=== PATIENT | male | born 1950 | race American Indian/Alaskan Native ===

== ENCOUNTER 2019-08-15 13:03 | Inpatient (IN) | payer MEDICARE ==
[2019-08-15] MEDS ORDERED: SODIUM CHLORIDE 0.9% 1000 ML IV SOLN IV STA (13:10)
[2019-08-15] MEDS ORDERED: MAGNESIUM SULFATE 2 GM/50 ML BAG IV ONE ×2 (13:10→13:14)
[2019-08-15] MEDS ORDERED: ALBUTEROL 2.5 MG/3 ML NEBU IH ONE (13:15)
[2019-08-15 14:02] LABS: Basophils % (Auto) 0.3 % (0.0-1.8); Hematocrit 41.2 % (35.5-45.6); Hemoglobin 13.5 gm/dl (11.8-15.2); Lymphocytes # (Auto) 2.4 K/mm3 (1.2-5.4); Lymphocytes % (Auto) 16.5 % (13.4-35.0); Mean Corpuscular HGB Conc 33 % (32-34); Mean Corpuscular Volume 88 fl (84-94); Monocytes # (Auto) 1.7 K/mm3 (0.0-0.8); Monocytes % (Auto) 11.3 % (0.0-7.3); Platelet Count 144 K/mm3 (140-440); Red Blood Count 4.66 M/mm3 (3.65-5.03); Red Cell Distribution Width 17.3 % (13.2-15.2)
[2019-08-15] MEDS: cefTRIAXone/NS 2 GM/100 ML 2 GM/100 ML BAG IV SCH (14:02)
[2019-08-15 14:22] LABS: Albumin 3.6 g/dL (3.9-5); Calcium 8.6 mg/dL (8.4-10.2)
--- NOTE | 2019-08-15 14:28 | XRay Report ---
CHEST 1 VIEW INDICATION / CLINICAL INFORMATION: cough and chest pain. COMPARISON: None available. FINDINGS: SUPPORT DEVICES: None. HEART / MEDIASTINUM: The claudette mediastinal silhouette is slightly prominent. LUNGS / PLEURA: Interstitial markings are prominent bilaterally. Either atelectasis or pleural effusi on is noted bilaterally. No pneumothorax. ADDITIONAL FINDINGS: No significant additional findings. IMPRESSION: 1. Mild interstitial pulmonary edema with possible small pleural effusions. Signer Name: Jaret Vega MD Signed: 08/15/2019 2:24 PM Workstation Name: [id number]
[2019-08-15] MEDS: AZITHROMYCIN 500 MG in SODIUM CHLORIDE 0.9% 250ML 250 ML IV SCH (15:22)
--- NOTE | 2019-08-15 15:40 | Emergency Department Report ---
<ASIA BOWENS - Last Filed: 08/15/19 15:36> ED Shortness of Breath HPI - General Chief Complaint: Dyspnea/Respdistress Stated Complaint: BETZY Time Seen by Provider: 08/15/19 13:09 Source: patient, family, EMS Mode of arrival: Stretcher Limitations: No Limitations - History of Present Illness Initial Comments: 68-year-old obese -[place] male presents emergency department with shortness of breath and fever. He was initially at the urgent care where he reportedly had a positive influenza a and chest x-ray showed bilateral pneumonia. Due to his progressively worsening dyspnea and diagnostic findings EMS was dispatched to bring him to the emergency department for further evaluation and treatment options. The family reports that he's been having shortness of breath and feverish sensations with a cough for the last 2 days reports no hemoptysis, hematemesis, hematochezia having dark green sputum. MD Complaint: shortness of breath, pain with inspiration -: Gradual Severity: mild Consistency: constant Worsens With: lying flat, exertion Context: recent URI Associated Symptoms: cough, sputum production - Related Data Allergies Allergy/AdvReac Type Severity Reaction Status Date / Time No Known Allergies Allergy Unverified 08/15/19 13:08 ED Review of Systems Comment: All other systems reviewed and negative ED Past Medical Hx - Past Medical History Previous Medical History?: Yes Hx Hypertension: Yes - Surgical History Past Surgical History?: No ED Physical Exam - General Limitations: No Limitations General appearance: alert, in no apparent distress - Head Head exam: Present: atraumatic, normocephalic - Eye Eye exam: Present: normal appearance, PERRL, EOMI Pupils: Present: normal accommodation - ENT ENT exam: Present: normal exam, normal orophraynx, mucous membranes moist, TM's normal bilaterally - Neck Neck exam: Present: normal inspection, full ROM - Respiratory Respiratory exam: Present: normal lung sounds bilaterally. Absent: respiratory distress, wheezes, rales, chest wall tenderness, accessory muscle use - Cardiovascular Cardiovascular Exam: Present: regular rate, normal rhythm. Absent: systolic murmur, diastolic murmur, rubs, gallop - GI/Abdominal GI/Abdominal exam: Present: soft, normal bowel sounds - Rectal Rectal exam: Present: deferred - Extremities Exam Extremities exam: Present: normal inspection, normal capillary refill - Back Exam Back exam: Present: normal inspection. Absent: CVA tenderness (R), CVA tenderness (L) - Neurological Exam Neurological exam: Present: alert, oriented X3, CN II-XII intact, normal gait - Psychiatric Psychiatric exam: Present: normal affect, normal mood. Absent: anxious, flat affect - Skin Skin exam: Present: warm, dry, intact, normal color. Absent: rash, cyanosis, diaphoretic, erythema ED Course - Reevaluation(s) Reevaluation #1: 08/15/19 16:01 Respirations improved with BiPAP patient is comfortable. Wheezing has improved with stabilization of magnesium and albuterol. - Consultations Consultation #1: 08/15/19 16:09 Case discussed with hospitalist Dr. Mejia plan to admit ED Medical Decision Making - Lab Data Result diagrams: 08/15/19 13:16 08/15/19 13:16 - Radiology Data Radiology results: report reviewed [address] [address] XRay Report Signed Patient: VINCE LOONEY III MR#: [id number] : 1950 Acct:[id number] Age/Sex: 68 / M ADM Date: 08/15/19 Loc: ED Attending Dr: Ordering Physician: REBECCA RONQUILLO Date of Service: 08/15/19 Procedure(s): XR chest 1V ap Accession Number(s): [id number] cc: REBECCA RONQUILLO Fluoro Time In Minutes: CHEST 1 VIEW INDICATION / CLINICAL INFORMATION: cough and chest pain. COMPARISON: None available. FINDINGS: SUPPORT DEVICES: None. HEART / MEDIASTINUM: The claudette mediastinal silhouette is slightly prominent. LUNGS / PLEURA: Interstitial markings are prominent bilaterally. Either atelectasis or pleural effusion is noted bilaterally. No pneumothorax. ADDITIONAL FINDINGS: No significant additional findings. IMPRESSION: 1. Mild interstitial pulmonary edema with possible small pleural effusions. Signer Name: Jaret Vega MD Signed: 08/15/2019 2:24 PM Workstation Name: [id number] Transcribed By: FIOR Dictated By: Jaret Vega MD Electronically Authenticated By: Jaret Vega MD Signed Date/Time: 08/15/19 1424 - Medical Decision Making This patient presents with dyspnea, most likely secondary to asthma, or pneumonia. Differential diagnosis includes viral syndrome, pneumonia, pleural effusion, COPD exacerbation, asthma,. Presentation not consistent with acute cardiac etiologies to include ACS, CHF, pericardial effusion / tamponade . Presentation not consistent with acute respiratory etiologies to include acute PE , pneumothorax , asthma, COPD exacerbation, allergic etiologies, or infectious etiologies such as PNA. Presentation also not consistent with non- cardiopulmonary causes to include toxidromes, metabolic etiologies such as acidemia or electrolyte derangements, sepsis, neurologic causes (i.e. demyelinating diseases). Plan: supplemental O2 and utilization of positive pressure ventilation on BiPAP, CXR, labs, troponin, close hemodynamic monitoring, serial reassessment After reviewing the x-ray report and laboratory findings case was discussed with the attending Dr. Rizvi supports the need for admission ED Disposition Disposition: -09 OP ADMIT IP TO THIS HOSP Is pt being admited?: Yes Does the pt Need Aspirin: No Condition: Fair Referrals: [facility] [Other] - 3-5 Days <MARZENA STINSON - Last Filed: 08/15/19 17:42> ED Review of Systems ROS: Stated complaint: BTEZY Other details as noted in HPI - Intubation Time Out Performed: Yes Sedative: Etomidate Paralytic: Rocuronium Laryngoscope: fiberoptic video scope Size: 3 ET Tube Size: 8 Tube Secured Depth (cm): 22 Tube Secured Location: lips Tube Placement Confirmation: visualized tube passing t Patient Tolerated Procedure: well Intubation Complications: none ED Medical Decision Making - Lab Data Result diagrams: 08/15/19 13:16 08/15/19 13:16 Critical care attestation.: If time is entered above; I have spent that time in minutes in the direct care of this critically ill patient, excluding procedure time.
--- NOTE | 2019-08-15 15:59 | History and Physical Report ---
History of Present Illness Chief complaint: He has not been doing well History of present illness: 68-year-old male with HTN, nicotine dependence, alcohol dependence, presents to ED for evaluation. At time of my exam patient is lethargic/stuporous on exam and is unable to provide history and is being actively treated with noninvasive positive pressure ventilation. Patient history is provided by son and daughter who are at but bedside during exam and interview. As per family the patient has experienced shortness of breath and progressive weakness over the past 3 days with worsening symptoms over the same timeframe. Patient presented to urgent care today and was diagnosed with influenza. Patient was seen and evaluated at urgent care and found to have a pulse oximetry of 58% on room air. Patient was placed on high flow supplemental oxygen and EMS was notified. Upon arrival the patient was found to be in distress and was transported to [facility] for further care and evaluation. Patient seen and evaluated in the emergency department. Patient lab and imaging studies reviewed. Patient was found to have respiratory and metabolic acidosis as well as acute respiratory failure with hypoxemia, bilateral pneumonia, sepsis, acute kidney injury. Patient is lying in bed, stuporous, unresponsive to verbal stimuli, diaphoretic, unable to follow commands, and in severe distress. Patient was intubated and placed on ventilatory support after failure of noninvasive positive pressure ventilation. Patient admitted to ICU and initiated on sepsis protocol. Pulmonology team consulted in ED. Patient found to have poor prognosis. Advanced care planning conducted in the emergency department. Patient family acknowledged understanding and agreement with care plan. No prior admission for review. No medication listed at time of admission for reconciliation. Past History Past Medical History: hypertension, other (See HPI) Past Surgical History: No surgical history, Other (Reviewed) Social history: , lives with family Family history: hypertension Medications and Allergies Allergies Allergy/AdvReac Type Severity Reaction Status Date / Time No Known Allergies Allergy Unverified 08/15/19 13:08 Active Meds: Active Medications Ceftriaxone Sodium (Rocephin/Ns 2 Gm/100 Ml) 2 gm in 100 mls @ 200 mls/hr IV Q2 4HR LEORA; Protocol Last Admin: 08/15/19 14:02 Dose: 200 mls/hr Documented by: Azithromycin 500 mg/ Sodium (Chloride) 250 mls @ 250 mls/hr IV Q24HR LEORA; Protocol Last Admin: 12/27/19 15:22 Dose: 250 mls/hr Documented by: Lorazepam (Ativan) 0.5 mg IV Q4H PRN PRN Reason: Anxiety Review of Systems ROS unobtainable: due to mental status Exam - Constitutional General appearance: Present: severe distress - EENT Eyes: Present: miosis - Neck Neck: Present: supple, normal ROM - Respiratory Respiratory effort: labored, accessory muscle use, stridor Respiratory: bilateral: diminished, rhonchi - Cardiovascular Rhythm: other Heart Sounds: Present: S1 & S2 (Tachycardia). Absent: rub, click - Extremities Extremities: pulses symmetrical, No edema Peripheral Pulses: abnormal (Capillary refill greater than 3.5 seconds.) - Abdominal General gastrointestinal: Present: soft, non-tender, non-distended, normal bowel sounds, other (Protuberant.) Male genitourinary: Present: normal - Integumentary Integumentary: Present: clear, dry, clammy, decreased turgor - Musculoskeletal Musculoskeletal: generalized weakness - Psychiatric Psychiatric: no appropriate mood/affect, no intact judgment & insight, no memory intact - Neurologic Neurologic: CNII-XII intact, no focal deficits, no gait normal Results - Labs CBC & Chem 7: 08/15/19 13:16 08/15/19 13:16 Labs: Abnormal lab results 08/15/19 08/15/19 Range/Units 13:16 13:16 WBC 14.7 H (4.5-11.0) K/mm3 RDW 17.3 H (13.2-15.2) % [place] % (Auto) 11.3 H (0.0-7.3) % [place] # 1.7 H (0.0-0.8) K/mm3 Seg Neutrophils % 71.9 H (40.0-70.0) % Seg Neutrophils # 10.6 H (1.8-7.7) K/mm3 BUN 28 H (9-20) mg/dL Creatinine 1.9 H (0.8-1.5) mg/dL Glucose 133 H (75-100) mg/dL Total Bilirubin 1.50 H (0.1-1.2) mg/dL AST 82 H (5-40) units/L Albumin 3.6 L (3.9-5) g/dL Assessment and Plan - Patient Problems (1) Sepsis Current Visit: Yes Status: Acute Qualifiers: Severe sepsis shock status: unspecified Plan to address problem: Sepsis protocol: IV antibiotic therapy, CBC, CMP, blood culture, monitor urine output every shift, serial lactic acid, IV fluid resuscitation therapy, chest x- ray, urinalysis, maintain M AP greater than or equal to 60. The high probability of a clinically significant, sudden or life threatening deterioration of the [neuro, cardiac, renal, respiratory] system(s) required my full and direct attention, intervention and personal management. The aggregate critical care time was [95] minutes. This time is in addition to time spent performing reported procedures but includes the following: [x] Data Review and interpretation [x] Patient assessment and monitoring of vital signs [x] Documentation [x] Medication orders and management (2) Acute on chronic respiratory failure with hypoxemia Current Visit: Yes Status: Acute Plan to address problem: Patient intubated placed on ventilatory support, wean vent as tolerated, daily ABG, sedation holiday, pulse oximetry, nebulizer therapy, pulmonary team co nsulted in ED (3) Influenza Current Visit: Yes Status: Acute Plan to address problem: Chest x-ray, Tamiflu, treat sepsis. (4) Bilateral pneumonia Current Visit: Yes Status: Acute Qualifiers: Lung location: lower lobe of lung Plan to address problem: IV antibiotic therapy, CBC, CMP, chest x-ray, pulse oximetry, nebulizer therapy, empiric therapy for aspiration pneumonia, (5) Nicotine dependence Current Visit: Yes Status: Acute Qualifiers: Nicotine product type: cigarettes Plan to address problem: Supportive care, smoking cessation counseling when alert and awake. (6) Encephalopathy Current Visit: Yes Status: Acute Plan to address problem: CT head, neurochecks, aspiration precautions, supportive care. (7) Advance care planning Current Visit: Yes Status: Acute Plan to address problem: Patient is a full code, disease education conducted in the emergency department, patient family acknowledges understanding and agreement with care plan, poor prognosis discussed, will admit patient to ICU and treated with aggressive therapy, (8) Acute renal failure Current Visit: Yes Status: Acute Qualifiers: Acute renal failure type: with acute tubular necrosis Qualified Code(s): N17.0 - Acute kidney failure with tubular necrosis Plan to address problem: IV fluid resuscitation therapy, repeat BMP, monitor urine output every shift, repeat BMP in a.m. (9) DVT prophylaxis Current Visit: Yes Status: Acute Plan to address problem: SCD to bilateral lower extremities while in bed, prophylactic heparin
[2019-08-15] MEDS ORDERED: ALBUTEROL 2.5 MG/3 ML NEBU IH PRN (16:00)
[2019-08-15] MEDS ORDERED: ONDANSETRON 4 MG/2 ML INJ IV PRN (16:00)
[2019-08-15] MEDS ORDERED: VANCOMYCIN 0 MG in SODIUM CHLORIDE 0.9% 500 ML 500 ML IV ONE (17:21)
[2019-08-15] MEDS ORDERED: ETOMIDATE 20 MG/10 ML INJ IV ONE (17:24)
[2019-08-15] MEDS ORDERED: ROCURONIUM 50 MG/5 ML INJ IV ONE (17:25)
[2019-08-15] MEDS ORDERED: MIDAZOLAM 5 MG/5 ML INJ MDV IV NR (17:28)
[2019-08-15] MEDS ORDERED: PROPOFOL 1,000 MG/100 ML BOTTLE IV ONE (17:32)
[2019-08-15] MEDS ORDERED: LIP THERAPY VASELINE TP PRN (17:33)
[2019-08-15] MEDS ORDERED: MINERAL OIL/PETROLATUM, WHITE OPHTH OINT 3.5 GM OU PRN (17:33)
[2019-08-15] MEDS: PROPOFOL 1,000 MG/100 ML BOTTLE IV SCH (17:40)
[2019-08-15] MEDS ORDERED: VANCOMYCIN PHARMACY TO DOSE IV SCH (18:00)
--- NOTE | 2019-08-15 18:34 | XRay Report ---
CHEST 1 VIEW INDICATION / CLINICAL INFORMATION: ETT placement. COMPARISON: 08/15/2019 at 1353 hours FINDINGS: SUPPORT DEVICES: The tip of the endotracheal tube is positioned 5 cm above the claudette. HEART / MEDIASTINUM: Heart size is stable, atherosclerotic changes are noted in the thoracic aorta. LUNGS / PLEURA: Bibasilar pleural-parenchymal opacities have not changed appreciably. No pneumothorax . ADDITIONAL FINDINGS: No significant additional findings. IMPRESSION: 1. Satisfactory ET tube position. 2. Persistent bilateral pleural-parenchymal opacities. Signer Name: Jaret Vega MD Signed: 08/15/2019 6:29 PM Workstation Name: [id number]
[2019-08-15] MEDS ORDERED: metroNIDAZOLE/NS 500 MG/100 ML 500 MG/100 ML BAG IV ONE (18:44)
[2019-08-15] MEDS: metroNIDAZOLE/NS 500 MG/100 ML 500 MG/100 ML BAG IV SCH (19:15)
[2019-08-15] MEDS ORDERED: VANCOMYCIN 2,000 MG in SODIUM CHLORIDE 0.9% 500 ML 500 ML IV ONE (20:00)
[2019-08-15] MEDS ORDERED: SODIUM CHLORIDE 0.9% 1000 ML IV SOLN IV ONE (20:48)
[2019-08-15] MEDS ORDERED: SODIUM CHLORIDE 0.9% 1000 ML 1,000 ML ONE (21:40)
[2019-08-15] MEDS ORDERED: THIAMINE 100 MG, FOLIC ACID 1 MG, MULTIPLE VITAMIN INJ, ADULT 10 ML in SODIUM CHLORIDE ... IV ONE (22:00)
[2019-08-15] MEDS ORDERED: OSELTAMIVIR 75 MG CAP PO SCH (22:00)
--- NOTE | 2019-08-15 23:12 | XRay Report ---
ABDOMEN SUPINE INDICATION / CLINICAL INFORMATION: tube verification. COMPARISON: None available. FINDINGS: Nasogastric tube is looped in the stomach, with the tip projected over the mid stomach. Signer Name: Eusebio Haro MD Signed: 08/15/2019 11:08 PM Workstation Name: [id number]
[2019-08-15] MEDS ORDERED: HEPARIN 5,000 UNIT/1 ML VIAL ONE (23:52)
[2019-08-16] MEDS: HEPARIN 5,000 UNIT/1 ML VIAL SUB-Q SCH ×3 (01:15→22:39)
[2019-08-16] MEDS ORDERED: metroNIDAZOLE/NS 500 MG/100 ML 0 MG/0 ML BAG IV ONE (01:22)
[2019-08-16] MEDS: metroNIDAZOLE/NS 500 MG/100 ML 500 MG/100 ML BAG IV SCH ×4 (01:55→22:21)
[2019-08-16 03:58] LABS: Basophils % (Auto) 0.1 % (0.0-1.8); Hematocrit 34.3 % (35.5-45.6); Hemoglobin 11.6 gm/dl (11.8-15.2); Lymphocytes % (Auto) 11.4 % (13.4-35.0); Mean Corpuscular HGB Conc 34 % (32-34); Mean Corpuscular Volume 87 fl (84-94); Monocytes # (Auto) 1.1 K/mm3 (0.0-0.8); Monocytes % (Auto) 11.6 % (0.0-7.3); Platelet Count 119 K/mm3 (140-440); Red Blood Count 3.95 M/mm3 (3.65-5.03); Red Cell Distribution Width 17.4 % (13.2-15.2)
[2019-08-16 04:17] LABS: Calcium 7.2 mg/dL (8.4-10.2)
[2019-08-16] MEDS ORDERED: MIDAZOLAM 5 MG/5 ML INJ MDV IV ONE (04:30)
[2019-08-16] MEDS ORDERED: ROCURONIUM 50 MG/5 ML INJ IV ONE (04:30)
[2019-08-16] MEDS ORDERED: ETOMIDATE 20 MG/10 ML INJ IV ONE (04:30)
[2019-08-16] MEDS ORDERED: metroNIDAZOLE/NS 500 MG/100 ML 500 MG/100 ML BAG IV ONE ×3 (06:34→22:14)
--- NOTE | 2019-08-16 06:38 | XRay Report ---
CHEST 1 VIEW INDICATION: follow up respiratory failure COMPARISON: One day prior. FINDINGS: Support devices: Unchanged. Heart: Stable. Lungs/Pleura: Bibasilar disease persists, most likely atelectasis. No new disease. IMPRESSION: 1. No significant change. Signer Name: Eusebio Haro MD Signed: 08/16/2019 6:34 AM Workstation Name: [email or web address]
--- NOTE | 2019-08-16 10:11 | Cat Scan Report ---
CT HEAD WITHOUT CONTRAST INDICATION: Confusion. TECHNIQUE: All CT scans at this location are performed using CT dose reduction for ALARA by means of automated e xposure control. COMPARISON: None available. FINDINGS: HEMORRHAGE: None. EXTRA-AXIAL SPACES: Normal in size and morphology for the patient's age. VENTRICULAR SYSTEM: Normal in size and morphology for the patient's age. BRAIN PARENCHYMA: No acute findings. MIDLINE SHIFT OR HERNIATION: None. ORBITS: Normal as visualized. SOFT TISSUES OF HEAD: Normal. CALVARIUM: Normal. VISUALIZED PARANASAL SINUSES AND MASTOID AIR CELLS: There is diffuse mucosal thickening in the ethmoi d air cells, sphenoid and maxillary sinuses. ADDITIONAL FINDINGS: None. IMPRESSION: 1. No acute intracranial abnormality. 2. Mild mucosal sinus disease. Signer Name: Catarino Lundy MD Signed: 08/16/2019 10:06 AM Workstation Name: [id number]
[2019-08-16] MEDS ORDERED: HEPARIN 5,000 UNIT/1 ML VIAL ONE ×2 (10:36→22:29)
[2019-08-16] MEDS: cefTRIAXone/NS 2 GM/100 ML 2 GM/100 ML BAG IV SCH (10:53)
[2019-08-16] MEDS: OSELTAMIVIR PHOSPHATE 30 MG/5 ML ORALSYR PO SCH ×2 (10:54→23:05)
--- NOTE | 2019-08-16 12:05 | Progress Note ---
Assessment and Plan Assessment and plan: Sepsis. Continue IV antibiotics. Follow-up blood cultures. Acute on chronic hypoxemic respiratory failure. Continue mechanical ventilation per pulmonary. Influenza. Continue Tamiflu. Bilateral pneumonia. As above. Continue IV antibiotics and follow-up cultures. Acute kidney injury. Etiology secondary to vasomotor nephropathy and ATN/sepsis. Continue IV fluid hydration and follow-up renal ultrasound. Nephrology consultation. Toxic metabolic encephalopathy. Continue to treat underlying causes. The high probability of a clinically significant, sudden or life threatening deterioration of the [respiratory] system(s) required my full and direct attention, intervention and personal management. The aggregate critical care time was [32] minutes. This time is in addition to time spent performing reported procedures but includes the following: [x] Data Review and interpretation [x] Patient assessment and monitoring of vital signs [x] Documentation [x] Medication orders and management History Interval history: No new issues overnight. Hospitalist Physical - Constitutional Vitals: Temp Pulse Resp BP Pulse Ox 99.1 F 64 24 129/76 97 08/16/19 00:30 08/16/19 11:30 08/16/19 11:30 08/16/19 11:30 08/16/19 11:30 General appearance: Present: no acute distress, other (Patient orally intubated on mechanical ventilation) - EENT Eyes: Present: PERRL, EOM intact ENT: hearing intact, clear oral mucosa, dentition normal - Neck Neck: Present: supple, normal ROM - Respiratory Respiratory effort: normal Respiratory: bilateral: diminished, rhonchi, wheezing - Cardiovascular Rhythm: regular Heart Sounds: Present: S1 & S2. Absent: gallop, rub - Extremities Extremities: no ischemia, No edema, Full ROM - Abdominal General gastrointestinal: soft, non-tender, non-distended, normal bowel sounds - Integumentary Integumentary: Present: clear, warm, dry - Neurologic Neurologic: CNII-XII intact, moves all extremities Results - Labs CBC & Chem 7: 08/16/19 03:41 08/16/19 03:41 Labs: Laboratory Last Values WBC 9.1 K/mm3 (4.5-11.0) 08/16/19 03:41 RBC 3.95 M/mm3 (3.65-5.03) 08/16/19 03:41 Hgb 11.6 gm/dl (11.8-15.2) L 08/16/19 03:41 Hct 34.3 % (35.5-45.6) L D 08/16/19 03:41 MCV 87 fl (84-94) 08/16/19 03:41 MCH 29 pg (28-32) 08/16/19 03:41 MCHC 34 % (32-34) 08/16/19 03:41 RDW 17.4 % (13.2-15.2) H 08/16/19 03:41 Plt Count 119 K/mm3 (140-440) L 08/16/19 03:41 Lymph % (Auto) 11.4 % (13.4-35.0) L 08/16/19 03:41 [place] % (Auto) 11.6 % (0.0-7.3) H 08/16/19 03:41 Eos % (Auto) 0.0 % (0.0-4.3) 08/16/19 03:41 Baso % (Auto) 0.1 % (0.0-1.8) 08/16/19 03:41 Lymph # 1.0 K/mm3 (1.2-5.4) L 08/16/19 03:41 [place] # 1.1 K/mm3 (0.0-0.8) H 08/16/19 03:41 Eos # 0.0 K/mm3 (0.0-0.4) 08/16/19 03:41 Baso # 0.0 K/mm3 (0.0-0.1) 08/16/19 03:41 Seg Neutrophils % 76.9 % (40.0-70.0) H 08/16/19 03:41 Seg Neutrophils # 7.0 K/mm3 (1.8-7.7) 08/16/19 03:41 POC ABG pH 7.355 (7.35-7.45) 08/16/19 11:19 POC ABG pCO2 48.7 (35-45) H 08/16/19 11:19 POC ABG pO2 130 (80-105) H 08/16/19 11:19 POC ABG HCO3 27.2 (22-26 mml/L) 08/16/19 11:19 POC ABG Total CO2 29 (23-27mmol/L) 08/16/19 11:19 POC ABG O2 Sat 99 08/16/19 11:19 POC ABG Base Excess 2 ((-2) - (+3)mmol/L) 08/16/19 11:19 FiO2 90 % 08/16/19 11:19 Sodium 141 mmol/L (137-145) 08/16/19 03:41 Potassium 4.4 mmol/L (3.6-5.0) 08/16/19 03:41 Chloride 107.1 mmol/L (98-107) H 08/16/19 03:41 Carbon Dioxide 22 mmol/L (22-30) 08/16/19 03:41 Anion Gap 16 mmol/L 08/16/19 03:41 BUN 34 mg/dL (9-20) H 08/16/19 03:41 Creatinine 2.4 mg/dL (0.8-1.5) H 08/16/19 03:41 Estimated GFR 33 ml/min 08/16/19 03:41 BUN/Creatinine Ratio 14 % 08/16/19 03:41 Glucose 138 mg/dL (75-100) H 08/16/19 03:41 Lactic Acid 1.10 mmol/L (0.7-2.0) 08/15/19 23:36 Calcium 7.2 mg/dL (8.4-10.2) L D 08/16/19 03:41 Total Bilirubin 1.50 mg/dL (0.1-1.2) H 08/15/19 13:16 AST 82 units/L (5-40) H 08/15/19 13:16 ALT 46 units/L (7-56) 08/15/19 13:16 Alkaline Phosphatase 90 units/L (35-129) 08/15/19 13:16 Troponin T 0.018 ng/mL (0.00-0.029) 08/15/19 13:16 Total Protein 7.9 g/dL (6.3-8.2) 08/15/19 13:16 Albumin 3.6 g/dL (3.9-5) L 08/15/19 13:16 Albumin/Globulin Ratio 0.8 % 08/15/19 13:16 Active Medications - Current Medications Current Medications: Generic Name Dose Route Start Last Admin Trade Name Catrachitoq PRN Reason Stop Dose Admin Acetaminophen 650 mg 08/15/19 16:00 Tylenol PO Q4H PRN Pain MILD(1-3)/Fever >100.5/HARDY Albuterol 2.5 mg 08/15/19 16:00 Proventil IH Q4HRT PRN Shortness Of Breath Heparin Sodium (Porcine) 5,000 unit 08/15/19 22:00 08/16/19 10:55 Heparin SUB-Q 5,000 unit Q12HR LEORA Administration Hydrophilic Ointment 1 applic 08/15/19 17:33 Vaseline Lip Therapy TP Q2HR PRN Dry Lips Ceftriaxone Sodium 2 gm in 100 mls @ 200 mls/hr 08/15/19 14:00 08/16/19 10:53 Rocephin/Ns 2 Gm/100 Ml IV 200 mls/hr Q24HR LEORA Administration Protocol Azithromycin 500 mg/ Sodium 250 mls @ 250 mls/hr 08/15/19 14:00 08/15/19 15:22 Chloride IV 250 mls/hr Q24HR LEORA Administration Protocol Metronidazole 500 mg in 100 mls @ 100 mls/hr 08/15/19 17:30 08/16/19 06:40 Flagyl 500 Mg/100 Ml IV 100 mls/hr Q8HR LEORA Administration Protocol Propofol 1,000 mg in 100 mls @ 3.402 mls/hr 08/15/19 18:00 08/15/19 17:40 Diprivan 10 Mg/Ml IV 5 mcg/kg/min TITR LEORA 3.402 mls/hr Administration Protocol 5 MCG/KG/MIN Lorazepam 0.5 mg 08/15/19 13:10 Ativan IV Q4H PRN Anxiety Lorazepam 2 mg 08/15/19 21:27 Ativan IV Q1HR PRN CIWA-Ar 8-15 Multi-Ingred Cream/Lotion/Oil/Oint 1 applic 08/15/19 17:33 Artificial Tears Ophth Oint OU Q4HR PRN Dry Eye(s) Ondansetron HCl 4 mg 08/15/19 16:00 Zofran IV Q8H PRN Nausea And Vomiting Oseltamivir Phosphate 30 mg 08/16/19 10:00 08/16/19 10:54 Tamiflu PO 08/20/19 10:01 30 mg BID LEORA Administration Sodium Chloride 10 ml 08/15/19 22:00 08/16/19 10:54 Sodium Chloride Flush Syringe 10 Ml IV 10 ml BID LEORA Administration Sodium Chloride 10 ml 08/15/19 16:00 Sodium Chloride Flush Syringe 10 Ml IV PRN PRN LINE FLUSH
[2019-08-16] MEDS: AZITHROMYCIN 500 MG in SODIUM CHLORIDE 0.9% 250ML 250 ML IV SCH (12:23)
[2019-08-16] MEDS ORDERED: SODIUM CHLORIDE 0.9% 1000 ML 1,000 ML ONE ×2 (14:07→22:18)
[2019-08-16] MEDS: SODIUM CHLORIDE 0.9% 1000 ML 1,000 ML IV SCH (14:53)
[2019-08-16 15:20] LABS: Bilirubin,Urine NEG (Negative); Blood,Urine MOD (Negative); Color,Urine Amber (Yellow)
--- NOTE | 2019-08-16 15:57 | Consultation ---
History of Present Illness Consult date: 08/16/19 Requesting physician: GABRIELLE ORTIZ History of present illness: 68-year-old male with HTN, nicotine dependence, alcohol dependence, presents to ED for evaluation. At time of my exam patient is lethargic/stuporous on exam and is unable to provide history and is being actively treated with noninvasive positive pressure ventilation. Patient history is provided by son and daughter who are at but bedside during exam and interview. As per family the patient has experienced shortness of breath and progressive weakness over the past 3 days with worsening symptoms over the same timeframe. Patient presented to urgent care today and was diagnosed with influenza. Patient was seen and evaluated at urgent care and found to have a pulse oximetry of 58% on room air. Patient was placed on high flow supplemental oxygen and EMS was notified. Upon arrival the patient was found to be in distress and was transported to [facility] for further care and evaluation. Patient seen and evaluated in the emergency department. Patient lab and imaging studies reviewed. Patient was found to have respiratory and metabolic acidosis as well as acute respiratory failure with hypoxemia, bilateral pneumonia, sepsis, acute kidney injury. Patient is lying in bed, stuporous, unresponsive to verbal stimuli, diaphoretic, unable to follow commands, and in severe distress. Patient was intubated and placed on ventilatory support after failure of noninvasive positive pressure ventilation. Patient admitted to ICU and initiated on sepsis protocol. I have been consulted fro critical care. Patient was seen and examined in the ER. He is orally intubated on propofol. His daughter and son are a the bedside. Past History Past Medical History: hypertension, pulmonary embolism (in the setting of MVS ), other (See HPI) Past Surgical History: No surgical history, Other (Reviewed) Social history: , lives with family, smoking (daily per children) Family history: hypertension Medications and Allergies Allergies Allergy/AdvReac Type Severity Reaction Status Date / Time No Known Allergies Allergy Unverified 08/15/19 13:08 Home Medications Medication Instructions Recorded Confirmed Last Taken Type Rosuvastatin Calcium 20 mg PO QDAY 08/16/19 08/16/19 08/14/19 History Terazosin HCl 2 mg PO QDAY 08/16/19 08/16/19 08/14/19 History Trandolapril/Verapamil HCl [Tarka 4 mg PO QDAY 08/16/19 08/16/19 08/14/19 History ER 4-240 mg] Triamter/Hctz 37.5-25 mg 1 tab PO QDAY 08/16/19 08/16/19 08/14/19 History [Maxzide-25] Verapamil ER [Calan Sr] 180 mg PO BID 08/16/19 08/16/19 08/14/19 History amLODIPine [Norvasc] 10 mg PO DAILY 08/16/19 08/16/19 08/14/19 History Active Meds: Active Medications Acetaminophen (Tylenol) 650 mg PO Q4H PRN PRN Reason: Pain MILD(1-3)/Fever >100.5/HARDY Albuterol (Proventil) 2.5 mg IH Q4HRT PRN PRN Reason: Shortness Of Breath Heparin Sodium (Porcine) (Heparin) 5,000 unit SUB-Q Q12HR [facility] Last Admin: 08/16/19 10:55 Dose: 5,000 unit Documented by: Hydrophilic Ointment (Vaseline Lip Therapy) 1 applic TP Q2HR PRN PRN Reason: Dry Lips Ceftriaxone Sodium (Rocephin/Ns 2 Gm/100 Ml) 2 gm in 100 mls @ 200 mls/hr IV Q24HR [facility]; Protocol Last Admin: 08/16/19 10:53 Dose: 200 mls/hr Documented by: Azithromycin 500 mg/ Sodium (Chloride) 250 mls @ 250 mls/hr IV Q24HR [facility]; Protocol Last Admin: 08/16/19 12:23 Dose: 250 mls/hr Documented by: Metronidazole (Flagyl 500 Mg/100 Ml) 500 mg in 100 mls @ 100 mls/hr IV Q8HR [facility]; Protocol Last Admin: 08/16/19 14:53 Dose: 100 mls/hr Documented by: Propofol (Diprivan 10 Mg/Ml) 1,000 mg in 100 mls @ 3.402 mls/hr IV TITR [facility]; Protocol Last Admin: 08/15/19 17:40 Dose: 5 mcg/kg/min, 3.402 mls/hr Documented by: Sodium Chloride (Nacl 0.9% 1000 Ml) 1,000 mls @ 125 mls/hr IV DIRECT [facility] Last Admin: 08/16/19 14:53 Dose: 125 mls/hr Documented by: Lorazepam (Ativan) 0.5 mg IV Q4H PRN PRN Reason: Anxiety Lorazepam (Ativan) 2 mg IV Q1HR PRN PRN Reason: CIWA-Ar 8-15 Multi-Ingred Cream/Lotion/Oil/Oint (Artificial Tears Ophth Oint) 1 applic OU Q4HR PRN PRN Reason: Dry Eye(s) Ondansetron HCl (Zofran) 4 mg IV Q8H PRN PRN Reason: Nausea And Vomiting Oseltamivir Phosphate (Tamiflu) 30 mg PO BID [facility] Stop: 08/20/19 10:01 Last Admin: 08/16/19 10:54 Dose: 30 mg Documented by: Sodium Chloride (Sodium Chloride Flush Syringe 10 Ml) 10 ml IV BID [facility] Last Admin: 08/16/19 10:54 Dose: 10 ml Documented by: Sodium Chloride (Sodium Chloride Flush Syringe 10 Ml) 10 ml IV PRN PRN PRN Reason: LINE FLUSH Review of Systems ROS unobtainable: due to endotracheal tube Physical Examination Vital signs: Vital Signs Pulse Resp Pulse Ox 112 H 30 H 98 08/15/19 13:22 08/15/19 13:22 08/15/19 13:22 Reviewed General appearance: alert, appears uncomfortable, other (ETT in psotion at 23cm) Eyes: non-icteric ENT: oropharynx moist Neck: supple, no lymphadenopathy, no JVD Effort: mildly labored Ascultation: Bilateral: diminished breath sounds, rhonchi Cardiovascular: regular rate and rhythm, other (S1,S2) Gastrointestinal: normoactive bowel sounds, soft, non-tender, other (distended) Integumentary: normal Extremities: no cyanosis, no edema, pink and warm, pulses normal Musculoskeletal: no deformities non-focal exam, pupils equal and round mood appropriate Results - Laboratory Findings CBC and BMP: 08/16/19 03:41 08/16/19 03:41 ABG POC ABG pH 7.355 (7.35-7.45) 08/16/19 11:19 POC ABG pCO2 48.7 (35-45) H 08/16/19 11:19 POC ABG pO2 130 (80-105) H 08/16/19 11:19 POC ABG HCO3 27.2 (22-26 mml/L) 08/16/19 11:19 POC ABG Total CO2 29 (23-27mmol/L) 08/16/19 11:19 POC ABG O2 Sat 99 08/16/19 11:19 Abnormal lab findings: Abnormal Labs 08/15/19 08/15/19 08/15/19 13:16 13:16 17:16 WBC 14.7 H Hgb Hct RDW 17.3 H Plt Count Lymph % (Auto) [place] % (Auto) 11.3 H Lymph # [place] # 1.7 H Seg Neutrophils % 71.9 H Seg Neutrophils # 10.6 H POC ABG pH 7.182 L POC ABG pCO2 POC ABG pO2 Chloride BUN 28 H Creatinine 1.9 H Glucose 133 H Calcium Total Bilirubin 1.50 H AST 82 H Albumin 3.6 L Urine WBC (Auto) 08/15/19 08/16/19 08/16/19 18:17 03:41 03:41 WBC Hgb 11.6 L Hct 34.3 L D RDW 17.4 H Plt Count 119 L Lymph % (Auto) 11.4 L [place] % (Auto) 11.6 H Lymph # 1.0 L [place] # 1.1 H Seg Neutrophils % 76.9 H Seg Neutrophils # POC ABG pH 7.280 L POC ABG pCO2 64.7 H POC ABG pO2 64 L Chloride 107.1 H BUN 34 H Creatinine 2.4 H Glucose 138 H Calcium 7.2 L D Total Bilirubin AST Albumin Urine WBC (Auto) 08/16/19 08/16/19 08/16/19 06:27 11:19 14:40 WBC Hgb Hct RDW Plt Count Lymph % (Auto) [place] % (Auto) Lymph # [place] # Seg Neutrophils % Seg Neutrophils # POC ABG pH 7.336 L POC ABG pCO2 47.9 H 48.7 H POC ABG pO2 69 L 130 H Chloride BUN Creatinine Glucose Calcium Total Bilirubin AST Albumin Urine WBC (Auto) 8.0 H - Diagnostic Findings Chest x-ray: image reviewed (ETT in postion, bilateral lower lobe infiltrates) Assessment and Plan Sepsis Acute respiratory failure with hypoxemia and hypercapnia on MVS Influenza Bilateral pneumonia Acute renal failure Tobacco use disorder/Nicotine dependence Thrombocytopenia - continue to wean supplemental oxygen for target O2 sat's > 90% , currently on FIO2 of 70% - Daily SAT and SBT assessment for readiness for weaning per protocol - VAP bundle addressed - Lung protective strategies - Bronchodilators with pulmonary hygiene per RT - Accuchecks with glycemic control per SSI (While critically ill target blood glucose of 140-180 mg/dL; avoid hypoglycemia) - Sedation for target RASS 0 to -1 - Avoid benzodiazepines to reduce the possibility of delirium - Empiric antibiotics for CAP, currently on antiviral agents - prn analgesia per CPOT score - Maintenance of sleep-wake cycle, avoid delirium - Enteral nutritional support -start tomorrow -Follow up tracheal cultures -Aspiration precautions, HOB >40 -RD consult - G.I. & VTE prophylaxis, while on heparin monitor for bleeding and trend platelets - PT/OT/ROM exercises - Mobility protocol and off loading for pressure ulcer prevention -If no urine output will need Robles catheter. Has not made any urine in the last 24 hours- has a condom catheter -Renally dose all medications, avoid nephrotoxins -Nicotine withdrawal precautions CONDITION: CRITICAL PROGNOSIS: GUARDED CODE STATUS: FULL CODE Patient is a full code, disease education conducted in the emergency department, patient family acknowledges understanding and agreement with care plan, poor prognosis discussed, will admit patient to ICU and treated with aggressive therapy, The high probability of a clinically significant, sudden or life-threatening deterioration of the respiratory, renal system(s) required my full and direct attention, intervention and personal management. The aggregate critical care time was [75] minutes without overlap. Time includes spent on; [x] Data Review and interpretation [x] Patient assessment and monitoring of vital signs [x] Documentation [x] Medication orders and management
--- NOTE | 2019-08-16 16:21 | Consultation ---
History of Present Illness - History of Present Illness 68-year-old medical history significant for hypertension admitted with compla ints of cough. No Will fevers chills concern for influenza he was intubated for acute respiratory failure family at bedside all medications include triamterene HCTZ trandolapril Denies any acid nausea vomiting diarrhea denies any lower extremity edema has had some orthopnea shortness of breath denies any headaches Past History Past Medical History: hypertension, other (See HPI) Past Surgical History: No surgical history, Other (Reviewed) Social history: , lives with family Family history: hypertension Medications and Allergies Allergies Allergy/AdvReac Type Severity Reaction Status Date / Time No Known Allergies Allergy Unverified 08/15/19 13:08 Active Meds: Active Medications Acetaminophen (Tylenol) 650 mg PO Q4H PRN PRN Reason: Pain MILD(1-3)/Fever >100.5/HARDY Albuterol (Proventil) 2.5 mg IH Q4HRT PRN PRN Reason: Shortness Of Breath Heparin Sodium (Porcine) (Heparin) 5,000 unit SUB-Q Q12HR [facility] Last Admin: 08/16/19 10:55 Dose: 5,000 unit Documented by: Hydrophilic Ointment (Vaseline Lip Therapy) 1 applic TP Q2HR PRN PRN Reason: Dry Lips Ceftriaxone Sodium (Rocephin/Ns 2 Gm/100 Ml) 2 gm in 100 mls @ 200 mls/hr IV Q24HR [facility]; Protocol Last Admin: 08/16/19 10:53 Dose: 200 mls/hr Documented by: Azithromycin 500 mg/ Sodium (Chloride) 250 mls @ 250 mls/hr IV Q24HR [facility]; Protocol Last Admin: 08/16/19 12:23 Dose: 250 mls/hr Documented by: Metronidazole (Flagyl 500 Mg/100 Ml) 500 mg in 100 mls @ 100 mls/hr IV Q8HR [facility]; Protocol Last Admin: 08/16/19 14:53 Dose: 100 mls/hr Documented by: Propofol (Diprivan 10 Mg/Ml) 1,000 mg in 100 mls @ 3.402 mls/hr IV TITR [facility]; Protocol Last Admin: 08/15/19 17:40 Dose: 5 mcg/kg/min, 3.402 mls/hr Documented by: Sodium Chloride (Nacl 0.9% 1000 Ml) 1,000 mls @ 125 mls/hr IV DIRECT [facility] Last Admin: 08/16/19 14:53 Dose: 125 mls/hr Documented by: Lorazepam (Ativan) 0.5 mg IV Q4H PRN PRN Reason: Anxiety Lorazepam (Ativan) 2 mg IV Q1HR PRN PRN Reason: CIWA-Ar 8-15 Multi-Ingred Cream/Lotion/Oil/Oint (Artificial Tears Ophth Oint) 1 applic OU Q4HR PRN PRN Reason: Dry Eye(s) Ondansetron HCl (Zofran) 4 mg IV Q8H PRN PRN Reason: Nausea And Vomiting Oseltamivir Phosphate (Tamiflu) 30 mg PO BID [facility] Stop: 08/20/19 10:01 Last Admin: 08/16/19 10:54 Dose: 30 mg Documented by: Sodium Chloride (Sodium Chloride Flush Syringe 10 Ml) 10 ml IV BID [facility] Last Admin: 08/16/19 10:54 Dose: 10 ml Documented by: Sodium Chloride (Sodium Chloride Flush Syringe 10 Ml) 10 ml IV PRN PRN PRN Reason: LINE FLUSH Review of Systems Constitutional: fever, chills, no weight loss, no weight gain Ears, nose, mouth and throat: no deferred, no ear pain, no ear discharge Cardiovascular: no chest pain, no orthopnea, no palpitations Respiratory: no cough, no cough with sputum, no excessive sputum Gastrointestinal: no abdominal pain, no nausea, no vomiting Genitourinary Male: no dysuria, no hematuria, no flank pain Rectal: no pain Musculoskeletal: no neck stiffness, no neck pain Neurological: no head injury, no transient paralysis Psychiatric: no anxiety, no memory loss Endocrine: no cold intolerance, no heat intolerance Hematologic/Lymphatic: no easy bruising, no easy bleeding Exam - Vital Signs Vital signs: Vital Signs Pulse Resp Pulse Ox 112 H 30 H 98 08/15/19 13:22 08/15/19 13:22 08/15/19 13:22 - General Appearance General appearance: well-developed EENT: ATNC, PERRL Neck: Present: neck supple Respiratory: Clear to Ascultation Heart: regular, S1S2 Gastrointestinal: Present: normal, normoactive bowel sounds Integumentary: no rash Neurologic: alert and oriented x3, CN 3-12 intact Psychiatric: mood/affect appropriate Results - Lab Results 08/16/19 03:41 08/16/19 03:41 Most recent lab results Calcium 7.2 mg/dL (8.4-10.2) L D 08/16/19 03:41 Assessment and Plan - Patient Problems (1) Acute renal failure Current Visit: Yes Status: Acute Qualifiers: Acute renal failure type: with acute tubular necrosis Qualified Code(s): N17.0 - Acute kidney failure with tubular necrosis Plan to address problem: Acute renal failure Baseline creatinine unknown Renal function creatinine worsening 1.9 -2.4 mg/DL urinalysis reviewed We'll add gentle hydration Hold diuretic and JAMEY inhibitor Recheck renal function panel (2) Influenza Current Visit: Yes Status: Acute Plan to address problem: Influenza currently under droplet precautions Continue medications (3) Acute on chronic respiratory failure with hypoxemia Current Visit: Yes Status: Acute Plan to address problem: Acute on chronic respiratory failure Concern for influenza Patient remains intubated (4) Acidosis Current Visit: Yes Status: Acute Plan to address problem: Acidosis: Continue to monitor
[2019-08-16] MEDS ORDERED: VANCOMYCIN 1,750 MG in SODIUM CHLORIDE 0.9% 500 ML 500 ML IV SCH (17:00)
[2019-08-16] MEDS ORDERED: PROPOFOL 1,000 MG/100 ML BOTTLE IV ONE (19:58)
[2019-08-17] MEDS: PROPOFOL 1,000 MG/100 ML BOTTLE IV SCH ×4 (02:20→23:21)
[2019-08-17] MEDS ORDERED: PROPOFOL 1,000 MG/100 ML BOTTLE IV ONE ×7 (04:18→23:20)
[2019-08-17 05:49] LABS: Basophils % (Auto) 0.1 % (0.0-1.8); Eosinophils % (Auto) 0.1 % (0.0-4.3); Hematocrit 34.3 % (35.5-45.6); Hemoglobin 11.5 gm/dl (11.8-15.2); Lymphocytes # (Auto) 1.4 K/mm3 (1.2-5.4); Lymphocytes % (Auto) 15.6 % (13.4-35.0); Mean Corpuscular HGB Conc 33 % (32-34); Mean Corpuscular Volume 87 fl (84-94); Monocytes # (Auto) 1.3 K/mm3 (0.0-0.8); Monocytes % (Auto) 13.5 % (0.0-7.3); Platelet Count 143 K/mm3 (140-440); Red Blood Count 3.94 M/mm3 (3.65-5.03); Red Cell Distribution Width 17.3 % (13.2-15.2)
[2019-08-17 06:12] LABS: Calcium 7.7 mg/dL (8.4-10.2)
[2019-08-17] MEDS ORDERED: SODIUM CHLORIDE 0.9% 1000 ML 1,000 ML ONE (06:50)
[2019-08-17 07:01] LABS: ABG HCO3 24.5 mmol/L (20.0-26.0); ABG Methemoglobin 0.5 % (0.0-1.5); ABG Oxygen Saturation 98.1 % (95.0-99.0); ABG PCO2 43.9 mm Hg; ABG PH 7.365 pH Units (7.350-7.450); ABG PO2 116.6 mm Hg (80.0-90.0)
--- NOTE | 2019-08-17 07:18 | XRay Report ---
CHEST 1 VIEW INDICATION: follow up respiratory failure COMPARISON: One day prior. FINDINGS: Support devices: Unchanged. Heart: Stable. Lungs/Pleura: Inspiration is more optimal on today's exam, and the right lung is essentially clear. P ersistent left basilar disease, atelectasis versus consolidation. IMPRESSION: 1. Left basilar disease, atelectasis versus consolidation. Signer Name: Eusebio Haro MD Signed: 08/17/2019 7:14 AM Workstation Name: [id number]
[2019-08-17] MEDS ORDERED: metroNIDAZOLE/NS 500 MG/100 ML 500 MG/100 ML BAG IV ONE ×2 (08:05→17:21)
[2019-08-17] MEDS: metroNIDAZOLE/NS 500 MG/100 ML 500 MG/100 ML BAG IV SCH ×2 (08:10→15:20)
--- NOTE | 2019-08-17 08:33 | Ultrasound Report ---
ULTRASOUND RENAL INDICATION: arf COMPARISON: No relevant prior imaging study available. FINDINGS: RIGHT KIDNEY: Size: 12.6 cm. Echogenicity: Increased. Cortical thickness: Normal. Stones: None. Hydronephrosis: None. Cyst or mass: None. LEFT KIDNEY: Size: 13.9 cm. Echogenicity: Normal. Cortical thickness: Normal. Stones: None. Hydronephrosis: None. Cyst or mass: 16 mm mid pole simple cyst is seen.. Urinary Bladder: No significant abnormality. Free Fluid: None. Additional Findings: None. IMPRESSION: No acute sonographic abnormality of the kidneys Signer Name: Dionte Ferraro MD Signed: 08/17/2019 8:28 AM Workstation Name: [id number]
--- NOTE | 2019-08-17 08:57 | Progress Note ---
Assessment and Plan Assessment and plan: Sepsis. Continue IV antibiotics. Follow-up blood cultures. Acute on chronic hypoxemic respiratory failure. Continue mechanical ventilation per pulmonary. Influenza. Continue Tamiflu. Bilateral pneumonia. As above. Continue IV antibiotics and follow-up cultures. Acute kidney injury. Etiology secondary to vasomotor nephropathy and ATN/sepsis. Continue IV fluid hydration. Renal ultrasound within normal limits. Nephrology following. Toxic metabolic encephalopathy. Continue to treat underlying causes. The high probability of a clinically significant, sudden or life threatening deterioration of the [respiratory and renal] system(s) required my full and direct attention, intervention and personal management. The aggregate critical care time was [31] minutes. This time is in addition to time spent performing reported procedures but includes the following: [x] Data Review and interpretation [x] Patient assessment and monitoring of vital signs [x] Documentation [x] Medication orders and management History Interval history: No new issues overnight. Hospitalist Physical - Constitutional Vitals: Temp Pulse Resp BP Pulse Ox 99.1 F 55 L 16 146/81 99 08/16/19 00:30 08/17/19 08:08 08/17/19 05:20 08/17/19 08:08 08/17/19 08:08 General appearance: Present: no acute distress, other (Patient orally intubated on mechanical ventilation) - EENT Eyes: Present: PERRL, EOM intact ENT: hearing intact, clear oral mucosa, dentition normal - Neck Neck: Present: supple, normal ROM - Respiratory Respiratory effort: normal Respiratory: bilateral: CTA - Cardiovascular Rhythm: regular Heart Sounds: Present: S1 & S2. Absent: gallop, rub - Extremities Extremities: no ischemia, No edema, Full ROM - Abdominal General gastrointestinal: soft, non-tender, non-distended, normal bowel sounds - Integumentary Integumentary: Present: clear, warm, dry - Neurologic Neurologic: CNII-XII intact, moves all extremities Results - Labs CBC & Chem 7: 08/17/19 05:31 08/17/19 05:31 Labs: Laboratory Last Values WBC 9.3 K/mm3 (4.5-11.0) 08/17/19 05:31 RBC 3.94 M/mm3 (3.65-5.03) 08/17/19 05:31 Hgb 11.5 gm/dl (11.8-15.2) L 08/17/19 05:31 Hct 34.3 % (35.5-45.6) L 08/17/19 05:31 MCV 87 fl (84-94) 08/17/19 05:31 MCH 29 pg (28-32) 08/17/19 05:31 MCHC 33 % (32-34) 08/17/19 05:31 RDW 17.3 % (13.2-15.2) H 08/17/19 05:31 Plt Count 143 K/mm3 (140-440) 08/17/19 05:31 Lymph % (Auto) 15.6 % (13.4-35.0) 08/17/19 05:31 [place] % (Auto) 13.5 % (0.0-7.3) H 08/17/19 05:31 Eos % (Auto) 0.1 % (0.0-4.3) 08/17/19 05:31 Baso % (Auto) 0.1 % (0.0-1.8) 08/17/19 05:31 Lymph # 1.4 K/mm3 (1.2-5.4) 08/17/19 05:31 [place] # 1.3 K/mm3 (0.0-0.8) H 08/17/19 05:31 Eos # 0.0 K/mm3 (0.0-0.4) 08/17/19 05:31 Baso # 0.0 K/mm3 (0.0-0.1) 08/17/19 05:31 Seg Neutrophils % 70.7 % (40.0-70.0) H 08/17/19 05:31 Seg Neutrophils # 6.6 K/mm3 (1.8-7.7) 08/17/19 05:31 POC ABG pH 7.355 (7.35-7.45) 08/16/19 11: ABG pH 7.365 pH Units (7.350-7.450) 08/17/19 06:30 POC ABG pCO2 48.7 (35-45) H 08/16/19 11:19 ABG pCO2 43.9 mm Hg 08/17/19 06:30 POC ABG pO2 130 (80-105) H 08/16/19 11:19 ABG pO2 116.6 mm Hg (80.0-90.0) H 08/17/19 06:30 POC ABG HCO3 27.2 (22-26 mml/L) 08/16/19 11:19 ABG HCO3 24.5 mmol/L (20.0-26.0) 08/17/19 06:30 POC ABG Total CO2 29 (23-27mmol/L) 08/16/19 11:19 POC ABG O2 Sat 99 08/16/19 11:19 ABG O2 Saturation 98.1 % (95.0-99.0) 08/17/19 06:30 ABG O2 Content 19.1 (0.0-44) 08/17/19 06:30 POC ABG Base Excess 2 ((-2) - (+3)mmol/L) 08/16/19 11:19 ABG Base Excess -1.0 mmol/L (-2.0-3.0) 08/17/19 06:30 ABG Hemoglobin 13.9 gm/dl (14.0-18.0) L 08/17/19 06:30 ABG Carboxyhemoglobin 1.0 % (0.0-5.0) 08/17/19 06:30 ABG Methemoglobin 0.5 % (0.0-1.5) 08/17/19 06:30 Oxyhemoglobin 96.5 % (95.0-99.0) 08/17/19 06:30 FiO2 70 % 08/17/19 06:30 Sodium 146 mmol/L (137-145) H 08/17/19 05:31 Potassium 4.2 mmol/L (3.6-5.0) 08/17/19 05:31 Chloride 112.1 mmol/L (98-107) H 08/17/19 05:31 Carbon Dioxide 22 mmol/L (22-30) 08/17/19 05:31 Anion Gap 16 mmol/L 08/17/19 05:31 BUN 47 mg/dL (9-20) H 08/17/19 05:31 Creatinine 3.2 mg/dL (0.8-1.5) H 08/17/19 05:31 Estimated GFR 24 ml/min 08/17/19 05:31 BUN/Creatinine Ratio 15 % 08/17/19 05:31 Glucose 96 mg/dL (75-100) 08/17/19 05:31 Lactic Acid 1.10 mmol/L (0.7-2.0) 08/15/19 23:36 Calcium 7.7 mg/dL (8.4-10.2) L 08/17/19 05:31 Total Bilirubin 1.50 mg/dL (0.1-1.2) H 08/15/19 13:16 AST 82 units/L (5-40) H 08/15/19 13:16 ALT 46 units/L (7-56) 08/15/19 13:16 Alkaline Phosphatase 90 units/L (35-129) 08/15/19 13:16 Troponin T 0.018 ng/mL (0.00-0.029) 08/15/19 13:16 Total Protein 7.9 g/dL (6.3-8.2) 08/15/19 13:16 Albumin 3.6 g/dL (3.9-5) L 08/15/19 13:16 Albumin/Globulin Ratio 0.8 % 08/15/19 13:16 Urine Color [place] (Yellow) 08/16/19 14:40 Urine Turbidity Cloudy (Clear) 08/16/19 14:40 Urine pH 5.0 (5.0-7.0) 08/16/19 14:40 Ur Specific [place] 1.015 (1.003-1.030) 08/16/19 14:40 Urine Protein 100 mg/dl mg/dL (Negative) 08/16/19 14:40 Urine Glucose (UA) Neg mg/dL (Negative) 08/16/19 14:40 Urine Ketones Neg mg/dL (Negative) 08/16/19 14:40 Urine Blood Mod (Negative) 08/16/19 14:40 Urine Nitrite Neg (Negative) 08/16/19 14:40 Urine Bilirubin Neg (Negative) 08/16/19 14:40 Urine Urobilinogen 4.0 mg/dL (<2.0) 08/16/19 14:40 Ur Leukocyte Esterase Tr (Negative) 08/16/19 14:40 Urine WBC (Auto) 8.0 /HPF (0.0-6.0) H 08/16/19 14:40 Urine RBC (Auto) 1.0 /HPF (0.0-6.0) 08/16/19 14:40 U Epithel Cells (Auto) < 1.0 /HPF (0-13.0) 08/16/19 14:40 Random Vancomycin 7.9 ug/mL (0-40.0) 08/17/19 05:31 Active Medications - Current Medications Current Medications: Generic Name Dose Route Start Last Admin Trade Name Freq PRN Reason Stop Dose Admin Acetaminophen 650 mg 08/15/19 16:00 Tylenol PO Q4H PRN Pain MILD(1-3)/Fever >100.5/HARDY Albuterol 2.5 mg 08/15/19 16:00 Proventil IH Q4HRT PRN Shortness Of Breath Heparin Sodium (Porcine) 5,000 unit 08/15/19 22:00 08/16/19 22:39 Heparin SUB-Q 5,000 unit Q12HR [facility] Administration Hydrophilic Ointment 1 applic 08/15/19 17:33 Vaseline Lip Therapy TP Q2HR PRN Dry Lips Ceftriaxone Sodium 2 gm in 100 mls @ 200 mls/hr 08/15/19 14:00 08/16/19 10:53 Rocephin/Ns 2 Gm/100 Ml IV 200 mls/hr Q24HR [facility] Administration Protocol Azithromycin 500 mg/ Sodium 250 mls @ 250 mls/hr 08/15/19 14:00 08/16/19 12:23 Chloride IV 08/19/19 10:59 250 mls/hr Q24HR [facility] Administration Protocol Metronidazole 500 mg in 100 mls @ 100 mls/hr 08/15/19 17:30 08/17/19 08:10 Flagyl 500 Mg/100 Ml IV 100 mls/hr Q8HR [facility] Administration Protocol Propofol 1,000 mg in 100 mls @ 3.402 mls/hr 08/15/19 18:00 08/17/19 08:14 Diprivan 10 Mg/Ml IV 50 mcg/kg/min TITR [facility] 34.019 mls/hr Administration Protocol 5 MCG/KG/MIN Sodium Chloride 1,000 mls @ 125 mls/hr 08/16/19 14:00 08/16/19 14:53 Nacl 0.9% 1000 Ml IV 125 mls/hr DIRECT [facility] Administration Vancomycin HCl 1,500 mg/ 530 mls @ 333.333 mls/hr 08/17/19 09:00 08/17/19 08:50 Sodium Chloride IV 08/17/19 10:35 333.333 mls/hr ONCE ONE Administration Lorazepam 0.5 mg 08/15/19 13:10 Ativan IV Q4H PRN Anxiety Lorazepam 2 mg 08/15/19 21:27 Ativan IV Q1HR PRN CIWA-Ar 8-15 Multi-Ingred Cream/Lotion/Oil/Oint 1 applic 08/15/19 17:33 Artificial Tears Ophth Oint OU Q4HR PRN Dry Eye(s) Ondansetron HCl 4 mg 08/15/19 16:00 Zofran IV Q8H PRN Nausea And Vomiting Oseltamivir Phosphate 30 mg 08/16/19 10:00 08/16/19 23:05 Tamiflu PO 08/20/19 10:01 30 mg BID [facility] Administration Sodium Chloride 10 ml 08/15/19 22:00 08/16/19 22:23 Sodium Chloride Flush Syringe 10 Ml IV 10 ml BID [facility] Administration Sodium Chloride 10 ml 08/15/19 16:00 Sodium Chloride Flush Syringe 10 Ml IV PRN PRN LINE FLUSH
[2019-08-17] MEDS ORDERED: VANCOMYCIN 1,500 MG in SODIUM CHLORIDE 0.9% 500 ML 500 ML IV ONE (09:00)
[2019-08-17] MEDS: HEPARIN 5,000 UNIT/1 ML VIAL SUB-Q SCH ×2 (10:30→23:34)
[2019-08-17] MEDS ORDERED: SODIUM CHLORIDE 0.9% 500 ML 500 ML IV ONE (10:50)
[2019-08-17] MEDS: OSELTAMIVIR PHOSPHATE 30 MG/5 ML ORALSYR PO SCH ×2 (11:30→23:30)
[2019-08-17] MEDS ORDERED: cefTRIAXone/NS 2 GM/100 ML 2 GM/100 ML BAG IV ONE (11:47)
[2019-08-17] MEDS ORDERED: HEPARIN 5,000 UNIT/1 ML VIAL ONE ×2 (11:48→23:17)
[2019-08-17] MEDS: cefTRIAXone/NS 2 GM/100 ML 2 GM/100 ML BAG IV SCH (12:37)
[2019-08-17] MEDS: AZITHROMYCIN 500 MG in SODIUM CHLORIDE 0.9% 250ML 250 ML IV SCH (12:51)
--- NOTE | 2019-08-17 14:32 | Progress Note ---
Assessment and Plan - Patient Problems (1) Acute renal failure Current Visit: Yes Status: Acute Qualifiers: Acute renal failure type: with acute tubular necrosis Qualified Code(s): N17.0 - Acute kidney failure with tubular necrosis Plan to address problem: Acute renal failure worsening Baseline creatinine unknown Renal function creatinine worsening 1.9 -2.4 mg/DL to 3.2 urinalysis reviewed We'll give additional fluid bolus Hold diuretic and JAMEY inhibitor Recheck renal function panel (2) Influenza Current Visit: Yes Status: Acute Plan to address problem: Influenza currently under droplet precautions Continue medications (3) Acute on chronic respiratory failure with hypoxemia Current Visit: Yes Status: Acute Plan to address problem: Acute on chronic respiratory failure Concern for influenza Patient remains intubated (4) Acidosis Current Visit: Yes Status: Acute Plan to address problem: Acidosis: Continue to monitor Subjective Interval history: 68-year-old medical history significant for hypertension admitted with complaints of cough. No Will fevers chills concern for influenza he was intubated for acute respiratory failure family at bedside all medications include triamterene HCTZ trandolapril Patient is sedated on the ventilator has good urine output and renal function is still worsening plan of care discussed with family at bedside review of systems unobtainable Objective - Vital Signs Vital signs: Vital Signs - 12hr 08/17/19 08/17/19 08/17/19 04:06 05:00 05:20 Pulse Rate 74 60 57 L Respiratory 16 16 Rate Blood Pressure 137/73 Blood Pressure 137/74 118/67 [Right] O2 Sat by Pulse 96 99 98 Oximetry 08/17/19 08:08 Pulse Rate 55 L Respiratory Rate Blood Pressure 146/81 Blood Pressure [Right] O2 Sat by Pulse 99 Oximetry - General Appearance General appearance: well-developed, well-nourished EENT: ATNC, PERRL, mucous membranes moist Neck: no JVD Respiratory: Present: Decreased Breath Sounds Cardiology: regular, S1S2 Gastrointestinal: normal, normoactive bowel sounds Integumentary: no rash Neurologic: CN 3-12 intact, other (sedated) Psychiatric: mood/affect appropriate - Lab 08/17/19 05:31 08/17/19 05:31 Most recent lab results ABG pH 7.365 pH Units (7.350-7.450) 08/17/19 06:30 ABG pCO2 43.9 mm Hg 08/17/19 06:30 ABG pO2 116.6 mm Hg (80.0-90.0) H 08/17/19 06:30 ABG HCO3 24.5 mmol/L (20.0-26.0) 08/17/19 06:30 ABG O2 Saturation 98.1 % (95.0-99.0) 08/17/19 06:30 Calcium 7.7 mg/dL (8.4-10.2) L 08/17/19 05:31 - Imaging Chest x-ray: image reviewed (review chest x-ray with interstitial opacities) Medications & Allergies - Medications Allergies/Adverse Reactions: Allergies No Known Allergies Allergy (Unverified 08/15/19 13:08) Home Medications: Home Medications Medication Instructions Recorded Confirmed Last Taken Type Rosuvastatin Calcium 20 mg PO QDAY 08/16/19 08/16/19 08/14/19 History Terazosin HCl 2 mg PO QDAY 08/16/19 08/16/19 08/14/19 History Trandolapril/Verapamil HCl [Tarka 4 mg PO QDAY 08/16/19 08/16/19 08/14/19 History ER 4-240 mg] Triamter/Hctz 37.5-25 mg 1 tab PO QDAY 08/16/19 08/16/19 08/14/19 History [Maxzide-25] Verapamil ER [Calan Sr] 180 mg PO BID 08/16/19 08/16/19 08/14/19 History amLODIPine [Norvasc] 10 mg PO DAILY 08/16/19 08/16/19 08/14/19 History Active Medications: Generic Name Dose Route Start Last Admin Trade Name Freq PRN Reason Stop Dose Admin Acetaminophen 650 mg 08/15/19 16:00 Tylenol PO Q4H PRN Pain MILD(1-3)/Fever >100.5/HARDY Albuterol 2.5 mg 08/15/19 16:00 Proventil IH Q4HRT PRN Shortness Of Breath Heparin Sodium (Porcine) 5,000 unit 08/15/19 22:00 08/17/19 10:30 Heparin SUB-Q 5,000 unit Q12HR LEORA Administration Hydrophilic Ointment 1 applic 08/15/19 17:33 Vaseline Lip Therapy TP Q2HR PRN Dry Lips Ceftriaxone Sodium 2 gm in 100 mls @ 200 mls/hr 08/15/19 14:00 08/17/19 12:37 Rocephin/Ns 2 Gm/100 Ml IV 200 mls/hr Q24HR LEORA Administration Protocol Azithromycin 500 mg/ Sodium 250 mls @ 250 mls/hr 08/15/19 14:00 08/17/19 12:51 Chloride IV 08/19/19 10:59 250 mls/hr Q24HR LEORA Administration Protocol Metronidazole 500 mg in 100 mls @ 100 mls/hr 08/15/19 17:30 08/17/19 08:10 Flagyl 500 Mg/100 Ml IV 100 mls/hr Q8HR LEORA Administration Protocol Propofol 1,000 mg in 100 mls @ 3.402 mls/hr 08/15/19 18:00 08/17/19 08:14 Diprivan 10 Mg/Ml IV 50 mcg/kg/min TITR LEORA 34.019 mls/hr Administration Protocol 5 MCG/KG/MIN Sodium Chloride 1,000 mls @ 125 mls/hr 08/16/19 14:00 08/16/19 14:53 Nacl 0.9% 1000 Ml IV 125 mls/hr DIRECT LEORA Administration Lorazepam 0.5 mg 08/15/19 13:10 Ativan IV Q4H PRN Anxiety Lorazepam 2 mg 08/15/19 21:27 Ativan IV Q1HR PRN CIWA-Ar 8-15 Multi-Ingred Cream/Lotion/Oil/Oint 1 applic 08/15/19 17:33 Artificial Tears Ophth Oint OU Q4HR PRN Dry Eye(s) Ondansetron HCl 4 mg 08/15/19 16:00 Zofran IV Q8H PRN Nausea And Vomiting Oseltamivir Phosphate 30 mg 08/16/19 10:00 08/17/19 11:30 Tamiflu PO 08/20/19 10:01 30 mg BID LEORA Administration Sodium Chloride 10 ml 08/15/19 22:00 08/17/19 10:05 Sodium Chloride Flush Syringe 10 Ml IV 10 ml BID LEORA Administration Sodium Chloride 10 ml 08/15/19 16:00 Sodium Chloride Flush Syringe 10 Ml IV PRN PRN LINE FLUSH
[2019-08-17] MEDS ORDERED: SODIUM BICARBONATE 325 MG TAB FEEDTUBE PRN (14:53)
[2019-08-17] MEDS ORDERED: LIPASE 10,500/PROTEASE 25,000/AMYLASE 43,750 (UNITS) DR CAP FEEDTUBE PRN (14:53)
[2019-08-17] MEDS ORDERED: SIMPLE SYRUP 15 ML FEEDTUBE PRN ×2 (14:53)
--- NOTE | 2019-08-17 14:58 | Progress Note ---
Assessment and Plan Sepsis Acute respiratory failure with hypoxemia and hypercapnia on MVS Influenza Bilateral pneumonia Acute renal failure Tobacco use disorder/Nicotine dependence Thrombocytopenia - continue to wean supplemental oxygen for target O2 sat's > 90% , currently on FIO2 of 70% - Daily SAT and SBT assessment for readiness for weaning per protocol - VAP bundle addressed - Lung protective strategies - Bronchodilators with pulmonary hygiene per RT - Accuchecks with glycemic control per SSI (While critically ill target blood glucose of 140-180 mg/dL; avoid hypoglycemia) - Sedation for target RASS 0 to -1 - Avoid benzodiazepines to reduce the possibility of delirium - Empiric antibiotics for CAP, currently on antiviral agents - prn analgesia per CPOT score - Maintenance of sleep-wake cycle, avoid delirium - Enteral nutritional support today -Follow up tracheal cultures -Aspiration precautions, HOB >40 - G.I. & VTE prophylaxis, while on heparin monitor for bleeding and trend platelets - PT/OT/ROM exercises - Mobility protocol and off loading for pressure ulcer prevention -Renally dose all medications, avoid nephrotoxins -Nicotine withdrawal precautions CONDITION: CRITICAL PROGNOSIS: GUARDED CODE STATUS: FULL CODE Patient is a full code, disease education conducted in the emergency department, patient family acknowledges understanding and agreement with care plan, poor prognosis discussed, will admit patient to ICU and treated with aggressive therapy, The high probability of a clinically significant, sudden or life-threatening deterioration of the respiratory, renal system(s) required my full and direct attention, intervention and personal management. The aggregate critical care time was [35] minutes without overlap. Time includes spent on; [x] Data Review and interpretation [x] Patient assessment and monitoring of vital signs [x] Documentation [x] Medication orders and management Subjective Date of service: 08/17/19 Interval history: Patient is seen today for: acute hypoxemic respiratory failure on MVS; Influenza infection: Tobacco use disorder: Morbid obesity: Acute renal failure ; Seen and examined at bedside; 24hour events reviewed; nursing and respiratory care staff consulted; no adverse overnight events reported to me; remains critically ill on high vent settings, ETT in place, on sedations. Fevers. Daughter at the bedside. No diarrhea, no vomiting. Objective Vital Signs - 12hr 08/17/19 08/17/19 08/17/19 04:06 05:00 05:20 Pulse Rate 74 60 57 L Respiratory 16 16 Rate Blood Pressure 137/73 Blood Pressure 137/74 118/67 [Right] O2 Sat by Pulse 96 99 98 Oximetry 08/17/19 08:08 Pulse Rate 55 L Respiratory Rate Blood Pressure 146/81 Blood Pressure [Right] O2 Sat by Pulse 99 Oximetry Constitutional: asleep, appears uncomfortable, other (ETT in psotion at 23cm) Eyes: non-icteric ENT: oropharynx moist, other (ETT in place, 24 at alvin lip) Neck: supple, no lymphadenopathy, no JVD Effort: mildly labored Ascultation: Bilateral: diminished breath sounds, rhonchi Cardiovascular: regular rate and rhythm, other (S1,S2) Gastrointestinal: normoactive bowel sounds, soft, non-tender, other (distended) Integumentary: normal Extremities: no cyanosis, no edema, pink and warm, pulses normal Neurologic: non-focal exam, pupils equal and round, other (sedated) Psychiatric: other (sedated) CBC and BMP: 08/27/19 07:45 08/29/19 15:10 ABG, PT/INR, D-dimer: ABG POC ABG pH 7.355 (7.35-7.45) 08/16/19 11:19 ABG pH 7.365 pH Units (7.350-7.450) 08/17/19 06:30 POC ABG pCO2 48.7 (35-45) H 08/16/19 11:19 ABG pCO2 43.9 mm Hg 08/17/19 06:30 POC ABG pO2 130 (80-105) H 08/16/19 11:19 ABG pO2 116.6 mm Hg (80.0-90.0) H 08/17/19 06:30 POC ABG HCO3 27.2 (22-26 mml/L) 08/16/19 11:19 POC ABG Total CO2 29 (23-27mmol/L) 08/16/19 11:19 POC ABG O2 Sat 99 08/16/19 11:19 ABG O2 Saturation 98.1 % (95.0-99.0) 08/17/19 06:30 Abnormal lab findings: Abnormal Labs 08/15/19 08/15/19 08/15/19 13:16 13:16 17:16 WBC 14.7 H Hgb Hct RDW 17.3 H Plt Count Lymph % (Auto) [place] % (Auto) 11.3 H Lymph # Gentry # 1.7 H Seg Neutrophils % 71.9 H Seg Neutrophils # 10.6 H POC ABG pH 7.182 L POC ABG pCO2 POC ABG pO2 ABG pO2 ABG Hemoglobin Sodium Chloride BUN 28 H Creatinine 1.9 H Glucose 133 H Calcium Total Bilirubin 1.50 H AST 82 H Albumin 3.6 L Urine WBC (Auto) 08/15/19 08/16/19 08/16/19 18:17 03:41 03:41 WBC Hgb 11.6 L Hct 34.3 L D RDW 17.4 H Plt Count 119 L Lymph % (Auto) 11.4 L [place] % (Auto) 11.6 H Lymph # 1.0 L [place]entry # 1.1 H Seg Neutrophils % 76.9 H Seg Neutrophils # POC ABG pH 7.280 L POC ABG pCO2 64.7 H POC ABG pO2 64 L ABG pO2 ABG Hemoglobin Sodium Chloride 107.1 H BUN 34 H Creatinine 2.4 H Glucose 138 H Calcium 7.2 L D Total Bilirubin AST Albumin Urine WBC (Auto) 08/16/19 08/16/19 08/16/19 06:27 11:19 14:40 WBC Hgb Hct RDW Plt Count Lymph % (Auto) [place] % (Auto) Lymph # Gentry # Seg Neutrophils % Seg Neutrophils # POC ABG pH 7.336 L POC ABG pCO2 47.9 H 48.7 H POC ABG pO2 69 L 130 H ABG pO2 ABG Hemoglobin Sodium Chloride BUN Creatinine Glucose Calcium Total Bilirubin AST Albumin Urine WBC (Auto) 8.0 H 08/17/19 08/17/19 08/17/19 05:31 05:31 06:30 WBC Hgb 11.5 L Hct 34.3 L RDW 17.3 H Plt Count Lymph % (Auto) [place] % (Auto) 13.5 H Lymph # Gentry # 1.3 H Seg Neutrophils % 70.7 H Seg Neutrophils # POC ABG pH POC ABG pCO2 POC ABG pO2 ABG pO2 116.6 H ABG Hemoglobin 13.9 L Sodium 146 H Chloride 112.1 H BUN 47 H Creatinine 3.2 H Glucose Calcium 7.7 L Total Bilirubin AST Albumin Urine WBC (Auto) Chest x-ray: image reviewed Allied health notes reviewed: RT
--- NOTE | 2019-08-17 18:12 | Consultation ---
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 Also noted with low O2 sat and was sent to the hospital. Patient is intubated unable to provide a history. History taken from son at bedside. On admission, temp 98.7, HR 112, BP 122/71, O2 sat 50%. He was placed on BIPAP then intubated. WBC 14.7. Plat 144. Creat 1.9. AST 82. Ua negative. Sputum culture 08/15/2019 Staph aureus. Blood culture 08/15/2019 no growth so far. Review of Systems: unable to obtain Past History Past Medical History: hypertension, pulmonary embolism (in the setting of MVS ), other (See HPI) Past Surgical History: No surgical history, Other (Reviewed) Social history: , lives with family, smoking (daily per children) Family history: hypertension Medications and Allergies Allergies Allergy/AdvReac Type Severity Reaction Status Date / Time No Known Allergies Allergy Unverified 08/15/19 13:08 Home Medications Medication Instructions Recorded Confirmed Last Taken Type Rosuvastatin Calcium 20 mg PO QDAY 08/16/19 08/16/19 08/14/19 History Terazosin HCl 2 mg PO QDAY 08/16/19 08/16/19 08/14/19 History Trandolapril/Verapamil HCl [Tarka 4 mg PO QDAY 08/16/19 08/16/19 08/14/19 History ER 4-240 mg] Triamter/Hctz 37.5-25 mg 1 tab PO QDAY 08/16/19 08/16/19 08/14/19 History [Maxzide-25] Verapamil ER [Calan Sr] 180 mg PO BID 08/16/19 08/16/19 08/14/19 History amLODIPine [Norvasc] 10 mg PO DAILY 08/16/19 08/16/19 08/14/19 History Active Meds: Active Medications Acetaminophen (Tylenol) 650 mg PO Q4H PRN PRN Reason: Pain MILD(1-3)/Fever >100.5/HARDY Albuterol (Proventil) 2.5 mg IH Q4HRT PRN PRN Reason: Shortness Of Breath Lipase/Protease/Amylase (Alexis Elizabeth 10,500 Unit) 1 each FEEDTUBE PRN PRN PRN Reason: For Clogged Feeding Tube Heparin Sodium (Porcine) (Heparin) 5,000 unit SUB-Q Q12HR LEORA Last Admin: 08/17/19 10:30 Dose: 5,000 unit Documented by: Hydrophilic Ointment (Vaseline Lip Therapy) 1 applic TP Q2HR PRN PRN Reason: Dry Lips Ceftriaxone Sodium (Rocephin/Ns 2 Gm/100 Ml) 2 gm in 100 mls @ 200 mls/hr IV Q24HR LEORA; Protocol Last Admin: 08/17/19 12:37 Dose: 200 mls/hr Documented by: Azithromycin 500 mg/ Sodium (Chloride) 250 mls @ 250 mls/hr IV Q24HR LEORA; Protocol Stop: 08/19/19 10:59 Last Admin: 08/17/19 12:51 Dose: 250 mls/hr Documented by: Metronidazole (Flagyl 500 Mg/100 Ml) 500 mg in 100 mls @ 100 mls/hr IV Q8HR LEORA; Protocol Last Admin: 08/17/19 15:20 Dose: 100 mls/hr Documented by: Propofol (Diprivan 10 Mg/Ml) 1,000 mg in 100 mls @ 3.402 mls/hr IV TITR LEORA; Protocol Last Admin: 08/17/19 08:14 Dose: 50 mcg/kg/min, 34.019 mls/hr Documented by: Sodium Chloride (Nacl 0.9% 1000 Ml) 1,000 mls @ 150 mls/hr IV DIRECT LEORA Last Admin: 08/16/19 14:53 Dose: 125 mls/hr Documented by: Lorazepam (Ativan) 0.5 mg IV Q4H PRN PRN Reason: Anxiety Lorazepam (Ativan) 2 mg IV Q1HR PRN PRN Reason: CIWA-Ar 8-15 Multi-Ingred Cream/Lotion/Oil/Oint (Artificial Tears Ophth Oint) 1 applic OU Q4HR PRN PRN Reason: Dry Eye(s) Ondansetron HCl (Zofran) 4 mg IV Q8H PRN PRN Reason: Nausea And Vomiting Oseltamivir Phosphate (Tamiflu) 30 mg PO BID [facility] Stop: 08/20/19 10:01 Last Admin: 08/17/19 11:30 Dose: 30 mg Documented by: Simple Syrup (Simple Syrup) 15 ml FEEDTUBE PRN PRN PRN Reason: Hypoglycemia Simple Syrup (Simple Syrup) 30 ml FEEDTUBE PRN PRN PRN Reason: Hypoglycemia Sodium Bicarbonate (Sodium Bicarbonate) 325 mg FEEDTUBE PRN PRN PRN Reason: For Clogged Feeding Tube Sodium Chloride (Sodium Chloride Flush Syringe 10 Ml) 10 ml IV BID [facility] Last Admin: 08/17/19 10:05 Dose: 10 ml Documented by: Sodium Chloride (Sodium Chloride Flush Syringe 10 Ml) 10 ml IV PRN PRN PRN Reason: LINE FLUSH Physical Examination - Physical Exam Narrative exam: Constitutional: sedated open eyes intubated in NAD Head, Ears, Nose: Normocephalic, atraumatic. External ears, nose normal Eyes: Conjunctivae/corneas clear. No icterus. No ptosis. Neck: supple, no meningeal signs Oral: +ETT limited Cardiovascular: tachy +murmur Respiratory: demetra rhonchi GI: Soft, tenderness grimacing Musculoskeletal: No pedal edema, no cyanosis. Skin: no rash, lesions Hem/Lymphatic: No palpable cervical or supraclavicular nodes. No lymphangitis Psych: sedated Neurological: sedated - Constitutional Vitals: Vital Signs Temp Pulse Resp BP Pulse Ox 99.1 F 57 L 16 141/74 98 08/16/19 00:30 08/17/19 17:48 08/17/19 05:20 08/17/19 17:48 08/17/19 17:48 Results - Labs CBC & Chem 7: 08/17/19 05:31 08/17/19 05:31 Labs: Abnormal lab results 08/17/19 08/17/19 08/17/19 Range/Units 05:31 05:31 06:30 Hgb 11.5 L (11.8-15.2) gm/dl Hct 34.3 L (35.5-45.6) % RDW 17.3 H (13.2-15.2) % [place] % (Auto) 13.5 H (0.0-7.3) % [place] # 1.3 H (0.0-0.8) K/mm3 Seg Neutrophils % 70.7 H (40.0-70.0) % ABG pO2 116.6 H (80.0-90.0) mm Hg ABG Hemoglobin 13.9 L (14.0-18.0) gm/dl Sodium 146 H (137-145) mmol/L Chloride 112.1 H (98-107) mmol/L BUN 47 H (9-20) mg/dL Creatinine 3.2 H (0.8-1.5) mg/dL Calcium 7.7 L (8.4-10.2) mg/dL Assessment and Plan Culture: Sputum culture 08/15/2019 Staph aureus. 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 Etiology complicated influenza with pneumonia. #Complicated influenza with pneumonia: Initial CXR shows bilateral interstitial pulmonary edema with small pleural effusions, sputum + Staph. #Acute resp insufficiency: due to pneumonia ?COPD #Mild elevated LFTs from sepsis #CLAUDETTE: renally adjusted abx #AMS: from sepsis Recs: follow-up sputum and blood culture stop vancomycin - worsening CLAUDETTE start linezolid 600 mg IV q 12 hour monitor platelets on linezolid continue ceftriaxone 2 gm IV q day continue azithromycin for now - will stop soon check legionella urine ag check TTE +murmur will follow MD Faina [facility] C: [phone] O: [phone] F: [phone]
[2019-08-17] MEDS: D5W/0.45% NACL 1,000 ML IV SCH (18:42)
[2019-08-17] MEDS ORDERED: ACETAMINOPHEN 650 MG RECT SUPP PR ONE ×2 (21:00→21:08)
[2019-08-17] MEDS: ACETAMINOPHEN 325 MG TAB PO PRN (21:09)
[2019-08-17] MEDS: LINEZOLID 600 MG/300 ML BAG IV SCH (23:25)
[2019-08-18] MEDS: SODIUM CHLORIDE 0.9% 1000 ML 1,000 ML IV SCH (01:45)
--- NOTE | 2019-08-18 04:27 | XRay Report ---
CHEST 1 VIEW INDICATION: follow up respiratory failure COMPARISON: One day prior. FINDINGS: Support devices: Endotracheal tube tip is now near the thoracic inlet, approximately 10 cm above the claudette. Heart: Stable. Lungs/Pleura: Left basilar pleural-parenchymal density persists unchanged. Right lung remains clear. IMPRESSION: 1. Left basilar disease persists. 2. Endotracheal tube appears to have been pulled back and is now 10 cm above the claudette. Signer Name: Eusebio Haro MD Signed: 08/18/2019 4:23 AM Workstation Name: [id number]
[2019-08-18] MEDS ORDERED: D5W/0.45% NACL 1,000 ML IV ONE (04:42)
[2019-08-18] MEDS ORDERED: PROPOFOL 1,000 MG/100 ML BOTTLE IV ONE (04:46)
[2019-08-18 04:55] LABS: Hematocrit 34.3 % (35.5-45.6); Hemoglobin 11.4 gm/dl (11.8-15.2); Mean Corpuscular HGB Conc 33 % (32-34); Mean Corpuscular Volume 88 fl (84-94); Platelet Count 137 K/mm3 (140-440); Red Blood Count 3.91 M/mm3 (3.65-5.03); Red Cell Distribution Width 17.3 % (13.2-15.2)
[2019-08-18] MEDS: D5W/0.45% NACL 1,000 ML IV SCH ×2 (04:58→17:12)
[2019-08-18 05:15] LABS: Calcium 7.9 mg/dL (8.4-10.2)
[2019-08-18 06:35] LABS: Basophils % (Manual) 0 % (0.0-1.8); Eosinophils % (Manual) 0 % (0.0-4.3); Total Cells Counted 100
[2019-08-18 06:36] LABS: Anisocytosis 1+; Platelet Estimate Consistent w Auto
--- NOTE | 2019-08-18 08:46 | Progress Note ---
Assessment and Plan Assessment and plan: Sepsis. Continue IV antibiotics per ID recommendations. Follow-up blood cultures. Acute on chronic hypoxemic respiratory failure. Continue mechanical ventilation per pulmonary. Patient likely has COPD given his smoking history. Influenza. Continue Tamiflu. Bilateral pneumonia. As above. Continue IV antibiotics and follow-up cultures. Acute kidney injury. Etiology secondary to vasomotor nephropathy and ATN/sepsis. Continue IV fluid hydration. Renal ultrasound within normal limits. Nephrology following. Toxic metabolic encephalopathy. Continue to treat underlying causes. Tobacco use disorder. Patient will be counseled on cessation once liberated from the ventilator. The high probability of a clinically significant, sudden or life threatening deterioration of the [respiratory and renal] system(s) required my full and direct attention, intervention and personal management. The aggregate critical care time was [32] minutes. This time is in addition to time spent performing reported procedures but includes the following: [x] Data Review and interpretation [x] Patient assessment and monitoring of vital signs [x] Documentation [x] Medication orders and management History Interval history: No new issues overnight. Hospitalist Physical - Constitutional Vitals: Temp Pulse Resp BP Pulse Ox 99.1 F 54 L 25 H 165/91 96 08/18/19 05:00 08/18/19 08:12 08/18/19 07:00 08/18/19 08:12 08/18/19 08:12 General appearance: Present: no acute distress, other (Patient orally intubated on mechanical ventilation) - EENT Eyes: Present: PERRL, EOM intact ENT: hearing intact, clear oral mucosa, dentition normal - Neck Neck: Present: supple, normal ROM - Respiratory Respiratory effort: normal Respiratory: bilateral: CTA - Cardiovascular Rhythm: regular Heart Sounds: Present: S1 & S2. Absent: gallop, rub - Extremities Extremities: no ischemia, No edema, Full ROM - Abdominal General gastrointestinal: soft, non-tender, non-distended, normal bowel sounds - Integumentary Integumentary: Present: clear, warm, dry - Neurologic Neurologic: CNII-XII intact, moves all extremities Results - Labs CBC & Chem 7: 08/18/19 04:20 08/18/19 04:20 Labs: Laboratory Last Values WBC 9.3 K/mm3 (4.5-11.0) 08/18/19 04:20 RBC 3.91 M/mm3 (3.65-5.03) 08/18/19 04:20 Hgb 11.4 gm/dl (11.8-15.2) L 08/18/19 04:20 Hct 34.3 % (35.5-45.6) L 08/18/19 04:20 MCV 88 fl (84-94) 08/18/19 04:20 MCH 29 pg (28-32) 08/18/19 04:20 MCHC 33 % (32-34) 08/18/19 04:20 RDW 17.3 % (13.2-15.2) H 08/18/19 04:20 Plt Count 137 K/mm3 (140-440) L 08/18/19 04:20 Lymph % (Auto) 15.6 % (13.4-35.0) 08/17/19 05:31 [place] % (Auto) 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 08/18/19 04:20 Eos % (Auto) 0.1 % (0.0-4.3) 08/17/19 05:31 Baso % (Auto) 0.1 % (0.0-1.8) 08/17/19 05:31 Lymph # 1.4 K/mm3 (1.2-5.4) 08/17/19 05:31 [place] # 1.3 K/mm3 (0.0-0.8) H 08/17/19 05:31 Eos # 0.0 K/mm3 (0.0-0.4) 08/17/19 05:31 Baso # 0.0 K/mm3 (0.0-0.1) 08/17/19 05:31 Add Manual Diff Complete 08/18/19 04:20 Total Counted 100 08/18/19 04:20 Seg Neutrophils % 70.7 % (40.0-70.0) H 08/17/19 05:31 Seg Neuts % (Manual) 79.0 % (40.0-70.0) H 08/18/19 04:20 Band Neutrophils % 0 % 08/18/19 04:20 Lymphocytes % (Manual) 13.0 % (13.4-35.0) L 08/18/19 04:20 Reactive Lymphs % (Man) 0 % 08/18/19 04:20 Monocytes % (Manual) 8.0 % (0.0-7.3) H 08/18/19 04:20 Eosinophils % (Manual) 0 % (0.0-4.3) 08/18/19 04:20 Basophils % (Manual) 0 % (0.0-1.8) 08/18/19 04:20 Metamyelocytes % 0 % 08/18/19 04:20 Myelocytes % 0 % 08/18/19 04:20 Promyelocytes % 0 % 08/18/19 04:20 Blast Cells % 0 % 08/18/19 04:20 Nucleated RBC % 1.0 % (0.0-0.9) H 08/18/19 04:20 Seg Neutrophils # 6.6 K/mm3 (1.8-7.7) 08/17/19 05:31 Seg Neutrophils # Man 7.3 K/mm3 (1.8-7.7) 08/18/19 04:20 Band Neutrophils # 0.0 K/mm3 08/18/19 04:20 Lymphocytes # (Manual) 1.2 K/mm3 (1.2-5.4) 08/18/19 04:20 Abs React Lymphs (Man) 0.0 K/mm3 08/18/19 04:20 Monocytes # (Manual) 0.7 K/mm3 (0.0-0.8) 08/18/19 04:20 Eosinophils # (Manual) 0.0 K/mm3 (0.0-0.4) 08/18/19 04:20 Basophils # (Manual) 0.0 K/mm3 (0.0-0.1) 08/18/19 04:20 Metamyelocytes # 0.0 K/mm3 08/18/19 04:20 Myelocytes # 0.0 K/mm3 08/18/19 04:20 Promyelocytes # 0.0 K/mm3 08/18/19 04:20 Blast Cells # 0.0 K/mm3 08/18/19 04:20 WBC Morphology Not Reportable 08/18/19 04:20 Hypersegmented Neuts Not Reportable 08/18/19 04:20 Hyposegmented Neuts Not Reportable 08/18/19 04:20 Hypogranular Neuts Not Reportable 08/18/19 04:20 Smudge Cells Not Reportable 08/18/19 04:20 Toxic Granulation Not Reportable 08/18/19 04:20 Toxic Vacuolation Not Reportable 08/18/19 04:20 Dohle Bodies Not Reportable 08/18/19 04:20 Pelger-Huet Anomaly Not Reportable 08/18/19 04:20 Dalila Rods Not Reportable 08/18/19 04:20 Platelet Estimate Consistent w auto 08/18/19 04:20 Clumped Platelets Not Reportable 08/18/19 04:20 Plt Clumps, EDTA Not Reportable 08/18/19 04:20 Large Platelets Not Reportable 08/18/19 04:20 Giant Platelets Not Reportable 08/18/19 04:20 Platelet Satelliting Not Reportable 08/18/19 04:20 Plt Morphology Comment Not Reportable 08/18/19 04:20 RBC Morphology Not Reportable 08/18/19 04:20 Dimorphic RBCs Not Reportable 08/18/19 04:20 Polychromasia Not Reportable 08/18/19 04:20 Hypochromasia Not Reportable 08/18/19 04:20 Poikilocytosis Not Reportable 08/18/19 04:20 Anisocytosis 1+ 08/18/19 04:20 Microcytosis Not Reportable 08/18/19 04:20 Macrocytosis Not Reportable 08/18/19 04:20 Spherocytes Not Reportable 08/18/19 04:20 Pappenheimer Bodies Not Reportable 08/18/19 04:20 Sickle Cells Not Reportable 08/18/19 04:20 Target Cells Not Reportable 08/18/19 04:20 Tear Drop Cells Not Reportable 08/18/19 04:20 Ovalocytes Not Reportable 08/18/19 04:20 Helmet Cells Not Reportable 08/18/19 04:20 [place] Bodies Not Reportable 08/18/19 04:20 [place] Rings Not Reportable 08/18/19 04:20 [place] Cells Not Reportable 08/18/19 04:20 Bite Cells Not Reportable 08/18/19 04:20 Crenated Cell Not Reportable 08/18/19 04:20 Elliptocytes Not Reportable 08/18/19 04:20 Acanthocytes (Spur) Not Reportable 08/18/19 04:20 Rouleaux Not Reportable 08/18/19 04:20 Hemoglobin C Crystals Not Reportable 08/18/19 04:20 Schistocytes Not Reportable 08/18/19 04:20 Malaria parasites Not Reportable 08/18/19 04:20 Magdiel Bodies Not Reportable 08/18/19 04:20 Hem Pathologist Commnt No 08/18/19 04:20 POC ABG pH 7.372 (7.35-7.45) 08/18/19 06:45 ABG pH 7.365 pH Units (7.350-7.450) 08/17/19 06:30 POC ABG pCO2 45.2 (35-45) H 08/18/19 06:45 ABG pCO2 43.9 mm Hg 08/17/19 06:30 POC ABG pO2 55 (80-105) L 08/18/19 06:45 ABG pO2 116.6 mm Hg (80.0-90.0) H 08/17/19 06:30 POC ABG HCO3 26.3 (22-26 mml/L) 08/18/19 06:45 ABG HCO3 24.5 mmol/L (20.0-26.0) 08/17/19 06:30 POC ABG Total CO2 28 (23-27mmol/L) 08/18/19 06:45 POC ABG O2 Sat 87 08/18/19 06:45 ABG O2 Saturation 98.1 % (95.0-99.0) 08/17/19 06:30 ABG O2 Content 19.1 (0.0-44) 08/17/19 06:30 POC ABG Base Excess 1 ((-2) - (+3)mmol/L) 08/18/19 06:45 ABG Base Excess -1.0 mmol/L (-2.0-3.0) 08/17/19 06:30 ABG Hemoglobin 13.9 gm/dl (14.0-18.0) L 08/17/19 06:30 ABG Carboxyhemoglobin 1.0 % (0.0-5.0) 08/17/19 06:30 ABG Methemoglobin 0.5 % (0.0-1.5) 08/17/19 06:30 Oxyhemoglobin 96.5 % (95.0-99.0) 08/17/19 06:30 FiO2 60 % 08/18/19 06:45 Sodium 148 mmol/L (137-145) H 08/18/19 04:20 Potassium 3.9 mmol/L (3.6-5.0) 08/18/19 04:20 Chloride 112.3 mmol/L (98-107) H 08/18/19 04:20 Carbon Dioxide 20 mmol/L (22-30) L 08/18/19 04:20 Anion Gap 20 mmol/L 08/18/19 04:20 BUN 40 mg/dL (9-20) H 08/18/19 04:20 Creatinine 3.1 mg/dL (0.8-1.5) H 08/18/19 04:20 Estimated GFR 24 ml/min 08/18/19 04:20 BUN/Creatinine Ratio 13 % 08/18/19 04:20 Glucose 109 mg/dL (75-100) H 08/18/19 04:20 POC Glucose 79 (70-105) 08/17/19 18:33 Lactic Acid 1.10 mmol/L (0.7-2.0) 08/15/19 23:36 Calcium 7.9 mg/dL (8.4-10.2) L 08/18/19 04:20 Total Bilirubin 1.50 mg/dL (0.1-1.2) H 08/15/19 13:16 AST 82 units/L (5-40) H 08/15/19 13:16 ALT 46 units/L (7-56) 08/15/19 13:16 Alkaline Phosphatase 90 units/L (35-129) 08/15/19 13:16 Troponin T 0.018 ng/mL (0.00-0.029) 08/15/19 13:16 Total Protein 7.9 g/dL (6.3-8.2) 08/15/19 13:16 Albumin 3.6 g/dL (3.9-5) L 08/15/19 13:16 Albumin/Globulin Ratio 0.8 % 08/15/19 13:16 Urine Color [place] (Yellow) 08/16/19 14:40 Urine Turbidity Cloudy (Clear) 08/16/19 14:40 Urine pH 5.0 (5.0-7.0) 08/16/19 14:40 Ur Specific [place] 1.015 (1.003-1.030) 08/16/19 14:40 Urine Protein 100 mg/dl mg/dL (Negative) 08/16/19 14:40 Urine Glucose (UA) Neg mg/dL (Negative) 08/16/19 14:40 Urine Ketones Neg mg/dL (Negative) 08/16/19 14:40 Urine Blood Mod (Negative) 08/16/19 14:40 Urine Nitrite Neg (Negative) 08/16/19 14:40 Urine Bilirubin Neg (Negative) 08/16/19 14:40 Urine Urobilinogen 4.0 mg/dL (<2.0) 08/16/19 14:40 Ur Leukocyte Esterase Tr (Negative) 08/16/19 14:40 Urine WBC (Auto) 8.0 /HPF (0.0-6.0) H 08/16/19 14:40 Urine RBC (Auto) 1.0 /HPF (0.0-6.0) 08/16/19 14:40 U Epithel Cells (Auto) < 1.0 /HPF (0-13.0) 08/16/19 14:40 Random Vancomycin 7.9 ug/mL (0-40.0) 08/17/19 05:31 Active Medications - Current Medications Current Medications: Generic Name Dose Route Start Last Admin Trade Name Freq PRN Reason Stop Dose Admin Acetaminophen 650 mg 08/15/19 16:00 Tylenol PO Q4H PRN Pain MILD(1-3)/Fever >100.5/HARDY Albuterol 2.5 mg 08/15/19 16:00 Proventil IH Q4HRT PRN Shortness Of Breath Lipase/Protease/Amylase 1 each 08/17/19 14:53 Pancreaze 10,500 Unit FEEDTUBE PRN PRN For Clogged Feeding Tube Heparin Sodium (Porcine) 5,000 unit 08/15/19 22:00 08/17/19 23:34 Heparin SUB-Q 5,000 unit Q12HR LEORA Administration Hydrophilic Ointment 1 applic 08/15/19 17:33 Vaseline Lip Therapy TP Q2HR PRN Dry Lips Ceftriaxone Sodium 2 gm in 100 mls @ 200 mls/hr 08/15/19 14:00 08/17/19 12:37 Rocephin/Ns 2 Gm/100 Ml IV 200 mls/hr Q24HR LEORA Administration Protocol Azithromycin 500 mg/ Sodium 250 mls @ 250 mls/hr 08/15/19 14:00 08/17/19 12:51 Chloride IV 08/19/19 10:59 250 mls/hr Q24HR LEORA Administration Protocol Propofol 1,000 mg in 100 mls @ 3.402 mls/hr 08/15/19 18:00 08/17/19 23:21 Diprivan 10 Mg/Ml IV 25 mcg/kg/min TITR LEORA 17.01 mls/hr Administration Protocol 5 MCG/KG/MIN Sodium Chloride 1,000 mls @ 150 mls/hr 08/16/19 14:00 08/18/19 01:45 Nacl 0.9% 1000 Ml IV 125 mls/hr DIRECT LEORA Administration Dextrose/Sodium Chloride 1,000 mls @ 100 mls/hr 08/17/19 19:00 08/18/19 04:58 D5/0.45ns IV 100 mls/hr DIRECT LEORA Administration Linezolid 600 mg in 300 mls @ 300 mls/hr 08/17/19 22:00 08/17/19 23:25 Zyvox 600mg/300ml IV 300 mls/hr Q12HR LEORA Administration Protocol Lorazepam 0.5 mg 08/15/19 13:10 Ativan IV Q4H PRN Anxiety Lorazepam 2 mg 08/15/19 21:27 Ativan IV Q1HR PRN CIWA-Ar 8-15 Multi-Ingred Cream/Lotion/Oil/Oint 1 applic 08/15/19 17:33 Artificial Tears Ophth Oint OU Q4HR PRN Dry Eye(s) Ondansetron HCl 4 mg 08/15/19 16:00 Zofran IV Q8H PRN Nausea And Vomiting Oseltamivir Phosphate 30 mg 08/16/19 10:00 08/17/19 23:30 Tamiflu PO 08/20/19 10:01 30 mg BID LEORA Administration Simple Syrup 15 ml 08/17/19 14:53 Simple Syrup FEEDTUBE PRN PRN Hypoglycemia Simple Syrup 30 ml 08/17/19 14:53 Simple Syrup FEEDTUBE PRN PRN Hypoglycemia Sodium Bicarbonate 325 mg 08/17/19 14:53 Sodium Bicarbonate FEEDTUBE PRN PRN For Clogged Feeding Tube Sodium Chloride 10 ml 08/15/19 22:00 08/17/19 22:00 Sodium Chloride Flush Syringe 10 Ml IV 10 ml BID LEORA Administration Sodium Chloride 10 ml 08/15/19 16:00 Sodium Chloride Flush Syringe 10 Ml IV PRN PRN LINE FLUSH
--- NOTE | 2019-08-18 12:33 | Progress Note ---
Assessment and Plan Sepsis Acute respiratory failure with hypoxemia and hypercapnia on MVS Influenza Bilateral pneumonia Acute renal failure Tobacco use disorder/Nicotine dependence Thrombocytopenia Remains critically ill Continue care as documented below - continue to wean supplemental oxygen for target O2 sat's > 90% , currently on FIO2 of 70% - Daily SAT and SBT assessment for readiness for weaning per protocol - VAP bundle addressed - Lung protective strategies - Bronchodilators with pulmonary hygiene per RT - Accuchecks with glycemic control per SSI (While critically ill target blood glucose of 140-180 mg/dL; avoid hypoglycemia) - Sedation for target RASS 0 to -1 - Avoid benzodiazepines to reduce the possibility of delirium - Empiric antibiotics for CAP, currently on antiviral agents - prn analgesia per CPOT score - Maintenance of sleep-wake cycle, avoid delirium - Enteric nutritional support -Follow up tracheal cultures -Aspiration precautions, HOB >40 - G.I. & VTE prophylaxis, while on heparin monitor for bleeding and trend platelets - PT/OT/ROM exercises - Mobility protocol and off loading for pressure ulcer prevention -Renally dose all medications, avoid nephrotoxins -Nicotine withdrawal precautions CONDITION: CRITICAL PROGNOSIS: GUARDED CODE STATUS: FULL CODE The high probability of a clinically significant, sudden or life-threatening deterioration of the respiratory, renal system(s) required my full and direct attention, intervention and personal management. The aggregate critical care time was [35] minutes without overlap. Time includes spent on; [x] Data Review and interpretation [x] Patient assessment and monitoring of vital signs [x] Documentation [x] Medication orders and management Subjective Date of service: 08/18/19 Interval history: Patient is seen today for: acute hypoxic respiratory failure, bilateral alveolar infiltrates, morbid obesity, influenza infection: CLAUDETTE Seen and examined at bedside; 24hour events reviewed; nursing and respiratory care staff consulted; no adverse overnight events reported to me; Vitals, labs, medications, chart reviewed. Remains intubated on MVS, on linezolid for post viral pneumonia Objective Vital Signs - 12hr 08/18/19 08/18/19 08/18/19 00:51 01:01 02:00 Temperature 98.8 F Pulse Rate 76 56 L Respiratory 19 24 Rate Blood Pressure 145/74 152/75 O2 Sat by Pulse 87 85 Oximetry 08/18/19 08/18/19 08/18/19 03:00 04:01 04:05 Temperature Pulse Rate 52 L 60 60 Respiratory 24 24 Rate Blood Pressure 150/76 160/80 O2 Sat by Pulse 86 95 95 Oximetry 08/18/19 08/18/19 08/18/19 05:00 06:00 07:00 Temperature 99.1 F Pulse Rate 55 L 53 L 69 Respiratory 24 24 25 H Rate Blood Pressure 161/78 161/77 165/96 O2 Sat by Pulse 95 95 97 Oximetry 08/18/19 08:12 Temperature Pulse Rate 54 L Respiratory Rate Blood Pressure 165/91 O2 Sat by Pulse 96 Oximetry Constitutional: alert, appears uncomfortable, other (ETT in psotion at 23cm) Eyes: non-icteric ENT: oropharynx moist Neck: supple, no lymphadenopathy, no JVD Effort: mildly labored Ascultation: Bilateral: diminished breath sounds, rhonchi Cardiovascular: regular rate and rhythm, other (S1,S2) Gastrointestinal: normoactive bowel sounds, soft, non-tender, other (distended) Integumentary: normal Extremities: no cyanosis, no edema, pink and warm, pulses normal Neurologic: non-focal exam, pupils equal and round Psychiatric: mood appropriate CBC and BMP: 08/27/19 07:45 08/29/19 15:10 ABG, PT/INR, D-dimer: ABG POC ABG pH 7.372 (7.35-7.45) 08/18/19 06:45 ABG pH 7.365 pH Units (7.350-7.450) 08/17/19 06:30 POC ABG pCO2 45.2 (35-45) H 08/18/19 06:45 ABG pCO2 43.9 mm Hg 08/17/19 06:30 POC ABG pO2 55 (80-105) L 08/18/19 06:45 ABG pO2 116.6 mm Hg (80.0-90.0) H 08/17/19 06:30 POC ABG HCO3 26.3 (22-26 mml/L) 08/18/19 06:45 POC ABG Total CO2 28 (23-27mmol/L) 08/18/19 06:45 POC ABG O2 Sat 87 08/18/19 06:45 ABG O2 Saturation 98.1 % (95.0-99.0) 08/17/19 06:30 Abnormal lab findings: Abnormal Labs 08/15/19 08/15/19 08/15/19 13:16 13:16 17:16 WBC 14.7 H Hgb Hct RDW 17.3 H Plt Count Lymph % (Auto) [place] % (Auto) 11.3 H Lymph # [place] # 1.7 H Seg Neutrophils % 71.9 H Seg Neuts % (Manual) Lymphocytes % (Manual) Monocytes % (Manual) Nucleated RBC % Seg Neutrophils # 10.6 H POC ABG pH 7.182 L POC ABG pCO2 > 70 H POC ABG pO2 ABG pO2 ABG Hemoglobin Sodium Chloride Carbon Dioxide BUN 28 H Creatinine 1.9 H Glucose 133 H Calcium Total Bilirubin 1.50 H AST 82 H Albumin 3.6 L Urine WBC (Auto) 08/15/19 08/16/19 08/16/19 18:17 03:41 03:41 WBC Hgb 11.6 L Hct 34.3 L D RDW 17.4 H Plt Count 119 L Lymph % (Auto) 11.4 L [place] % (Auto) 11.6 H Lymph # 1.0 L [place] # 1.1 H Seg Neutrophils % 76.9 H Seg Neuts % (Manual) Lymphocytes % (Manual) Monocytes % (Manual) Nucleated RBC % Seg Neutrophils # POC ABG pH 7.280 L POC ABG pCO2 64.7 H POC ABG pO2 64 L ABG pO2 ABG Hemoglobin Sodium Chloride 107.1 H Carbon Dioxide BUN 34 H Creatinine 2.4 H Glucose 138 H Calcium 7.2 L D Total Bilirubin AST Albumin Urine WBC (Auto) 08/16/19 08/16/19 08/16/19 06:27 11:19 14:40 WBC Hgb Hct RDW Plt Count Lymph % (Auto) [place] % (Auto) Lymph # [place] # Seg Neutrophils % Seg Neuts % (Manual) Lymphocytes % (Manual) Monocytes % (Manual) Nucleated RBC % Seg Neutrophils # POC ABG pH 7.336 L POC ABG pCO2 47.9 H 48.7 H POC ABG pO2 69 L 130 H ABG pO2 ABG Hemoglobin Sodium Chloride Carbon Dioxide BUN Creatinine Glucose Calcium Total Bilirubin AST Albumin Urine WBC (Auto) 8.0 H 08/17/19 08/17/19 08/17/19 05:31 05:31 06:30 WBC Hgb 11.5 L Hct 34.3 L RDW 17.3 H Plt Count Lymph % (Auto) [place] % (Auto) 13.5 H Lymph # [place] # 1.3 H Seg Neutrophils % 70.7 H Seg Neuts % (Manual) Lymphocytes % (Manual) Monocytes % (Manual) Nucleated RBC % Seg Neutrophils # POC ABG pH POC ABG pCO2 POC ABG pO2 ABG pO2 116.6 H ABG Hemoglobin 13.9 L Sodium 146 H Chloride 112.1 H Carbon Dioxide BUN 47 H Creatinine 3.2 H Glucose Calcium 7.7 L Total Bilirubin AST Albumin Urine WBC (Auto) 08/17/19 08/18/19 08/18/19 20:31 04:20 04:20 WBC Hgb 11.4 L Hct 34.3 L RDW 17.3 H Plt Count 137 L Lymph % (Auto) [place] % (Auto) Lymph # [place] # Seg Neutrophils % Seg Neuts % (Manual) 79.0 H Lymphocytes % (Manual) 13.0 L Monocytes % (Manual) 8.0 H Nucleated RBC % 1.0 H Seg Neutrophils # POC ABG pH POC ABG pCO2 POC ABG pO2 78 L ABG pO2 ABG Hemoglobin Sodium 148 H Chloride 112.3 H Carbon Dioxide 20 L BUN 40 H Creatinine 3.1 H Glucose 109 H Calcium 7.9 L Total Bilirubin AST Albumin Urine WBC (Auto) 08/18/19 06:45 WBC Hgb Hct RDW Plt Count Lymph % (Auto) [place] % (Auto) Lymph # [place] # Seg Neutrophils % Seg Neuts % (Manual) Lymphocytes % (Manual) Monocytes % (Manual) Nucleated RBC % Seg Neutrophils # POC ABG pH POC ABG pCO2 45.2 H POC ABG pO2 55 L ABG pO2 ABG Hemoglobin Sodium Chloride Carbon Dioxide BUN Creatinine Glucose Calcium Total Bilirubin AST Albumin Urine WBC (Auto) Chest x-ray: image reviewed
[2019-08-18] MEDS: fentaNYL DRIP Premix 2,000 MCG/100 ML BAG IV SCH (12:49)
[2019-08-18] MEDS: LINEZOLID 600 MG/300 ML BAG IV SCH ×2 (12:50→22:04)
[2019-08-18] MEDS: AZITHROMYCIN 500 MG in SODIUM CHLORIDE 0.9% 250ML 250 ML IV SCH (12:50)
[2019-08-18] MEDS: HEPARIN 5,000 UNIT/1 ML VIAL SUB-Q SCH ×2 (12:51→22:04)
[2019-08-18] MEDS: OSELTAMIVIR PHOSPHATE 30 MG/5 ML ORALSYR PO SCH ×2 (12:51→22:07)
[2019-08-18] MEDS: SCOPOLAMINE TRANSDERMAL PATCH 72 HR TD SCH (13:40)
[2019-08-18] MEDS: cefTRIAXone/NS 2 GM/100 ML 2 GM/100 ML BAG IV SCH (13:41)
--- NOTE | 2019-08-18 14:01 | Progress Note ---
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 Etiology complicated influenza with MRSA pneumonia. #Complicated influenza with pneumonia: improving. #Acute resp insufficiency: due to pneumonia ?COPD: remains on the vent. #Mild elevated LFTs from sepsis #CLAUDETTE: renally adjusted abx. #AMS: from sepsis Recs: continue linezolid 600 mg IV q 12 hour, monitor platelets on linezolid. Can switch to PO Linezolid once extubated and taking orals continue renally adjusted tamiflu x total 5 days discontinued Ceftriaxone and Azithromycin Tani Hayden MD, FACP [facility] C: [phone] O: [phone] F: [phone] Subjective Date of service: 08/18/19 Interval history: No fever. Intubated, on the vent. Awake. Getting walker placed. Objective - Exam Narrative Exam: Constitutional: intubated, on vent, opens eyes Head, Ears, Nose: Normocephalic, atraumatic. External ears, nose normal Eyes: Conjunctivae/corneas clear. No icterus. No ptosis. Neck: intubated Oral: intubated Cardiovascular: S1 S2 + Respiratory: b/l rhonchi GI: Soft, non tender, bowel sounds + Musculoskeletal: No pedal edema, no cyanosis. Skin: no rash, lesions Hem/Lymphatic: No palpable cervical or supraclavicular nodes. No lymphangitis Psych: no agitation Neurological: intubated, on the vent, opens eyes. Exam limited - Constitutional Vitals: Vital Signs Temp Pulse Resp BP Pulse Ox 99.1 F 54 L 25 H 165/91 96 08/18/19 05:00 08/18/19 08:12 08/18/19 07:00 08/18/19 08:12 08/18/19 08:12 Temperature -Last 24 Hours Temperature 99.1 F Temperature 98.8 F Temperature 101.5 F Temperature 99.3 F - Labs CBC & Chem 7: 08/18/19 04:20 08/18/19 04:20 Labs: Abnormal lab results 08/15/19 08/17/19 08/18/19 Range/Units 17:16 20:31 04:20 Hgb 11.4 L (11.8-15.2) gm/dl Hct 34.3 L (35.5-45.6) % RDW 17.3 H (13.2-15.2) % Plt Count 137 L (140-440) K/mm3 Seg Neuts % (Manual) 79.0 H (40.0-70.0) % Lymphocytes % (Manual) 13.0 L (13.4-35.0) % Monocytes % (Manual) 8.0 H (0.0-7.3) % Nucleated RBC % 1.0 H (0.0-0.9) % POC ABG pCO2 > 70 H (35-45) POC ABG pO2 78 L (80-105) Sodium (137-145) mmol/L Chloride (98-107) mmol/L Carbon Dioxide (22-30) mmol/L BUN (9-20) mg/dL Creatinine (0.8-1.5) mg/dL Glucose (75-100) mg/dL Calcium (8.4-10.2) mg/dL 08/18/19 08/18/19 Range/Units 04:20 06:45 Hgb (11.8-15.2) gm/dl Hct (35.5-45.6) % RDW (13.2-15.2) % Plt Count (140-440) K/mm3 Seg Neuts % (Manual) (40.0-70.0) % Lymphocytes % (Manual) (13.4-35.0) % Monocytes % (Manual) (0.0-7.3) % Nucleated RBC % (0.0-0.9) % POC ABG pCO2 45.2 H (35-45) POC ABG pO2 55 L (80-105) Sodium 148 H (137-145) mmol/L Chloride 112.3 H (98-107) mmol/L Carbon Dioxide 20 L (22-30) mmol/L BUN 40 H (9-20) mg/dL Creatinine 3.1 H (0.8-1.5) mg/dL Glucose 109 H (75-100) mg/dL Calcium 7.9 L (8.4-10.2) mg/dL - Imaging and cardiology Chest x-ray: report reviewed, image reviewed (left basilar disease +)
--- NOTE | 2019-08-18 18:13 | Progress Note ---
Assessment and Plan (1) Acute renal failure - suspect multifactorial CLAUDETTE in relation to dehydration, tubular injury in setting of respiratory failure - creatinine 1.9->2.4->3.2->3.1 today - no acute indications for dialysis - continue supportive measures - holding diuretic and JAMEY inhibitor - daily labs - avoid nephrotoxins (2) Influenza - currently under droplet precautions - Continue supportive measures (3) Acute on chronic respiratory failure with hypoxemia Concern for influenza Patient remains intubated (4) Acidosis Likely related to CLAUDETTE, continue to monitor (5) Hypernatremia: likely related to decreased thirst mechanism. On D5 1/2NS, continue for now. Subjective Date of service: 08/18/19 Principal diagnosis: respiratory failure Interval history: No acute events, intubated and sedated. Objective - Exam Narrative Exam: General appearance: intubated, sedated EENT: sedated Neck: no JVD, ET tube in place Respiratory: coarse mechanical breath sounds Cardiology: regular, S1S2 Gastrointestinal: normal, normoactive bowel sounds Integumentary: no rash Neurologic: sedated Psychiatric: sedated - Vital Signs Vital signs: Vital Signs - 12hr 08/18/19 08/18/19 08/18/19 07:00 08:00 08:12 Temperature Pulse Rate 69 57 L 54 L Respiratory 25 H 24 Rate Blood Pressure 165/96 165/91 165/91 O2 Sat by Pulse 97 100 96 Oximetry 08/18/19 08/18/19 08/18/19 09:00 10:00 11:01 Temperature Pulse Rate 49 L 68 56 L Respiratory 24 24 24 Rate Blood Pressure 166/82 166/89 162/85 O2 Sat by Pulse 97 98 97 Oximetry 08/18/19 08/18/19 08/18/19 12:00 13:00 14:01 Temperature 99.1 F Pulse Rate 59 L 55 L 68 Respiratory 24 24 24 Rate Blood Pressure 175/92 179/86 170/86 O2 Sat by Pulse 97 98 94 Oximetry - Lab 08/18/19 04:20 08/18/19 04:20 Most recent lab results ABG pH 7.365 pH Units (7.350-7.450) 08/17/19 06:30 ABG pCO2 43.9 mm Hg 08/17/19 06:30 ABG pO2 116.6 mm Hg (80.0-90.0) H 08/17/19 06:30 ABG HCO3 24.5 mmol/L (20.0-26.0) 08/17/19 06:30 ABG O2 Saturation 98.1 % (95.0-99.0) 08/17/19 06:30 Calcium 7.9 mg/dL (8.4-10.2) L 08/18/19 04:20 Medications & Allergies - Medications Allergies/Adverse Reactions: Allergies No Known Allergies Allergy (Unverified 08/15/19 13:08) Home Medications: Home Medications Medication Instructions Recorded Confirmed Last Taken Type Rosuvastatin Calcium 20 mg PO QDAY 08/16/19 08/16/19 08/14/19 History Terazosin HCl 2 mg PO QDAY 08/16/19 08/16/19 08/14/19 History Trandolapril/Verapamil HCl [Tarka 4 mg PO QDAY 08/16/19 08/16/19 08/14/19 History ER 4-240 mg] Triamter/Hctz 37.5-25 mg 1 tab PO QDAY 08/16/19 08/16/19 08/14/19 History [Maxzide-25] Verapamil ER [Calan Sr] 180 mg PO BID 08/16/19 08/16/19 08/14/19 History amLODIPine [Norvasc] 10 mg PO DAILY 08/16/19 08/16/19 08/14/19 History Active Medications: Generic Name Dose Route Start Last Admin Trade Name Freq PRN Reason Stop Dose Admin Acetaminophen 650 mg 08/15/19 16:00 Tylenol PO Q4H PRN Pain MILD(1-3)/Fever >100.5/HARDY Albuterol 2.5 mg 08/15/19 16:00 Proventil IH Q4HRT PRN Shortness Of Breath Lipase/Protease/Amylase 1 each 08/17/19 14:53 Pancreazdenise Elizabeth 10,500 Unit FEEDTUBE PRN PRN For Clogged Feeding Tube Heparin Sodium (Porcine) 5,000 unit 08/15/19 22:00 08/18/19 12:51 Heparin SUB-Q 5,000 unit Q12HR LEORA Administration Hydrophilic Ointment 1 applic 08/15/19 17:33 Vaseline Lip Therapy TP Q2HR PRN Dry Lips Sodium Chloride 1,000 mls @ 150 mls/hr 08/16/19 14:00 12/30/19 01:45 Nacl 0.9% 1000 Ml IV 125 mls/hr DIRECT LEORA Administration Dextrose/Sodium Chloride 1,000 mls @ 100 mls/hr 08/17/19 19:00 08/18/19 17:12 D5/0.45ns IV 100 mls/hr DIRECT LEORA Administration Linezolid 600 mg in 300 mls @ 300 mls/hr 08/17/19 22:00 08/18/19 12:50 Zyvox 600mg/300ml IV 300 mls/hr Q12HR LEORA Administration Protocol Fentanyl Citrate 2,000 mcg in 100 mls @ 5.67 mls/hr 08/18/19 13:00 08/18/19 12:49 Fentanyl Drip Premix IV 1 mcg/kg/hr TITR LEORA 5.67 mls/hr Administration Protocol 1 MCG/KG/HR Lorazepam 0.5 mg 08/15/19 13:10 Ativan IV Q4H PRN Anxiety Lorazepam 2 mg 08/15/19 21:27 Ativan IV Q1HR PRN CIWA-Ar 8-15 Multi-Ingred Cream/Lotion/Oil/Oint 1 applic 08/15/19 17:33 Artificial Tears Ophth Oint OU Q4HR PRN Dry Eye(s) Ondansetron HCl 4 mg 08/15/19 16:00 Zofran IV Q8H PRN Nausea And Vomiting Oseltamivir Phosphate 30 mg 08/16/19 10:00 08/18/19 12:51 Tamiflu PO 08/20/19 10:01 30 mg BID LEORA Administration Scopolamine 1 each 08/18/19 13:00 08/18/19 13:40 Transderm-Scop TD 1 each Q3D LEORA Administration Simple Syrup 15 ml 08/17/19 14:53 Simple Syrup FEEDTUBE PRN PRN Hypoglycemia Simple Syrup 30 ml 08/17/19 14:53 Simple Syrup FEEDTUBE PRN PRN Hypoglycemia Sodium Bicarbonate 325 mg 08/17/19 14:53 Sodium Bicarbonate FEEDTUBE PRN PRN For Clogged Feeding Tube Sodium Chloride 10 ml 08/15/19 22:00 08/18/19 12:50 Sodium Chloride Flush Syringe 10 Ml IV 10 ml BID LEORA Administration Sodium Chloride 10 ml 08/15/19 16:00 Sodium Chloride Flush Syringe 10 Ml IV PRN PRN LINE FLUSH
[2019-08-18] MEDS ORDERED: ACETAMINOPHEN 650 MG RECT SUPP PR ONE (21:00)
--- NOTE | 2019-08-18 21:53 | XRay Report ---
ABDOMEN 1 VIEW 9:13 PM INDICATION / CLINICAL INFORMATION: OGT placement prior to TF infusion. COMPARISON: None available. FINDINGS: TUBES / LINES: Esophagogastric tube is present in the mid stomach. BOWEL GAS PATTERN: No significant abnormality. FREE AIR / EXTRALUMINAL GAS: None seen. ADDITIONAL FINDINGS: No significant additional findings. IMPRESSION: 1. Esophagogastric tube in expected position. Signer Name: Yaw Fowler MD Signed: 08/18/2019 9:49 PM Workstation Name: [id number]
[2019-08-19] MEDS: fentaNYL DRIP Premix 2,000 MCG/100 ML BAG IV SCH (00:12)
--- NOTE | 2019-08-19 02:38 | XRay Report ---
CHEST 1 VIEW INDICATION: follow up respiratory failure COMPARISON: One day prior. FINDINGS: Support devices: Endotracheal tube now appears to be approximately 6 cm above the claudette. NG tube aga in passes into the stomach. Heart: Within normal limits and unchanged Lungs/Pleura: Left basilar disease, atelectasis or consolidation, persists unchanged. Right lung walt ins clear. IMPRESSION: 1. Endotracheal tube in good position. 2. Persistent left basilar disease. Signer Name: Eusebio Haro MD Signed: 08/19/2019 2:33 AM Workstation Name: [email or web address]
[2019-08-19] MEDS: D5W/0.45% NACL 1,000 ML IV SCH ×2 (02:58→15:17)
[2019-08-19 05:06] LABS: ABG Base Excess 0.1 mmol/L (-2.0-3.0); ABG HCO3 26.1 mmol/L (20.0-26.0); ABG Methemoglobin 0.4 % (0.0-1.5); ABG Oxygen Saturation 94.4 % (95.0-99.0); ABG PCO2 47.9 mm Hg; ABG PH 7.353 pH Units (7.350-7.450); ABG PO2 72.2 mm Hg (80.0-90.0)
[2019-08-19 05:54] LABS: Hematocrit 34.4 % (35.5-45.6); Hemoglobin 11.3 gm/dl (11.8-15.2); Mean Corpuscular HGB Conc 33 % (32-34); Mean Corpuscular Volume 88 fl (84-94); Platelet Count 144 K/mm3 (140-440); Red Blood Count 3.93 M/mm3 (3.65-5.03); Red Cell Distribution Width 17.1 % (13.2-15.2)
[2019-08-19 06:16] LABS: Calcium 7.8 mg/dL (8.4-10.2)
[2019-08-19 07:29] LABS: Anisocytosis 1+; Basophils % (Manual) 0 % (0.0-1.8); Platelet Estimate Consistent w Auto; Total Cells Counted 100
[2019-08-19] MEDS: HEPARIN 5,000 UNIT/1 ML VIAL SUB-Q SCH ×2 (10:21→21:14)
[2019-08-19] MEDS: FAMOTIDINE 20 MG TAB PO SCH (10:21)
[2019-08-19] MEDS: LINEZOLID 600 MG/300 ML BAG IV SCH ×2 (10:21→21:14)
[2019-08-19] MEDS: OSELTAMIVIR PHOSPHATE 30 MG/5 ML ORALSYR PO SCH ×2 (10:21→21:13)
--- NOTE | 2019-08-19 12:34 | Progress Note ---
Assessment and Plan Sepsis Acute respiratory failure with hypoxemia and hypercapnia on MVS Influenza Bilateral pneumonia Acute renal failure Tobacco use disorder/Nicotine dependence Thrombocytopenia - continue to wean supplemental oxygen for target O2 sat's > 90%; once FIO2 is down to 40% start weaning PEEP - Daily SAT and SBT assessment for readiness for weaning per protocol - VAP bundle addressed - Lung protective strategies - Bronchodilators with pulmonary hygiene per RT - Accuchecks with glycemic control per SSI (While critically ill target blood glucose of 140-180 mg/dL; avoid hypoglycemia) - Sedation for target RASS 0 to -1 - Avoid benzodiazepines to reduce the possibility of delirium - Empiric antibiotics for post viral PNA(on linezolid) , complete antiviral agents-ID following - prn analgesia per CPOT score - Maintenance of sleep-wake cycle, avoid delirium - Enteral nutritional support -Aspiration precautions, HOB >40 - G.I. & VTE prophylaxis, while on heparin monitor for bleeding and trend platelets - PT/OT/ROM exercises - Mobility protocol and off loading for pressure ulcer prevention -Renally dose all medications, avoid nephrotoxins -Nicotine withdrawal precautions -Smoking cessation counselling once he is liberated from MVS CONDITION: CRITICAL PROGNOSIS: GUARDED CODE STATUS: FULL CODE Updated his son/ daughter at the bedside re care plan Answered all their questions The high probability of a clinically significant, sudden or life-threatening deterioration of the respiratory, renal system(s) required my full and direct attention, intervention and personal management. The aggregate critical care time was [35] minutes without overlap. Time includes spent on; [x] Data Review and interpretation [x] Patient assessment and monitoring of vital signs [x] Documentation [x] Medication orders and management Subjective Date of service: 08/19/19 Principal diagnosis: respiratory failure Interval history: Patient is seen today for: acute hypxemic respiratory failure on MVS; Influenza infection; post influenza pneumonia: tobacco use disorder; morbid obesity Seen and examined at bedside; 24hour events reviewed; nursing and respiratory care staff consulted; no adverse overnight events reported to me; awake and alert, remains orally intubated, on tamiflu and linezolid. remains on fentanyl, no diarrhea, no fevers. Tolerating enteric nutrition Objective Vital Signs - 12hr 08/19/19 08/19/19 08/19/19 01:00 02:00 03:01 Temperature Pulse Rate 49 L 58 L 63 Respiratory 24 21 17 Rate Blood Pressure 158/79 162/83 164/87 O2 Sat by Pulse 97 95 92 Oximetry 08/19/19 08/19/19 08/19/19 03:17 04:00 04:01 Temperature 98.7 F Pulse Rate 58 L 96 H Respiratory 18 Rate Blood Pressure 154/79 O2 Sat by Pulse 97 94 Oximetry 08/19/19 08/19/19 08/19/19 04:23 05:00 06:00 Temperature Pulse Rate 59 L 52 L 57 L Respiratory 24 21 Rate Blood Pressure 154/76 166/83 O2 Sat by Pulse 95 96 92 Oximetry 08/19/19 08/19/19 08/19/19 07:01 08:00 08:10 Temperature 98.6 F Pulse Rate 57 L 53 L 54 L Respiratory 23 24 Rate Blood Pressure 168/81 170/81 170/80 O2 Sat by Pulse 93 94 97 Oximetry 08/19/19 08/19/19 08/19/19 09:00 10:00 11:00 Temperature Pulse Rate 51 L 51 L 55 L Respiratory 24 24 24 Rate Blood Pressure 159/74 166/80 176/86 O2 Sat by Pulse 97 96 98 Oximetry 08/19/19 12:01 Temperature Pulse Rate 85 Respiratory 15 Rate Blood Pressure 172/93 O2 Sat by Pulse 93 Oximetry Constitutional: alert, appears uncomfortable, other (ETT in psotion at 23cm) Eyes: non-icteric ENT: oropharynx moist Neck: supple, no lymphadenopathy, no JVD Effort: mildly labored Ascultation: Bilateral: diminished breath sounds, rhonchi Cardiovascular: regular rate and rhythm, other (S1,S2) Gastrointestinal: normoactive bowel sounds, soft, non-tender, other (distended) Integumentary: normal Extremities: no cyanosis, no edema, pink and warm, pulses normal Neurologic: normal mental status, non-focal exam, pupils equal and round, motor strength normal and Psychiatric: mood appropriate, affect normal CBC and BMP: 08/27/19 07:45 08/29/19 15:10 ABG, PT/INR, D-dimer: ABG POC ABG pH 7.372 (7.35-7.45) 08/18/19 06:45 ABG pH 7.353 pH Units (7.350-7.450) 08/19/19 04:30 POC ABG pCO2 45.2 (35-45) H 08/18/19 06:45 ABG pCO2 47.9 mm Hg 08/19/19 04:30 POC ABG pO2 55 (80-105) L 08/18/19 06:45 ABG pO2 72.2 mm Hg (80.0-90.0) L 08/19/19 04:30 POC ABG HCO3 26.3 (22-26 mml/L) 08/18/19 06:45 POC ABG Total CO2 28 (23-27mmol/L) 08/18/19 06:45 POC ABG O2 Sat 87 08/18/19 06:45 ABG O2 Saturation 94.4 % (95.0-99.0) L 08/19/19 04:30 Abnormal lab findings: Abnormal Labs 08/15/19 08/15/19 08/15/19 13:16 13:16 17:16 WBC 14.7 H Hgb Hct RDW 17.3 H Plt Count Lymph % (Auto) Dukes % (Auto) 11.3 H Lymph # Dukes # 1.7 H Seg Neutrophils % 71.9 H Seg Neuts % (Manual) Lymphocytes % (Manual) Monocytes % (Manual) Nucleated RBC % Seg Neutrophils # 10.6 H Monocytes # (Manual) POC ABG pH 7.182 L POC ABG pCO2 > 70 H POC ABG pO2 ABG pO2 ABG HCO3 ABG O2 Saturation ABG Hemoglobin Oxyhemoglobin Sodium Chloride Carbon Dioxide BUN 28 H Creatinine 1.9 H Glucose 133 H POC Glucose Calcium Total Bilirubin 1.50 H AST 82 H Albumin 3.6 L Urine WBC (Auto) 08/15/19 08/16/19 08/16/19 18:17 03:41 03:41 WBC Hgb 11.6 L Hct 34.3 L D RDW 17.4 H Plt Count 119 L Lymph % (Auto) 11.4 L Dukes % (Auto) 11.6 H Lymph # 1.0 L Dukes # 1.1 H Seg Neutrophils % 76.9 H Seg Neuts % (Manual) Lymphocytes % (Manual) Monocytes % (Manual) Nucleated RBC % Seg Neutrophils # Monocytes # (Manual) POC ABG pH 7.280 L POC ABG pCO2 64.7 H POC ABG pO2 64 L ABG pO2 ABG HCO3 ABG O2 Saturation ABG Hemoglobin Oxyhemoglobin Sodium Chloride 107.1 H Carbon Dioxide BUN 34 H Creatinine 2.4 H Glucose 138 H POC Glucose Calcium 7.2 L D Total Bilirubin AST Albumin Urine WBC (Auto) 08/16/19 08/16/19 08/16/19 06:27 11:19 14:40 WBC Hgb Hct RDW Plt Count Lymph % (Auto) Dukes % (Auto) Lymph # Dukes # Seg Neutrophils % Seg Neuts % (Manual) Lymphocytes % (Manual) Monocytes % (Manual) Nucleated RBC % Seg Neutrophils # Monocytes # (Manual) POC ABG pH 7.336 L POC ABG pCO2 47.9 H 48.7 H POC ABG pO2 69 L 130 H ABG pO2 ABG HCO3 ABG O2 Saturation ABG Hemoglobin Oxyhemoglobin Sodium Chloride Carbon Dioxide BUN Creatinine Glucose POC Glucose Calcium Total Bilirubin AST Albumin Urine WBC (Auto) 8.0 H 08/17/19 08/17/19 08/17/19 05:31 05:31 06:30 WBC Hgb 11.5 L Hct 34.3 L RDW 17.3 H Plt Count Lymph % (Auto) Dukes % (Auto) 13.5 H Lymph # Dukes # 1.3 H Seg Neutrophils % 70.7 H Seg Neuts % (Manual) Lymphocytes % (Manual) Monocytes % (Manual) Nucleated RBC % Seg Neutrophils # Monocytes # (Manual) POC ABG pH POC ABG pCO2 POC ABG pO2 ABG pO2 116.6 H ABG HCO3 ABG O2 Saturation ABG Hemoglobin 13.9 L Oxyhemoglobin Sodium 146 H Chloride 112.1 H Carbon Dioxide BUN 47 H Creatinine 3.2 H Glucose POC Glucose Calcium 7.7 L Total Bilirubin AST Albumin Urine WBC (Auto) 08/17/19 08/18/19 08/18/19 20:31 04:20 04:20 WBC Hgb 11.4 L Hct 34.3 L RDW 17.3 H Plt Count 137 L Lymph % (Auto) Dukes % (Auto) Lymph # Dukes # Seg Neutrophils % Seg Neuts % (Manual) 79.0 H Lymphocytes % (Manual) 13.0 L Monocytes % (Manual) 8.0 H Nucleated RBC % 1.0 H Seg Neutrophils # Monocytes # (Manual) POC ABG pH POC ABG pCO2 POC ABG pO2 78 L ABG pO2 ABG HCO3 ABG O2 Saturation ABG Hemoglobin Oxyhemoglobin Sodium 148 H Chloride 112.3 H Carbon Dioxide 20 L BUN 40 H Creatinine 3.1 H Glucose 109 H POC Glucose Calcium 7.9 L Total Bilirubin AST Albumin Urine WBC (Auto) 08/18/19 08/18/19 08/19/19 06:45 23:19 04:30 WBC Hgb Hct RDW Plt Count Lymph % (Auto) Dukes % (Auto) Lymph # Dukes # Seg Neutrophils % Seg Neuts % (Manual) Lymphocytes % (Manual) Monocytes % (Manual) Nucleated RBC % Seg Neutrophils # Monocytes # (Manual) POC ABG pH POC ABG pCO2 45.2 H POC ABG pO2 55 L ABG pO2 72.2 L ABG HCO3 26.1 H ABG O2 Saturation 94.4 L ABG Hemoglobin 11.5 L Oxyhemoglobin 92.6 L Sodium Chloride Carbon Dioxide BUN Creatinine Glucose POC Glucose 158 H Calcium Total Bilirubin AST Albumin Urine WBC (Auto) 08/19/19 08/19/19 08/19/19 05:15 05:15 05:28 WBC Hgb 11.3 L Hct 34.4 L RDW 17.1 H Plt Count Lymph % (Auto) Dukes % (Auto) Lymph # Dukes # Seg Neutrophils % Seg Neuts % (Manual) Lymphocytes % (Manual) Monocytes % (Manual) 12.0 H Nucleated RBC % Seg Neutrophils # Monocytes # (Manual) 1.0 H POC ABG pH POC ABG pCO2 POC ABG pO2 ABG pO2 ABG HCO3 ABG O2 Saturation ABG Hemoglobin Oxyhemoglobin Sodium 149 H Chloride 115.0 H Carbon Dioxide 21 L BUN 32 H Creatinine 2.7 H Glucose 112 H POC Glucose 113 H Calcium 7.8 L Total Bilirubin AST Albumin Urine WBC (Auto) Chest x-ray: image reviewed Allied health notes reviewed: RT
[2019-08-19] MEDS ORDERED: fentaNYL 100 MCG/2 ML INJ IV PRN (12:59)
[2019-08-19] MEDS ORDERED: TERAZOSIN HCL 2 MG PO SCH (13:30)
[2019-08-19] MEDS: amLODIPine 10 MG TAB PO SCH (15:12)
[2019-08-19] MEDS: PRAZOSIN 1 MG CAP PO SCH (15:17)
--- NOTE | 2019-08-19 16:51 | Progress Note ---
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 Etiology complicated influenza with MRSA pneumonia. #Complicated influenza with pneumonia: improving. #Acute resp insufficiency: due to pneumonia ?COPD: remains on the vent. #Mild elevated LFTs from sepsis #CLAUDETTE: renally adjusted abx. #AMS: from sepsis, appears to be improving. Recs: continue linezolid 600 mg IV q 12 hour, monitor platelets on linezolid. Can switch to PO Linezolid once extubated and taking orals complete 5 days of renally adjusted Tamiflu Tani Hayden MD, FACP [facility] C: [phone] O: [phone] F: [phone] Subjective Date of service: 08/19/19 Principal diagnosis: respiratory failure Interval history: No fever. Remains stable, intubated, on the vent. Awake. Objective - Exam Narrative Exam: Constitutional: intubated, on vent, opens eyes Head, Ears, Nose: Normocephalic, atraumatic. External ears, nose normal Eyes: Conjunctivae/corneas clear. No icterus. No ptosis. Neck: intubated Oral: intubated Cardiovascular: S1 S2 + Respiratory: AE clear b/l, no wheeze GI: Soft, non tender, bowel sounds + Musculoskeletal: No pedal edema, no cyanosis. Skin: no rash, lesions Hem/Lymphatic: No palpable cervical or supraclavicular nodes. No lymphangitis Psych: no agitation Neurological: intubated, on the vent, opens eyes. Exam limited - Constitutional Vitals: Vital Signs Temp Pulse Resp BP Pulse Ox 98.3 F 56 L 23 171/85 96 08/19/19 12:00 08/19/19 15:17 08/19/19 14:00 08/19/19 15:17 08/19/19 14:00 Temperature -Last 24 Hours Temperature 98.3 F Temperature 98.6 F Temperature 98.7 F Temperature 98.1 F Temperature 98.4 F - Labs CBC & Chem 7: 08/19/19 05:15 08/19/19 05:15 Labs: Abnormal lab results 08/18/19 08/19/19 08/19/19 Range/Units 23:19 04:30 05:15 Hgb 11.3 L (11.8-15.2) gm/dl Hct 34.4 L (35.5-45.6) % RDW 17.1 H (13.2-15.2) % Monocytes % (Manual) 12.0 H (0.0-7.3) % Monocytes # (Manual) 1.0 H (0.0-0.8) K/mm3 ABG pO2 72.2 L (80.0-90.0) mm Hg ABG HCO3 26.1 H (20.0-26.0) mmol/L ABG O2 Saturation 94.4 L (95.0-99.0) % ABG Hemoglobin 11.5 L (14.0-18.0) gm/dl Oxyhemoglobin 92.6 L (95.0-99.0) % Sodium (137-145) mmol/L Chloride (98-107) mmol/L Carbon Dioxide (22-30) mmol/L BUN (9-20) mg/dL Creatinine (0.8-1.5) mg/dL Glucose (75-100) mg/dL POC Glucose 158 H (70-105) Calcium (8.4-10.2) mg/dL 08/19/19 08/19/19 08/19/19 Range/Units 05:15 05:28 13:00 Hgb (11.8-15.2) gm/dl Hct (35.5-45.6) % RDW (13.2-15.2) % Monocytes % (Manual) (0.0-7.3) % Monocytes # (Manual) (0.0-0.8) K/mm3 ABG pO2 (80.0-90.0) mm Hg ABG HCO3 (20.0-26.0) mmol/L ABG O2 Saturation (95.0-99.0) % ABG Hemoglobin (14.0-18.0) gm/dl Oxyhemoglobin (95.0-99.0) % Sodium 149 H (137-145) mmol/L Chloride 115.0 H (98-107) mmol/L Carbon Dioxide 21 L (22-30) mmol/L BUN 32 H (9-20) mg/dL Creatinine 2.7 H (0.8-1.5) mg/dL Glucose 112 H (75-100) mg/dL POC Glucose 113 H 126 H (70-105) Calcium 7.8 L (8.4-10.2) mg/dL
--- NOTE | 2019-08-19 17:57 | Progress Note ---
Assessment and Plan (1) Acute renal failure - suspect multifactorial CLAUDETTE in relation to dehydration, tubular injury in setting of respiratory failure - creatinine 1.9->2.4->3.2->3.1->2.7 today - no acute indications for dialysis - continue supportive measures - holding diuretic and JAMEY inhibitor - daily labs - avoid nephrotoxins (2) Influenza - currently under droplet precautions - Continue supportive measures (3) Acute on chronic respiratory failure with hypoxemia Concern for influenza Patient remains intubated (4) Acidosis Likely related to CLAUDETTE, continue to monitor (5) Hypernatremia: likely related to decreased thirst mechanism. On D5 1/2NS, will continue for now. Subjective Date of service: 08/19/19 Principal diagnosis: respiratory failure Interval history: No acute events, intubated and sedated. Objective - Exam Narrative Exam: General appearance: intubated, sedated EENT: sedated Neck: no JVD, ET tube in place Respiratory: coarse mechanical breath sounds Cardiology: regular, S1S2 Gastrointestinal: normal, normoactive bowel sounds Integumentary: no rash Neurologic: sedated Psychiatric: sedated - Vital Signs Vital signs: Vital Signs - 12hr 08/19/19 08/19/19 08/19/19 06:00 07:01 08:00 Temperature 98.6 F Pulse Rate 57 L 57 L 53 L Respiratory 21 23 24 Rate Blood Pressure 166/83 168/81 170/81 O2 Sat by Pulse 92 93 94 Oximetry 08/19/19 08/19/19 08/19/19 08:10 09:00 10:00 Temperature Pulse Rate 54 L 51 L 51 L Respiratory 24 24 Rate Blood Pressure 170/80 159/74 166/80 O2 Sat by Pulse 97 97 96 Oximetry 08/19/19 08/19/19 08/19/19 11:00 12:00 12:01 Temperature 98.3 F Pulse Rate 55 L 75 85 Respiratory 24 15 Rate Blood Pressure 176/86 172/93 O2 Sat by Pulse 98 97 93 Oximetry 08/19/19 08/19/19 08/19/19 12:54 13:00 14:00 Temperature Pulse Rate 60 60 57 L Respiratory 23 23 Rate Blood Pressure 171/82 164/85 166/85 O2 Sat by Pulse 93 96 96 Oximetry 08/19/19 08/19/19 08/19/19 15:01 15:12 15:17 Temperature Pulse Rate 53 L 56 L Respiratory 25 H Rate Blood Pressure 167/83 167/83 171/85 O2 Sat by Pulse 95 Oximetry 08/19/19 08/19/19 16:00 16:15 Temperature Pulse Rate 56 L Respiratory 29 H Rate Blood Pressure 165/81 O2 Sat by Pulse 96 97 Oximetry - Lab 08/19/19 05:15 08/19/19 05:15 Most recent lab results ABG pH 7.353 pH Units (7.350-7.450) 08/19/19 04:30 ABG pCO2 47.9 mm Hg 08/19/19 04:30 ABG pO2 72.2 mm Hg (80.0-90.0) L 08/19/19 04:30 ABG HCO3 26.1 mmol/L (20.0-26.0) H 08/19/19 04:30 ABG O2 Saturation 94.4 % (95.0-99.0) L 08/19/19 04:30 Calcium 7.8 mg/dL (8.4-10.2) L 08/19/19 05:15 Medications & Allergies - Medications Allergies/Adverse Reactions: Allergies No Known Allergies Allergy (Unverified 08/15/19 13:08) Home Medications: Home Medications Medication Instructions Recorded Confirmed Last Taken Type Rosuvastatin Calcium 20 mg PO QDAY 08/16/19 08/16/19 08/14/19 History Terazosin HCl 2 mg PO QDAY 08/16/19 08/16/19 08/14/19 History Trandolapril/Verapamil HCl [Tarka 4 mg PO QDAY 08/16/19 08/16/19 08/14/19 History ER 4-240 mg] Triamter/Hctz 37.5-25 mg 1 tab PO QDAY 08/16/19 08/16/19 08/14/19 History [Maxzide-25] Verapamil ER [Calan Sr] 180 mg PO BID 08/16/19 08/16/19 08/14/19 History amLODIPine [Norvasc] 10 mg PO DAILY 08/16/19 08/16/19 08/14/19 History Active Medications: Generic Name Dose Route Start Last Admin Trade Name Freq PRN Reason Stop Dose Admin Acetaminophen 650 mg 08/15/19 16:00 Tylenol PO Q4H PRN Pain MILD(1-3)/Fever >100.5/HARDY Albuterol 2.5 mg 08/15/19 16:00 Proventil IH Q4HRT PRN Shortness Of Breath Amlodipine Besylate 10 mg 08/19/19 14:00 08/19/19 15:12 Amlodipine PO 10 mg DAILY LEORA Administration Lipase/Protease/Amylase 1 each 08/17/19 14:[address] 10,500 Unit FEEDTUBE PRN PRN For Clogged Feeding Tube Atorvastatin Calcium 40 mg 08/19/19 22:00 Lipitor PO QHS LEORA Famotidine 20 mg 08/19/19 10:00 08/19/19 10:21 Pepcid PO 20 mg QDAY LEORA Administration Fentanyl 50 mcg 08/19/19 12:59 08/19/19 15:12 Sublimaze IV 50 mcg Q4H PRN Administration Pain, Moderate (4-6) Heparin Sodium (Porcine) 5,000 unit 08/15/19 22:00 08/19/19 10:21 Heparin SUB-Q 5,000 unit Q12HR LEORA Administration Hydrophilic Ointment 1 applic 08/15/19 17:33 Vaseline Lip Therapy TP Q2HR PRN Dry Lips Sodium Chloride 1,000 mls @ 150 mls/hr 08/16/19 14:00 08/18/19 01:45 Nacl 0.9% 1000 Ml IV 125 mls/hr DIRECT LEORA Administration Dextrose/Sodium Chloride 1,000 mls @ 50 mls/hr 08/17/19 19:00 08/19/19 15:17 D5/0.45ns IV 100 mls/hr DIRECT LEORA Administration Linezolid 600 mg in 300 mls @ 300 mls/hr 08/17/19 22:00 08/19/19 10:21 Zyvox 600mg/300ml IV 300 mls/hr Q12HR LEORA Administration Protocol Fentanyl Citrate 2,000 mcg in 100 mls @ 5.67 mls/hr 08/18/19 13:00 08/19/19 08:00 Fentanyl Drip Premix IV 0 mcg/kg/hr TITR LEORA 0 mls/hr Titration Protocol 1 MCG/KG/HR Lorazepam 0.5 mg 08/15/19 13:10 Ativan IV Q4H PRN Anxiety Lorazepam 2 mg 08/15/19 21:27 Ativan IV Q1HR PRN CIWA-Ar 8-15 Multi-Ingred Cream/Lotion/Oil/Oint 1 applic 08/15/19 17:33 Artificial Tears Ophth Oint OU Q4HR PRN Dry Eye(s) Ondansetron HCl 4 mg 08/15/19 16:00 Zofran IV Q8H PRN Nausea And Vomiting Oseltamivir Phosphate 30 mg 08/16/19 10:00 08/19/19 10:21 Tamiflu PO 08/20/19 10:01 30 mg BID LEORA Administration Prazosin HCl 1 mg 08/19/19 16:00 08/19/19 15:17 Prazosin PO 1 mg QDAY LEORA Administration Scopolamine 1 each 08/18/19 13:00 08/18/19 13:40 Transderm-Scop TD 1 each Q3D LEORA Administration Simple Syrup 15 ml 08/17/19 14:53 Simple Syrup FEEDTUBE PRN PRN Hypoglycemia Simple Syrup 30 ml 08/17/19 14:53 Simple Syrup FEEDTUBE PRN PRN Hypoglycemia Sodium Bicarbonate 325 mg 08/17/19 14:53 Sodium Bicarbonate FEEDTUBE PRN PRN For Clogged Feeding Tube Sodium Chloride 10 ml 08/15/19 22:00 08/19/19 12:52 Sodium Chloride Flush Syringe 10 Ml IV Not Given BID LEORA Sodium Chloride 10 ml 08/15/19 16:00 Sodium Chloride Flush Syringe 10 Ml IV PRN PRN LINE FLUSH
[2019-08-19] MEDS: LORazepam 2 MG/ML VIAL IV PRN ×2 (21:14→23:26)
--- NOTE | 2019-08-19 21:53 | Progress Note ---
Assessment and Plan Assessment and plan: Sepsis. Continue IV antibiotics per ID recommendations. Follow-up blood cultures. Acute on chronic hypoxemic respiratory failure. Continue mechanical ventilation per pulmonary. Patient likely has COPD given his smoking history. Influenza. Continue Tamiflu. Bilateral pneumonia. As above. Continue IV antibiotics and follow-up cultures. Acute kidney injury. Etiology secondary to vasomotor nephropathy and ATN/sepsis. Continue IV fluid hydration. Renal ultrasound within normal limits. Nephrology following. Toxic metabolic encephalopathy. Continue to treat underlying causes. Tobacco use disorder. Patient will be counseled on cessation once liberated from the ventilator. The high probability of a clinically significant, sudden or life threatening deterioration of the [respiratory and renal] system(s) required my full and direct attention, intervention and personal management. The aggregate critical care time was [33] minutes. This time is in addition to time spent performing reported procedures but includes the following: [x] Data Review and interpretation [x] Patient assessment and monitoring of vital signs [x] Documentation [x] Medication orders and management History Interval history: still intubated Not in pain Hospitalist Physical - Physical exam Narrative exam: General appearance: Present: no acute distress, other (Patient orally intubated on mechanical ventilation) - EENT Eyes: Present: PERRL, EOM intact ENT: hearing intact, clear oral mucosa, dentition normal - Neck Neck: Present: supple, normal ROM - Respiratory Respiratory effort: normal Respiratory: bilateral: CTA - Cardiovascular Rhythm: regular Heart Sounds: Present: S1 & S2. Absent: gallop, rub - Extremities Extremities: no ischemia, No edema, Full ROM - Abdominal General gastrointestinal: soft, non-tender, non-distended, normal bowel sounds - Integumentary Integumentary: Present: clear, warm, dry - Neurologic Neurologic: CNII-XII intact, moves all extremities, awake - Constitutional Vitals: Temp Pulse Resp BP Pulse Ox 97.2 F L 76 17 161/82 93 08/19/19 20:05 08/19/19 20:50 08/19/19 18:00 08/19/19 20:50 08/19/19 20:50 General appearance: Present: no acute distress, other (Patient orally intubated on mechanical ventilation) Results - Labs CBC & Chem 7: 08/19/19 05:15 08/19/19 05:15 Labs: Laboratory Last Values WBC 8.5 K/mm3 (4.5-11.0) 08/19/19 05:15 RBC 3.93 M/mm3 (3.65-5.03) 08/19/19 05:15 Hgb 11.3 gm/dl (11.8-15.2) L 08/19/19 05:15 Hct 34.4 % (35.5-45.6) L 08/19/19 05:15 MCV 88 fl (84-94) 08/19/19 05:15 MCH 29 pg (28-32) 08/19/19 05:15 MCHC 33 % (32-34) 08/19/19 05:15 RDW 17.1 % (13.2-15.2) H 08/19/19 05:15 Plt Count 144 K/mm3 (140-440) 08/19/19 05:15 Lymph % (Auto) 15.6 % (13.4-35.0) 08/17/19 05:31 [place] % (Auto) Safety Lead 08/19/19 05:15 Eos % (Auto) 0.1 % (0.0-4.3) 08/17/19 05:31 Baso % (Auto) 0.1 % (0.0-1.8) 08/17/19 05:31 Lymph # 1.4 K/mm3 (1.2-5.4) 08/17/19 05:31 [place] # 1.3 K/mm3 (0.0-0.8) H 08/17/19 05:31 Eos # 0.0 K/mm3 (0.0-0.4) 08/17/19 05:31 Baso # 0.0 K/mm3 (0.0-0.1) 08/17/19 05:31 Add Manual Diff Complete 08/19/19 05:15 Total Counted 100 08/19/19 05:15 Seg Neutrophils % 70.7 % (40.0-70.0) H 08/17/19 05:31 Seg Neuts % (Manual) 69.0 % (40.0-70.0) 08/19/19 05:15 Band Neutrophils % 0 % 08/19/19 05:15 Lymphocytes % (Manual) 17.0 % (13.4-35.0) 08/19/19 05:15 Reactive Lymphs % (Man) 1.0 % 08/19/19 05:15 Monocytes % (Manual) 12.0 % (0.0-7.3) H 08/19/19 05:15 Eosinophils % (Manual) 1.0 % (0.0-4.3) 08/19/19 05:15 Basophils % (Manual) 0 % (0.0-1.8) 08/19/19 05:15 Metamyelocytes % 0 % 08/19/19 05:15 Myelocytes % 0 % 08/19/19 05:15 Promyelocytes % 0 % 08/19/19 05:15 Blast Cells % 0 % 08/19/19 05:15 Nucleated RBC % Not Reportable 08/19/19 05:15 Seg Neutrophils # 6.6 K/mm3 (1.8-7.7) 08/17/19 05:31 Seg Neutrophils # Man 5.9 K/mm3 (1.8-7.7) 08/19/19 05:15 Band Neutrophils # 0.0 K/mm3 08/19/19 05:15 Lymphocytes # (Manual) 1.4 K/mm3 (1.2-5.4) 08/19/19 05:15 Abs React Lymphs (Man) 0.1 K/mm3 08/19/19 05:15 Monocytes # (Manual) 1.0 K/mm3 (0.0-0.8) H 08/19/19 05:15 Eosinophils # (Manual) 0.1 K/mm3 (0.0-0.4) 08/19/19 05:15 Basophils # (Manual) 0.0 K/mm3 (0.0-0.1) 08/19/19 05:15 Metamyelocytes # 0.0 K/mm3 08/19/19 05:15 Myelocytes # 0.0 K/mm3 08/19/19 05:15 Promyelocytes # 0.0 K/mm3 08/19/19 05:15 Blast Cells # 0.0 K/mm3 08/19/19 05:15 WBC Morphology Not Reportable 08/19/19 05:15 Hypersegmented Neuts Not Reportable 08/19/19 05:15 Hyposegmented Neuts Not Reportable 08/19/19 05:15 Hypogranular Neuts Not Reportable 08/19/19 05:15 Smudge Cells Not Reportable 08/19/19 05:15 Toxic Granulation Not Reportable 08/19/19 05:15 Toxic Vacuolation Not Reportable 08/19/19 05:15 Dohle Bodies Not Reportable 08/19/19 05:15 Pelger-Huet Anomaly Not Reportable 08/19/19 05:15 Dalila Rods Not Reportable 08/19/19 05:15 Platelet Estimate Consistent w auto 08/19/19 05:15 Clumped Platelets Not Reportable 08/19/19 05:15 Plt Clumps, EDTA Not Reportable 08/19/19 05:15 Large Platelets Not Reportable 08/19/19 05:15 Giant Platelets Not Reportable 08/19/19 05:15 Platelet Satelliting Not Reportable 08/19/19 05:15 Plt Morphology Comment Not Reportable 08/19/19 05:15 RBC Morphology Not Reportable 08/19/19 05:15 Dimorphic RBCs Not Reportable 08/19/19 05:15 Polychromasia Not Reportable 08/19/19 05:15 Hypochromasia Not Reportable 08/19/19 05:15 Poikilocytosis Not Reportable 08/19/19 05:15 Anisocytosis 1+ 08/19/19 05:15 Microcytosis Not Reportable 08/19/19 05:15 Macrocytosis Not Reportable 08/19/19 05:15 Spherocytes Not Reportable 08/19/19 05:15 Pappenheimer Bodies Not Reportable 08/19/19 05:15 Sickle Cells Not Reportable 08/19/19 05:15 Target Cells Not Reportable 08/19/19 05:15 Tear Drop Cells Not Reportable 08/19/19 05:15 Ovalocytes Not Reportable 08/19/19 05:15 Helmet Cells Not Reportable 08/19/19 05:15 [place] Bodies Not Reportable 08/19/19 05:15 [place] Rings Not Reportable 08/19/19 05:15 [place] Cells Not Reportable 08/19/19 05:15 Bite Cells Not Reportable 08/19/19 05:15 Crenated Cell Not Reportable 08/19/19 05:15 Elliptocytes Not Reportable 08/19/19 05:15 Acanthocytes (Spur) Not Reportable 08/19/19 05:15 Rouleaux Not Reportable 08/19/19 05:15 Hemoglobin C Crystals Not Reportable 08/19/19 05:15 Schistocytes Not Reportable 08/19/19 05:15 Malaria parasites Not Reportable 08/19/19 05:15 Magdiel Bodies Not Reportable 08/19/19 05:15 Hem Pathologist Commnt No 08/19/19 05:15 POC ABG pH 7.372 (7.35-7.45) 08/18/19 06:45 ABG pH 7.353 pH Units (7.350-7.450) 08/19/19 04:30 POC ABG pCO2 45.2 (35-45) H 08/18/19 06:45 ABG pCO2 47.9 mm Hg 08/19/19 04:30 POC ABG pO2 55 (80-105) L 08/18/19 06:45 ABG pO2 72.2 mm Hg (80.0-90.0) L 08/19/19 04:30 POC ABG HCO3 26.3 (22-26 mml/L) 08/18/19 06:45 ABG HCO3 26.1 mmol/L (20.0-26.0) H 08/19/19 04:30 POC ABG Total CO2 28 (23-27mmol/L) 08/18/19 06:45 POC ABG O2 Sat 87 08/18/19 06:45 ABG O2 Saturation 94.4 % (95.0-99.0) L 08/19/19 04:30 ABG O2 Content 15.0 (0.0-44) 08/19/19 04:30 POC ABG Base Excess 1 ((-2) - (+3)mmol/L) 08/18/19 06:45 ABG Base Excess 0.1 mmol/L (-2.0-3.0) 08/19/19 04:30 ABG Hemoglobin 11.5 gm/dl (14.0-18.0) L 08/19/19 04:30 ABG Carboxyhemoglobin 1.4 % (0.0-5.0) 08/19/19 04:30 ABG Methemoglobin 0.4 % (0.0-1.5) 08/19/19 04:30 Oxyhemoglobin 92.6 % (95.0-99.0) L 08/19/19 04:30 FiO2 60 % 08/19/19 04:30 Sodium 149 mmol/L (137-145) H 08/19/19 05:15 Potassium 3.9 mmol/L (3.6-5.0) 08/19/19 05:15 Chloride 115.0 mmol/L (98-107) H 08/19/19 05:15 Carbon Dioxide 21 mmol/L (22-30) L 08/19/19 05:15 Anion Gap 17 mmol/L 08/19/19 05:15 BUN 32 mg/dL (9-20) H 08/19/19 05:15 Creatinine 2.7 mg/dL (0.8-1.5) H 08/19/19 05:15 Estimated GFR 29 ml/min 08/19/19 05:15 BUN/Creatinine Ratio 12 % 08/19/19 05:15 Glucose 112 mg/dL (75-100) H 08/19/19 05:15 POC Glucose 112 (70-105) H 08/19/19 17:46 Lactic Acid 1.10 mmol/L (0.7-2.0) 08/15/19 23:36 Calcium 7.8 mg/dL (8.4-10.2) L 08/19/19 05:15 Total Bilirubin 1.50 mg/dL (0.1-1.2) H 08/15/19 13:16 AST 82 units/L (5-40) H 08/15/19 13:16 ALT 46 units/L (7-56) 08/15/19 13:16 Alkaline Phosphatase 90 units/L (35-129) 08/15/19 13:16 Troponin T 0.018 ng/mL (0.00-0.029) 08/15/19 13:16 Total Protein 7.9 g/dL (6.3-8.2) 08/15/19 13:16 Albumin 3.6 g/dL (3.9-5) L 08/15/19 13:16 Albumin/Globulin Ratio 0.8 % 08/15/19 13:16 Urine Color [place] (Yellow) 08/16/19 14:40 Urine Turbidity Cloudy (Clear) 08/16/19 14:40 Urine pH 5.0 (5.0-7.0) 08/16/19 14:40 Ur Specific Jessie 1.015 (1.003-1.030) 08/16/19 14:40 Urine Protein 100 mg/dl mg/dL (Negative) 08/16/19 14:40 Urine Glucose (UA) Neg mg/dL (Negative) 08/16/19 14:40 Urine Ketones Neg mg/dL (Negative) 08/16/19 14:40 Urine Blood Mod (Negative) 08/16/19 14:40 Urine Nitrite Neg (Negative) 08/16/19 14:40 Urine Bilirubin Neg (Negative) 08/16/19 14:40 Urine Urobilinogen 4.0 mg/dL (<2.0) 08/16/19 14:40 Ur Leukocyte Esterase Tr (Negative) 08/16/19 14:40 Urine WBC (Auto) 8.0 /HPF (0.0-6.0) H 08/16/19 14:40 Urine RBC (Auto) 1.0 /HPF (0.0-6.0) 08/16/19 14:40 U Epithel Cells (Auto) < 1.0 /HPF (0-13.0) 08/16/19 14:40 Random Vancomycin 7.9 ug/mL (0-40.0) 08/17/19 05:31 Active Medications - Current Medications Current Medications: Generic Name Dose Route Start Last Admin Trade Name Freq PRN Reason Stop Dose Admin Acetaminophen 650 mg 08/15/19 16:00 Tylenol PO Q4H PRN Pain MILD(1-3)/Fever >100.5/HARDY Albuterol 2.5 mg 08/15/19 16:00 Proventil IH Q4HRT PRN Shortness Of Breath Amlodipine Besylate 10 mg 08/19/19 14:00 08/19/19 15:12 Amlodipine PO 10 mg DAILY LEORA Administration Lipase/Protease/Amylase 1 each 08/17/19 14:[address] 10,500 Unit FEEDTUBE PRN PRN For Clogged Feeding Tube Atorvastatin Calcium 40 mg 08/19/19 22:00 08/19/19 21:13 Lipitor PO 40 mg QHS LEORA Administration Famotidine 20 mg 08/19/19 10:00 08/19/19 10:21 Pepcid PO 20 mg QDAY LEORA Administration Fentanyl 50 mcg 08/19/19 12:59 08/19/19 15:12 Sublimaze IV 50 mcg Q4H PRN Administration Pain, Moderate (4-6) Heparin Sodium (Porcine) 5,000 unit 08/15/19 22:00 08/19/19 21:14 Heparin SUB-Q 5,000 unit Q12HR LEORA Administration Hydrophilic Ointment 1 applic 08/15/19 17:33 Vaseline Lip Therapy TP Q2HR PRN Dry Lips Dextrose/Sodium Chloride 1,000 mls @ 50 mls/hr 08/17/19 19:00 08/19/19 15:17 D5/0.45ns IV 100 mls/hr DIRECT LEORA Administration Linezolid 600 mg in 300 mls @ 300 mls/hr 08/17/19 22:00 08/19/19 21:14 Zyvox 600mg/300ml IV 300 mls/hr Q12HR LEORA Administration Protocol Fentanyl Citrate 2,000 mcg in 100 mls @ 5.67 mls/hr 08/18/19 13:00 08/19/19 08:00 Fentanyl Drip Premix IV 0 mcg/kg/hr TITR LEORA 0 mls/hr Titration Protocol 1 MCG/KG/HR Lorazepam 0.5 mg 08/15/19 13:10 08/19/19 21:14 Ativan IV 0.5 mg Q4H PRN Administration Anxiety Lorazepam 2 mg 08/15/19 21:27 Ativan IV Q1HR PRN CIWA-Ar 8-15 Multi-Ingred Cream/Lotion/Oil/Oint 1 applic 08/15/19 17:33 Artificial Tears Ophth Oint OU Q4HR PRN Dry Eye(s) Ondansetron HCl 4 mg 08/15/19 16:00 Zofran IV Q8H PRN Nausea And Vomiting Oseltamivir Phosphate 30 mg 08/16/19 10:00 08/19/19 21:13 Tamiflu PO 08/20/19 10:01 30 mg BID LEORA Administration Prazosin HCl 1 mg 08/19/19 16:00 08/19/19 15:17 Prazosin PO 1 mg QDAY LEORA Administration Scopolamine 1 each 08/18/19 13:00 08/18/19 13:40 Transderm-Scop TD 1 each Q3D LEORA Administration Simple Syrup 15 ml 08/17/19 14:53 Simple Syrup FEEDTUBE PRN PRN Hypoglycemia Simple Syrup 30 ml 08/17/19 14:53 Simple Syrup FEEDTUBE PRN PRN Hypoglycemia Sodium Bicarbonate 325 mg 08/17/19 14:53 Sodium Bicarbonate FEEDTUBE PRN PRN For Clogged Feeding Tube Sodium Chloride 10 ml 08/15/19 22:00 08/19/19 12:52 Sodium Chloride Flush Syringe 10 Ml IV Not Given BID LEORA Sodium Chloride 10 ml 08/15/19 16:00 Sodium Chloride Flush Syringe 10 Ml IV PRN PRN LINE FLUSH Nutrition/Malnutrition Assess - Dietary Evaluation Nutrition/Malnutrition Findings: Nutrition Notes Start: 08/18/19 09:16 Freq: Status: Active Protocol: Document 08/19/19 16:43 LM (Rec: 08/19/19 16:46 LM [email or web address]) Nutrition Notes Initial or Follow up Brief Note Current Diagnosis Acute Kidney Injury,Decubitus( Pressure Ulcer),Sepsis, Hypertension,Respiratory Failure Other Pertinent Diagnosis Influenza, nicotine/ETOH dependence Current Diet Nepro 1.8 with Carbsteady at 45 ml/hr Labs/Tests Na 149 BUN 32 Cr 2.7 Pertinent Medications Reviewed Height 6 ft Weight 113.4 kg [place] Body Weight (kg) 80.90 BMI 33.9 Subjective/Other Information Pt started on trickle feeds. Plan to advance to goal starting today. Nutrition Intervention Follow-Up By: 08/21/19 Additional Comments F/U for TF at goal rate/ tolerance
[2019-08-20 05:33] LABS: Basophils % (Auto) 0.4 % (0.0-1.8); Eosinophils # (Auto) 0.1 K/mm3 (0.0-0.4); Eosinophils % (Auto) 1.2 % (0.0-4.3); Hematocrit 33.4 % (35.5-45.6); Hemoglobin 11.1 gm/dl (11.8-15.2); Lymphocytes # (Auto) 1.2 K/mm3 (1.2-5.4); Lymphocytes % (Auto) 11.2 % (13.4-35.0); Mean Corpuscular HGB Conc 33 % (32-34); Mean Corpuscular Volume 87 fl (84-94); Monocytes # (Auto) 1.3 K/mm3 (0.0-0.8); Monocytes % (Auto) 12.3 % (0.0-7.3); Platelet Count 175 K/mm3 (140-440); Red Blood Count 3.83 M/mm3 (3.65-5.03); Red Cell Distribution Width 17.1 % (13.2-15.2)
[2019-08-20 05:53] LABS: Calcium 8.1 mg/dL (8.4-10.2)
[2019-08-20] MEDS: LORazepam 2 MG/ML VIAL IV PRN ×5 (06:35→23:04)
--- NOTE | 2019-08-20 08:48 | XRay Report ---
CHEST 1 VIEW INDICATION: follow up respiratory failure. COMPARISON: One day prior. FINDINGS: Support devices: Unchanged. Heart: Stable. Lungs/Pleura: Mild diffuse interstitial opacities and left basilar consolidative change which may be atelectatic are unchanged. There may be a trace left pleural effusion, unchanged. No pneumothorax. IMPRESSION: 1. No significant change. Signer Name: Catarino Lundy MD Signed: 08/20/2019 8:43 AM Workstation Name: [id number]
--- NOTE | 2019-08-20 08:55 | Progress Note ---
Assessment and Plan Assessment and plan: Sepsis. Continue IV antibiotics per ID recommendations. Follow-up blood cultures. Acute on chronic hypoxemic respiratory failure. Continue mechanical ventilation per pulmonary. Patient likely has COPD given his smoking history. Influenza. Continue Tamiflu. Bilateral pneumonia. As above. Continue IV antibiotics and follow-up cultures. Acute kidney injury. Etiology secondary to vasomotor nephropathy and ATN/sepsis. Continue IV fluid hydration. Renal ultrasound within normal limits. Nephrology following. Toxic metabolic encephalopathy. Continue to treat underlying causes. Tobacco use disorder. Patient will be counseled on cessation once liberated from the ventilator. Discussed with son at bedside. The high probability of a clinically significant, sudden or life threatening d eterioration of the [respiratory and renal] system(s) required my full and direct attention, intervention and personal management. The aggregate critical care time was [32] minutes. This time is in addition to time spent performing reported procedures but includes the following: [x] Data Review and interpretation [x] Patient assessment and monitoring of vital signs [x] Documentation [x] Medication orders and management History Interval history: still intubated Not in pain Hospitalist Physical - Physical exam Narrative exam: General appearance: Present: no acute distress, other (Patient orally intubated on mechanical ventilation) - EENT Eyes: Present: PERRL, EOM intact ENT: hearing intact, clear oral mucosa, dentition normal - Neck Neck: Present: supple, normal ROM - Respiratory Respiratory effort: normal Respiratory: bilateral: CTA - Cardiovascular Rhythm: regular Heart Sounds: Present: S1 & S2. Absent: gallop, rub - Extremities Extremities: no ischemia, No edema, Full ROM - Abdominal General gastrointestinal: soft, non-tender, non-distended, normal bowel sounds - Integumentary Integumentary: Present: clear, warm, dry - Neurologic Neurologic: CNII-XII intact, moves all extremities, awake - Constitutional Vitals: Temp Pulse Resp BP Pulse Ox 99.2 F 69 25 H 163/81 95 08/20/19 04:45 08/20/19 08:01 08/20/19 08:01 08/20/19 08:01 08/20/19 08:01 General appearance: Present: no acute distress, other (Patient orally intubated on mechanical ventilation) Results - Labs CBC & Chem 7: 08/20/19 05:02 08/20/19 05:02 Labs: Laboratory Last Values WBC 10.4 K/mm3 (4.5-11.0) 08/20/19 05:02 RBC 3.83 M/mm3 (3.65-5.03) 08/20/19 05:02 Hgb 11.1 gm/dl (11.8-15.2) L 08/20/19 05:02 Hct 33.4 % (35.5-45.6) L 08/20/19 05:02 MCV 87 fl (84-94) 08/20/19 05:02 MCH 29 pg (28-32) 08/20/19 05:02 MCHC 33 % (32-34) 08/20/19 05:02 RDW 17.1 % (13.2-15.2) H 08/20/19 05:02 Plt Count 175 K/mm3 (140-440) 08/20/19 05:02 Lymph % (Auto) 11.2 % (13.4-35.0) L 08/20/19 05:02 [place] % (Auto) 12.3 % (0.0-7.3) H 08/20/19 05:02 Eos % (Auto) 1.2 % (0.0-4.3) 08/20/19 05:02 Baso % (Auto) 0.4 % (0.0-1.8) 08/20/19 05:02 Lymph # 1.2 K/mm3 (1.2-5.4) 08/20/19 05:02 [place] # 1.3 K/mm3 (0.0-0.8) H 08/20/19 05:02 Eos # 0.1 K/mm3 (0.0-0.4) 08/20/19 05:02 Baso # 0.0 K/mm3 (0.0-0.1) 08/20/19 05:02 Add Manual Diff Complete 08/19/19 05:15 Total Counted 100 08/19/19 05:15 Seg Neutrophils % 74.9 % (40.0-70.0) H 08/20/19 05:02 Seg Neuts % (Manual) 69.0 % (40.0-70.0) 08/19/19 05:15 Band Neutrophils % 0 % 08/19/19 05:15 Lymphocytes % (Manual) 17.0 % (13.4-35.0) 08/19/19 05:15 Reactive Lymphs % (Man) 1.0 % 08/19/19 05:15 Monocytes % (Manual) 12.0 % (0.0-7.3) H 08/19/19 05:15 Eosinophils % (Manual) 1.0 % (0.0-4.3) 08/19/19 05:15 Basophils % (Manual) 0 % (0.0-1.8) 08/19/19 05:15 Metamyelocytes % 0 % 08/19/19 05:15 Myelocytes % 0 % 08/19/19 05:15 Promyelocytes % 0 % 08/19/19 05:15 Blast Cells % 0 % 08/19/19 05:15 Nucleated RBC % Not Reportable 08/19/19 05:15 Seg Neutrophils # 7.8 K/mm3 (1.8-7.7) H 08/20/19 05:02 Seg Neutrophils # Man 5.9 K/mm3 (1.8-7.7) 08/19/19 05:15 Band Neutrophils # 0.0 K/mm3 08/19/19 05:15 Lymphocytes # (Manual) 1.4 K/mm3 (1.2-5.4) 08/19/19 05:15 Abs React Lymphs (Man) 0.1 K/mm3 08/19/19 05:15 Monocytes # (Manual) 1.0 K/mm3 (0.0-0.8) H 08/19/19 05:15 Eosinophils # (Manual) 0.1 K/mm3 (0.0-0.4) 08/19/19 05:15 Basophils # (Manual) 0.0 K/mm3 (0.0-0.1) 08/19/19 05:15 Metamyelocytes # 0.0 K/mm3 08/19/19 05:15 Myelocytes # 0.0 K/mm3 08/19/19 05:15 Promyelocytes # 0.0 K/mm3 08/19/19 05:15 Blast Cells # 0.0 K/mm3 08/19/19 05:15 WBC Morphology Not Reportable 08/19/19 05:15 Hypersegmented Neuts Not Reportable 08/19/19 05:15 Hyposegmented Neuts Not Reportable 08/19/19 05:15 Hypogranular Neuts Not Reportable 08/19/19 05:15 Smudge Cells Not Reportable 08/19/19 05:15 Toxic Granulation Not Reportable 08/19/19 05:15 Toxic Vacuolation Not Reportable 08/19/19 05:15 Dohle Bodies Not Reportable 08/19/19 05:15 Pelger-Huet Anomaly Not Reportable 08/19/19 05:15 Dalila Rods Not Reportable 08/19/19 05:15 Platelet Estimate Consistent w auto 08/19/19 05:15 Clumped Platelets Not Reportable 08/19/19 05:15 Plt Clumps, EDTA Not Reportable 08/19/19 05:15 Large Platelets Not Reportable 08/19/19 05:15 Giant Platelets Not Reportable 08/19/19 05:15 Platelet Satelliting Not Reportable 08/19/19 05:15 Plt Morphology Comment Not Reportable 08/19/19 05:15 RBC Morphology Not Reportable 08/19/19 05:15 Dimorphic RBCs Not Reportable 08/19/19 05:15 Polychromasia Not Reportable 08/19/19 05:15 Hypochromasia Not Reportable 08/19/19 05:15 Poikilocytosis Not Reportable 08/19/19 05:15 Anisocytosis 1+ 08/19/19 05:15 Microcytosis Not Reportable 08/19/19 05:15 Macrocytosis Not Reportable 08/19/19 05:15 Spherocytes Not Reportable 08/19/19 05:15 Pappenheimer Bodies Not Reportable 08/19/19 05:15 Sickle Cells Not Reportable 08/19/19 05:15 Target Cells Not Reportable 08/19/19 05:15 Tear Drop Cells Not Reportable 08/19/19 05:15 Ovalocytes Not Reportable 08/19/19 05:15 Helmet Cells Not Reportable 08/19/19 05:15 [place] Bodies Not Reportable 08/19/19 05:15 [place] Rings Not Reportable 08/19/19 05:15 Alana Cells Not Reportable 08/19/19 05:15 Bite Cells Not Reportable 08/19/19 05:15 Crenated Cell Not Reportable 08/19/19 05:15 Elliptocytes Not Reportable 08/19/19 05:15 Acanthocytes (Spur) Not Reportable 08/19/19 05:15 Rouleaux Not Reportable 08/19/19 05:15 Hemoglobin C Crystals Not Reportable 08/19/19 05:15 Schistocytes Not Reportable 08/19/19 05:15 Malaria parasites Not Reportable 08/19/19 05:15 Magdiel Bodies Not Reportable 08/19/19 05:15 Hem Pathologist Commnt No 08/19/19 05:15 POC ABG pH 7.384 (7.35-7.45) 08/20/19 04:00 ABG pH 7.353 pH Units (7.350-7.450) 08/19/19 04:30 POC ABG pCO2 45.1 (35-45) H 08/20/19 04:00 ABG pCO2 47.9 mm Hg 08/19/19 04:30 POC ABG pO2 70 (80-105) L 08/20/19 04:00 ABG pO2 72.2 mm Hg (80.0-90.0) L 08/19/19 04:30 POC ABG HCO3 26.9 (22-26 mml/L) 08/20/19 04:00 ABG HCO3 26.1 mmol/L (20.0-26.0) H 08/19/19 04:30 POC ABG Total CO2 28 (23-27mmol/L) 08/20/19 04:00 POC ABG O2 Sat 93 08/20/19 04:00 ABG O2 Saturation 94.4 % (95.0-99.0) L 08/19/19 04:30 ABG O2 Content 15.0 (0.0-44) 08/19/19 04:30 POC ABG Base Excess 2 ((-2) - (+3)mmol/L) 08/20/19 04:00 ABG Base Excess 0.1 mmol/L (-2.0-3.0) 08/19/19 04:30 ABG Hemoglobin 11.5 gm/dl (14.0-18.0) L 08/19/19 04:30 ABG Carboxyhemoglobin 1.4 % (0.0-5.0) 08/19/19 04:30 ABG Methemoglobin 0.4 % (0.0-1.5) 08/19/19 04:30 Oxyhemoglobin 92.6 % (95.0-99.0) L 08/19/19 04:30 FiO2 50 % 08/20/19 04:00 Sodium 146 mmol/L (137-145) H 08/20/19 05:02 Potassium 3.7 mmol/L (3.6-5.0) 08/20/19 05:02 Chloride 111.7 mmol/L (98-107) H 08/20/19 05:02 Carbon Dioxide 23 mmol/L (22-30) 08/20/19 05:02 Anion Gap 15 mmol/L 08/20/19 05:02 BUN 27 mg/dL (9-20) H 08/20/19 05:02 Creatinine 2.4 mg/dL (0.8-1.5) H 08/20/19 05:02 Estimated GFR 33 ml/min 08/20/19 05:02 BUN/Creatinine Ratio 11 % 08/20/19 05:02 Glucose 123 mg/dL (75-100) H 08/20/19 05:02 POC Glucose 108 (70-105) H 08/20/19 05:51 Lactic Acid 1.10 mmol/L (0.7-2.0) 08/15/19 23:36 Calcium 8.1 mg/dL (8.4-10.2) L 08/20/19 05:02 Total Bilirubin 1.50 mg/dL (0.1-1.2) H 08/15/19 13:16 AST 82 units/L (5-40) H 08/15/19 13:16 ALT 46 units/L (7-56) 08/15/19 13:16 Alkaline Phosphatase 90 units/L (35-129) 08/15/19 13:16 Troponin T 0.018 ng/mL (0.00-0.029) 08/15/19 13:16 Total Protein 7.9 g/dL (6.3-8.2) 08/15/19 13:16 Albumin 3.6 g/dL (3.9-5) L 08/15/19 13:16 Albumin/Globulin Ratio 0.8 % 08/15/19 13:16 Urine Color [place] (Yellow) 08/16/19 14:40 Urine Turbidity Cloudy (Clear) 08/16/19 14:40 Urine pH 5.0 (5.0-7.0) 08/16/19 14:40 Ur Specific [place] 1.015 (1.003-1.030) 08/16/19 14:40 Urine Protein 100 mg/dl mg/dL (Negative) 08/16/19 14:40 Urine Glucose (UA) Neg mg/dL (Negative) 08/16/19 14:40 Urine Ketones Neg mg/dL (Negative) 08/16/19 14:40 Urine Blood Mod (Negative) 08/16/19 14:40 Urine Nitrite Neg (Negative) 08/16/19 14:40 Urine Bilirubin Neg (Negative) 08/16/19 14:40 Urine Urobilinogen 4.0 mg/dL (<2.0) 08/16/19 14:40 Ur Leukocyte Esterase Tr (Negative) 08/16/19 14:40 Urine WBC (Auto) 8.0 /HPF (0.0-6.0) H 08/16/19 14:40 Urine RBC (Auto) 1.0 /HPF (0.0-6.0) 08/16/19 14:40 U Epithel Cells (Auto) < 1.0 /HPF (0-13.0) 08/16/19 14:40 Random Vancomycin 7.9 ug/mL (0-40.0) 08/17/19 05:31 Active Medications - Current Medications Current Medications: Generic Name Dose Route Start Last Admin Trade Name Freq PRN Reason Stop Dose Admin Acetaminophen 650 mg 08/15/19 16:00 Tylenol PO Q4H PRN Pain MILD(1-3)/Fever >100.5/HARDY Albuterol 2.5 mg 08/15/19 16:00 Proventil IH Q4HRT PRN Shortness Of Breath Amlodipine Besylate 10 mg 08/19/19 14:00 08/19/19 15:12 Amlodipine PO 10 mg DAILY LEORA Administration Lipase/Protease/Amylase 1 each 08/17/19 14:[address] 10,500 Unit FEEDTUBE PRN PRN For Clogged Feeding Tube Atorvastatin Calcium 40 mg 08/19/19 22:00 08/19/19 21:13 Lipitor PO 40 mg QHS LEORA Administration Famotidine 20 mg 08/19/19 10:00 08/19/19 10:21 Pepcid PO 20 mg QDAY LEORA Administration Fentanyl 50 mcg 08/19/19 12:59 08/19/19 15:12 Sublimaze IV 50 mcg Q4H PRN Administration Pain, Moderate (4-6) Heparin Sodium (Porcine) 5,000 unit 08/15/19 22:00 08/19/19 21:14 Heparin SUB-Q 5,000 unit Q12HR LEORA Administration Hydrophilic Ointment 1 applic 08/15/19 17:33 Vaseline Lip Therapy TP Q2HR PRN Dry Lips Dextrose/Sodium Chloride 1,000 mls @ 50 mls/hr 08/17/19 19:00 08/19/19 15:17 D5/0.45ns IV 100 mls/hr DIRECT LEORA Administration Linezolid 600 mg in 300 mls @ 300 mls/hr 08/17/19 22:00 08/19/19 21:14 Zyvox 600mg/300ml IV 300 mls/hr Q12HR LEORA Administration Protocol Fentanyl Citrate 2,000 mcg in 100 mls @ 5.67 mls/hr 08/18/19 13:00 08/19/19 08:00 Fentanyl Drip Premix IV 0 mcg/kg/hr TITR LEORA 0 mls/hr Titration Protocol 1 MCG/KG/HR Lorazepam 0.5 mg 08/15/19 13:10 08/20/19 06:35 Ativan IV 0.5 mg Q4H PRN Administration Anxiety Lorazepam 2 mg 08/15/19 21:27 Ativan IV Q1HR PRN CIWA-Ar 8-15 Multi-Ingred Cream/Lotion/Oil/Oint 1 applic 08/15/19 17:33 Artificial Tears Ophth Oint OU Q4HR PRN Dry Eye(s) Ondansetron HCl 4 mg 08/15/19 16:00 Zofran IV Q8H PRN Nausea And Vomiting Oseltamivir Phosphate 30 mg 08/16/19 10:00 08/19/19 21:13 Tamiflu PO 08/20/19 10:01 30 mg BID LEORA Administration Prazosin HCl 1 mg 08/19/19 16:00 08/19/19 15:17 Prazosin PO 1 mg QDAY LEORA Administration Scopolamine 1 each 08/18/19 13:00 08/18/19 13:40 Transderm-Scop TD 1 each Q3D LEORA Administration Simple Syrup 15 ml 08/17/19 14:53 Simple Syrup FEEDTUBE PRN PRN Hypoglycemia Simple Syrup 30 ml 08/17/19 14:53 Simple Syrup FEEDTUBE PRN PRN Hypoglycemia Sodium Bicarbonate 325 mg 08/17/19 14:53 Sodium Bicarbonate FEEDTUBE PRN PRN For Clogged Feeding Tube Sodium Chloride 10 ml 08/15/19 22:00 08/20/19 08:44 Sodium Chloride Flush Syringe 10 Ml IV Not Given BID LEORA Sodium Chloride 10 ml 08/15/19 16:00 Sodium Chloride Flush Syringe 10 Ml IV PRN PRN LINE FLUSH Nutrition/Malnutrition Assess - Dietary Evaluation Nutrition/Malnutrition Findings: Nutrition Notes Start: 08/18/19 09:16 Freq: Status: Active Protocol: Document 08/19/19 16:43 LM (Rec: 08/19/19 16:46 LM [email or web address]) Nutrition Notes Initial or Follow up Brief Note Current Diagnosis Acute Kidney Injury,Decubitus( Pressure Ulcer),Sepsis, Hypertension,Respiratory Failure Other Pertinent Diagnosis Influenza, nicotine/ETOH dependence Current Diet Nepro 1.8 with Carbsteady at 45 ml/hr Labs/Tests Na 149 BUN 32 Cr 2.7 Pertinent Medications Reviewed Height 6 ft Weight 113.4 kg [place] Body Weight (kg) 80.90 BMI 33.9 Subjective/Other Information Pt started on trickle feeds. Plan to advance to goal starting today. Nutrition Intervention Follow-Up By: 08/21/19 Additional Comments F/U for TF at goal rate/ tolerance
[2019-08-20] MEDS ORDERED: NON-FORMULARY EACH (Rosuvastatin Calcium [Rosuvastatin Calcium] 20 MG) PO SCH (10:00)
[2019-08-20] MEDS: FAMOTIDINE 20 MG TAB PO SCH (10:34)
[2019-08-20] MEDS: HEPARIN 5,000 UNIT/1 ML VIAL SUB-Q SCH ×2 (10:34→22:19)
[2019-08-20] MEDS: PRAZOSIN 1 MG CAP PO SCH (10:34)
[2019-08-20] MEDS: amLODIPine 10 MG TAB PO SCH (10:44)
[2019-08-20] MEDS: OSELTAMIVIR PHOSPHATE 30 MG/5 ML ORALSYR PO SCH (11:29)
--- NOTE | 2019-08-20 11:49 | Progress Note ---
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 Etiology complicated influenza with MRSA pneumonia. #Complicated influenza with pneumonia: improving. #Acute resp insufficiency: due to pneumonia ?COPD: remains on the vent. #Mild elevated LFTs from sepsis #CLAUDETTE: renally adjusted abx. Creatinine still elevated #AMS: from sepsis, appears to be improving. Recs: continue Day 6 of linezolid 600 mg IV q 12 hour, monitor platelets on linezolid. Complete total 10 days. Can switch to PO Linezolid once extubated and taking orals Tani Hayden MD, FACP [facility] ([facility]) C: [phone] O: [phone] F: [phone] Subjective Date of service: 08/20/19 Principal diagnosis: respiratory failure Interval history: No fever. Hemodynamically stable, intubated, on the vent. Awake. Objective - Exam Narrative Exam: Constitutional: intubated, on vent, opens eyes Head, Ears, Nose: Normocephalic, atraumatic. External ears, nose normal Eyes: Conjunctivae/corneas clear. No icterus. No ptosis. Neck: intubated Oral: intubated Cardiovascular: S1 S2 + Respiratory: AE clear b/l, no wheeze GI: Soft, non tender, bowel sounds + Musculoskeletal: No pedal edema, no cyanosis. Skin: no rash, lesions Hem/Lymphatic: No palpable cervical or supraclavicular nodes. No lymphangitis Psych: no agitation Neurological: intubated, on the vent, opens eyes. Exam limited - Constitutional Vitals: Vital Signs Temp Pulse Resp BP Pulse Ox 99.6 F 107 H 26 H 151/88 93 08/20/19 09:00 08/20/19 11:00 08/20/19 11:00 08/20/19 11:00 08/20/19 11:00 Temperature -Last 24 Hours Temperature 99.6 F Temperature 99.2 F Temperature 96.6 F Temperature 97.2 F Temperature 98.7 F Temperature 98.3 F - Labs CBC & Chem 7: 08/20/19 05:02 08/20/19 05:02 Labs: Abnormal lab results 08/19/19 08/19/19 08/20/19 Range/Units 13:00 17:46 04:00 Hgb (11.8-15.2) gm/dl Hct (35.5-45.6) % RDW (13.2-15.2) % Lymph % (Auto) (13.4-35.0) % Door % (Auto) (0.0-7.3) % Door # (0.0-0.8) K/mm3 Seg Neutrophils % (40.0-70.0) % Seg Neutrophils # (1.8-7.7) K/mm3 POC ABG pCO2 45.1 H (35-45) POC ABG pO2 70 L (80-105) Sodium (137-145) mmol/L Chloride (98-107) mmol/L BUN (9-20) mg/dL Creatinine (0.8-1.5) mg/dL Glucose (75-100) mg/dL POC Glucose 126 H 112 H (70-105) Calcium (8.4-10.2) mg/dL 08/20/19 08/20/19 08/20/19 Range/Units 05:02 05:02 05:51 Hgb 11.1 L (11.8-15.2) gm/dl Hct 33.4 L (35.5-45.6) % RDW 17.1 H (13.2-15.2) % Lymph % (Auto) 11.2 L (13.4-35.0) % Door % (Auto) 12.3 H (0.0-7.3) % Door # 1.3 H (0.0-0.8) K/mm3 Seg Neutrophils % 74.9 H (40.0-70.0) % Seg Neutrophils # 7.8 H (1.8-7.7) K/mm3 POC ABG pCO2 (35-45) POC ABG pO2 (80-105) Sodium 146 H (137-145) mmol/L Chloride 111.7 H (98-107) mmol/L BUN 27 H (9-20) mg/dL Creatinine 2.4 H (0.8-1.5) mg/dL Glucose 123 H (75-100) mg/dL POC Glucose 108 H (70-105) Calcium 8.1 L (8.4-10.2) mg/dL - Imaging and cardiology Chest x-ray: report reviewed, image reviewed (mild diffuse interstitial opacities, stable.)
--- NOTE | 2019-08-20 12:50 | Progress Note ---
Assessment and Plan Sepsis Acute respiratory failure with hypoxemia and hypercapnia on MVS Influenza Bilateral pneumonia Acute renal failure Tobacco use disorder/Nicotine dependence Thrombocytopenia Will continue with bronchodilators Has some respiratory acidosis, give a short course of steroids for possible undiagnosed underlying COPD Get transthoracic echocardiogram to evaluate LVEF and for pulmonary HTN - continue to wean supplemental oxygen for target O2 sat's > 90% , currently on FIO2 of 70% - Daily SAT and SBT assessment for readiness for weaning per protocol - VAP bundle addressed - Lung protective strategies - Bronchodilators with pulmonary hygiene per RT - Accuchecks with glycemic control per SSI (While critically ill target blood glucose of 140-180 mg/dL; avoid hypoglycemia) - Sedation for target RASS 0 to -1 - Avoid benzodiazepines to reduce the possibility of delirium - Empiric antibiotics for post viral PNA(on linezolid) , complete antiviral agents-ID following - prn analgesia per CPOT score - Maintenance of sleep-wake cycle, avoid delirium - Enteral nutritional support -Aspiration precautions, HOB >40 - G.I. & VTE prophylaxis, while on heparin monitor for bleeding and trend platelets - PT/OT/ROM exercises - Mobility protocol and off loading for pressure ulcer prevention -Renally dose all medications, avoid nephrotoxins -Nicotine withdrawal precautions -Smoking cessation counselling once he is liberated from MVS CONDITION: CRITICAL PROGNOSIS: GUARDED CODE STATUS: FULL CODE Updated his daughter at the bedside re care plan The high probability of a clinically significant, sudden or life-threatening deterioration of the respiratory, renal system(s) required my full and direct attention, intervention and personal management. The aggregate critical care time was [35] minutes without overlap. Time includes spent on; [x] Data Review and interpretation [x] Patient assessment and monitoring of vital signs [x] Documentation [x] Medication orders and management Subjective Date of service: 08/20/19 Principal diagnosis: respiratory failure Interval history: Patient is seen today for: acute hypoxic respiratory failure, bilateral alveolar infiltrates, morbid obesity, influenza infection: CLAUDETTE Seen and examined at bedside; 24hour events reviewed; nursing and respiratory care staff consulted; no adverse overnight events reported to me; Vitals, labs, medications, chart reviewed. Placed on PSV this morning, he went into acute distress with extemis- tacycardia, tachypnea with copious oral secretions and desaturations. Objective Vital Signs - 12hr 08/20/19 08/20/19 08/20/19 01:00 02:00 03:00 Temperature Pulse Rate 65 77 67 Pulse Rate [ Right Radial] Respiratory 23 25 H 24 Rate Blood Pressure 153/80 160/87 162/83 O2 Sat by Pulse 93 93 94 Oximetry 08/20/19 08/20/19 08/20/19 03:39 04:00 04:01 Temperature Pulse Rate 72 74 Pulse Rate [ 77 Right Radial] Respiratory 26 H Rate Blood Pressure 143/79 168/88 O2 Sat by Pulse 93 97 94 Oximetry 08/20/19 08/20/19 08/20/19 04:45 05:00 06:01 Temperature 99.2 F Pulse Rate 65 84 Pulse Rate [ Right Radial] Respiratory 24 15 Rate Blood Pressure 163/88 167/85 O2 Sat by Pulse 96 95 Oximetry 08/20/19 08/20/19 08/20/19 07:00 08:01 08:56 Temperature Pulse Rate 62 69 94 H Pulse Rate [ Right Radial] Respiratory 24 25 H Rate Blood Pressure 152/80 163/81 172/88 O2 Sat by Pulse 95 95 95 Oximetry 08/20/19 08/20/19 08/20/19 09:00 09:01 10:00 Temperature 99.6 F Pulse Rate 94 H 121 H Pulse Rate [ Right Radial] Respiratory 20 Rate Blood Pressure 172/88 O2 Sat by Pulse 95 Oximetry 08/20/19 08/20/19 08/20/19 10:01 10:34 10:44 Temperature Pulse Rate 123 H 123 H 119 H Pulse Rate [ Right Radial] Respiratory 22 Rate Blood Pressure 147/92 168/99 168/99 O2 Sat by Pulse 87 Oximetry 08/20/19 08/20/19 11:00 12:00 Temperature 98.8 F Pulse Rate 107 H Pulse Rate [ Right Radial] Respiratory 26 H Rate Blood Pressure 151/88 O2 Sat by Pulse 93 Oximetry Constitutional: alert, appears uncomfortable, other (ETT in position at 23cm) Eyes: non-icteric ENT: oropharynx moist Neck: supple, no lymphadenopathy, no JVD Effort: mildly labored Ascultation: Bilateral: diminished breath sounds, rhonchi Cardiovascular: regular rate and rhythm, other (S1,S2) Gastrointestinal: normoactive bowel sounds, soft, non-tender, other (distended) Integumentary: normal Extremities: no cyanosis, no edema, pink and warm, pulses normal Neurologic: non-focal exam, pupils equal and round, motor strength normal and Psychiatric: mood appropriate, affect normal CBC and BMP: 08/20/19 05:02 08/20/19 05:02 ABG, PT/INR, D-dimer: ABG POC ABG pH 7.384 (7.35-7.45) 08/20/19 04:00 ABG pH 7.353 pH Units (7.350-7.450) 08/19/19 04:30 POC ABG pCO2 45.1 (35-45) H 08/20/19 04:00 ABG pCO2 47.9 mm Hg 08/19/19 04:30 POC ABG pO2 70 (80-105) L 08/20/19 04:00 ABG pO2 72.2 mm Hg (80.0-90.0) L 08/19/19 04:30 POC ABG HCO3 26.9 (22-26 mml/L) 08/20/19 04:00 POC ABG Total CO2 28 (23-27mmol/L) 08/20/19 04:00 POC ABG O2 Sat 93 08/20/19 04:00 ABG O2 Saturation 94.4 % (95.0-99.0) L 08/19/19 04:30 Abnormal lab findings: Abnormal Labs 08/15/19 08/15/19 08/15/19 13:16 13:16 17:16 WBC 14.7 H Hgb Hct RDW 17.3 H Plt Count Lymph % (Auto) Tillman % (Auto) 11.3 H Lymph # Tillman # 1.7 H Seg Neutrophils % 71.9 H Seg Neuts % (Manual) Lymphocytes % (Manual) Monocytes % (Manual) Nucleated RBC % Seg Neutrophils # 10.6 H Monocytes # (Manual) POC ABG pH 7.182 L POC ABG pCO2 > 70 H POC ABG pO2 ABG pO2 ABG HCO3 ABG O2 Saturation ABG Hemoglobin Oxyhemoglobin Sodium Chloride Carbon Dioxide BUN 28 H Creatinine 1.9 H Glucose 133 H POC Glucose Calcium Total Bilirubin 1.50 H AST 82 H Albumin 3.6 L Urine WBC (Auto) 08/15/19 08/16/19 08/16/19 18:17 03:41 03:41 WBC Hgb 11.6 L Hct 34.3 L D RDW 17.4 H Plt Count 119 L Lymph % (Auto) 11.4 L Tillman % (Auto) 11.6 H Lymph # 1.0 L Tillman # 1.1 H Seg Neutrophils % 76.9 H Seg Neuts % (Manual) Lymphocytes % (Manual) Monocytes % (Manual) Nucleated RBC % Seg Neutrophils # Monocytes # (Manual) POC ABG pH 7.280 L POC ABG pCO2 64.7 H POC ABG pO2 64 L ABG pO2 ABG HCO3 ABG O2 Saturation ABG Hemoglobin Oxyhemoglobin Sodium Chloride 107.1 H Carbon Dioxide BUN 34 H Creatinine 2.4 H Glucose 138 H POC Glucose Calcium 7.2 L D Total Bilirubin AST Albumin Urine WBC (Auto) 08/16/19 08/16/19 08/16/19 06:27 11:19 14:40 WBC Hgb Hct RDW Plt Count Lymph % (Auto) Tillman % (Auto) Lymph # Tillman # Seg Neutrophils % Seg Neuts % (Manual) Lymphocytes % (Manual) Monocytes % (Manual) Nucleated RBC % Seg Neutrophils # Monocytes # (Manual) POC ABG pH 7.336 L POC ABG pCO2 47.9 H 48.7 H POC ABG pO2 69 L 130 H ABG pO2 ABG HCO3 ABG O2 Saturation ABG Hemoglobin Oxyhemoglobin Sodium Chloride Carbon Dioxide BUN Creatinine Glucose POC Glucose Calcium Total Bilirubin AST Albumin Urine WBC (Auto) 8.0 H 08/17/19 08/17/19 08/17/19 05:31 05:31 06:30 WBC Hgb 11.5 L Hct 34.3 L RDW 17.3 H Plt Count Lymph % (Auto) Tillman % (Auto) 13.5 H Lymph # Tillman # 1.3 H Seg Neutrophils % 70.7 H Seg Neuts % (Manual) Lymphocytes % (Manual) Monocytes % (Manual) Nucleated RBC % Seg Neutrophils # Monocytes # (Manual) POC ABG pH POC ABG pCO2 POC ABG pO2 ABG pO2 116.6 H ABG HCO3 ABG O2 Saturation ABG Hemoglobin 13.9 L Oxyhemoglobin Sodium 146 H Chloride 112.1 H Carbon Dioxide BUN 47 H Creatinine 3.2 H Glucose POC Glucose Calcium 7.7 L Total Bilirubin AST Albumin Urine WBC (Auto) 08/17/19 08/18/19 08/18/19 20:31 04:20 04:20 WBC Hgb 11.4 L Hct 34.3 L RDW 17.3 H Plt Count 137 L Lymph % (Auto) Tillman % (Auto) Lymph # Tillman # Seg Neutrophils % Seg Neuts % (Manual) 79.0 H Lymphocytes % (Manual) 13.0 L Monocytes % (Manual) 8.0 H Nucleated RBC % 1.0 H Seg Neutrophils # Monocytes # (Manual) POC ABG pH POC ABG pCO2 POC ABG pO2 78 L ABG pO2 ABG HCO3 ABG O2 Saturation ABG Hemoglobin Oxyhemoglobin Sodium 148 H Chloride 112.3 H Carbon Dioxide 20 L BUN 40 H Creatinine 3.1 H Glucose 109 H POC Glucose Calcium 7.9 L Total Bilirubin AST Albumin Urine WBC (Auto) 08/18/19 08/18/19 08/19/19 06:45 23:19 04:30 WBC Hgb Hct RDW Plt Count Lymph % (Auto) [place]man % (Auto) Lymph # Tillman # Seg Neutrophils % Seg Neuts % (Manual) Lymphocytes % (Manual) Monocytes % (Manual) Nucleated RBC % Seg Neutrophils # Monocytes # (Manual) POC ABG pH POC ABG pCO2 45.2 H POC ABG pO2 55 L ABG pO2 72.2 L ABG HCO3 26.1 H ABG O2 Saturation 94.4 L ABG Hemoglobin 11.5 L Oxyhemoglobin 92.6 L Sodium Chloride Carbon Dioxide BUN Creatinine Glucose POC Glucose 158 H Calcium Total Bilirubin AST Albumin Urine WBC (Auto) 08/19/19 08/19/19 08/19/19 05:15 05:15 05:28 WBC Hgb 11.3 L Hct 34.4 L RDW 17.1 H Plt Count Lymph % (Auto) Tillman % (Auto) Lymph # Tillman # Seg Neutrophils % Seg Neuts % (Manual) Lymphocytes % (Manual) Monocytes % (Manual) 12.0 H Nucleated RBC % Seg Neutrophils # Monocytes # (Manual) 1.0 H POC ABG pH POC ABG pCO2 POC ABG pO2 ABG pO2 ABG HCO3 ABG O2 Saturation ABG Hemoglobin Oxyhemoglobin Sodium 149 H Chloride 115.0 H Carbon Dioxide 21 L BUN 32 H Creatinine 2.7 H Glucose 112 H POC Glucose 113 H Calcium 7.8 L Total Bilirubin AST Albumin Urine WBC (Auto) 08/19/19 08/19/19 08/20/19 13:00 17:46 04:00 WBC Hgb Hct RDW Plt Count Lymph % (Auto) Tillman % (Auto) Lymph # Tillman # Seg Neutrophils % Seg Neuts % (Manual) Lymphocytes % (Manual) Monocytes % (Manual) Nucleated RBC % Seg Neutrophils # Monocytes # (Manual) POC ABG pH POC ABG pCO2 45.1 H POC ABG pO2 70 L ABG pO2 ABG HCO3 ABG O2 Saturation ABG Hemoglobin Oxyhemoglobin Sodium Chloride Carbon Dioxide BUN Creatinine Glucose POC Glucose 126 H 112 H Calcium Total Bilirubin AST Albumin Urine WBC (Auto) 08/20/19 08/20/19 08/20/19 05:02 05:02 05:51 WBC Hgb 11.1 L Hct 33.4 L RDW 17.1 H Plt Count Lymph % (Auto) 11.2 L Tillman % (Auto) 12.3 H Lymph # Tillman # 1.3 H Seg Neutrophils % 74.9 H Seg Neuts % (Manual) Lymphocytes % (Manual) Monocytes % (Manual) Nucleated RBC % Seg Neutrophils # 7.8 H Monocytes # (Manual) POC ABG pH POC ABG pCO2 POC ABG pO2 ABG pO2 ABG HCO3 ABG O2 Saturation ABG Hemoglobin Oxyhemoglobin Sodium 146 H Chloride 111.7 H Carbon Dioxide BUN 27 H Creatinine 2.4 H Glucose 123 H POC Glucose 108 H Calcium 8.1 L Total Bilirubin AST Albumin Urine WBC (Auto) 08/20/19 11:39 WBC Hgb Hct RDW Plt Count Lymph % (Auto) Tillman % (Auto) Lymph # Tillman # Seg Neutrophils % Seg Neuts % (Manual) Lymphocytes % (Manual) Monocytes % (Manual) Nucleated RBC % Seg Neutrophils # Monocytes # (Manual) POC ABG pH POC ABG pCO2 POC ABG pO2 ABG pO2 ABG HCO3 ABG O2 Saturation ABG Hemoglobin Oxyhemoglobin Sodium Chloride Carbon Dioxide BUN Creatinine Glucose POC Glucose 116 H Calcium Total Bilirubin AST Albumin Urine WBC (Auto) Chest x-ray: image reviewed (Low lung volumes, alveolar infiltrates)
[2019-08-20] MEDS: D5W/0.45% NACL 1,000 ML IV SCH (12:54)
[2019-08-20] MEDS: LINEZOLID 600 MG/300 ML BAG IV SCH ×2 (13:05→22:18)
[2019-08-20] MEDS: IPRATROPIUM/ALBUTEROL SULFATE 3 ML AMPUL.NEB IH SCH ×2 (14:28→20:03)
[2019-08-20] MEDS: methylPREDNISolone Sod Succinate 125 MG/2 ML INJ IV SCH ×2 (14:50→22:18)
--- NOTE | 2019-08-20 20:26 | Progress Note ---
Assessment and Plan Assesment * Nonoliguric CLAUDETTE secondary to prerenal azotemia * Influenza w/ secondary MRSA pneumonia * Acute hypoxic respiratory failure * Metabolic acidosis * Hypernatremia Plan: * Renal function improved - SCr trending down * Abx (Linezolid)/steroids per primary team * Na trending down - continue D5 1/2 NS * Vent management per pulmonary medicine * Dose medications for renal function * Avoid potential nephrotoxins . Subjective Date of service: 08/20/19 Principal diagnosis: respiratory failure Interval history: No acute events. Remains intubated. Objective - Vital Signs Vital signs: Vital Signs - 12hr 08/20/19 08/20/19 08/20/19 08:56 09:00 09:01 Temperature 99.6 F Pulse Rate 94 H 94 H Pulse Rate [ Anterior Bilateral] Pulse Rate [ Right Radial] Respiratory 20 Rate Respiratory Rate [Anterior Bilateral] Blood Pressure 172/88 172/88 O2 Sat by Pulse 95 95 Oximetry 08/20/19 08/20/19 08/20/19 10:00 10:01 10:34 Temperature Pulse Rate 121 H 123 H 123 H Pulse Rate [ Anterior Bilateral] Pulse Rate [ Right Radial] Respiratory 22 Rate Respiratory Rate [Anterior Bilateral] Blood Pressure 147/92 168/99 O2 Sat by Pulse 87 Oximetry 08/20/19 08/20/19 08/20/19 10:44 11:00 12:00 Temperature 98.8 F Pulse Rate 119 H 107 H Pulse Rate [ Anterior Bilateral] Pulse Rate [ Right Radial] Respiratory 26 H Rate Respiratory Rate [Anterior Bilateral] Blood Pressure 168/99 151/88 O2 Sat by Pulse 93 Oximetry 08/20/19 08/20/19 08/20/19 12:01 12:46 13:00 Temperature Pulse Rate 100 H 97 H 89 Pulse Rate [ Anterior Bilateral] Pulse Rate [ Right Radial] Respiratory 12 22 Rate Respiratory Rate [Anterior Bilateral] Blood Pressure 155/91 146/84 150/80 O2 Sat by Pulse 93 93 95 Oximetry 08/20/19 08/20/19 08/20/19 14:01 14:28 15:00 Temperature Pulse Rate 84 88 Pulse Rate [ 96 H Anterior Bilateral] Pulse Rate [ Right Radial] Respiratory 12 21 Rate Respiratory 22 Rate [Anterior Bilateral] Blood Pressure 140/86 156/87 O2 Sat by Pulse 98 95 Oximetry 08/20/19 08/20/19 08/20/19 16:00 16:52 17:01 Temperature Pulse Rate 87 81 88 Pulse Rate [ Anterior Bilateral] Pulse Rate [ Right Radial] Respiratory 30 H 21 Rate Respiratory Rate [Anterior Bilateral] Blood Pressure 159/86 149/81 156/99 O2 Sat by Pulse 95 98 96 Oximetry 08/20/19 08/20/19 08/20/19 17:07 18:00 19:00 Temperature 98.9 F Pulse Rate 79 89 Pulse Rate [ Anterior Bilateral] Pulse Rate [ Right Radial] Respiratory 19 26 H Rate Respiratory Rate [Anterior Bilateral] Blood Pressure 151/88 150/91 O2 Sat by Pulse 95 96 Oximetry 08/20/19 08/20/19 20:00 20:05 Temperature Pulse Rate 85 85 Pulse Rate [ Anterior Bilateral] Pulse Rate [ 87 Right Radial] Respiratory 29 H Rate Respiratory Rate [Anterior Bilateral] Blood Pressure 167/84 167/84 O2 Sat by Pulse 97 96 Oximetry - General Appearance General appearance: well-developed, well-nourished, intubated EENT: ATNC, other (ETT in place) Respiratory: Present: Other (coarse breath sounds) Cardiology: regular, S1S2 Gastrointestinal: normal, normoactive bowel sounds, no tenderness, distended Integumentary: no rash, warm and dry Musculoskeletal: other (no edema) Psychiatric: cooperative - Lab 08/20/19 05:02 08/20/19 05:02 Most recent lab results ABG pH 7.353 pH Units (7.350-7.450) 08/19/19 04:30 ABG pCO2 47.9 mm Hg 08/19/19 04:30 ABG pO2 72.2 mm Hg (80.0-90.0) L 08/19/19 04:30 ABG HCO3 26.1 mmol/L (20.0-26.0) H 08/19/19 04:30 ABG O2 Saturation 94.4 % (95.0-99.0) L 08/19/19 04:30 Calcium 8.1 mg/dL (8.4-10.2) L 08/20/19 05:02 Medications & Allergies - Medications Allergies/Adverse Reactions: Allergies No Known Allergies Allergy (Unverified 08/15/19 13:08) Home Medications: Home Medications Medication Instructions Recorded Confirmed Last Taken Type Rosuvastatin Calcium 20 mg PO QDAY 08/16/19 08/16/1919 History Terazosin HCl 2 mg PO QDAY 08/16/19 08/16/19 08/14/19 History Trandolapril/Verapamil HCl [Tarka 4 mg PO QDAY 08/16/19 08/16/19 08/14/19 History ER 4-240 mg] Triamter/Hctz 37.5-25 mg 1 tab PO QDAY 08/16/19 08/16/19 08/14/19 History [Maxzide-25] Verapamil ER [Calan Sr] 180 mg PO BID 08/16/19 08/16/19 08/14/19 History amLODIPine [Norvasc] 10 mg PO DAILY 08/16/19 08/16/19 08/14/19 History Active Medications: Generic Name Dose Route Start Last Admin Trade Name Freq PRN Reason Stop Dose Admin Acetaminophen 650 mg 08/15/19 16:00 Tylenol PO Q4H PRN Pain MILD(1-3)/Fever >100.5/HARDY Albuterol 2.5 mg 08/15/19 16:00 Proventil IH Q4HRT PRN Shortness Of Breath Albuterol/Ipratropium 1 ampul 08/20/19 14:00 08/20/19 20:03 Duoneb *Not For Prn Use* IH 1 ampul TIDRT LEORA Administration Amlodipine Besylate 10 mg 08/19/19 14:00 08/20/19 10:44 Amlodipine PO 10 mg DAILY LEORA Administration Lipase/Protease/Amylase 1 each 08/17/19 14:53 Pancrejonas Elizabeth 10,500 Unit FEEDTUBE PRN PRN For Clogged Feeding Tube Atorvastatin Calcium 40 mg 08/19/19 22:00 08/19/19 21:13 Lipitor PO 40 mg QHS LEORA Administration Famotidine 20 mg 08/19/19 10:00 08/20/19 10:34 Pepcid PO 20 mg QDAY LEORA Administration Fentanyl 50 mcg 08/19/19 12:59 08/19/19 15:12 Sublimaze IV 50 mcg Q4H PRN Administration Pain, Moderate (4-6) Heparin Sodium (Porcine) 5,000 unit 08/15/19 22:00 08/20/19 10:34 Heparin SUB-Q 5,000 unit Q12HR LEORA Administration Hydrophilic Ointment 1 applic 08/15/19 17:33 Vaseline Lip Therapy TP Q2HR PRN Dry Lips Dextrose/Sodium Chloride 1,000 mls @ 50 mls/hr 08/17/19 19:00 08/20/19 12:54 D5/0.45ns IV 100 mls/hr DIRECT LEORA Administration Linezolid 600 mg in 300 mls @ 300 mls/hr 08/17/19 22:00 08/20/19 13:05 Zyvox 600mg/300ml IV 300 mls/hr Q12HR LEORA Administration Protocol Fentanyl Citrate 2,000 mcg in 100 mls @ 5.67 mls/hr 08/18/19 13:00 08/19/19 08:00 Fentanyl Drip Premix IV 0 mcg/kg/hr TITR LEORA 0 mls/hr Titration Protocol 1 MCG/KG/HR Lorazepam 0.5 mg 08/15/19 13:10 08/20/19 16:30 Ativan IV 0.5 mg Q4H PRN Administration Anxiety Lorazepam 2 mg 08/15/19 21:27 08/20/19 10:31 Ativan IV 2 mg Q1HR PRN Administration CIWA-Ar 8-15 Methylprednisolone Sodium Succinate 60 mg 08/20/19 14:00 08/20/19 14:50 Solu-Medrol IV 60 mg Q8HR LEORA Administration Multi-Ingred Cream/Lotion/Oil/Oint 1 applic 08/15/19 17:33 Artificial Tears Ophth Oint OU Q4HR PRN Dry Eye(s) Ondansetron HCl 4 mg 08/15/19 16:00 Zofran IV Q8H PRN Nausea And Vomiting Prazosin HCl 1 mg 08/19/19 16:00 08/20/19 10:34 Prazosin PO 1 mg QDAY LEORA Administration Scopolamine 1 each 08/18/19 13:00 08/18/19 13:40 Transderm-Scop TD 1 each Q3D LEORA Administration Simple Syrup 15 ml 08/17/19 14:53 Simple Syrup FEEDTUBE PRN PRN Hypoglycemia Simple Syrup 30 ml 08/17/19 14:53 Simple Syrup FEEDTUBE PRN PRN Hypoglycemia Sodium Bicarbonate 325 mg 08/17/19 14:53 Sodium Bicarbonate FEEDTUBE PRN PRN For Clogged Feeding Tube Sodium Chloride 10 ml 08/15/19 22:00 08/20/19 10:35 Sodium Chloride Flush Syringe 10 Ml IV 10 ml BID LEORA Administration Sodium Chloride 10 ml 08/15/19 16:00 Sodium Chloride Flush Syringe 10 Ml IV PRN PRN LINE FLUSH
--- NOTE | 2019-08-21 02:31 | XRay Report ---
CHEST 1 VIEW INDICATION: follow up respiratory failure COMPARISON: One day prior. FINDINGS: Support devices: Unchanged. Heart: Stable. Lungs/Pleura: Minimal left basilar atelectasis. No definite acute disease. IMPRESSION: 1. No significant change. Signer Name: Eusebio Haro MD Signed: 08/21/2019 2:26 AM Workstation Name: [id number]
[2019-08-21] MEDS: LORazepam 2 MG/ML VIAL IV PRN ×8 (02:43→20:19)
[2019-08-21 05:32] LABS: ABG Base Excess 0.3 mmol/L (-2.0-3.0); ABG HCO3 27.1 mmol/L (20.0-26.0); ABG Methemoglobin 0.5 % (0.0-1.5); ABG Oxygen Saturation 94.8 % (95.0-99.0); ABG PCO2 54.6 mm Hg; ABG PH 7.314 pH Units (7.350-7.450); ABG PO2 78.3 mm Hg (80.0-90.0)
--- NOTE | 2019-08-21 05:58 | Progress Note ---
Assessment and Plan Sepsis Acute respiratory failure with hypoxemia and hypercapnia on MVS Influenza Bilateral pneumonia Acute renal failure Tobacco use disorder/Nicotine dependence Thrombocytopenia Will continue with bronchodilators Has some respiratory acidosis, continue with steroids for possible undiagnosed underlying COPD Follow up transthoracic echocardiogram to evaluate LVEF and for pulmonary HTN Decrease IVFs, keep euvolemic to negative balance - continue to wean supplemental oxygen for target O2 sat's > 90% - Daily SAT and SBT assessment for readiness for weaning per protocol - VAP bundle addressed - Lung protective strategies - Bronchodilators with pulmonary hygiene per RT - Accuchecks with glycemic control per SSI (While critically ill target blood glucose of 140-180 mg/dL; avoid hypoglycemia) - Sedation for target RASS 0 to -1 - Avoid benzodiazepines to reduce the possibility of delirium - Empiric antibiotics for post viral PNA(on linezolid) , complete antiviral agents-ID following - prn analgesia per CPOT score - Maintenance of sleep-wake cycle, avoid delirium - Enteral nutritional support -Aspiration precautions, HOB >40 - G.I. & VTE prophylaxis, while on heparin monitor for bleeding and trend platelets - PT/OT/ROM exercises - Mobility protocol and off loading for pressure ulcer prevention -Renally dose all medications, avoid nephrotoxins -Nicotine withdrawal precautions -Smoking cessation counselling once he is liberated from MVS CONDITION: CRITICAL PROGNOSIS: GUARDED CODE STATUS: FULL CODE Updated his daughter at the bedside re care plan The high probability of a clinically significant, sudden or life-threatening deterioration of the respiratory, renal system(s) required my full and direct attention, intervention and personal management. The aggregate critical care time was [35] minutes without overlap. Time includes spent on; [x] Data Review and interpretation [x] Patient assessment and monitoring of vital signs [x] Documentation [x] Medication orders and management Subjective Date of service: 08/21/19 Principal diagnosis: respiratory failure Interval history: Patient is seen today for: acute hypoxic respiratory failure, bilateral alveolar infiltrates, morbid obesity, influenza infection: CLAUDETTE Seen and examined at bedside; 24hour events reviewed; nursing and respiratory care staff consulted; no adverse overnight events reported to me; Vitals, labs, medications, chart reviewed. Placed on PSV yesterday he went into acute distress with extemis- tacycardia, tachypnea with copious oral secretions and desaturations. No fevers, no diarrhea, tolerating tube feedings Objective Vital Signs - 12hr 08/20/19 08/20/19 08/20/19 18:00 19:00 20:00 Temperature 99.3 F Pulse Rate 79 89 85 Pulse Rate [ 87 Right Radial] Respiratory 19 26 H 29 H Rate Blood Pressure 151/88 150/91 167/84 O2 Sat by Pulse 95 96 97 Oximetry 08/20/19 08/20/19 08/20/19 20:05 21:00 22:00 Temperature Pulse Rate 85 87 87 Pulse Rate [ Right Radial] Respiratory 14 Rate Blood Pressure 167/84 167/87 O2 Sat by Pulse 96 95 Oximetry 08/20/19 08/20/19 08/20/19 22:01 23:00 23:19 Temperature Pulse Rate 105 H 97 H 70 Pulse Rate [ Right Radial] Respiratory 33 H 30 H 25 H Rate Blood Pressure 184/97 181/79 174/87 O2 Sat by Pulse 95 95 94 Oximetry 08/21/19 08/21/19 08/21/19 00:00 00:01 00:31 Temperature 99.1 F Pulse Rate 77 75 Pulse Rate [ 66 Right Radial] Respiratory 27 H Rate Blood Pressure 182/92 187/95 O2 Sat by Pulse 95 95 Oximetry 08/21/19 08/21/19 08/21/19 01:00 02:00 03:00 Temperature Pulse Rate 84 93 H 89 Pulse Rate [ Right Radial] Respiratory 18 22 23 Rate Blood Pressure 158/98 161/98 171/90 O2 Sat by Pulse 93 93 93 Oximetry 08/21/19 08/21/19 04:00 04:36 Temperature Pulse Rate 60 75 Pulse Rate [ 83 Right Radial] Respiratory 23 Rate Blood Pressure 160/83 187/95 O2 Sat by Pulse 95 95 Oximetry Constitutional: alert, appears uncomfortable, other (ETT in position at 23cm) Eyes: non-icteric ENT: oropharynx moist Neck: supple, no lymphadenopathy, no JVD Effort: mildly labored Ascultation: Bilateral: diminished breath sounds, rhonchi Cardiovascular: regular rate and rhythm, other (S1,S2) Gastrointestinal: normoactive bowel sounds, soft, non-tender, other (distended) Integumentary: normal Extremities: no cyanosis, no edema, pink and warm, pulses normal Neurologic: non-focal exam, pupils equal and round, motor strength normal and Psychiatric: mood appropriate, affect normal CBC and BMP: 08/27/19 07:45 08/29/19 15:10 ABG, PT/INR, D-dimer: ABG POC ABG pH 7.384 (7.35-7.45) 08/20/19 04:00 ABG pH 7.314 pH Units (7.350-7.450) L 08/21/19 04:40 POC ABG pCO2 45.1 (35-45) H 08/20/19 04:00 ABG pCO2 54.6 mm Hg 08/21/19 04:40 POC ABG pO2 70 (80-105) L 08/20/19 04:00 ABG pO2 78.3 mm Hg (80.0-90.0) L 08/21/19 04:40 POC ABG HCO3 26.9 (22-26 mml/L) 08/20/19 04:00 POC ABG Total CO2 28 (23-27mmol/L) 08/20/19 04:00 POC ABG O2 Sat 93 08/20/19 04:00 ABG O2 Saturation 94.8 % (95.0-99.0) L 08/21/19 04:40 Abnormal lab findings: Abnormal Labs 08/15/19 08/15/19 08/15/19 13:16 13:16 17:16 WBC 14.7 H Hgb Hct RDW 17.3 H Plt Count Lymph % (Auto) [place] % (Auto) 11.3 H Lymph # [place] # 1.7 H Seg Neutrophils % 71.9 H Seg Neuts % (Manual) Lymphocytes % (Manual) Monocytes % (Manual) Nucleated RBC % Seg Neutrophils # 10.6 H Monocytes # (Manual) POC ABG pH 7.182 L ABG pH POC ABG pCO2 > 70 H POC ABG pO2 ABG pO2 ABG HCO3 ABG O2 Saturation ABG Hemoglobin Oxyhemoglobin Sodium Chloride Carbon Dioxide BUN 28 H Creatinine 1.9 H Glucose 133 H POC Glucose Calcium Total Bilirubin 1.50 H AST 82 H Albumin 3.6 L Urine WBC (Auto) 08/15/19 08/16/19 08/16/19 18:17 03:41 03:41 WBC Hgb 11.6 L Hct 34.3 L D RDW 17.4 H Plt Count 119 L Lymph % (Auto) 11.4 L [place] % (Auto) 11.6 H Lymph # 1.0 L [place] # 1.1 H Seg Neutrophils % 76.9 H Seg Neuts % (Manual) Lymphocytes % (Manual) Monocytes % (Manual) Nucleated RBC % Seg Neutrophils # Monocytes # (Manual) POC ABG pH 7.280 L ABG pH POC ABG pCO2 64.7 H POC ABG pO2 64 L ABG pO2 ABG HCO3 ABG O2 Saturation ABG Hemoglobin Oxyhemoglobin Sodium Chloride 107.1 H Carbon Dioxide BUN 34 H Creatinine 2.4 H Glucose 138 H POC Glucose Calcium 7.2 L D Total Bilirubin AST Albumin Urine WBC (Auto) 08/16/19 08/16/19 08/16/19 06:27 11:19 14:40 WBC Hgb Hct RDW Plt Count Lymph % (Auto) [place] % (Auto) Lymph # [place] # Seg Neutrophils % Seg Neuts % (Manual) Lymphocytes % (Manual) Monocytes % (Manual) Nucleated RBC % Seg Neutrophils # Monocytes # (Manual) POC ABG pH 7.336 L ABG pH POC ABG pCO2 47.9 H 48.7 H POC ABG pO2 69 L 130 H ABG pO2 ABG HCO3 ABG O2 Saturation ABG Hemoglobin Oxyhemoglobin Sodium Chloride Carbon Dioxide BUN Creatinine Glucose POC Glucose Calcium Total Bilirubin AST Albumin Urine WBC (Auto) 8.0 H 08/17/19 08/17/19 08/17/19 05:31 05:31 06:30 WBC Hgb 11.5 L Hct 34.3 L RDW 17.3 H Plt Count Lymph % (Auto) [place] % (Auto) 13.5 H Lymph # [place] # 1.3 H Seg Neutrophils % 70.7 H Seg Neuts % (Manual) Lymphocytes % (Manual) Monocytes % (Manual) Nucleated RBC % Seg Neutrophils # Monocytes # (Manual) POC ABG pH ABG pH POC ABG pCO2 POC ABG pO2 ABG pO2 116.6 H ABG HCO3 ABG O2 Saturation ABG Hemoglobin 13.9 L Oxyhemoglobin Sodium 146 H Chloride 112.1 H Carbon Dioxide BUN 47 H Creatinine 3.2 H Glucose POC Glucose Calcium 7.7 L Total Bilirubin AST Albumin Urine WBC (Auto) 08/17/19 08/18/19 08/18/19 20:31 04:20 04:20 WBC Hgb 11.4 L Hct 34.3 L RDW 17.3 H Plt Count 137 L Lymph % (Auto) [place] % (Auto) Lymph # [place] # Seg Neutrophils % Seg Neuts % (Manual) 79.0 H Lymphocytes % (Manual) 13.0 L Monocytes % (Manual) 8.0 H Nucleated RBC % 1.0 H Seg Neutrophils # Monocytes # (Manual) POC ABG pH ABG pH POC ABG pCO2 POC ABG pO2 78 L ABG pO2 ABG HCO3 ABG O2 Saturation ABG Hemoglobin Oxyhemoglobin Sodium 148 H Chloride 112.3 H Carbon Dioxide 20 L BUN 40 H Creatinine 3.1 H Glucose 109 H POC Glucose Calcium 7.9 L Total Bilirubin AST Albumin Urine WBC (Auto) 08/18/19 08/18/19 08/19/19 06:45 23:19 04:30 WBC Hgb Hct RDW Plt Count Lymph % (Auto) [place] % (Auto) Lymph # [place] # Seg Neutrophils % Seg Neuts % (Manual) Lymphocytes % (Manual) Monocytes % (Manual) Nucleated RBC % Seg Neutrophils # Monocytes # (Manual) POC ABG pH ABG pH POC ABG pCO2 45.2 H POC ABG pO2 55 L ABG pO2 72.2 L ABG HCO3 26.1 H ABG O2 Saturation 94.4 L ABG Hemoglobin 11.5 L Oxyhemoglobin 92.6 L Sodium Chloride Carbon Dioxide BUN Creatinine Glucose POC Glucose 158 H Calcium Total Bilirubin AST Albumin Urine WBC (Auto) 08/19/19 08/19/19 08/19/19 05:15 05:15 05:28 WBC Hgb 11.3 L Hct 34.4 L RDW 17.1 H Plt Count Lymph % (Auto) [place] % (Auto) Lymph # [place] # Seg Neutrophils % Seg Neuts % (Manual) Lymphocytes % (Manual) Monocytes % (Manual) 12.0 H Nucleated RBC % Seg Neutrophils # Monocytes # (Manual) 1.0 H POC ABG pH ABG pH POC ABG pCO2 POC ABG pO2 ABG pO2 ABG HCO3 ABG O2 Saturation ABG Hemoglobin Oxyhemoglobin Sodium 149 H Chloride 115.0 H Carbon Dioxide 21 L BUN 32 H Creatinine 2.7 H Glucose 112 H POC Glucose 113 H Calcium 7.8 L Total Bilirubin AST Albumin Urine WBC (Auto) 08/19/19 08/19/19 08/20/19 13:00 17:46 04:00 WBC Hgb Hct RDW Plt Count Lymph % (Auto) [place] % (Auto) Lymph # [place] # Seg Neutrophils % Seg Neuts % (Manual) Lymphocytes % (Manual) Monocytes % (Manual) Nucleated RBC % Seg Neutrophils # Monocytes # (Manual) POC ABG pH ABG pH POC ABG pCO2 45.1 H POC ABG pO2 70 L ABG pO2 ABG HCO3 ABG O2 Saturation ABG Hemoglobin Oxyhemoglobin Sodium Chloride Carbon Dioxide BUN Creatinine Glucose POC Glucose 126 H 112 H Calcium Total Bilirubin AST Albumin Urine WBC (Auto) 08/20/19 08/20/19 08/20/19 05:02 05:02 05:51 WBC Hgb 11.1 L Hct 33.4 L RDW 17.1 H Plt Count Lymph % (Auto) 11.2 L [place] % (Auto) 12.3 H Lymph # [place] # 1.3 H Seg Neutrophils % 74.9 H Seg Neuts % (Manual) Lymphocytes % (Manual) Monocytes % (Manual) Nucleated RBC % Seg Neutrophils # 7.8 H Monocytes # (Manual) POC ABG pH ABG pH POC ABG pCO2 POC ABG pO2 ABG pO2 ABG HCO3 ABG O2 Saturation ABG Hemoglobin Oxyhemoglobin Sodium 146 H Chloride 111.7 H Carbon Dioxide BUN 27 H Creatinine 2.4 H Glucose 123 H POC Glucose 108 H Calcium 8.1 L Total Bilirubin AST Albumin Urine WBC (Auto) 08/20/19 08/20/19 08/21/19 11:39 18:26 04:40 WBC Hgb Hct RDW Plt Count Lymph % (Auto) [place] % (Auto) Lymph # [place] # Seg Neutrophils % Seg Neuts % (Manual) Lymphocytes % (Manual) Monocytes % (Manual) Nucleated RBC % Seg Neutrophils # Monocytes # (Manual) POC ABG pH ABG pH 7.314 L POC ABG pCO2 POC ABG pO2 ABG pO2 78.3 L ABG HCO3 27.1 H ABG O2 Saturation 94.8 L ABG Hemoglobin 10.5 L Oxyhemoglobin 93.0 L Sodium Chloride Carbon Dioxide BUN Creatinine Glucose POC Glucose 116 H 137 H Calcium Total Bilirubin AST Albumin Urine WBC (Auto) 08/21/19 05:25 WBC Hgb Hct RDW Plt Count Lymph % (Auto) [place] % (Auto) Lymph # [place] # Seg Neutrophils % Seg Neuts % (Manual) Lymphocytes % (Manual) Monocytes % (Manual) Nucleated RBC % Seg Neutrophils # Monocytes # (Manual) POC ABG pH ABG pH POC ABG pCO2 POC ABG pO2 ABG pO2 ABG HCO3 ABG O2 Saturation ABG Hemoglobin Oxyhemoglobin Sodium Chloride Carbon Dioxide BUN Creatinine Glucose POC Glucose 129 H Calcium Total Bilirubin AST Albumin Urine WBC (Auto)
[2019-08-21] MEDS: methylPREDNISolone Sod Succinate 125 MG/2 ML INJ IV SCH ×3 (06:02→21:27)
[2019-08-21] MEDS: IPRATROPIUM/ALBUTEROL SULFATE 3 ML AMPUL.NEB IH SCH ×3 (08:27→19:15)
--- NOTE | 2019-08-21 08:53 | Progress Note ---
Assessment and Plan Assessment and plan: Sepsis. Continue IV antibiotics per ID recommendations. Follow-up blood cultures. Acute on chronic hypoxemic respiratory failure. Continue mechanical ventilation per pulmonary. Patient likely has COPD given his smoking history. Influenza. Continue Tamiflu. Bilateral pneumonia. As above. Continue IV antibiotics and follow-up cultures. Acute kidney injury. Etiology secondary to vasomotor nephropathy and ATN/sepsis. Continue IV fluid hydration. Renal ultrasound within normal limits. Nephrology following. Toxic metabolic encephalopathy. Continue to treat underlying causes. Tobacco use disorder. Patient will be counseled on cessation once liberated from the ventilator. Discussed with son at bedside. The high probability of a clinically significant, sudden or life threatening d eterioration of the [respiratory and renal] system(s) required my full and direct attention, intervention and personal management. The aggregate critical care time was [31] minutes. This time is in addition to time spent performing reported procedures but includes the following: [x] Data Review and interpretation [x] Patient assessment and monitoring of vital signs [x] Documentation [x] Medication orders and management History Interval history: still intubated Not in pain Hospitalist Physical - Physical exam Narrative exam: General appearance: Present: no acute distress, other (Patient orally intubated on mechanical ventilation) - EENT Eyes: Present: PERRL, EOM intact ENT: hearing intact, clear oral mucosa, dentition normal - Neck Neck: Present: supple, normal ROM - Respiratory Respiratory effort: normal Respiratory: bilateral: Decreased breath sounds bilat, bilat rhonchi - Cardiovascular Rhythm: regular Heart Sounds: Present: S1 & S2. Absent: gallop, rub - Extremities Extremities: no ischemia, No edema, Full ROM - Abdominal General gastrointestinal: soft, non-tender, non-distended, normal bowel sounds - Integumentary Integumentary: Present: clear, warm, dry - Neurologic Neurologic: CNII-XII intact, moves all extremities, awake - Constitutional Vitals: Temp Pulse Resp BP Pulse Ox 100.1 F H 96 H 22 170/84 95 08/21/19 04:00 08/21/19 08:30 08/21/19 08:30 08/21/19 08:24 08/21/19 08:24 General appearance: Present: no acute distress, other (Patient orally intubated on mechanical ventilation) Results - Labs CBC & Chem 7: 08/20/19 05:02 08/21/19 05:56 Labs: Laboratory Last Values WBC 10.4 K/mm3 (4.5-11.0) 08/20/19 05:02 RBC 3.83 M/mm3 (3.65-5.03) 08/20/19 05:02 Hgb 11.1 gm/dl (11.8-15.2) L 08/20/19 05:02 Hct 33.4 % (35.5-45.6) L 08/20/19 05:02 MCV 87 fl (84-94) 08/20/19 05:02 MCH 29 pg (28-32) 08/20/19 05:02 MCHC 33 % (32-34) 08/20/19 05:02 RDW 17.1 % (13.2-15.2) H 08/20/19 05:02 Plt Count 175 K/mm3 (140-440) 08/20/19 05:02 Lymph % (Auto) 11.2 % (13.4-35.0) L 08/20/19 05:02 [place] % (Auto) 12.3 % (0.0-7.3) H 08/20/19 05:02 Eos % (Auto) 1.2 % (0.0-4.3) 08/20/19 05:02 Baso % (Auto) 0.4 % (0.0-1.8) 08/20/19 05:02 Lymph # 1.2 K/mm3 (1.2-5.4) 08/20/19 05:02 [place] # 1.3 K/mm3 (0.0-0.8) H 08/20/19 05:02 Eos # 0.1 K/mm3 (0.0-0.4) 08/20/19 05:02 Baso # 0.0 K/mm3 (0.0-0.1) 08/20/19 05:02 Add Manual Diff Complete 08/19/19 05:15 Total Counted 100 08/19/19 05:15 Seg Neutrophils % 74.9 % (40.0-70.0) H 08/20/19 05:02 Seg Neuts % (Manual) 69.0 % (40.0-70.0) 08/19/19 05:15 Band Neutrophils % 0 % 08/19/19 05:15 Lymphocytes % (Manual) 17.0 % (13.4-35.0) 08/19/19 05:15 Reactive Lymphs % (Man) 1.0 % 08/19/19 05:15 Monocytes % (Manual) 12.0 % (0.0-7.3) H 08/19/19 05:15 Eosinophils % (Manual) 1.0 % (0.0-4.3) 08/19/19 05:15 Basophils % (Manual) 0 % (0.0-1.8) 08/19/19 05:15 Metamyelocytes % 0 % 08/19/19 05:15 Myelocytes % 0 % 08/19/19 05:15 Promyelocytes % 0 % 08/19/19 05:15 Blast Cells % 0 % 08/19/19 05:15 Nucleated RBC % Not Reportable 08/19/19 05:15 Seg Neutrophils # 7.8 K/mm3 (1.8-7.7) H 08/20/19 05:02 Seg Neutrophils # Man 5.9 K/mm3 (1.8-7.7) 08/19/19 05:15 Band Neutrophils # 0.0 K/mm3 08/19/19 05:15 Lymphocytes # (Manual) 1.4 K/mm3 (1.2-5.4) 08/19/19 05:15 Abs React Lymphs (Man) 0.1 K/mm3 08/19/19 05:15 Monocytes # (Manual) 1.0 K/mm3 (0.0-0.8) H 08/19/19 05:15 Eosinophils # (Manual) 0.1 K/mm3 (0.0-0.4) 08/19/19 05:15 Basophils # (Manual) 0.0 K/mm3 (0.0-0.1) 08/19/19 05:15 Metamyelocytes # 0.0 K/mm3 08/19/19 05:15 Myelocytes # 0.0 K/mm3 08/19/19 05:15 Promyelocytes # 0.0 K/mm3 08/19/19 05:15 Blast Cells # 0.0 K/mm3 08/19/19 05:15 WBC Morphology Not Reportable 08/19/19 05:15 Hypersegmented Neuts Not Reportable 08/19/19 05:15 Hyposegmented Neuts Not Reportable 08/19/19 05:15 Hypogranular Neuts Not Reportable 08/19/19 05:15 Smudge Cells Not Reportable 08/19/19 05:15 Toxic Granulation Not Reportable 08/19/19 05:15 Toxic Vacuolation Not Reportable 08/19/19 05:15 Dohle Bodies Not Reportable 08/19/19 05:15 Pelger-Huet Anomaly Not Reportable 08/19/19 05:15 Dalila Rods Not Reportable 08/19/19 05:15 Platelet Estimate Consistent w auto 08/19/19 05:15 Clumped Platelets Not Reportable 08/19/19 05:15 Plt Clumps, EDTA Not Reportable 08/19/19 05:15 Large Platelets Not Reportable 08/19/19 05:15 Giant Platelets Not Reportable 08/19/19 05:15 Platelet Satelliting Not Reportable 08/19/19 05:15 Plt Morphology Comment Not Reportable 08/19/19 05:15 RBC Morphology Not Reportable 08/19/19 05:15 Dimorphic RBCs Not Reportable 08/19/19 05:15 Polychromasia Not Reportable 08/19/19 05:15 Hypochromasia Not Reportable 08/19/19 05:15 Poikilocytosis Not Reportable 08/19/19 05:15 Anisocytosis 1+ 08/19/19 05:15 Microcytosis Not Reportable 08/19/19 05:15 Macrocytosis Not Reportable 08/19/19 05:15 Spherocytes Not Reportable 08/19/19 05:15 Pappenheimer Bodies Not Reportable 08/19/19 05:15 Sickle Cells Not Reportable 08/19/19 05:15 Target Cells Not Reportable 08/19/19 05:15 Tear Drop Cells Not Reportable 08/19/19 05:15 Ovalocytes Not Reportable 08/19/19 05:15 Helmet Cells Not Reportable 08/19/19 05:15 [place] Bodies Not Reportable 08/19/19 05:15 [place] Rings Not Reportable 08/19/19 05:15 [place] Cells Not Reportable 08/19/19 05:15 Bite Cells Not Reportable 08/19/19 05:15 Crenated Cell Not Reportable 08/19/19 05:15 Elliptocytes Not Reportable 08/19/19 05:15 Acanthocytes (Spur) Not Reportable 08/19/19 05:15 Rouleaux Not Reportable 08/19/19 05:15 Hemoglobin C Crystals Not Reportable 08/19/19 05:15 Schistocytes Not Reportable 08/19/19 05:15 Malaria parasites Not Reportable 08/19/19 05:15 Magdiel Bodies Not Reportable 08/19/19 05:15 Hem Pathologist Commnt No 08/19/19 05:15 POC ABG pH 7.384 (7.35-7.45) 08/20/19 04:00 ABG pH 7.314 pH Units (7.350-7.450) L 08/21/19 04:40 POC ABG pCO2 45.1 (35-45) H 08/20/19 04:00 ABG pCO2 54.6 mm Hg 08/21/19 04:40 POC ABG pO2 70 (80-105) L 08/20/19 04:00 ABG pO2 78.3 mm Hg (80.0-90.0) L 08/21/19 04:40 POC ABG HCO3 26.9 (22-26 mml/L) 08/20/19 04:00 ABG HCO3 27.1 mmol/L (20.0-26.0) H 08/21/19 04:40 POC ABG Total CO2 28 (23-27mmol/L) 08/20/19 04:00 POC ABG O2 Sat 93 08/20/19 04:00 ABG O2 Saturation 94.8 % (95.0-99.0) L 08/21/19 04:40 ABG O2 Content 13.8 (0.0-44) 08/21/19 04:40 POC ABG Base Excess 2 ((-2) - (+3)mmol/L) 08/20/19 04:00 ABG Base Excess 0.3 mmol/L (-2.0-3.0) 08/21/19 04:40 ABG Hemoglobin 10.5 gm/dl (14.0-18.0) L 08/21/19 04:40 ABG Carboxyhemoglobin 1.4 % (0.0-5.0) 08/21/19 04:40 ABG Methemoglobin 0.5 % (0.0-1.5) 08/21/19 04:40 Oxyhemoglobin 93.0 % (95.0-99.0) L 08/21/19 04:40 FiO2 50 % 08/21/19 04:40 Sodium 147 mmol/L (137-145) H 08/21/19 05:56 Potassium 3.9 mmol/L (3.6-5.0) 08/21/19 05:56 Chloride 110.7 mmol/L (98-107) H 08/21/19 05:56 Carbon Dioxide 22 mmol/L (22-30) 08/21/19 05:56 Anion Gap 18 mmol/L 08/21/19 05:56 BUN 30 mg/dL (9-20) H 08/21/19 05:56 Creatinine 2.4 mg/dL (0.8-1.5) H 08/21/19 05:56 Estimated GFR 33 ml/min 08/21/19 05:56 BUN/Creatinine Ratio 13 % 08/21/19 05:56 Glucose 144 mg/dL (75-100) H 08/21/19 05:56 POC Glucose 129 (70-105) H 08/21/19 05:25 Lactic Acid 1.10 mmol/L (0.7-2.0) 08/15/19 23:36 Calcium 8.0 mg/dL (8.4-10.2) L 08/21/19 05:56 Total Bilirubin 1.50 mg/dL (0.1-1.2) H 08/15/19 13:16 AST 82 units/L (5-40) H 08/15/19 13:16 ALT 46 units/L (7-56) 08/15/19 13:16 Alkaline Phosphatase 90 units/L (35-129) 08/15/19 13:16 Troponin T 0.018 ng/mL (0.00-0.029) 08/15/19 13:16 Total Protein 7.9 g/dL (6.3-8.2) 08/15/19 13:16 Albumin 3.6 g/dL (3.9-5) L 08/15/19 13:16 Albumin/Globulin Ratio 0.8 % 08/15/19 13:16 Urine Color [place] (Yellow) 08/16/19 14:40 Urine Turbidity Cloudy (Clear) 08/16/19 14:40 Urine pH 5.0 (5.0-7.0) 08/16/19 14:40 Ur Specific [place] 1.015 (1.003-1.030) 08/16/19 14:40 Urine Protein 100 mg/dl mg/dL (Negative) 08/16/19 14:40 Urine Glucose (UA) Neg mg/dL (Negative) 08/16/19 14:40 Urine Ketones Neg mg/dL (Negative) 08/16/19 14:40 Urine Blood Mod (Negative) 08/16/19 14:40 Urine Nitrite Neg (Negative) 08/16/19 14:40 Urine Bilirubin Neg (Negative) 08/16/19 14:40 Urine Urobilinogen 4.0 mg/dL (<2.0) 08/16/19 14:40 Ur Leukocyte Esterase Tr (Negative) 08/16/19 14:40 Urine WBC (Auto) 8.0 /HPF (0.0-6.0) H 08/16/19 14:40 Urine RBC (Auto) 1.0 /HPF (0.0-6.0) 08/16/19 14:40 U Epithel Cells (Auto) < 1.0 /HPF (0-13.0) 08/16/19 14:40 Random Vancomycin 7.9 ug/mL (0-40.0) 08/17/19 05:31 Active Medications - Current Medications Current Medications: Generic Name Dose Route Start Last Admin Trade Name Freq PRN Reason Stop Dose Admin Acetaminophen 650 mg 08/15/19 16:00 Tylenol PO Q4H PRN Pain MILD(1-3)/Fever >100.5/HARDY Albuterol 2.5 mg 08/15/19 16:00 Proventil IH Q4HRT PRN Shortness Of Breath Albuterol/Ipratropium 1 ampul 08/20/19 14:00 08/21/19 08:27 Duoneb *Not For Prn Use* IH 1 ampul TIDRT LEORA Administration Amlodipine Besylate 10 mg 08/19/19 14:00 08/20/19 10:44 Amlodipine PO 10 mg DAILY LEORA Administration Lipase/Protease/Amylase 1 each 08/17/19 14:53 Pancreaze 10,500 Unit FEEDTUBE PRN PRN For Clogged Feeding Tube Atorvastatin Calcium 40 mg 08/19/19 22:00 08/20/19 22:19 Lipitor PO 40 mg QHS LEORA Administration Famotidine 20 mg 08/19/19 10:00 08/20/19 10:34 Pepcid PO 20 mg QDAY LEORA Administration Fentanyl 50 mcg 08/19/19 12:59 08/19/19 15:12 Sublimaze IV 50 mcg Q4H PRN Administration Pain, Moderate (4-6) Heparin Sodium (Porcine) 5,000 unit 08/15/19 22:00 08/20/19 22:19 Heparin SUB-Q 5,000 unit Q12HR LEORA Administration Hydrophilic Ointment 1 applic 08/15/19 17:33 Vaseline Lip Therapy TP Q2HR PRN Dry Lips Dextrose/Sodium Chloride 1,000 mls @ 125 mls/hr 08/17/19 19:00 08/20/19 12:54 D5/0.45ns IV 100 mls/hr DIRECT LEORA Administration Linezolid 600 mg in 300 mls @ 300 mls/hr 08/17/19 22:00 08/20/19 22:18 Zyvox 600mg/300ml IV 300 mls/hr Q12HR LEORA Administration Protocol Fentanyl Citrate 2,000 mcg in 100 mls @ 5.67 mls/hr 08/18/19 13:00 08/19/19 08:00 Fentanyl Drip Premix IV 0 mcg/kg/hr TITR LEORA 0 mls/hr Titration Protocol 1 MCG/KG/HR Lorazepam 0.5 mg 08/15/19 13:10 08/21/19 08:37 Ativan IV 0.5 mg Q4H PRN Administration Anxiety Lorazepam 2 mg 08/15/19 21:27 08/21/19 06:02 Ativan IV 2 mg Q1HR PRN Administration CIWA-Ar 8-15 Methylprednisolone Sodium Succinate 60 mg 08/20/19 14:00 08/21/19 06:02 Solu-Medrol IV 60 mg Q8HR LEORA Administration Multi-Ingred Cream/Lotion/Oil/Oint 1 applic 08/15/19 17:33 Artificial Tears Ophth Oint OU Q4HR PRN Dry Eye(s) Ondansetron HCl 4 mg 08/15/19 16:00 Zofran IV Q8H PRN Nausea And Vomiting Prazosin HCl 1 mg 08/19/19 16:00 08/20/19 10:34 Prazosin PO 1 mg QDAY LEORA Administration Scopolamine 1 each 08/18/19 13:00 08/18/19 13:40 Transderm-Scop TD 1 each Q3D LEORA Administration Simple Syrup 15 ml 08/17/19 14:53 Simple Syrup FEEDTUBE PRN PRN Hypoglycemia Simple Syrup 30 ml 08/17/19 14:53 Simple Syrup FEEDTUBE PRN PRN Hypoglycemia Sodium Bicarbonate 325 mg 08/17/19 14:53 Sodium Bicarbonate FEEDTUBE PRN PRN For Clogged Feeding Tube Sodium Chloride 10 ml 08/15/19 22:00 08/21/19 07:17 Sodium Chloride Flush Syringe 10 Ml IV Not Given BID LEORA Sodium Chloride 10 ml 08/15/19 16:00 Sodium Chloride Flush Syringe 10 Ml IV PRN PRN LINE FLUSH Nutrition/Malnutrition Assess - Dietary Evaluation Nutrition/Malnutrition Findings: Nutrition Notes Start: 08/18/19 09:16 Freq: Status: Active Protocol: Document 08/19/19 16:43 LM (Rec: 08/19/19 16:46 LM [email or web address]) Nutrition Notes Initial or Follow up Brief Note Current Diagnosis Acute Kidney Injury,Decubitus( Pressure Ulcer),Sepsis, Hypertension,Respiratory Failure Other Pertinent Diagnosis Influenza, nicotine/ETOH dependence Current Diet Nepro 1.8 with Carbsteady at 45 ml/hr Labs/Tests Na 149 BUN 32 Cr 2.7 Pertinent Medications Reviewed Height 6 ft Weight 113.4 kg [place] Body Weight (kg) 80.90 BMI 33.9 Subjective/Other Information Pt started on trickle feeds. Plan to advance to goal starting today. Nutrition Intervention Follow-Up By: 08/21/19 Additional Comments F/U for TF at goal rate/ tolerance
[2019-08-21] MEDS: FAMOTIDINE 20 MG TAB PO SCH (10:00)
[2019-08-21] MEDS: PRAZOSIN 1 MG CAP PO SCH (10:00)
[2019-08-21] MEDS: amLODIPine 10 MG TAB PO SCH (10:01)
[2019-08-21] MEDS: HEPARIN 5,000 UNIT/1 ML VIAL SUB-Q SCH ×2 (10:01→21:26)
[2019-08-21] MEDS: D5W/0.45% NACL 1,000 ML IV SCH ×2 (10:59→18:02)
--- NOTE | 2019-08-21 11:15 | Progress Note ---
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 Etiology complicated influenza with MRSA pneumonia. #Complicated influenza with pneumonia: improving. #Acute resp insufficiency: due to pneumonia ?COPD: remains on the vent. #Mild elevated LFTs from sepsis #CLAUDETTE: renally adjusted abx. Creatinine still elevated #AMS: improved. Recs: continue Day 7 of linezolid 600 mg IV q 12 hour, monitor platelets on linezolid. Complete total 10 days. Can switch to PO Linezolid once extubated and taking orals Tani Hayden MD, FACP [facility] ([facility] C: [phone] O: [phone] F: [phone] Subjective Date of service: 08/21/19 Principal diagnosis: respiratory failure Interval history: Low grade temps. Failed SBT yesterday. Otherwise stable. No diarrhea. Voiding well, tolerating tube feeds per RN. Objective - Exam Narrative Exam: Constitutional: intubated, on vent, opens eyes Head, Ears, Nose: Normocephalic, atraumatic. External ears, nose normal Eyes: Conjunctivae/corneas clear. No icterus. No ptosis. Neck: intubated Oral: intubated Cardiovascular: S1 S2 + Respiratory: AE clear b/l, no wheeze GI: Soft, non tender, bowel sounds + Musculoskeletal: No pedal edema, no cyanosis. Skin: no rash, lesions Hem/Lymphatic: No palpable cervical or supraclavicular nodes. No lymphangitis Psych: no agitation Neurological: intubated, on the vent, opens eyes. Exam limited - Constitutional Vitals: Vital Signs Temp Pulse Resp BP Pulse Ox 100.0 F H 71 21 162/84 95 08/21/19 10:20 08/21/19 10:01 08/21/19 10:00 08/21/19 10:08/21/19 10:00 Temperature -Last 24 Hours Temperature 100.0 F Temperature 100.1 F Temperature 99.1 F Temperature 99.3 F Temperature 98.9 F Temperature 98.8 F - Labs CBC & Chem 7: 08/20/19 05:02 08/21/19 05:56 Labs: Abnormal lab results 08/19/19 08/20/19 08/20/19 Range/Units 22:45 11:39 18:26 ABG pH (7.350-7.450) pH Units ABG pO2 (80.0-90.0) mm Hg ABG HCO3 (20.0-26.0) mmol/L ABG O2 Saturation (95.0-99.0) % ABG Hemoglobin (14.0-18.0) gm/dl Oxyhemoglobin (95.0-99.0) % Sodium (137-145) mmol/L Chloride (98-107) mmol/L BUN (9-20) mg/dL Creatinine (0.8-1.5) mg/dL Glucose (75-100) mg/dL POC Glucose 172 H 116 H 137 H (70-105) Calcium (8.4-10.2) mg/dL 08/21/19 08/21/19 08/21/19 Range/Units 04:40 05:25 05:56 ABG pH 7.314 L (7.350-7.450) pH Units ABG pO2 78.3 L (80.0-90.0) mm Hg ABG HCO3 27.1 H (20.0-26.0) mmol/L ABG O2 Saturation 94.8 L (95.0-99.0) % ABG Hemoglobin 10.5 L (14.0-18.0) gm/dl Oxyhemoglobin 93.0 L (95.0-99.0) % Sodium 147 H (137-145) mmol/L Chloride 110.7 H (98-107) mmol/L BUN 30 H (9-20) mg/dL Creatinine 2.4 H (0.8-1.5) mg/dL Glucose 144 H (75-100) mg/dL POC Glucose 129 H (70-105) Calcium 8.0 L (8.4-10.2) mg/dL - Imaging and cardiology Chest x-ray: report reviewed, image reviewed (stable, no significant interval change)
[2019-08-21] MEDS: SCOPOLAMINE TRANSDERMAL PATCH 72 HR TD SCH (13:21)
[2019-08-21] MEDS: hydrALAZINE 25 MG TAB PO SCH ×2 (13:22→21:26)
[2019-08-21] MEDS: hydrALAZINE 20 MG/1 ML INJ IV PRN (15:35)
--- NOTE | 2019-08-21 16:42 | Progress Note ---
Assessment and Plan - Patient Problems (1) Acute renal failure Current Visit: Yes Status: Acute Qualifiers: Acute renal failure type: with acute tubular necrosis Qualified Code(s): N17.0 - Acute kidney failure with tubular necrosis Plan to address problem: Acute renal failure Baseline creatinine unknown Renal function creatinine worsening 1.9 -2.4 mg/DL to 3.2 and 2.4mg/dl curretn creatinine: 2.4mg/dl urinalysis reviewed incrrease 0.45% saline to 125cc/hr. Hold diuretic and JAMEY inhibitor Recheck renal function panel (2) Influenza Current Visit: Yes Status: Acute Plan to address problem: Influenza currently under droplet precautions Continue medications (3) Acute on chronic respiratory failure with hypoxemia Current Visit: Yes Status: Acute Plan to address problem: Acute on chronic respiratory failure Concern for influenza Patient remains intubated (4) Acidosis Current Visit: Yes Status: Acute Plan to address problem: Acidosis: Continue to monitor (5) Hypernatremia Current Visit: Yes Status: Acute Plan to address problem: Hypernatremia. Continue hypotonic solution liberalize free water replacement. Subjective Principal diagnosis: respiratory failure Interval history: 68-year-old medical history significant for hypertension admitted with complaints of cough. No Will fevers chills concern for influenza he was intu bated for acute respiratory failure family at bedside all medications include triamterene HCTZ trandolapril Patient is sedated on the ventilator has good urine output plan of care discussed with family at bedside review of systems unobtainable Objective - Vital Signs Vital signs: Vital Signs - 12hr 08/21/19 08/21/19 08/21/19 05:00 06:00 07:00 Temperature Pulse Rate 72 65 88 Pulse Rate [ Anterior Bilateral] Pulse Rate [ Right Radial] Pulse Rate [ right lung] Respiratory 23 20 18 Rate Respiratory Rate [Anterior Bilateral] Respiratory Rate [right lung] Blood Pressure 172/85 170/84 163/78 O2 Sat by Pulse 94 95 95 Oximetry 08/21/19 08/21/19 08/21/19 08:00 08:24 08:30 Temperature Pulse Rate 77 65 Pulse Rate [ 96 H Anterior Bilateral] Pulse Rate [ 69 Right Radial] Pulse Rate [ 96 H right lung] Respiratory 22 Rate Respiratory 22 Rate [Anterior Bilateral] Respiratory 22 Rate [right lung] Blood Pressure 175/90 170/84 O2 Sat by Pulse 94 95 Oximetry 08/21/19 08/21/19 08/21/19 09:00 10:00 10:01 Temperature Pulse Rate 76 69 71 Pulse Rate [ Anterior Bilateral] Pulse Rate [ Right Radial] Pulse Rate [ right lung] Respiratory 38 H 21 Rate Respiratory Rate [Anterior Bilateral] Respiratory Rate [right lung] Blood Pressure 163/84 162/84 162/84 O2 Sat by Pulse 92 95 Oximetry 08/21/19 08/21/19 08/21/19 10:20 11:01 12:00 Temperature 100.0 F H Pulse Rate 92 H 72 Pulse Rate [ Anterior Bilateral] Pulse Rate [ 91 H Right Radial] Pulse Rate [ right lung] Respiratory 12 15 Rate Respiratory Rate [Anterior Bilateral] Respiratory Rate [right lung] Blood Pressure 188/100 170/82 O2 Sat by Pulse 95 95 Oximetry 08/21/19 08/21/19 08/21/19 12:05 13:00 13:22 Temperature 99.8 F H Pulse Rate 91 H 63 101 H Pulse Rate [ Anterior Bilateral] Pulse Rate [ Right Radial] Pulse Rate [ right lung] Respiratory 16 Rate Respiratory Rate [Anterior Bilateral] Respiratory Rate [right lung] Blood Pressure 170/82 159/75 171/90 O2 Sat by Pulse 95 95 Oximetry 08/21/19 08/21/19 08/21/19 13:29 14:00 15:00 Temperature Pulse Rate 88 94 H Pulse Rate [ 88 Anterior Bilateral] Pulse Rate [ Right Radial] Pulse Rate [ 89 right lung] Respiratory 26 H 13 Rate Respiratory 20 Rate [Anterior Bilateral] Respiratory 20 Rate [right lung] Blood Pressure 160/81 172/91 O2 Sat by Pulse 95 98 Oximetry 08/21/19 08/21/19 08/21/19 15:35 15:58 16:00 Temperature Pulse Rate 89 89 86 Pulse Rate [ Anterior Bilateral] Pulse Rate [ 104 H Right Radial] Pulse Rate [ right lung] Respiratory Rate Respiratory Rate [Anterior Bilateral] Respiratory Rate [right lung] Blood Pressure 173/81 173/81 O2 Sat by Pulse 95 Oximetry 08/21/19 08/21/19 16:01 16:22 Temperature 100.0 F H Pulse Rate 104 H Pulse Rate [ Anterior Bilateral] Pulse Rate [ Right Radial] Pulse Rate [ right lung] Respiratory 21 Rate Respiratory Rate [Anterior Bilateral] Respiratory Rate [right lung] Blood Pressure 155/85 O2 Sat by Pulse 93 Oximetry - General Appearance General appearance: well-developed, well-nourished EENT: ATNC, PERRL Neck: no JVD Respiratory: Present: Clear to Ascultation Cardiology: regular, S1S2 Gastrointestinal: normal, normoactive bowel sounds Integumentary: no rash Neurologic: other (sedated, difficult to assess. ) Psychiatric: mood/affect appropriate - Lab 08/20/19 05:02 08/21/19 05:56 Most recent lab results ABG pH 7.314 pH Units (7.350-7.450) L 08/21/19 04:40 ABG pCO2 54.6 mm Hg 08/21/19 04:40 ABG pO2 78.3 mm Hg (80.0-90.0) L 08/21/19 04:40 ABG HCO3 27.1 mmol/L (20.0-26.0) H 08/21/19 04:40 ABG O2 Saturation 94.8 % (95.0-99.0) L 08/21/19 04:40 Calcium 8.0 mg/dL (8.4-10.2) L 08/21/19 05:56 Medications & Allergies - Medications Allergies/Adverse Reactions: Allergies No Known Allergies Allergy (Unverified 08/15/19 13:08) Home Medications: Home Medications Medication Instructions Recorded Confirmed Last Taken Type Rosuvastatin Calcium 20 mg PO QDAY 08/16/19 08/16/19 08/14/19 History Terazosin HCl 2 mg PO QDAY 08/16/19 08/16/19 08/14/19 History Trandolapril/Verapamil HCl [Tarka 4 mg PO QDAY 08/16/19 08/16/19 08/14/19 History ER 4-240 mg] Triamter/Hctz 37.5-25 mg 1 tab PO QDAY 08/16/19 08/16/19 08/14/19 History [Maxzide-25] Verapamil ER [Calan Sr] 180 mg PO BID 08/16/19 08/16/19 08/14/19 History amLODIPine [Norvasc] 10 mg PO DAILY 08/16/19 08/16/19 08/14/19 History Active Medications: Generic Name Dose Route Start Last Admin Trade Name Freq PRN Reason Stop Dose Admin Acetaminophen 650 mg 08/15/19 16:00 Tylenol PO Q4H PRN Pain MILD(1-3)/Fever >100.5/HARDY Albuterol 2.5 mg 08/15/19 16:00 Proventil IH Q4HRT PRN Shortness Of Breath Albuterol/Ipratropium 1 ampul 08/20/19 14:00 08/21/19 13:29 Duoneb *Not For Prn Use* IH 1 ampul TIDRT LEORA Administration Amlodipine Besylate 10 mg 08/19/19 14:00 08/21/19 10:01 Amlodipine PO 10 mg DAILY LEORA Administration Lipase/Protease/Amylase 1 each 08/17/19 14:[address] 10,500 Unit FEEDTUBE PRN PRN For Clogged Feeding Tube Atorvastatin Calcium 40 mg 08/19/19 22:00 08/20/19 22:19 Lipitor PO 40 mg QHS LEORA Administration Famotidine 20 mg 08/19/19 10:00 08/21/19 10:00 Pepcid PO 20 mg QDAY LEORA Administration Fentanyl 50 mcg 08/19/19 12:59 08/19/19 15:12 Sublimaze IV 50 mcg Q4H PRN Administration Pain, Moderate (4-6) Heparin Sodium (Porcine) 5,000 unit 08/15/19 22:00 08/21/19 10:01 Heparin SUB-Q 5,000 unit Q12HR LEORA Administration Hydralazine HCl 10 mg 08/21/19 11:09 08/21/19 15:35 Apresoline IV 10 mg Q4HR PRN Administration SBP>160 or DBP>110 Hydralazine HCl 50 mg 08/21/19 14:00 08/21/19 13:22 Apresoline PO 50 mg Q8HR LEORA Administration Hydrophilic Ointment 1 applic 08/15/19 17:33 Vaseline Lip Therapy TP Q2HR PRN Dry Lips Dextrose/Sodium Chloride 1,000 mls @ 125 mls/hr 08/17/19 19:00 08/21/19 10:59 D5/0.45ns IV 125 mls/hr DIRECT LEORA Administration Linezolid 600 mg in 300 mls @ 300 mls/hr 08/17/19 22:00 08/20/19 22:18 Zyvox 600mg/300ml IV 300 mls/hr Q12HR LEORA Administration Protocol Fentanyl Citrate 2,000 mcg in 100 mls @ 5.67 mls/hr 08/18/19 13:00 08/19/19 08:00 Fentanyl Drip Premix IV 0 mcg/kg/hr TITR LEORA 0 mls/hr Titration Protocol 1 MCG/KG/HR Lorazepam 0.5 mg 08/15/19 13:10 08/21/19 16:35 Ativan IV 0.5 mg Q4H PRN Administration Anxiety Lorazepam 2 mg 08/15/19 21:27 08/21/19 15:56 Ativan IV 2 mg Q1HR PRN Administration CIWA-Ar 8-15 Methylprednisolone Sodium Succinate 60 mg 08/20/19 14:00 08/21/19 13:22 Solu-Medrol IV 60 mg Q8HR LEORA Administration Multi-Ingred Cream/Lotion/Oil/Oint 1 applic 08/15/19 17:33 Artificial Tears Ophth Oint OU Q4HR PRN Dry Eye(s) Ondansetron HCl 4 mg 08/15/19 16:00 Zofran IV Q8H PRN Nausea And Vomiting Prazosin HCl 1 mg 08/19/19 16:00 08/21/19 10:00 Prazosin PO 1 mg QDAY LEORA Administration Scopolamine 1 each 08/18/19 13:00 08/21/19 13:21 Transderm-Scop TD 1 each Q3D LEORA Administration Simple Syrup 15 ml 08/17/19 14:53 Simple Syrup FEEDTUBE PRN PRN Hypoglycemia Simple Syrup 30 ml 08/17/19 14:53 Simple Syrup FEEDTUBE PRN PRN Hypoglycemia Sodium Bicarbonate 325 mg 08/17/19 14:53 Sodium Bicarbonate FEEDTUBE PRN PRN For Clogged Feeding Tube Sodium Chloride 10 ml 08/15/19 22:00 08/21/19 10:02 Sodium Chloride Flush Syringe 10 Ml IV 10 ml BID LEORA Administration Sodium Chloride 10 ml 08/15/19 16:00 Sodium Chloride Flush Syringe 10 Ml IV PRN PRN LINE FLUSH
[2019-08-21] MEDS: fentaNYL DRIP Premix 2,000 MCG/100 ML BAG IV SCH (21:58)
[2019-08-22] MEDS: D5W/0.45% NACL 1,000 ML IV SCH ×2 (02:03→09:37)
--- NOTE | 2019-08-22 02:32 | XRay Report ---
CHEST 1 VIEW INDICATION: follow up respiratory failure COMPARISON: 08/21/2019 FINDINGS: Support devices: Unchanged. Heart: Upper limits of normal, unchanged. Lungs/Pleura: Slightly increased right basilar atelectasis. Persistent minimal left pleural effusion. IMPRESSION: 1. No significant change. Signer Name: Eusebio aHro MD Signed: 08/22/2019 2:28 AM Workstation Name: [employer]
[2019-08-22 05:33] LABS: Calcium 8.1 mg/dL (8.4-10.2)
--- NOTE | 2019-08-22 05:55 | Progress Note ---
Assessment and Plan Sepsis Acute respiratory failure with hypoxemia and hypercapnia on MVS Influenza Bilateral pneumonia Acute renal failure Tobacco use disorder/Nicotine dependence Thrombocytopenia Will continue with bronchodilators Continue with steroids for possible undiagnosed underlying COPD Stop IVFs, give one dose of furosemide today - continue to wean supplemental oxygen for target O2 sat's > 90% - Daily SAT and SBT assessment for readiness for weaning per protocol - VAP bundle addressed - Lung protective strategies - Bronchodilators with pulmonary hygiene per RT - Accuchecks with glycemic control per SSI (While critically ill target blood glucose of 140-180 mg/dL; avoid hypoglycemia) - Sedation for target RASS 0 to -1 - Avoid benzodiazepines to reduce the possibility of delirium - Empiric antibiotics for post viral PNA(on linezolid) , complete antiviral agents-ID following - prn analgesia per CPOT score - Maintenance of sleep-wake cycle, avoid delirium - Enteral nutritional support -Aspiration precautions, HOB >40 - G.I. & VTE prophylaxis, while on heparin monitor for bleeding and trend platelets - PT/OT/ROM exercises - Mobility protocol and off loading for pressure ulcer prevention -Renally dose all medications, avoid nephrotoxins -Nicotine withdrawal precautions -Smoking cessation counselling once he is liberated from MVS CONDITION: CRITICAL PROGNOSIS: GUARDED CODE STATUS: FULL CODE Updated his son at the bedside re care plan The high probability of a clinically significant, sudden or life-threatening deterioration of the respiratory, renal system(s) required my full and direct attention, intervention and personal management. The aggregate critical care time was [35] minutes without overlap. Time includes spent on; [x] Data Review and interpretation [x] Patient assessment and monitoring of vital signs [x] Documentation [x] Medication orders and management Subjective Date of service: 08/22/19 Principal diagnosis: respiratory failure Interval history: Patient is seen today for: acute hypoxic respiratory failure, bilateral alveolar infiltrates, morbid obesity, influenza infection: CLAUDETTE Seen and examined at bedside; 24hour events reviewed; nursing and respiratory care staff consulted; no adverse overnight events reported to me; Vitals, labs, medications, chart reviewed. Remains intubated on MVS, will give one dose of furosemide today and hold IVF Objective Vital Signs - 12hr 08/21/19 08/21/19 08/21/19 18:00 18:45 19:00 Temperature Pulse Rate 106 H 93 H 89 Pulse Rate [ Anterior Bilateral] Respiratory 16 15 29 H Rate Respiratory Rate [Anterior Bilateral] Blood Pressure 156/81 153/81 167/85 O2 Sat by Pulse 96 96 Oximetry 08/21/19 08/21/19 08/21/19 19:15 19:23 19:25 Temperature 99.9 F H Pulse Rate 87 87 Pulse Rate [ 88 Anterior Bilateral] Respiratory 21 Rate Respiratory 22 Rate [Anterior Bilateral] Blood Pressure 161/84 167/85 O2 Sat by Pulse 97 96 Oximetry 08/21/19 08/21/19 08/21/19 19:30 19:45 20:00 Temperature Pulse Rate 98 H 99 H 94 H Pulse Rate [ Anterior Bilateral] Respiratory 14 22 16 Rate Respiratory Rate [Anterior Bilateral] Blood Pressure 159/84 158/82 168/86 O2 Sat by Pulse 98 Oximetry 08/21/19 08/21/19 08/21/19 20:15 20:30 20:45 Temperature Pulse Rate 101 H 99 H 97 H Pulse Rate [ Anterior Bilateral] Respiratory 40 H 19 23 Rate Respiratory Rate [Anterior Bilateral] Blood Pressure 177/92 180/90 187/100 O2 Sat by Pulse 93 94 94 Oximetry 08/21/19 08/21/19 08/21/19 21:00 21:06 21:15 Temperature Pulse Rate 86 84 83 Pulse Rate [ Anterior Bilateral] Respiratory 19 19 22 Rate Respiratory Rate [Anterior Bilateral] Blood Pressure 172/90 187/100 175/88 O2 Sat by Pulse 93 93 94 Oximetry 08/21/19 08/21/19 08/21/19 21:17 21:26 21:30 Temperature Pulse Rate 83 88 90 Pulse Rate [ Anterior Bilateral] Respiratory 37 H 22 Rate Respiratory Rate [Anterior Bilateral] Blood Pressure 175/88 175/88 187/96 O2 Sat by Pulse 93 93 Oximetry 08/21/19 08/21/19 08/21/19 21:45 22:00 22:15 Temperature Pulse Rate 98 H 99 H 85 Pulse Rate [ Anterior Bilateral] Respiratory 11 L 18 21 Rate Respiratory Rate [Anterior Bilateral] Blood Pressure 172/90 183/93 170/80 O2 Sat by Pulse 92 95 94 Oximetry 08/21/19 08/21/19 08/21/19 22:30 22:45 22:57 Temperature 99.4 F Pulse Rate 80 76 Pulse Rate [ Anterior Bilateral] Respiratory 19 22 Rate Respiratory Rate [Anterior Bilateral] Blood Pressure 157/84 159/78 O2 Sat by Pulse 93 92 Oximetry 08/21/19 08/21/19 08/21/19 23:00 23:15 23:30 Temperature Pulse Rate 73 70 69 Pulse Rate [ Anterior Bilateral] Respiratory 21 18 21 Rate Respiratory Rate [Anterior Bilateral] Blood Pressure 160/84 160/78 162/80 O2 Sat by Pulse 92 92 92 Oximetry 08/21/19 08/21/19 08/22/19 23:45 23:54 00:00 Temperature Pulse Rate 67 71 66 Pulse Rate [ Anterior Bilateral] Respiratory 19 19 Rate Respiratory Rate [Anterior Bilateral] Blood Pressure 162/80 167/80 164/81 O2 Sat by Pulse 92 92 92 Oximetry 08/22/19 08/22/19 08/22/19 00:15 00:30 00:45 Temperature Pulse Rate 65 68 65 Pulse Rate [ Anterior Bilateral] Respiratory 19 19 19 Rate Respiratory Rate [Anterior Bilateral] Blood Pressure 161/81 164/84 163/83 O2 Sat by Pulse 92 92 92 Oximetry 08/22/19 08/22/19 08/22/19 01:00 01:15 01:30 Temperature Pulse Rate 66 66 66 Pulse Rate [ Anterior Bilateral] Respiratory 19 19 20 Rate Respiratory Rate [Anterior Bilateral] Blood Pressure 164/82 167/85 172/86 O2 Sat by Pulse 92 92 92 Oximetry 08/22/19 08/22/19 08/22/19 01:45 02:00 02:15 Temperature Pulse Rate 65 107 H 106 H Pulse Rate [ Anterior Bilateral] Respiratory 19 17 28 H Rate Respiratory Rate [Anterior Bilateral] Blood Pressure 172/86 159/101 159/101 O2 Sat by Pulse 92 93 94 Oximetry 08/22/19 08/22/19 08/22/19 02:30 02:45 03:00 Temperature Pulse Rate 96 H 89 77 Pulse Rate [ Anterior Bilateral] Respiratory 25 H 25 H 22 Rate Respiratory Rate [Anterior Bilateral] Blood Pressure 164/90 168/84 157/83 O2 Sat by Pulse 91 91 91 Oximetry 08/22/19 08/22/19 08/22/19 03:15 03:30 03:31 Temperature 98.9 F Pulse Rate 70 76 Pulse Rate [ Anterior Bilateral] Respiratory 21 19 Rate Respiratory Rate [Anterior Bilateral] Blood Pressure 153/77 132/87 O2 Sat by Pulse 90 89 Oximetry 08/22/19 08/22/19 08/22/19 03:45 04:00 04:15 Temperature Pulse Rate 67 91 H 73 Pulse Rate [ Anterior Bilateral] Respiratory 20 20 20 Rate Respiratory Rate [Anterior Bilateral] Blood Pressure 132/87 157/89 157/89 O2 Sat by Pulse 93 89 93 Oximetry 08/22/19 08/22/19 08/22/19 04:30 04:45 05:00 Temperature Pulse Rate 65 62 58 L Pulse Rate [ Anterior Bilateral] Respiratory 22 20 19 Rate Respiratory Rate [Anterior Bilateral] Blood Pressure 157/75 155/76 155/74 O2 Sat by Pulse 92 91 92 Oximetry 08/22/19 08/22/19 05:15 05:30 Temperature Pulse Rate 70 68 Pulse Rate [ Anterior Bilateral] Respiratory 21 18 Rate Respiratory Rate [Anterior Bilateral] Blood Pressure 165/80 160/85 O2 Sat by Pulse 92 91 Oximetry Constitutional: alert, appears uncomfortable, other (ETT in position at 23cm) Eyes: non-icteric ENT: oropharynx moist Neck: supple, no lymphadenopathy, no JVD Effort: mildly labored Ascultation: Bilateral: diminished breath sounds, rhonchi Cardiovascular: regular rate and rhythm, other (S1,S2) Gastrointestinal: normoactive bowel sounds, soft, non-tender, other (distended) Integumentary: normal Extremities: no cyanosis, no edema, pink and warm, pulses normal Neurologic: non-focal exam, pupils equal and round, motor strength normal and Psychiatric: mood appropriate, affect normal CBC and BMP: 08/27/19 07:45 08/29/19 15:10 ABG, PT/INR, D-dimer: ABG POC ABG pH 7.328 (7.35-7.45) L 08/22/19 05:19 ABG pH 7.314 pH Units (7.350-7.450) L 08/21/19 04:40 POC ABG pCO2 53.0 (35-45) H 08/22/19 05:19 ABG pCO2 54.6 mm Hg 08/21/19 04:40 POC ABG pO2 75 (80-105) L 08/22/19 05:19 ABG pO2 78.3 mm Hg (80.0-90.0) L 08/21/19 04:40 POC ABG HCO3 27.8 (22-26 mml/L) 08/22/19 05:19 POC ABG Total CO2 29 (23-27mmol/L) 01/03/20 05:19 POC ABG O2 Sat 94 08/22/19 05:19 ABG O2 Saturation 94.8 % (95.0-99.0) L 08/21/19 04:40 Abnormal lab findings: Abnormal Labs 08/15/19 08/15/19 08/15/19 13:16 13:16 17:16 WBC 14.7 H Hgb Hct RDW 17.3 H Plt Count Lymph % (Auto) Lyman % (Auto) 11.3 H Lymph # Lyman # 1.7 H Seg Neutrophils % 71.9 H Seg Neuts % (Manual) Lymphocytes % (Manual) Monocytes % (Manual) Nucleated RBC % Seg Neutrophils # 10.6 H Monocytes # (Manual) POC ABG pH 7.182 L ABG pH POC ABG pCO2 > 70 H POC ABG pO2 ABG pO2 ABG HCO3 ABG O2 Saturation ABG Hemoglobin Oxyhemoglobin Sodium Chloride Carbon Dioxide BUN 28 H Creatinine 1.9 H Glucose 133 H POC Glucose Calcium Total Bilirubin 1.50 H AST 82 H Albumin 3.6 L Urine WBC (Auto) 08/15/19 08/16/19 08/16/19 18:17 03:41 03:41 WBC Hgb 11.6 L Hct 34.3 L D RDW 17.4 H Plt Count 119 L Lymph % (Auto) 11.4 L Lyman % (Auto) 11.6 H Lymph # 1.0 L Lyman # 1.1 H Seg Neutrophils % 76.9 H Seg Neuts % (Manual) Lymphocytes % (Manual) Monocytes % (Manual) Nucleated RBC % Seg Neutrophils # Monocytes # (Manual) POC ABG pH 7.280 L ABG pH POC ABG pCO2 64.7 H POC ABG pO2 64 L ABG pO2 ABG HCO3 ABG O2 Saturation ABG Hemoglobin Oxyhemoglobin Sodium Chloride 107.1 H Carbon Dioxide BUN 34 H Creatinine 2.4 H Glucose 138 H POC Glucose Calcium 7.2 L D Total Bilirubin AST Albumin Urine WBC (Auto) 08/16/19 08/16/19 08/16/19 06:27 11:19 14:40 WBC Hgb Hct RDW Plt Count Lymph % (Auto) Lyman % (Auto) Lymph # Lyman # Seg Neutrophils % Seg Neuts % (Manual) Lymphocytes % (Manual) Monocytes % (Manual) Nucleated RBC % Seg Neutrophils # Monocytes # (Manual) POC ABG pH 7.336 L ABG pH POC ABG pCO2 47.9 H 48.7 H POC ABG pO2 69 L 130 H ABG pO2 ABG HCO3 ABG O2 Saturation ABG Hemoglobin Oxyhemoglobin Sodium Chloride Carbon Dioxide BUN Creatinine Glucose POC Glucose Calcium Total Bilirubin AST Albumin Urine WBC (Auto) 8.0 H 08/17/19 08/17/19 08/17/19 05:31 05:31 06:30 WBC Hgb 11.5 L Hct 34.3 L RDW 17.3 H Plt Count Lymph % (Auto) Lyman % (Auto) 13.5 H Lymph # Lyman # 1.3 H Seg Neutrophils % 70.7 H Seg Neuts % (Manual) Lymphocytes % (Manual) Monocytes % (Manual) Nucleated RBC % Seg Neutrophils # Monocytes # (Manual) POC ABG pH ABG pH POC ABG pCO2 POC ABG pO2 ABG pO2 116.6 H ABG HCO3 ABG O2 Saturation ABG Hemoglobin 13.9 L Oxyhemoglobin Sodium 146 H Chloride 112.1 H Carbon Dioxide BUN 47 H Creatinine 3.2 H Glucose POC Glucose Calcium 7.7 L Total Bilirubin AST Albumin Urine WBC (Auto) 08/17/19 08/18/19 08/18/19 20:31 04:20 04:20 WBC Hgb 11.4 L Hct 34.3 L RDW 17.3 H Plt Count 137 L Lymph % (Auto) Lyman % (Auto) Lymph # Lyman # Seg Neutrophils % Seg Neuts % (Manual) 79.0 H Lymphocytes % (Manual) 13.0 L Monocytes % (Manual) 8.0 H Nucleated RBC % 1.0 H Seg Neutrophils # Monocytes # (Manual) POC ABG pH ABG pH POC ABG pCO2 POC ABG pO2 78 L ABG pO2 ABG HCO3 ABG O2 Saturation ABG Hemoglobin Oxyhemoglobin Sodium 148 H Chloride 112.3 H Carbon Dioxide 20 L BUN 40 H Creatinine 3.1 H Glucose 109 H POC Glucose Calcium 7.9 L Total Bilirubin AST Albumin Urine WBC (Auto) 08/18/19 08/18/19 08/19/19 06:45 23:19 04:30 WBC Hgb Hct RDW Plt Count Lymph % (Auto) Lyman % (Auto) Lymph # Lyman # Seg Neutrophils % Seg Neuts % (Manual) Lymphocytes % (Manual) Monocytes % (Manual) Nucleated RBC % Seg Neutrophils # Monocytes # (Manual) POC ABG pH ABG pH POC ABG pCO2 45.2 H POC ABG pO2 55 L ABG pO2 72.2 L ABG HCO3 26.1 H ABG O2 Saturation 94.4 L ABG Hemoglobin 11.5 L Oxyhemoglobin 92.6 L Sodium Chloride Carbon Dioxide BUN Creatinine Glucose POC Glucose 158 H Calcium Total Bilirubin AST Albumin Urine WBC (Auto) 08/19/19 08/19/19 08/19/19 05:15 05:15 05:28 WBC Hgb 11.3 L Hct 34.4 L RDW 17.1 H Plt Count Lymph % (Auto) Lyman % (Auto) Lymph # Lyman # Seg Neutrophils % Seg Neuts % (Manual) Lymphocytes % (Manual) Monocytes % (Manual) 12.0 H Nucleated RBC % Seg Neutrophils # Monocytes # (Manual) 1.0 H POC ABG pH ABG pH POC ABG pCO2 POC ABG pO2 ABG pO2 ABG HCO3 ABG O2 Saturation ABG Hemoglobin Oxyhemoglobin Sodium 149 H Chloride 115.0 H Carbon Dioxide 21 L BUN 32 H Creatinine 2.7 H Glucose 112 H POC Glucose 113 H Calcium 7.8 L Total Bilirubin AST Albumin Urine WBC (Auto) 08/19/19 08/19/19 08/19/19 13:00 17:46 22:45 WBC Hgb Hct RDW Plt Count Lymph % (Auto) Lyman % (Auto) Lymph # Lyman # Seg Neutrophils % Seg Neuts % (Manual) Lymphocytes % (Manual) Monocytes % (Manual) Nucleated RBC % Seg Neutrophils # Monocytes # (Manual) POC ABG pH ABG pH POC ABG pCO2 POC ABG pO2 ABG pO2 ABG HCO3 ABG O2 Saturation ABG Hemoglobin Oxyhemoglobin Sodium Chloride Carbon Dioxide BUN Creatinine Glucose POC Glucose 126 H 112 H 172 H Calcium Total Bilirubin AST Albumin Urine WBC (Auto) 08/20/19 08/20/19 08/20/19 04:00 05:02 05:02 WBC Hgb 11.1 L Hct 33.4 L RDW 17.1 H Plt Count Lymph % (Auto) 11.2 L Lyman % (Auto) 12.3 H Lymph # Lyman # 1.3 H Seg Neutrophils % 74.9 H Seg Neuts % (Manual) Lymphocytes % (Manual) Monocytes % (Manual) Nucleated RBC % Seg Neutrophils # 7.8 H Monocytes # (Manual) POC ABG pH ABG pH POC ABG pCO2 45.1 H POC ABG pO2 70 L ABG pO2 ABG HCO3 ABG O2 Saturation ABG Hemoglobin Oxyhemoglobin Sodium 146 H Chloride 111.7 H Carbon Dioxide BUN 27 H Creatinine 2.4 H Glucose 123 H POC Glucose Calcium 8.1 L Total Bilirubin AST Albumin Urine WBC (Auto) 08/20/19 08/20/19 08/20/19 05:51 11:39 18:26 WBC Hgb Hct RDW Plt Count Lymph % (Auto) Lyman % (Auto) Lymph # Lyman # Seg Neutrophils % Seg Neuts % (Manual) Lymphocytes % (Manual) Monocytes % (Manual) Nucleated RBC % Seg Neutrophils # Monocytes # (Manual) POC ABG pH ABG pH POC ABG pCO2 POC ABG pO2 ABG pO2 ABG HCO3 ABG O2 Saturation ABG Hemoglobin Oxyhemoglobin Sodium Chloride Carbon Dioxide BUN Creatinine Glucose POC Glucose 108 H 116 H 137 H Calcium Total Bilirubin AST Albumin Urine WBC (Auto) 08/21/19 08/21/19 08/21/19 04:40 05:25 05:56 WBC Hgb Hct RDW Plt Count Lymph % (Auto) Lyman % (Auto) Lymph # Lyman # Seg Neutrophils % Seg Neuts % (Manual) Lymphocytes % (Manual) Monocytes % (Manual) Nucleated RBC % Seg Neutrophils # Monocytes # (Manual) POC ABG pH ABG pH 7.314 L POC ABG pCO2 POC ABG pO2 ABG pO2 78.3 L ABG HCO3 27.1 H ABG O2 Saturation 94.8 L ABG Hemoglobin 10.5 L Oxyhemoglobin 93.0 L Sodium 147 H Chloride 110.7 H Carbon Dioxide BUN 30 H Creatinine 2.4 H Glucose 144 H POC Glucose 129 H Calcium 8.0 L Total Bilirubin AST Albumin Urine WBC (Auto) 08/21/19 08/22/19 08/22/19 12:39 00:08 03:45 WBC Hgb Hct RDW Plt Count Lymph % (Auto) Lyman % (Auto) Lymph # Lyman # Seg Neutrophils % Seg Neuts % (Manual) Lymphocytes % (Manual) Monocytes % (Manual) Nucleated RBC % Seg Neutrophils # Monocytes # (Manual) POC ABG pH ABG pH POC ABG pCO2 POC ABG pO2 ABG pO2 ABG HCO3 ABG O2 Saturation ABG Hemoglobin Oxyhemoglobin Sodium 147 H Chloride 110.6 H Carbon Dioxide BUN 36 H Creatinine 2.4 H Glucose 195 H POC Glucose 193 H 173 H Calcium 8.1 L Total Bilirubin AST Albumin Urine WBC (Auto) 08/22/19 08/22/19 05:19 05:41 WBC Hgb Hct RDW Plt Count Lymph % (Auto) Lyman % (Auto) Lymph # Lyman # Seg Neutrophils % Seg Neuts % (Manual) Lymphocytes % (Manual) Monocytes % (Manual) Nucleated RBC % Seg Neutrophils # Monocytes # (Manual) POC ABG pH 7.328 L ABG pH POC ABG pCO2 53.0 H POC ABG pO2 75 L ABG pO2 ABG HCO3 ABG O2 Saturation ABG Hemoglobin Oxyhemoglobin Sodium Chloride Carbon Dioxide BUN Creatinine Glucose POC Glucose 176 H Calcium Total Bilirubin AST Albumin Urine WBC (Auto)
[2019-08-22] MEDS: hydrALAZINE 25 MG TAB PO SCH ×3 (06:24→21:58)
[2019-08-22] MEDS: methylPREDNISolone Sod Succinate 125 MG/2 ML INJ IV SCH ×3 (06:24→21:55)
[2019-08-22] MEDS: LINEZOLID 600 MG/300 ML BAG IV SCH ×4 (07:32→21:59)
[2019-08-22] MEDS: hydrALAZINE 20 MG/1 ML INJ IV PRN (07:35)
[2019-08-22] MEDS: IPRATROPIUM/ALBUTEROL SULFATE 3 ML AMPUL.NEB IH SCH ×3 (09:00→19:34)
[2019-08-22] MEDS: amLODIPine 10 MG TAB PO SCH (09:31)
[2019-08-22] MEDS: PRAZOSIN 1 MG CAP PO SCH (09:31)
[2019-08-22] MEDS: HEPARIN 5,000 UNIT/1 ML VIAL SUB-Q SCH ×2 (09:32→21:54)
[2019-08-22] MEDS: FAMOTIDINE 20 MG TAB PO SCH (09:32)
--- NOTE | 2019-08-22 09:47 | Progress Note ---
Assessment and Plan - Patient Problems (1) Acute renal failure Current Visit: Yes Status: Acute Qualifiers: Acute renal failure type: with acute tubular necrosis Qualified Code(s): N17.0 - Acute kidney failure with tubular necrosis Plan to address problem: Acute renal failure Baseline creatinine unknown Renal function creatinine worsening 1.9 -2.4 mg/DL to 3.2 and 2.4mg/dl curretn creatinine: 2.4mg/dl urinalysis reviewed We'll change to free water replacement replacement has some edema Hold diuretic and JAMEY inhibitor Recheck renal function panel (2) Influenza Current Visit: Yes Status: Acute Plan to address problem: Influenza currently under droplet precautions Continue medications (3) Acute on chronic respiratory failure with hypoxemia Current Visit: Yes Status: Acute Plan to address problem: Acute on chronic respiratory failure Concern for influenza Patient remains intubated (4) Acidosis Current Visit: Yes Status: Acute Plan to address problem: Acidosis: Continue to monitor (5) Hypernatremia Current Visit: Yes Status: Acute Plan to address problem: Hypernatremia. Continue hypotonic solution liberalize free water replacement. Subjective Principal diagnosis: respiratory failure Interval history: 68-year-old medical history significant for hypertension admitted with complaints of cough. No Will fevers chills concern for influenza he was intubated for acute respiratory failure family at bedside all medications i nclude triamterene HCTZ trandolapril Patient is intubated on the ventilator has good urine output plan of care discussed with family at bedside review of systems unobtainable Currently undergoing breathing trial Objective - Vital Signs Vital signs: Vital Signs - 12hr 08/21/19 08/21/19 08/21/19 21:45 22:00 22:15 Temperature Pulse Rate 98 H 99 H 85 Pulse Rate [ Anterior Bilateral] Respiratory 11 L 18 21 Rate Respiratory Rate [Anterior Bilateral] Blood Pressure 172/90 183/93 170/80 O2 Sat by Pulse 92 95 94 Oximetry 08/21/19 08/21/19 08/21/19 22:30 22:45 22:57 Temperature 99.4 F Pulse Rate 80 76 Pulse Rate [ Anterior Bilateral] Respiratory 19 22 Rate Respiratory Rate [Anterior Bilateral] Blood Pressure 157/84 159/78 O2 Sat by Pulse 93 92 Oximetry 08/21/19 08/21/19 08/21/19 23:00 23:15 23:30 Temperature Pulse Rate 73 70 69 Pulse Rate [ Anterior Bilateral] Respiratory 21 18 21 Rate Respiratory Rate [Anterior Bilateral] Blood Pressure 160/84 160/78 162/80 O2 Sat by Pulse 92 92 92 Oximetry 08/21/19 08/21/19 08/22/19 23:45 23:54 00:00 Temperature Pulse Rate 67 71 66 Pulse Rate [ Anterior Bilateral] Respiratory 19 19 Rate Respiratory Rate [Anterior Bilateral] Blood Pressure 162/80 167/80 164/81 O2 Sat by Pulse 92 92 92 Oximetry 08/22/19 08/22/19 08/22/19 00:15 00:30 00:45 Temperature Pulse Rate 65 68 65 Pulse Rate [ Anterior Bilateral] Respiratory 19 19 19 Rate Respiratory Rate [Anterior Bilateral] Blood Pressure 161/81 164/84 163/83 O2 Sat by Pulse 92 92 92 Oximetry 08/22/19 08/22/19 08/22/19 01:00 01:15 01:30 Temperature Pulse Rate 66 66 66 Pulse Rate [ Anterior Bilateral] Respiratory 19 19 20 Rate Respiratory Rate [Anterior Bilateral] Blood Pressure 164/82 167/85 172/86 O2 Sat by Pulse 92 92 92 Oximetry 08/22/19 08/22/19 08/22/19 01:45 02:00 02:15 Temperature Pulse Rate 65 107 H 106 H Pulse Rate [ Anterior Bilateral] Respiratory 19 17 28 H Rate Respiratory Rate [Anterior Bilateral] Blood Pressure 172/86 159/101 159/101 O2 Sat by Pulse 92 93 94 Oximetry 08/22/19 08/22/19 08/22/19 02:30 02:45 03:00 Temperature Pulse Rate 96 H 89 77 Pulse Rate [ Anterior Bilateral] Respiratory 25 H 25 H 22 Rate Respiratory Rate [Anterior Bilateral] Blood Pressure 164/90 168/84 157/83 O2 Sat by Pulse 91 91 91 Oximetry 08/22/19 08/22/19 08/22/19 03:15 03:30 03:31 Temperature 98.9 F Pulse Rate 70 76 Pulse Rate [ Anterior Bilateral] Respiratory 21 19 Rate Respiratory Rate [Anterior Bilateral] Blood Pressure 153/77 132/87 O2 Sat by Pulse 90 89 Oximetry 08/22/19 08/22/19 08/22/19 03:45 04:00 04:15 Temperature Pulse Rate 67 91 H 73 Pulse Rate [ Anterior Bilateral] Respiratory 20 20 20 Rate Respiratory Rate [Anterior Bilateral] Blood Pressure 132/87 157/89 157/89 O2 Sat by Pulse 93 89 93 Oximetry 08/22/19 08/22/19 08/22/19 04:30 04:45 05:00 Temperature Pulse Rate 65 62 58 L Pulse Rate [ Anterior Bilateral] Respiratory 22 20 19 Rate Respiratory Rate [Anterior Bilateral] Blood Pressure 157/75 155/76 155/74 O2 Sat by Pulse 92 91 92 Oximetry 08/22/19 08/22/19 08/22/19 05:15 05:30 05:45 Temperature Pulse Rate 70 68 59 L Pulse Rate [ Anterior Bilateral] Respiratory 21 18 20 Rate Respiratory Rate [Anterior Bilateral] Blood Pressure 165/80 160/85 154/72 O2 Sat by Pulse 92 91 92 Oximetry 08/22/19 08/22/19 08/22/19 06:00 06:15 06:24 Temperature Pulse Rate 60 62 62 Pulse Rate [ Anterior Bilateral] Respiratory 19 19 Rate Respiratory Rate [Anterior Bilateral] Blood Pressure 154/72 151/72 151/72 O2 Sat by Pulse 92 92 Oximetry 08/22/19 08/22/19 08/22/19 06:30 06:45 07:00 Temperature Pulse Rate 70 85 89 Pulse Rate [ Anterior Bilateral] Respiratory 17 16 21 Rate Respiratory Rate [Anterior Bilateral] Blood Pressure 168/87 178/91 175/92 O2 Sat by Pulse 94 94 94 Oximetry 08/22/19 08/22/19 08/22/19 07:15 07:30 07:35 Temperature Pulse Rate 91 H 94 H 91 H Pulse Rate [ Anterior Bilateral] Respiratory 21 21 Rate Respiratory Rate [Anterior Bilateral] Blood Pressure 170/91 174/85 174/85 O2 Sat by Pulse 92 92 Oximetry 08/22/19 08/22/19 08/22/19 07:45 08:00 08:40 Temperature Pulse Rate 93 H 95 H 98 H Pulse Rate [ Anterior Bilateral] Respiratory 24 26 H 28 H Rate Respiratory Rate [Anterior Bilateral] Blood Pressure 168/86 164/90 178/84 O2 Sat by Pulse 93 93 92 Oximetry 08/22/19 08/22/19 09:00 09:31 Temperature Pulse Rate 97 H Pulse Rate [ 98 H Anterior Bilateral] Respiratory Rate Respiratory 26 H Rate [Anterior Bilateral] Blood Pressure 162/79 O2 Sat by Pulse Oximetry - General Appearance General appearance: well-developed, well-nourished EENT: ATNC, PERRL Neck: no JVD Respiratory: Present: Decreased Breath Sounds Cardiology: regular, S1S2 Gastrointestinal: normal, normoactive bowel sounds Integumentary: no rash Neurologic: other (patient is awake remains intubated) Psychiatric: mood/affect appropriate - Lab 08/20/19 05:02 08/22/19 03:45 Most recent lab results ABG pH 7.314 pH Units (7.350-7.450) L 08/21/19 04:40 ABG pCO2 54.6 mm Hg 08/21/19 04:40 ABG pO2 78.3 mm Hg (80.0-90.0) L 08/21/19 04:40 ABG HCO3 27.1 mmol/L (20.0-26.0) H 08/21/19 04:40 ABG O2 Saturation 94.8 % (95.0-99.0) L 08/21/19 04:40 Calcium 8.1 mg/dL (8.4-10.2) L 08/22/19 03:45 - Imaging Chest x-ray: image reviewed (review chest x-ray atelectasis is noted) Medications & Allergies - Medications Allergies/Adverse Reactions: Allergies No Known Allergies Allergy (Unverified 08/15/19 13:08) Home Medications: Home Medications Medication Instructions Recorded Confirmed Last Taken Type Rosuvastatin Calcium 20 mg PO QDAY 08/16/19 08/16/19 08/14/19 History Terazosin HCl 2 mg PO QDAY 08/16/19 08/16/19 08/14/19 History Trandolapril/Verapamil HCl [Tarka 4 mg PO QDAY 08/16/19 08/16/19 08/14/19 History ER 4-240 mg] Triamter/Hctz 37.5-25 mg 1 tab PO QDAY 08/16/19 08/16/19 08/14/19 History [Maxzide-25] Verapamil ER [Calan Sr] 180 mg PO BID 08/16/19 08/16/19 08/14/19 History amLODIPine [Norvasc] 10 mg PO DAILY 08/16/19 08/16/19 08/14/19 History Active Medications: Generic Name Dose Route Start Last Admin Trade Name Freq PRN Reason Stop Dose Admin Acetaminophen 650 mg 08/15/19 16:00 Tylenol PO Q4H PRN Pain MILD(1-3)/Fever >100.5/HARDY Albuterol 2.5 mg 08/15/19 16:00 Proventil IH Q4HRT PRN Shortness Of Breath Albuterol/Ipratropium 1 ampul 08/20/19 14:00 08/22/19 09:00 Duoneb *Not For Prn Use* IH 1 ampul TIDRT LEORA Administration Amlodipine Besylate 10 mg 08/19/19 14:00 08/22/19 09:31 Amlodipine PO 10 mg DAILY LEORA Administration Lipase/Protease/Amylase 1 each 08/17/19 14:53 Pancreaze 10,500 Unit FEEDTUBE PRN PRN For Clogged Feeding Tube Atorvastatin Calcium 40 mg 08/19/19 22:00 08/21/19 21:26 Lipitor PO 40 mg QHS LEORA Administration Famotidine 20 mg 08/19/19 10:00 08/22/19 09:32 Pepcid PO 20 mg QDAY LEORA Administration Fentanyl 50 mcg 08/19/19 12:59 08/19/19 15:12 Sublimaze IV 50 mcg Q4H PRN Administration Pain, Moderate (4-6) Heparin Sodium (Porcine) 5,000 unit 08/15/19 22:00 08/22/19 09:32 Heparin SUB-Q 5,000 unit Q12HR LEORA Administration Hydralazine HCl 10 mg 08/21/19 11:09 08/22/19 07:35 Apresoline IV 10 mg Q4HR PRN Administration SBP>160 or DBP>110 Hydralazine HCl 50 mg 08/21/19 14:00 08/22/19 06:24 Apresoline PO 50 mg Q8HR LEORA Administration Hydrophilic Ointment 1 applic 08/15/19 17:33 Vaseline Lip Therapy TP Q2HR PRN Dry Lips Dextrose/Sodium Chloride 1,000 mls @ 125 mls/hr 08/17/19 19:00 08/22/19 09:37 D5/0.45ns IV 125 mls/hr DIRECT LEORA Administration Linezolid 600 mg in 300 mls @ 300 mls/hr 08/17/19 22:00 08/22/19 09:30 Zyvox 600mg/300ml IV 300 mls/hr Q12HR LEORA Administration Protocol Fentanyl Citrate 2,000 mcg in 100 mls @ 5.67 mls/hr 08/18/19 13:00 08/22/19 07:55 Fentanyl Drip Premix IV 1 mcg/kg/hr TITR LEORA 5.67 mls/hr Titration Protocol 1 MCG/KG/HR Lorazepam 0.5 mg 08/15/19 13:10 08/21/19 20:19 Ativan IV 0.5 mg Q4H PRN Administration Anxiety Lorazepam 2 mg 08/15/19 21:27 08/21/19 17:57 Ativan IV 2 mg Q1HR PRN Administration CIWA-Ar 8-15 Methylprednisolone Sodium Succinate 60 mg 08/20/19 14:00 08/22/19 06:24 Solu-Medrol IV 60 mg Q8HR LEORA Administration Multi-Ingred Cream/Lotion/Oil/Oint 1 applic 08/15/19 17:33 Artificial Tears Ophth Oint OU Q4HR PRN Dry Eye(s) Ondansetron HCl 4 mg 08/15/19 16:00 Zofran IV Q8H PRN Nausea And Vomiting Prazosin HCl 1 mg 08/19/19 16:00 08/22/19 09:31 Prazosin PO 1 mg QDAY LEORA Administration Scopolamine 1 each 08/18/19 13:00 08/21/19 13:21 Transderm-Scop TD 1 each Q3D LEORA Administration Simple Syrup 15 ml 08/17/19 14:53 Simple Syrup FEEDTUBE PRN PRN Hypoglycemia Simple Syrup 30 ml 08/17/19 14:53 Simple Syrup FEEDTUBE PRN PRN Hypoglycemia Sodium Bicarbonate 325 mg 08/17/19 14:53 Sodium Bicarbonate FEEDTUBE PRN PRN For Clogged Feeding Tube Sodium Chloride 10 ml 08/15/19 22:00 08/22/19 09:32 Sodium Chloride Flush Syringe 10 Ml IV 10 ml BID LEORA Administration Sodium Chloride 10 ml 08/15/19 16:00 Sodium Chloride Flush Syringe 10 Ml IV PRN PRN LINE FLUSH
[2019-08-22] MEDS: DEXTROSE 5% IN WATER 1,000 ML IV SCH ×2 (10:21→21:59)
--- NOTE | 2019-08-22 10:35 | Progress Note ---
Assessment and Plan Assessment and plan: Sepsis. Continue IV antibiotics per ID recommendations. Follow-up blood cultures. Acute on chronic hypoxemic respiratory failure. Continue mechanical ventilation per pulmonary. Patient likely has COPD given his smoking history. Cont on trial of CPAP mode Influenza. Continue Tamiflu. Bilateral pneumonia. As above. Continue IV antibiotics and follow-up cultures. Acute kidney injury. Etiology secondary to vasomotor nephropathy and ATN/sepsis. Continue IV fluid hydration. Renal ultrasound within normal limits. Nephrology following. Toxic metabolic encephalopathy. Continue to treat underlying causes. Tobacco use disorder. Patient will be counseled on cessation once liberated from the ventilator. Discussed with son at bedside. The high probability of a clinically significant, sudden or life threatening deterioration of the [respiratory and renal] system(s) required my full and direct attention, intervention and personal management. The aggregate critical care time was [35] minutes. This time is in addition to time spent performing reported procedures but includes the following: [x] Data Review and interpretation [x] Patient assessment and monitoring of vital signs [x] Documentation [x] Medication orders and management History Interval history: still intubated Not in pain sedated with Fentanyl drip Hospitalist Physical - Physical exam Narrative exam: General appearance: Present: no acute distress, other (Patient orally intubated on mechanical ventilation) - EENT Eyes: Present: PERRL, EOM intact ENT: hearing intact, clear oral mucosa, dentition normal - Neck Neck: Present: supple, normal ROM - Respiratory Respiratory effort: normal Respiratory: bilateral: Decreased breath sounds bilat, bilat rhonchi - Cardiovascular Rhythm: regular Heart Sounds: Present: S1 & S2. Absent: gallop, rub - Extremities Extremities: no ischemia, No edema, Full ROM - Abdominal General gastrointestinal: soft, non-tender, non-distended, normal bowel sounds - Integumentary Integumentary: Present: clear, warm, dry - Neurologic Neurologic: CNII-XII intact, moves all extremities, awake,sedated - Constitutional Vitals: Temp Pulse Resp BP Pulse Ox 98.9 F 97 H 20 157/78 87 08/22/19 03:31 08/22/19 10:15 08/22/19 10:15 08/22/19 10:15 08/22/19 10:15 General appearance: Present: no acute distress, other (Patient orally intubated on mechanical ventilation) Results - Labs CBC & Chem 7: 08/20/19 05:02 08/22/19 03:45 Labs: Laboratory Last Values WBC 10.4 K/mm3 (4.5-11.0) 08/20/19 05:02 RBC 3.83 M/mm3 (3.65-5.03) 08/20/19 05:02 Hgb 11.1 gm/dl (11.8-15.2) L 08/20/19 05:02 Hct 33.4 % (35.5-45.6) L 08/20/19 05:02 MCV 87 fl (84-94) 08/20/19 05:02 MCH 29 pg (28-32) 08/20/19 05:02 MCHC 33 % (32-34) 08/20/19 05:02 RDW 17.1 % (13.2-15.2) H 08/20/19 05:02 Plt Count 175 K/mm3 (140-440) 08/20/19 05:02 Lymph % (Auto) 11.2 % (13.4-35.0) L 08/20/19 05:02 Hand % (Auto) 12.3 % (0.0-7.3) H 08/20/19 05:02 Eos % (Auto) 1.2 % (0.0-4.3) 08/20/19 05:02 Baso % (Auto) 0.4 % (0.0-1.8) 08/20/19 05:02 Lymph # 1.2 K/mm3 (1.2-5.4) 08/20/19 05:02 Hand # 1.3 K/mm3 (0.0-0.8) H 08/20/19 05:02 Eos # 0.1 K/mm3 (0.0-0.4) 08/20/19 05:02 Baso # 0.0 K/mm3 (0.0-0.1) 08/20/19 05:02 Add Manual Diff Complete 08/19/19 05:15 Total Counted 100 08/19/19 05:15 Seg Neutrophils % 74.9 % (40.0-70.0) H 08/20/19 05:02 Seg Neuts % (Manual) 69.0 % (40.0-70.0) 08/19/19 05:15 Band Neutrophils % 0 % 08/19/19 05:15 Lymphocytes % (Manual) 17.0 % (13.4-35.0) 08/19/19 05:15 Reactive Lymphs % (Man) 1.0 % 08/19/19 05:15 Monocytes % (Manual) 12.0 % (0.0-7.3) H 08/19/19 05:15 Eosinophils % (Manual) 1.0 % (0.0-4.3) 08/19/19 05:15 Basophils % (Manual) 0 % (0.0-1.8) 08/19/19 05:15 Metamyelocytes % 0 % 08/19/19 05:15 Myelocytes % 0 % 08/19/19 05:15 Promyelocytes % 0 % 08/19/19 05:15 Blast Cells % 0 % 08/19/19 05:15 Nucleated RBC % Not Reportable 08/19/19 05:15 Seg Neutrophils # 7.8 K/mm3 (1.8-7.7) H 08/20/19 05:02 Seg Neutrophils # Man 5.9 K/mm3 (1.8-7.7) 08/19/19 05:15 Band Neutrophils # 0.0 K/mm3 08/19/19 05:15 Lymphocytes # (Manual) 1.4 K/mm3 (1.2-5.4) 08/19/19 05:15 Abs React Lymphs (Man) 0.1 K/mm3 08/19/19 05:15 Monocytes # (Manual) 1.0 K/mm3 (0.0-0.8) H 08/19/19 05:15 Eosinophils # (Manual) 0.1 K/mm3 (0.0-0.4) 08/19/19 05:15 Basophils # (Manual) 0.0 K/mm3 (0.0-0.1) 08/19/19 05:15 Metamyelocytes # 0.0 K/mm3 08/19/19 05:15 Myelocytes # 0.0 K/mm3 08/19/19 05:15 Promyelocytes # 0.0 K/mm3 08/19/19 05:15 Blast Cells # 0.0 K/mm3 08/19/19 05:15 WBC Morphology Not Reportable 08/19/19 05:15 Hypersegmented Neuts Not Reportable 08/19/19 05:15 Hyposegmented Neuts Not Reportable 08/19/19 05:15 Hypogranular Neuts Not Reportable 08/19/19 05:15 Smudge Cells Not Reportable 08/19/19 05:15 Toxic Granulation Not Reportable 08/19/19 05:15 Toxic Vacuolation Not Reportable 08/19/19 05:15 Dohle Bodies Not Reportable 08/19/19 05:15 Pelger-Huet Anomaly Not Reportable 08/19/19 05:15 Dalila Rods Not Reportable 08/19/19 05:15 Platelet Estimate Consistent w auto 08/19/19 05:15 Clumped Platelets Not Reportable 08/19/19 05:15 Plt Clumps, EDTA Not Reportable 08/19/19 05:15 Large Platelets Not Reportable 08/19/19 05:15 Giant Platelets Not Reportable 08/19/19 05:15 Platelet Satelliting Not Reportable 08/19/19 05:15 Plt Morphology Comment Not Reportable 08/19/19 05:15 RBC Morphology Not Reportable 08/19/19 05:15 Dimorphic RBCs Not Reportable 08/19/19 05:15 Polychromasia Not Reportable 08/19/19 05:15 Hypochromasia Not Reportable 08/19/19 05:15 Poikilocytosis Not Reportable 08/19/19 05:15 Anisocytosis 1+ 08/19/19 05:15 Microcytosis Not Reportable 08/19/19 05:15 Macrocytosis Not Reportable 08/19/19 05:15 Spherocytes Not Reportable 08/19/19 05:15 Pappenheimer Bodies Not Reportable 08/19/19 05:15 Sickle Cells Not Reportable 08/19/19 05:15 Target Cells Not Reportable 08/19/19 05:15 Tear Drop Cells Not Reportable 08/19/19 05:15 Ovalocytes Not Reportable 08/19/19 05:15 Helmet Cells Not Reportable 08/19/19 05:15 [place] Bodies Not Reportable 08/19/19 05:15 [place] Rings Not Reportable 08/19/19 05:15 Filion Cells Not Reportable 08/19/19 05:15 Bite Cells Not Reportable 08/19/19 05:15 Crenated Cell Not Reportable 08/19/19 05:15 Elliptocytes Not Reportable 08/19/19 05:15 Acanthocytes (Spur) Not Reportable 08/19/19 05:15 Rouleaux Not Reportable 08/19/19 05:15 Hemoglobin C Crystals Not Reportable 08/19/19 05:15 Schistocytes Not Reportable 08/19/19 05:15 Malaria parasites Not Reportable 08/19/19 05:15 Magdiel Bodies Not Reportable 08/19/19 05:15 Hem Pathologist Commnt No 08/19/19 05:15 POC ABG pH 7.328 (7.35-7.45) L 08/22/19 05:19 ABG pH 7.314 pH Units (7.350-7.450) L 08/21/19 04:40 POC ABG pCO2 53.0 (35-45) H 08/22/19 05:19 ABG pCO2 54.6 mm Hg 08/21/19 04:40 POC ABG pO2 75 (80-105) L 08/22/19 05:19 ABG pO2 78.3 mm Hg (80.0-90.0) L 08/21/19 04:40 POC ABG HCO3 27.8 (22-26 mml/L) 08/22/19 05:19 ABG HCO3 27.1 mmol/L (20.0-26.0) H 08/21/19 04:40 POC ABG Total CO2 29 (23-27mmol/L) 08/22/19 05:19 POC ABG O2 Sat 94 08/22/19 05:19 ABG O2 Saturation 94.8 % (95.0-99.0) L 08/21/19 04:40 ABG O2 Content 13.8 (0.0-44) 08/21/19 04:40 POC ABG Base Excess 2 ((-2) - (+3)mmol/L) 08/22/19 05:19 ABG Base Excess 0.3 mmol/L (-2.0-3.0) 08/21/19 04:40 ABG Hemoglobin 10.5 gm/dl (14.0-18.0) L 08/21/19 04:40 ABG Carboxyhemoglobin 1.4 % (0.0-5.0) 08/21/19 04:40 ABG Methemoglobin 0.5 % (0.0-1.5) 08/21/19 04:40 Oxyhemoglobin 93.0 % (95.0-99.0) L 08/21/19 04:40 FiO2 60 % 08/22/19 05:19 Sodium 147 mmol/L (137-145) H 08/22/19 03:45 Potassium 4.1 mmol/L (3.6-5.0) 08/22/19 03:45 Chloride 110.6 mmol/L (98-107) H 08/22/19 03:45 Carbon Dioxide 25 mmol/L (22-30) 08/22/19 03:45 Anion Gap 16 mmol/L 08/22/19 03:45 BUN 36 mg/dL (9-20) H 08/22/19 03:45 Creatinine 2.4 mg/dL (0.8-1.5) H 08/22/19 03:45 Estimated GFR 33 ml/min 08/22/19 03:45 BUN/Creatinine Ratio 15 % 08/22/19 03:45 Glucose 195 mg/dL (75-100) H 08/22/19 03:45 POC Glucose 176 (70-105) H 08/22/19 05:41 Lactic Acid 1.10 mmol/L (0.7-2.0) 08/15/19 23:36 Calcium 8.1 mg/dL (8.4-10.2) L 08/22/19 03:45 Total Bilirubin 1.50 mg/dL (0.1-1.2) H 08/15/19 13:16 AST 82 units/L (5-40) H 08/15/19 13:16 ALT 46 units/L (7-56) 08/15/19 13:16 Alkaline Phosphatase 90 units/L (35-129) 08/15/19 13:16 Troponin T 0.018 ng/mL (0.00-0.029) 08/15/19 13:16 Total Protein 7.9 g/dL (6.3-8.2) 08/15/19 13:16 Albumin 3.6 g/dL (3.9-5) L 08/15/19 13:16 Albumin/Globulin Ratio 0.8 % 08/15/19 13:16 Urine Color [place] (Yellow) 08/16/19 14:40 Urine Turbidity Cloudy (Clear) 08/16/19 14:40 Urine pH 5.0 (5.0-7.0) 08/16/19 14:40 Ur Specific [place] 1.015 (1.003-1.030) 08/16/19 14:40 Urine Protein 100 mg/dl mg/dL (Negative) 08/16/19 14:40 Urine Glucose (UA) Neg mg/dL (Negative) 08/16/19 14:40 Urine Ketones Neg mg/dL (Negative) 08/16/19 14:40 Urine Blood Mod (Negative) 08/16/19 14:40 Urine Nitrite Neg (Negative) 08/16/19 14:40 Urine Bilirubin Neg (Negative) 08/16/19 14:40 Urine Urobilinogen 4.0 mg/dL (<2.0) 08/16/19 14:40 Ur Leukocyte Esterase Tr (Negative) 08/16/19 14:40 Urine WBC (Auto) 8.0 /HPF (0.0-6.0) H 08/16/19 14:40 Urine RBC (Auto) 1.0 /HPF (0.0-6.0) 08/16/19 14:40 U Epithel Cells (Auto) < 1.0 /HPF (0-13.0) 08/16/19 14:40 Random Vancomycin 7.9 ug/mL (0-40.0) 08/17/19 05:31 Active Medications - Current Medications Current Medications: Generic Name Dose Route Start Last Admin Trade Name Freq PRN Reason Stop Dose Admin Acetaminophen 650 mg 08/15/19 16:00 Tylenol PO Q4H PRN Pain MILD(1-3)/Fever >100.5/HARDY Albuterol 2.5 mg 08/15/19 16:00 Proventil IH Q4HRT PRN Shortness Of Breath Albuterol/Ipratropium 1 ampul 08/20/19 14:00 08/22/19 09:00 Duoneb *Not For Prn Use* IH 1 ampul TIDRT LEORA Administration Amlodipine Besylate 10 mg 08/19/19 14:00 08/22/19 09:31 Amlodipine PO 10 mg DAILY LEORA Administration Lipase/Protease/Amylase 1 each 08/17/19 14:[address] 10,500 Unit FEEDTUBE PRN PRN For Clogged Feeding Tube Atorvastatin Calcium 40 mg 08/19/19 22:00 08/21/19 21:26 Lipitor PO 40 mg QHS LEORA Administration Famotidine 20 mg 08/19/19 10:00 08/22/19 09:32 Pepcid PO 20 mg QDAY LEORA Administration Fentanyl 50 mcg 08/19/19 12:59 08/19/19 15:12 Sublimaze IV 50 mcg Q4H PRN Administration Pain, Moderate (4-6) Heparin Sodium (Porcine) 5,000 unit 08/15/19 22:00 08/22/19 09:32 Heparin SUB-Q 5,000 unit Q12HR LEORA Administration Hydralazine HCl 10 mg 08/21/19 11:09 08/22/19 07:35 Apresoline IV 10 mg Q4HR PRN Administration SBP>160 or DBP>110 Hydralazine HCl 50 mg 08/21/19 14:00 08/22/19 06:24 Apresoline PO 50 mg Q8HR LEORA Administration Hydrophilic Ointment 1 applic 08/15/19 17:33 Vaseline Lip Therapy TP Q2HR PRN Dry Lips Linezolid 600 mg in 300 mls @ 300 mls/hr 08/17/19 22:00 08/22/19 09:30 Zyvox 600mg/300ml IV 300 mls/hr Q12HR LEORA Administration Protocol Fentanyl Citrate 2,000 mcg in 100 mls @ 5.67 mls/hr 08/18/19 13:00 08/22/19 07:55 Fentanyl Drip Premix IV 1 mcg/kg/hr TITR LEORA 5.67 mls/hr Titration Protocol 1 MCG/KG/HR Dextrose 1,000 mls @ 100 mls/hr 08/22/19 10:00 08/22/19 10:21 D5w IV 100 mls/hr DIRECT LEORA Administration Lorazepam 0.5 mg 08/15/19 13:10 08/21/19 20:19 Ativan IV 0.5 mg Q4H PRN Administration Anxiety Lorazepam 2 mg 08/15/19 21:27 08/21/19 17:57 Ativan IV 2 mg Q1HR PRN Administration CIWA-Ar 8-15 Methylprednisolone Sodium Succinate 60 mg 08/20/19 14:00 08/22/19 06:24 Solu-Medrol IV 60 mg Q8HR LEORA Administration Multi-Ingred Cream/Lotion/Oil/Oint 1 applic 08/15/19 17:33 Artificial Tears Ophth Oint OU Q4HR PRN Dry Eye(s) Ondansetron HCl 4 mg 08/15/19 16:00 Zofran IV Q8H PRN Nausea And Vomiting Prazosin HCl 1 mg 08/19/19 16:00 08/22/19 09:31 Prazosin PO 1 mg QDAY LEORA Administration Scopolamine 1 each 08/18/19 13:00 08/21/19 13:21 Transderm-Scop TD 1 each Q3D LEORA Administration Simple Syrup 15 ml 08/17/19 14:53 Simple Syrup FEEDTUBE PRN PRN Hypoglycemia Simple Syrup 30 ml 08/17/19 14:53 Simple Syrup FEEDTUBE PRN PRN Hypoglycemia Sodium Bicarbonate 325 mg 08/17/19 14:53 Sodium Bicarbonate FEEDTUBE PRN PRN For Clogged Feeding Tube Sodium Chloride 10 ml 08/15/19 22:00 08/22/19 09:32 Sodium Chloride Flush Syringe 10 Ml IV 10 ml BID LEORA Administration Sodium Chloride 10 ml 08/15/19 16:00 Sodium Chloride Flush Syringe 10 Ml IV PRN PRN LINE FLUSH Nutrition/Malnutrition Assess - Dietary Evaluation Nutrition/Malnutrition Findings: Nutrition Notes Start: 08/18/19 0 9:16 Freq: Status: Active Protocol: Document 08/21/19 10:37 LM (Rec: 08/21/19 10:44 LM [id number]) Nutrition Notes Initial or Follow up Reassessment Current Diagnosis Acute Kidney Injury,Decubitus( Pressure Ulcer),Sepsis, Hypertension,Respiratory Failure Other Pertinent Diagnosis Influenza, nicotine/ETOH dependence Current Diet Nepro 1.8 with Carbsteady at 45 ml/hr Labs/Tests Na 147 BUN 30 Cr 2.4 Pertinent Medications Solumedrol Height 6 ft Weight 113.4 kg [place] Body Weight (kg) 80.90 BMI 33.9 Subjective/Other Information Nepro running at 45 ml/hr at time of visit. Pt's Na remains elevated but trending down. Will increase flush. Percent of energy/protein needs met: 100%/75% Burn Absent Trauma Absent Current % PO Negligible Minimum of two criteria No #1 Nutrition Diagnosis Inadequate oral intake Diagnosis Progress(for reassessment Continues documentation) Is patient on ventilator? Yes Is Patient Ambulatory and/or Out of Bed No REE-(Heard-St. Jeor-confined to bed) 2341.476 Kcal/Kg value to use for calculation 17 Approximate Energy Requirements Using 1928 kcal/Kg Calculation Used for Recommendations Kcal/kg Additional Notes Protein: 116-194g (1.2-2g/kg using AdjBW 97 kg) Fluid: 1 ml/kcal or per MD Nutrition Intervention Change Diet Order: TF Nutrition Support: Nepro 1.8 with Carbsteady at 45 ml/hr Flush 300 ml q4hr for hypernatremia Flush 200 ml q4hr once hypernatremia resolves Kcal 1,944 Protein (gm) 87 Fluid (mL) 785 Goal #1 TF tolerance Goal #2 Meet at least 75% of energy and protein needs Anticipated Discharge Needs: unable to determine at this time Follow-Up By: 08/28/19 Additional Comments F/U for TF tolerance/Na lab
[2019-08-22] MEDS: fentaNYL DRIP Premix 2,000 MCG/100 ML BAG IV SCH ×2 (11:55→22:05)
--- NOTE | 2019-08-22 12:47 | Progress Note ---
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 Etiology complicated influenza with MRSA pneumonia. #Complicated influenza with pneumonia: improving. #Acute resp insufficiency: due to pneumonia ?COPD: remains on the vent. #Mild elevated LFTs from sepsis #CLAUDETTE: renally adjusted abx. Creatinine still elevated #AMS: improved. Recs: continue Day 8 of 10 linezolid 600 mg IV q 12 hour, monitor platelets on linezolid Tani Hayden MD, FACP [facility] ([facility] C: [phone] O: [phone] F: [phone] Subjective Date of service: 08/22/19 Principal diagnosis: respiratory failure Interval history: Low grade temps present. Remains on the vent. No other events. Objective - Exam Narrative Exam: Constitutional: intubated, on vent, opens eyes Head, Ears, Nose: Normocephalic, atraumatic. External ears, nose normal Eyes: Conjunctivae/corneas clear. No icterus. No ptosis. Neck: intubated Oral: intubated Cardiovascular: S1 S2 + Respiratory: AE clear b/l, no wheeze GI: Soft, non tender, bowel sounds + Musculoskeletal: No pedal edema, no cyanosis. Skin: no rash, lesions Hem/Lymphatic: No palpable cervical or supraclavicular nodes. No lymphangitis Psych: no agitation Neurological: intubated, on the vent, opens eyes - Constitutional Vitals: Vital Signs Temp Pulse Resp BP Pulse Ox 98.9 F 102 H 24 165/85 91 08/22/19 03:31 08/22/19 11:00 08/22/19 11:00 08/22/19 11:00 08/22/19 11:00 Temperature -Last 24 Hours Temperature 98.9 F Temperature 99.4 F Temperature 99.9 F Temperature 100.0 F Temperature 99.8 F - Labs CBC & Chem 7: 08/20/19 05:02 08/22/19 03:45 Labs: Abnormal lab results 08/22/19 08/22/19 08/22/19 Range/Units 00:08 03:45 05:19 POC ABG pH 7.328 L (7.35-7.45) POC ABG pCO2 53.0 H (35-45) POC ABG pO2 75 L (80-105) Sodium 147 H (137-145) mmol/L Chloride 110.6 H (98-107) mmol/L BUN 36 H (9-20) mg/dL Creatinine 2.4 H (0.8-1.5) mg/dL Glucose 195 H (75-100) mg/dL POC Glucose 173 H (70-105) Calcium 8.1 L (8.4-10.2) mg/dL 08/22/19 08/22/19 08/22/19 Range/Units 05:41 11:20 11:22 POC ABG pH (7.35-7.45) POC ABG pCO2 49.7 H (35-45) POC ABG pO2 62 L (80-105) Sodium (137-145) mmol/L Chloride (98-107) mmol/L BUN (9-20) mg/dL Creatinine (0.8-1.5) mg/dL Glucose (75-100) mg/dL POC Glucose 176 H 217 H (70-105) Calcium (8.4-10.2) mg/dL - Imaging and cardiology Chest x-ray: report reviewed, image reviewed (no new infiltrate)
[2019-08-23] MEDS: hydrALAZINE 20 MG/1 ML INJ IV PRN ×2 (00:54→09:16)
[2019-08-23 05:24] LABS: Calcium 8.5 mg/dL (8.4-10.2)
[2019-08-23 05:28] LABS: Hematocrit 35.2 % (35.5-45.6); Hemoglobin 11.5 gm/dl (11.8-15.2); Red Blood Count 4.05 M/mm3 (3.65-5.03)
[2019-08-23 05:29] LABS: Mean Platelet Volume 7.9 fl (6-12); Red Cell Distribution Width 16.5 % (13.2-15.2)
[2019-08-23] MEDS: hydrALAZINE 25 MG TAB PO SCH ×3 (06:27→22:26)
[2019-08-23] MEDS: methylPREDNISolone Sod Succinate 125 MG/2 ML INJ IV SCH ×3 (06:28→22:36)
[2019-08-23] MEDS: DEXTROSE 5% IN WATER 1,000 ML IV SCH (06:30)
[2019-08-23] MEDS: IPRATROPIUM/ALBUTEROL SULFATE 3 ML AMPUL.NEB IH SCH ×3 (08:28→20:29)
--- NOTE | 2019-08-23 08:43 | Progress Note ---
Assessment and Plan Assessment and plan: Sepsis. Continue Zyvox as per ID recommendations. F Acute on chronic hypoxemic respiratory failure. Continue mechanical ventilation per pulmonary. Patient likely has COPD given his smoking history. Hypertensive urgency Increase Hydralazine to 100mg tid Influenza. Completed Tamiflu. Resp isolation Bilateral pneumonia. As above. Continue Zyvox Acute kidney injury. Etiology secondary to vasomotor nephropathy and ATN/sepsis. Continue IV fluid hydration. Renal ultrasound within normal limit s. Nephrology following. Toxic metabolic encephalopathy. Improved. Continue to treat underlying causes. Tobacco use disorder. Patient will be counseled on cessation once liberated from the ventilator. Discussed with son at bedside. The high probability of a clinically significant, sudden or life threatening deterioration of the [respiratory and renal] system(s) required my full and direct attention, intervention and personal management. The aggregate critical care time was [33] minutes. This time is in addition to time spent performing reported procedures but includes the following: [x] Data Review and interpretation [x] Patient assessment and monitoring of vital signs [x] Documentation [x] Medication orders and management History Interval history: still intubated Not in pain sedated with Fentanyl drip BP elevated Hospitalist Physical - Physical exam Narrative exam: General appearance: Present: no acute distress, other (Patient orally intubated on mechanical ventilation) - EENT Eyes: Present: PERRL, EOM intact ENT: hearing intact, clear oral mucosa, dentition normal - Neck Neck: Present: supple, normal ROM - Respiratory Respiratory effort: normal Respiratory: bilateral: Decreased breath sounds bilat, bilat rhonchi - Cardiovascular Rhythm: regular Heart Sounds: Present: S1 & S2. Absent: gallop, rub - Extremities Extremities: no ischemia, No edema, Full ROM - Abdominal General gastrointestinal: soft, non-tender, non-distended, normal bowel sounds - Integumentary Integumentary: Present: clear, warm, dry - Neurologic Neurologic: CNII-XII intact, moves all extremities, awake,sedated - Constitutional Vitals: Temp Pulse Resp BP Pulse Ox 98.8 F 96 H 12 177/93 94 08/23/19 03:52 08/23/19 08:30 08/23/19 08:30 08/23/19 08:30 08/23/19 08:30 General appearance: Present: no acute distress, other (Patient orally intubated on mechanical ventilation) Results - Labs CBC & Chem 7: 08/23/19 04:14 08/23/19 04:14 Labs: Laboratory Last Values WBC 14.7 K/mm3 (4.5-11.0) H 08/23/19 04:14 RBC 4.05 M/mm3 (3.65-5.03) 08/23/19 04:14 Hgb 11.5 gm/dl (11.8-15.2) L 08/23/19 04:14 Hct 35.2 % (35.5-45.6) L 08/23/19 04:14 MCV 87 fl (84-94) 08/23/19 04:14 MCH 28 pg (28-32) 08/23/19 04:14 MCHC 33 % (32-34) 08/23/19 04:14 RDW 16.5 % (13.2-15.2) H 08/23/19 04:14 Plt Count 296 K/mm3 (140-440) 08/23/19 04:14 Lymph % (Auto) 11.2 % (13.4-35.0) L 08/20/19 05:02 [place] % (Auto) 12.3 % (0.0-7.3) H 08/20/19 05:02 Eos % (Auto) 1.2 % (0.0-4.3) 08/20/19 05:02 Baso % (Auto) 0.4 % (0.0-1.8) 08/20/19 05:02 Lymph # 1.2 K/mm3 (1.2-5.4) 08/20/19 05:02 Norman # 1.3 K/mm3 (0.0-0.8) H 08/20/19 05:02 Eos # 0.1 K/mm3 (0.0-0.4) 08/20/19 05:02 Baso # 0.0 K/mm3 (0.0-0.1) 08/20/19 05:02 Add Manual Diff Complete 08/19/19 05:15 Total Counted 100 08/19/19 05:15 Seg Neutrophils % 74.9 % (40.0-70.0) H 08/20/19 05:02 Seg Neuts % (Manual) 69.0 % (40.0-70.0) 08/19/19 05:15 Band Neutrophils % 0 % 08/19/19 05:15 Lymphocytes % (Manual) 17.0 % (13.4-35.0) 08/19/19 05:15 Reactive Lymphs % (Man) 1.0 % 08/19/19 05:15 Monocytes % (Manual) 12.0 % (0.0-7.3) H 08/19/19 05:15 Eosinophils % (Manual) 1.0 % (0.0-4.3) 08/19/19 05:15 Basophils % (Manual) 0 % (0.0-1.8) 08/19/19 05:15 Metamyelocytes % 0 % 08/19/19 05:15 Myelocytes % 0 % 08/19/19 05:15 Promyelocytes % 0 % 08/19/19 05:15 Blast Cells % 0 % 08/19/19 05:15 Nucleated RBC % Not Reportable 08/19/19 05:15 Seg Neutrophils # 7.8 K/mm3 (1.8-7.7) H 08/20/19 05:02 Seg Neutrophils # Man 5.9 K/mm3 (1.8-7.7) 08/19/19 05:15 Band Neutrophils # 0.0 K/mm3 08/19/19 05:15 Lymphocytes # (Manual) 1.4 K/mm3 (1.2-5.4) 08/19/19 05:15 Abs React Lymphs (Man) 0.1 K/mm3 08/19/19 05:15 Monocytes # (Manual) 1.0 K/mm3 (0.0-0.8) H 08/19/19 05:15 Eosinophils # (Manual) 0.1 K/mm3 (0.0-0.4) 08/19/19 05:15 Basophils # (Manual) 0.0 K/mm3 (0.0-0.1) 08/19/19 05:15 Metamyelocytes # 0.0 K/mm3 08/19/19 05:15 Myelocytes # 0.0 K/mm3 08/19/19 05:15 Promyelocytes # 0.0 K/mm3 08/19/19 05:15 Blast Cells # 0.0 K/mm3 08/19/19 05:15 WBC Morphology Not Reportable 08/19/19 05:15 Hypersegmented Neuts Not Reportable 08/19/19 05:15 Hyposegmented Neuts Not Reportable 08/19/19 05:15 Hypogranular Neuts Not Reportable 08/19/19 05:15 Smudge Cells Not Reportable 08/19/19 05:15 Toxic Granulation Not Reportable 08/19/19 05:15 Toxic Vacuolation Not Reportable 08/19/19 05:15 Dohle Bodies Not Reportable 08/19/19 05:15 Pelger-Huet Anomaly Not Reportable 08/19/19 05:15 Dalila Rods Not Reportable 08/19/19 05:15 Platelet Estimate Consistent w auto 08/19/19 05:15 Clumped Platelets Not Reportable 08/19/19 05:15 Plt Clumps, EDTA Not Reportable 08/19/19 05:15 Large Platelets Not Reportable 08/19/19 05:15 Giant Platelets Not Reportable 08/19/19 05:15 Platelet Satelliting Not Reportable 08/19/19 05:15 Plt Morphology Comment Not Reportable 08/19/19 05:15 RBC Morphology Not Reportable 08/19/19 05:15 Dimorphic RBCs Not Reportable 08/19/19 05:15 Polychromasia Not Reportable 08/19/19 05:15 Hypochromasia Not Reportable 08/19/19 05:15 Poikilocytosis Not Reportable 08/19/19 05:15 Anisocytosis 1+ 08/19/19 05:15 Microcytosis Not Reportable 08/19/19 05:15 Macrocytosis Not Reportable 08/19/19 05:15 Spherocytes Not Reportable 08/19/19 05:15 Pappenheimer Bodies Not Reportable 08/19/19 05:15 Sickle Cells Not Reportable 08/19/19 05:15 Target Cells Not Reportable 08/19/19 05:15 Tear Drop Cells Not Reportable 08/19/19 05:15 Ovalocytes Not Reportable 08/19/19 05:15 Helmet Cells Not Reportable 08/19/19 05:15 Sifuentes-Brewer Bodies Not Reportable 08/19/19 05:15 [place] Rings Not Reportable 08/19/19 05:15 [place] Cells Not Reportable 08/19/19 05:15 Bite Cells Not Reportable 08/19/19 05:15 Crenated Cell Not Reportable 08/19/19 05:15 Elliptocytes Not Reportable 08/19/19 05:15 Acanthocytes (Spur) Not Reportable 08/19/19 05:15 Rouleaux Not Reportable 08/19/19 05:15 Hemoglobin C Crystals Not Reportable 08/19/19 05:15 Schistocytes Not Reportable 08/19/19 05:15 Malaria parasites Not Reportable 08/19/19 05:15 Magdiel Bodies Not Reportable 08/19/19 05:15 Hem Pathologist Commnt No 08/19/19 05:15 POC ABG pH 7.371 (7.35-7.45) 08/22/19 11:20 ABG pH 7.314 pH Units (7.350-7.450) L 08/21/19 04:40 POC ABG pCO2 49.7 (35-45) H 08/22/19 11:20 ABG pCO2 54.6 mm Hg 08/21/19 04:40 POC ABG pO2 62 (80-105) L 08/22/19 11:20 ABG pO2 78.3 mm Hg (80.0-90.0) L 08/21/19 04:40 POC ABG HCO3 28.8 (22-26 mml/L) 08/22/19 11:20 ABG HCO3 27.1 mmol/L (20.0-26.0) H 08/21/19 04:40 POC ABG Total CO2 30 (23-27mmol/L) 08/22/19 11:20 POC ABG O2 Sat 90 08/22/19 11:20 ABG O2 Saturation 94.8 % (95.0-99.0) L 08/21/19 04:40 ABG O2 Content 13.8 (0.0-44) 08/21/19 04:40 POC ABG Base Excess 3 ((-2) - (+3)mmol/L) 08/22/19 11:20 ABG Base Excess 0.3 mmol/L (-2.0-3.0) 08/21/19 04:40 ABG Hemoglobin 10.5 gm/dl (14.0-18.0) L 08/21/19 04:40 ABG Carboxyhemoglobin 1.4 % (0.0-5.0) 08/21/19 04:40 ABG Methemoglobin 0.5 % (0.0-1.5) 08/21/19 04:40 Oxyhemoglobin 93.0 % (95.0-99.0) L 08/21/19 04:40 FiO2 50 % 08/22/19 11:20 Sodium 143 mmol/L (137-145) 08/23/19 04:14 Potassium 4.2 mmol/L (3.6-5.0) 08/23/19 04:14 Chloride 106.1 mmol/L (98-107) 08/23/19 04:14 Carbon Dioxide 25 mmol/L (22-30) 08/23/19 04:14 Anion Gap 16 mmol/L 08/23/19 04:14 BUN 41 mg/dL (9-20) H 08/23/19 04:14 Creatinine 2.3 mg/dL (0.8-1.5) H 08/23/19 04:14 Estimated GFR 34 ml/min 08/23/19 04:14 BUN/Creatinine Ratio 18 % 08/23/19 04:14 Glucose 174 mg/dL (75-100) H 08/23/19 04:14 POC Glucose 159 (70-105) H 08/23/19 05:01 Hemoglobin A1c 6.0 % (4-6) 08/23/19 04:14 Lactic Acid 1.10 mmol/L (0.7-2.0) 08/15/19 23:36 Calcium 8.5 mg/dL (8.4-10.2) 08/23/19 04:14 Total Bilirubin 1.50 mg/dL (0.1-1.2) H 08/15/19 13:16 AST 82 units/L (5-40) H 08/15/19 13:16 ALT 46 units/L (7-56) 08/15/19 13:16 Alkaline Phosphatase 90 units/L (35-129) 08/15/19 13:16 Troponin T 0.018 ng/mL (0.00-0.029) 08/15/19 13:16 Total Protein 7.9 g/dL (6.3-8.2) 08/15/19 13:16 Albumin 3.6 g/dL (3.9-5) L 08/15/19 13:16 Albumin/Globulin Ratio 0.8 % 08/15/19 13:16 Urine Color [place] (Yellow) 08/16/19 14:40 Urine Turbidity Cloudy (Clear) 08/16/19 14:40 Urine pH 5.0 (5.0-7.0) 08/16/19 14:40 Ur Specific [place] 1.015 (1.003-1.030) 08/16/19 14:40 Urine Protein 100 mg/dl mg/dL (Negative) 08/16/19 14:40 Urine Glucose (UA) Neg mg/dL (Negative) 08/16/19 14:40 Urine Ketones Neg mg/dL (Negative) 08/16/19 14:40 Urine Blood Mod (Negative) 08/16/19 14:40 Urine Nitrite Neg (Negative) 08/16/19 14:40 Urine Bilirubin Neg (Negative) 08/16/19 14:40 Urine Urobilinogen 4.0 mg/dL (<2.0) 08/16/19 14:40 Ur Leukocyte Esterase Tr (Negative) 08/16/19 14:40 Urine WBC (Auto) 8.0 /HPF (0.0-6.0) H 08/16/19 14:40 Urine RBC (Auto) 1.0 /HPF (0.0-6.0) 08/16/19 14:40 U Epithel Cells (Auto) < 1.0 /HPF (0-13.0) 08/16/19 14:40 Random Vancomycin 7.9 ug/mL (0-40.0) 08/17/19 05:31 Active Medications - Current Medications Current Medications: Generic Name Dose Route Start Last Admin Trade Name Harsha PRN Reason Stop Dose Admin Acetaminophen 650 mg 08/15/19 16:00 Tylenol PO Q4H PRN Pain MILD(1-3)/Fever >100.5/HARDY Albuterol 2.5 mg 08/15/19 16:00 Proventil IH Q4HRT PRN Shortness Of Breath Albuterol/Ipratropium 1 ampul 08/20/19 14:00 08/23/19 08:28 Duoneb *Not For Prn Use* IH 1 ampul TIDRT LEORA Administration Amlodipine Besylate 10 mg 08/19/19 14:00 08/22/19 09:31 Amlodipine PO 10 mg DAILY LEORA Administration Lipase/Protease/Amylase 1 each 08/17/19 14:53 Pancreaze 10,500 Unit FEEDTUBE PRN PRN For Clogged Feeding Tube Atorvastatin Calcium 40 mg 08/19/19 22:00 08/22/19 21:58 Lipitor PO 40 mg QHS LEORA Administration Famotidine 20 mg 08/19/19 10:00 08/22/19 09:32 Pepcid PO 20 mg QDAY LEORA Administration Fentanyl 50 mcg 08/19/19 12:59 08/19/19 15:12 Sublimaze IV 50 mcg Q4H PRN Administration Pain, Moderate (4-6) Heparin Sodium (Porcine) 5,000 unit 08/15/19 22:00 08/22/19 21:54 Heparin SUB-Q 5,000 unit Q12HR LEORA Administration Hydralazine HCl 10 mg 08/21/19 11:09 08/23/19 00:54 Apresoline IV 10 mg Q4HR PRN Administration SBP>160 or DBP>110 Hydralazine HCl 50 mg 08/21/19 14:00 08/23/19 06:27 Apresoline PO 50 mg Q8HR LEORA Administration Hydrophilic Ointment 1 applic 08/15/19 17:33 Vaseline Lip Therapy TP Q2HR PRN Dry Lips Linezolid 600 mg in 300 mls @ 300 mls/hr 08/17/19 22:00 08/22/19 21:59 Zyvox 600mg/300ml IV 300 mls/hr Q12HR LEORA Administration Protocol Fentanyl Citrate 2,000 mcg in 100 mls @ 5.67 mls/hr 08/18/19 13:00 08/22/19 22:05 Fentanyl Drip Premix IV 1 mcg/kg/hr TITR LEORA 5.67 mls/hr Administration Protocol 1 MCG/KG/HR Dextrose 1,000 mls @ 100 mls/hr 08/22/19 10:00 08/23/19 06:30 D5w IV 100 mls/hr DIRECT LEORA Administration Lorazepam 0.5 mg 08/15/19 13:10 08/21/19 20:19 Ativan IV 0.5 mg Q4H PRN Administration Anxiety Lorazepam 2 mg 08/15/19 21:27 08/21/19 17:57 Ativan IV 2 mg Q1HR PRN Administration CIWA-Ar 8-15 Methylprednisolone Sodium Succinate 60 mg 08/20/19 14:00 08/23/19 06:28 Solu-Medrol IV 60 mg Q8HR LEORA Administration Multi-Ingred Cream/Lotion/Oil/Oint 1 applic 08/15/19 17:33 Artificial Tears Ophth Oint OU Q4HR PRN Dry Eye(s) Ondansetron HCl 4 mg 08/15/19 16:00 Zofran IV Q8H PRN Nausea And Vomiting Prazosin HCl 1 mg 08/19/19 16:00 08/22/19 09:31 Prazosin PO 1 mg QDAY LEORA Administration Scopolamine 1 each 08/18/19 13:00 08/21/19 13:21 Transderm-Scop TD 1 each Q3D LEORA Administration Simple Syrup 15 ml 08/17/19 14:53 Simple Syrup FEEDTUBE PRN PRN Hypoglycemia Simple Syrup 30 ml 08/17/19 14:53 Simple Syrup FEEDTUBE PRN PRN Hypoglycemia Sodium Bicarbonate 325 mg 08/17/19 14:53 Sodium Bicarbonate FEEDTUBE PRN PRN For Clogged Feeding Tube Sodium Chloride 10 ml 08/15/19 22:00 08/22/19 21:57 Sodium Chloride Flush Syringe 10 Ml IV 10 ml BID LEORA Administration Sodium Chloride 10 ml 08/15/19 16:00 Sodium Chloride Flush Syringe 10 Ml IV PRN PRN LINE FLUSH Nutrition/Malnutrition Assess - Dietary Evaluation Nutrition/Malnutrition Findings: Nutrition Notes Start: 08/18/19 09:16 Freq: Status: Active Protocol: Document 08/21/19 10:37 LM (Rec: 08/21/19 10:44 LM [email or web address]) Nutrition Notes Initial or Follow up Reassessment Current Diagnosis Acute Kidney Injury,Decubitus( Pressure Ulcer),Sepsis, Hypertension,Respiratory Failure Other Pertinent Diagnosis Influenza, nicotine/ETOH dependence Current Diet Nepro 1.8 with Carbsteady at 45 ml/hr Labs/Tests Na 147 BUN 30 Cr 2.4 Pertinent Medications Solumedrol Height 6 ft Weight 113.4 kg [place] Body Weight (kg) 80.90 BMI 33.9 Subjective/Other Information Nepro running at 45 ml/hr at time of visit. Pt's Na remains elevated but trending down. Will increase flush. Percent of energy/protein needs met: 100%/75% Burn Absent Trauma Absent Current % PO Negligible Minimum of two criteria No #1 Nutrition Diagnosis Inadequate oral intake Diagnosis Progress(for reassessment Continues documentation) Is patient on ventilator? Yes Is Patient Ambulatory and/or Out of Bed No [facility] 2341.476 Kcal/Kg value to use for calculation 17 Approximate Energy Requirements Using 1928 kcal/Kg Calculation Used for Recommendations Kcal/kg Additional Notes Protein: 116-194g (1.2-2g/kg using AdjBW 97 kg) Fluid: 1 ml/kcal or per MD Nutrition Intervention Change Diet Order: TF Nutrition Support: Nepro 1.8 with Carbsteady at 45 ml/hr Flush 300 ml q4hr for hypernatremia Flush 200 ml q4hr once hypernatremia resolves Kcal 1,944 Protein (gm) 87 Fluid (mL) 785 Goal #1 TF tolerance Goal #2 Meet at least 75% of energy and protein needs Anticipated Discharge Needs: unable to determine at this time Follow-Up By: 08/28/19 Additional Comments F/U for TF tolerance/Na lab
[2019-08-23] MEDS: LINEZOLID 600 MG/300 ML BAG IV SCH ×2 (09:00→22:26)
[2019-08-23] MEDS: HEPARIN 5,000 UNIT/1 ML VIAL SUB-Q SCH ×2 (09:00→22:36)
[2019-08-23] MEDS: FAMOTIDINE 20 MG TAB PO SCH (09:01)
[2019-08-23] MEDS: amLODIPine 10 MG TAB PO SCH (09:01)
[2019-08-23] MEDS: PRAZOSIN 1 MG CAP PO SCH (10:50)
[2019-08-23] MEDS ORDERED: FUROSEMIDE 40 MG/4 ML INJ IV ONE (11:09)
--- NOTE | 2019-08-23 11:58 | Progress Note ---
Assessment and Plan Sepsis Acute respiratory failure with hypoxemia and hypercapnia on MVS Influenza Bilateral pneumonia Acute renal failure Tobacco use disorder/Nicotine dependence Thrombocytopenia SBT trial, get weaning parameters-SBT, NIF. If adequate will plan to liberate from MVS -Stop oral tube feedings( has OGT), stop IVF for now Small dose of diuretic Explained in detail to the patient and his daughter. Aslo explained, that if he does not meet criteria, he may need a little more time on MVS. Discussed extensively with the RT at the bedside. If extubated, will need AUTOMOTIVE [employer]ER evaluation for dysphagia screen Start steroid taper in the morning Continue to trend leukocytosis All other care as documented below - continue to wean supplemental oxygen for target O2 sat's > 90% , currently on FIO2 of 70% - Daily SAT and SBT assessment for readiness for weaning per protocol - VAP bundle addressed - Lung protective strategies - Bronchodilators with pulmonary hygiene per RT - Accuchecks with glycemic control per SSI (While critically ill target blood glucose of 140-180 mg/dL; avoid hypoglycemia) - Sedation for target RASS 0 to -1 - Avoid benzodiazepines to reduce the possibility of delirium - Empiric antibiotics for post viral PNA(on linezolid) , complete antiviral agents-ID following - prn analgesia per CPOT score - Maintenance of sleep-wake cycle, avoid delirium - Enteral nutritional support -Aspiration precautions, HOB >40 - G.I. & VTE prophylaxis, while on heparin monitor for bleeding and trend platelets - PT/OT/ROM exercises - Mobility protocol and off loading for pressure ulcer prevention -Renally dose all medications, avoid nephrotoxins -Nicotine withdrawal precautions -Smoking cessation counselling once he is liberated from MVS CONDITION: CRITICAL PROGNOSIS: FAIR CODE STATUS: FULL CODE Updated his daughter at the bedside re care plan The high probability of a clinically significant, sudden or life-threatening deterioration of the respiratory, renal system(s) required my full and direct attention, intervention and personal management. The aggregate critical care time was [35] minutes without overlap. Time includes spent on; [x] Data Review and interpretation [x] Patient assessment and monitoring of vital signs [x] Documentation [x] Medication orders and management Subjective Date of service: 08/23/19 Principal diagnosis: respiratory failure Interval history: Patient is seen today for: acute hypoxic respiratory failure on MVS, bilateral alveolar infiltrates, morbid obesity, influenza infection ( complicated): CLAUDETTE Seen and examined at bedside; 24hour events reviewed; nursing and respiratory care staff consulted; no adverse overnight events reported to me; Vitals, labs, medications, chart reviewed. No fevers, tolerating PSV trial, no fevers, no vomiting. Daughter at the bedside, patient mouthing words to make needs known Objective Vital Signs - 12hr 08/23/19 08/23/19 08/23/19 00:00 00:54 01:00 Temperature Pulse Rate 92 H 101 H 119 H Respiratory 16 14 Rate Blood Pressure 185/84 203/89 203/89 O2 Sat by Pulse 93 91 Oximetry 08/23/19 08/23/19 08/23/19 02:00 03:00 03:37 Temperature Pulse Rate 91 H 115 H 99 H Respiratory 18 25 H Rate Blood Pressure 184/89 201/90 169/92 O2 Sat by Pulse 92 94 93 Oximetry 08/23/19 08/23/19 08/23/19 03:52 04:00 05:00 Temperature 98.8 F Pulse Rate 94 H 93 H Respiratory 16 16 Rate Blood Pressure 163/87 181/93 O2 Sat by Pulse 93 92 Oximetry 08/23/19 08/23/19 08/23/19 06:00 06:27 07:00 Temperature Pulse Rate 88 84 88 Respiratory 16 15 Rate Blood Pressure 172/88 167/86 167/86 O2 Sat by Pulse 92 92 Oximetry 08/23/19 08/23/19 08/23/19 08:00 08:01 08:30 Temperature 98.2 F Pulse Rate 96 H 103 H 96 H Respiratory 12 12 Rate Blood Pressure 188/92 177/93 O2 Sat by Pulse 92 93 94 Oximetry 08/23/19 08/23/19 08/23/19 09:01 09:16 10:00 Temperature Pulse Rate 96 H 90 92 H Respiratory 13 13 Rate Blood Pressure 202/93 173/87 165/83 O2 Sat by Pulse 92 93 Oximetry 08/23/19 08/23/19 10:50 11:01 Temperature Pulse Rate 94 H 117 H Respiratory 19 Rate Blood Pressure 184/91 113/92 O2 Sat by Pulse 93 Oximetry Constitutional: no acute distress, alert, other (ETT in position at 23cm) Eyes: non-icteric ENT: oropharynx moist Neck: supple, no lymphadenopathy, no JVD Effort: normal Ascultation: Bilateral: diminished breath sounds, rhonchi Cardiovascular: regular rate and rhythm, other (S1,S2) Gastrointestinal: normoactive bowel sounds, soft, non-tender, other (distended) Integumentary: normal Extremities: no cyanosis, no edema, pink and warm, pulses normal Neurologic: normal mental status, non-focal exam, pupils equal and round, motor strength normal and Psychiatric: mood appropriate, affect normal CBC and BMP: 08/23/19 04:14 08/23/19 04:14 ABG, PT/INR, D-dimer: ABG POC ABG pH 7.371 (7.35-7.45) 08/22/19 11:20 ABG pH 7.314 pH Units (7.350-7.450) L 08/21/19 04:40 POC ABG pCO2 49.7 (35-45) H 08/22/19 11:20 ABG pCO2 54.6 mm Hg 08/21/19 04:40 POC ABG pO2 62 (80-105) L 08/22/19 11:20 ABG pO2 78.3 mm Hg (80.0-90.0) L 08/21/19 04:40 POC ABG HCO3 28.8 (22-26 mml/L) 08/22/19 11:20 POC ABG Total CO2 30 (23-27mmol/L) 08/22/19 11:20 POC ABG O2 Sat 90 08/22/19 11:20 ABG O2 Saturation 94.8 % (95.0-99.0) L 08/21/19 04:40 Abnormal lab findings: Abnormal Labs 08/15/19 08/15/19 08/15/19 13:16 13:16 17:16 WBC 14.7 H Hgb Hct RDW 17.3 H Plt Count Lymph % (Auto) Peach % (Auto) 11.3 H Lymph # Peach # 1.7 H Seg Neutrophils % 71.9 H Seg Neuts % (Manual) Lymphocytes % (Manual) Monocytes % (Manual) Nucleated RBC % Seg Neutrophils # 10.6 H Monocytes # (Manual) POC ABG pH 7.182 L ABG pH POC ABG pCO2 > 70 H POC ABG pO2 ABG pO2 ABG HCO3 ABG O2 Saturation ABG Hemoglobin Oxyhemoglobin Sodium Chloride Carbon Dioxide BUN 28 H Creatinine 1.9 H Glucose 133 H POC Glucose Calcium Total Bilirubin 1.50 H AST 82 H Albumin 3.6 L Urine WBC (Auto) 08/15/19 08/16/19 08/16/19 18:17 03:41 03:41 WBC Hgb 11.6 L Hct 34.3 L D RDW 17.4 H Plt Count 119 L Lymph % (Auto) 11.4 L Peach % (Auto) 11.6 H Lymph # 1.0 L [place] # 1.1 H Seg Neutrophils % 76.9 H Seg Neuts % (Manual) Lymphocytes % (Manual) Monocytes % (Manual) Nucleated RBC % Seg Neutrophils # Monocytes # (Manual) POC ABG pH 7.280 L ABG pH POC ABG pCO2 64.7 H POC ABG pO2 64 L ABG pO2 ABG HCO3 ABG O2 Saturation ABG Hemoglobin Oxyhemoglobin Sodium Chloride 107.1 H Carbon Dioxide BUN 34 H Creatinine 2.4 H Glucose 138 H POC Glucose Calcium 7.2 L D Total Bilirubin AST Albumin Urine WBC (Auto) 08/16/19 08/16/19 08/16/19 06:27 11:19 14:40 WBC Hgb Hct RDW Plt Count Lymph % (Auto) Peach % (Auto) Lymph # [place] # Seg Neutrophils % Seg Neuts % (Manual) Lymphocytes % (Manual) Monocytes % (Manual) Nucleated RBC % Seg Neutrophils # Monocytes # (Manual) POC ABG pH 7.336 L ABG pH POC ABG pCO2 47.9 H 48.7 H POC ABG pO2 69 L 130 H ABG pO2 ABG HCO3 ABG O2 Saturation ABG Hemoglobin Oxyhemoglobin Sodium Chloride Carbon Dioxide BUN Creatinine Glucose POC Glucose Calcium Total Bilirubin AST Albumin Urine WBC (Auto) 8.0 H 08/17/19 08/17/19 08/17/19 05:31 05:31 06:30 WBC Hgb 11.5 L Hct 34.3 L RDW 17.3 H Plt Count Lymph % (Auto) [place] % (Auto) 13.5 H Lymph # [place] # 1.3 H Seg Neutrophils % 70.7 H Seg Neuts % (Manual) Lymphocytes % (Manual) Monocytes % (Manual) Nucleated RBC % Seg Neutrophils # Monocytes # (Manual) POC ABG pH ABG pH POC ABG pCO2 POC ABG pO2 ABG pO2 116.6 H ABG HCO3 ABG O2 Saturation ABG Hemoglobin 13.9 L Oxyhemoglobin Sodium 146 H Chloride 112.1 H Carbon Dioxide BUN 47 H Creatinine 3.2 H Glucose POC Glucose Calcium 7.7 L Total Bilirubin AST Albumin Urine WBC (Auto) 08/17/19 08/18/19 08/18/19 20:31 04:20 04:20 WBC Hgb 11.4 L Hct 34.3 L RDW 17.3 H Plt Count 137 L Lymph % (Auto) [place] % (Auto) Lymph # [place] # Seg Neutrophils % Seg Neuts % (Manual) 79.0 H Lymphocytes % (Manual) 13.0 L Monocytes % (Manual) 8.0 H Nucleated RBC % 1.0 H Seg Neutrophils # Monocytes # (Manual) POC ABG pH ABG pH POC ABG pCO2 POC ABG pO2 78 L ABG pO2 ABG HCO3 ABG O2 Saturation ABG Hemoglobin Oxyhemoglobin Sodium 148 H Chloride 112.3 H Carbon Dioxide 20 L BUN 40 H Creatinine 3.1 H Glucose 109 H POC Glucose Calcium 7.9 L Total Bilirubin AST Albumin Urine WBC (Auto) 08/18/19 08/18/19 08/19/19 06:45 23:19 04:30 WBC Hgb Hct RDW Plt Count Lymph % (Auto) [place] % (Auto) Lymph # [place] # Seg Neutrophils % Seg Neuts % (Manual) Lymphocytes % (Manual) Monocytes % (Manual) Nucleated RBC % Seg Neutrophils # Monocytes # (Manual) POC ABG pH ABG pH POC ABG pCO2 45.2 H POC ABG pO2 55 L ABG pO2 72.2 L ABG HCO3 26.1 H ABG O2 Saturation 94.4 L ABG Hemoglobin 11.5 L Oxyhemoglobin 92.6 L Sodium Chloride Carbon Dioxide BUN Creatinine Glucose POC Glucose 158 H Calcium Total Bilirubin AST Albumin Urine WBC (Auto) 08/19/19 08/19/19 08/19/19 05:15 05:15 05:28 WBC Hgb 11.3 L Hct 34.4 L RDW 17.1 H Plt Count Lymph % (Auto) [place] % (Auto) Lymph # [place] # Seg Neutrophils % Seg Neuts % (Manual) Lymphocytes % (Manual) Monocytes % (Manual) 12.0 H Nucleated RBC % Seg Neutrophils # Monocytes # (Manual) 1.0 H POC ABG pH ABG pH POC ABG pCO2 POC ABG pO2 ABG pO2 ABG HCO3 ABG O2 Saturation ABG Hemoglobin Oxyhemoglobin Sodium 149 H Chloride 115.0 H Carbon Dioxide 21 L BUN 32 H Creatinine 2.7 H Glucose 112 H POC Glucose 113 H Calcium 7.8 L Total Bilirubin AST Albumin Urine WBC (Auto) 08/19/19 08/19/19 08/19/19 13:00 17:46 22:45 WBC Hgb Hct RDW Plt Count Lymph % (Auto) [place] % (Auto) Lymph # [place] # Seg Neutrophils % Seg Neuts % (Manual) Lymphocytes % (Manual) Monocytes % (Manual) Nucleated RBC % Seg Neutrophils # Monocytes # (Manual) POC ABG pH ABG pH POC ABG pCO2 POC ABG pO2 ABG pO2 ABG HCO3 ABG O2 Saturation ABG Hemoglobin Oxyhemoglobin Sodium Chloride Carbon Dioxide BUN Creatinine Glucose POC Glucose 126 H 112 H 172 H Calcium Total Bilirubin AST Albumin Urine WBC (Auto) 08/20/19 08/20/19 08/20/19 04:00 05:02 05:02 WBC Hgb 11.1 L Hct 33.4 L RDW 17.1 H Plt Count Lymph % (Auto) 11.2 L [place] % (Auto) 12.3 H Lymph # [place] # 1.3 H Seg Neutrophils % 74.9 H Seg Neuts % (Manual) Lymphocytes % (Manual) Monocytes % (Manual) Nucleated RBC % Seg Neutrophils # 7.8 H Monocytes # (Manual) POC ABG pH ABG pH POC ABG pCO2 45.1 H POC ABG pO2 70 L ABG pO2 ABG HCO3 ABG O2 Saturation ABG Hemoglobin Oxyhemoglobin Sodium 146 H Chloride 111.7 H Carbon Dioxide BUN 27 H Creatinine 2.4 H Glucose 123 H POC Glucose Calcium 8.1 L Total Bilirubin AST Albumin Urine WBC (Auto) 08/20/19 08/20/19 08/20/19 05:51 11:39 18:26 WBC Hgb Hct RDW Plt Count Lymph % (Auto) [place] % (Auto) Lymph # [place] # Seg Neutrophils % Seg Neuts % (Manual) Lymphocytes % (Manual) Monocytes % (Manual) Nucleated RBC % Seg Neutrophils # Monocytes # (Manual) POC ABG pH ABG pH POC ABG pCO2 POC ABG pO2 ABG pO2 ABG HCO3 ABG O2 Saturation ABG Hemoglobin Oxyhemoglobin Sodium Chloride Carbon Dioxide BUN Creatinine Glucose POC Glucose 108 H 116 H 137 H Calcium Total Bilirubin AST Albumin Urine WBC (Auto) 08/21/19 08/21/19 08/21/19 04:40 05:25 05:56 WBC Hgb Hct RDW Plt Count Lymph % (Auto) [place] % (Auto) Lymph # [place] # Seg Neutrophils % Seg Neuts % (Manual) Lymphocytes % (Manual) Monocytes % (Manual) Nucleated RBC % Seg Neutrophils # Monocytes # (Manual) POC ABG pH ABG pH 7.314 L POC ABG pCO2 POC ABG pO2 ABG pO2 78.3 L ABG HCO3 27.1 H ABG O2 Saturation 94.8 L ABG Hemoglobin 10.5 L Oxyhemoglobin 93.0 L Sodium 147 H Chloride 110.7 H Carbon Dioxide BUN 30 H Creatinine 2.4 H Glucose 144 H POC Glucose 129 H Calcium 8.0 L Total Bilirubin AST Albumin Urine WBC (Auto) 08/21/19 08/22/19 08/22/19 12:39 00:08 03:45 WBC Hgb Hct RDW Plt Count Lymph % (Auto) [place] % (Auto) Lymph # [place] # Seg Neutrophils % Seg Neuts % (Manual) Lymphocytes % (Manual) Monocytes % (Manual) Nucleated RBC % Seg Neutrophils # Monocytes # (Manual) POC ABG pH ABG pH POC ABG pCO2 POC ABG pO2 ABG pO2 ABG HCO3 ABG O2 Saturation ABG Hemoglobin Oxyhemoglobin Sodium 147 H Chloride 110.6 H Carbon Dioxide BUN 36 H Creatinine 2.4 H Glucose 195 H POC Glucose 193 H 173 H Calcium 8.1 L Total Bilirubin AST Albumin Urine WBC (Auto) 08/22/19 08/22/19 08/22/19 05:19 05:41 11:20 WBC Hgb Hct RDW Plt Count Lymph % (Auto) [place] % (Auto) Lymph # [place] # Seg Neutrophils % Seg Neuts % (Manual) Lymphocytes % (Manual) Monocytes % (Manual) Nucleated RBC % Seg Neutrophils # Monocytes # (Manual) POC ABG pH 7.328 L ABG pH POC ABG pCO2 53.0 H 49.7 H POC ABG pO2 75 L 62 L ABG pO2 ABG HCO3 ABG O2 Saturation ABG Hemoglobin Oxyhemoglobin Sodium Chloride Carbon Dioxide BUN Creatinine Glucose POC Glucose 176 H Calcium Total Bilirubin AST Albumin Urine WBC (Auto) 08/22/19 08/22/19 08/23/19 11:22 16:58 04:14 WBC Hgb Hct RDW Plt Count Lymph % (Auto) [place] % (Auto) Lymph # [place] # Seg Neutrophils % Seg Neuts % (Manual) Lymphocytes % (Manual) Monocytes % (Manual) Nucleated RBC % Seg Neutrophils # Monocytes # (Manual) POC ABG pH ABG pH POC ABG pCO2 POC ABG pO2 ABG pO2 ABG HCO3 ABG O2 Saturation ABG Hemoglobin Oxyhemoglobin Sodium Chloride Carbon Dioxide BUN 41 H Creatinine 2.3 H Glucose 174 H POC Glucose 217 H 174 H Calcium Total Bilirubin AST Albumin Urine WBC (Auto) 08/23/19 08/23/19 04:14 05:01 WBC 14.7 H Hgb 11.5 L Hct 35.2 L RDW 16.5 H Plt Count Lymph % (Auto) [place] % (Auto) Lymph # [place] # Seg Neutrophils % Seg Neuts % (Manual) Lymphocytes % (Manual) Monocytes % (Manual) Nucleated RBC % Seg Neutrophils # Monocytes # (Manual) POC ABG pH ABG pH POC ABG pCO2 POC ABG pO2 ABG pO2 ABG HCO3 ABG O2 Saturation ABG Hemoglobin Oxyhemoglobin Sodium Chloride Carbon Dioxide BUN Creatinine Glucose POC Glucose 159 H Calcium Total Bilirubin AST Albumin Urine WBC (Auto) Chest x-ray: image reviewed
[2019-08-23] MEDS ORDERED: D5W/0.45% NACL 1,000 ML IV SCH (12:00)
--- NOTE | 2019-08-23 12:10 | Progress Note ---
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 Etiology complicated influenza with MRSA pneumonia. #Complicated influenza with pneumonia: improving. #Acute resp insufficiency: due to pneumonia ?COPD: remains on the vent. #Mild elevated LFTs from sepsis #CLAUDETTE: renally adjusted abx. Creatinine still elevated #AMS: improved. Recs: continue Day 9 of 10 linezolid 600 mg IV q 12 hour, monitor platelets on linezolid Clinically stable. Monitor WBC. some of it is probably related to steroids. Tani Hayden MD, FACP [facility] ([facility] C: [phone] O: [phone] F: [phone] Subjective Date of service: 08/23/19 Principal diagnosis: respiratory failure Interval history: No fever. More upright in bed, remains on the vent. Stable. No complaints. Family member at bedside. Objective - Exam Narrative Exam: Constitutional: intubated, on vent, opens eyes Head, Ears, Nose: Normocephalic, atraumatic. External ears, nose normal Eyes: Conjunctivae/corneas clear. No icterus. No ptosis. Neck: intubated Oral: intubated Cardiovascular: S1 S2 + Respiratory: AE clear b/l GI: Soft, non tender, bowel sounds + Musculoskeletal: No pedal edema, no cyanosis. Skin: no rash, lesions Hem/Lymphatic: No palpable cervical or supraclavicular nodes. No lymphangitis Psych: no agitation Neurological: intubated, on the vent, opens eyes - Constitutional Vitals: Vital Signs Temp Pulse Resp BP Pulse Ox 98.2 F 89 15 191/94 94 08/23/19 08:00 08/23/19 12:00 08/23/19 12:00 08/23/19 12:00 08/23/19 12:00 Temperature -Last 24 Hours Temperature 98.2 F Temperature 98.8 F Temperature 99.3 F Temperature 98.7 F - Labs CBC & Chem 7: 08/23/19 04:14 08/23/19 04:14 Labs: Abnormal lab results 08/22/19 08/23/19 08/23/19 Range/Units 16:58 04:14 04:14 WBC 14.7 H (4.5-11.0) K/mm3 Hgb 11.5 L (11.8-15.2) gm/dl Hct 35.2 L (35.5-45.6) % RDW 16.5 H (13.2-15.2) % BUN 41 H (9-20) mg/dL Creatinine 2.3 H (0.8-1.5) mg/dL Glucose 174 H (75-100) mg/dL POC Glucose 174 H (70-105) 08/23/19 Range/Units 05:01 WBC (4.5-11.0) K/mm3 Hgb (11.8-15.2) gm/dl Hct (35.5-45.6) % RDW (13.2-15.2) % BUN (9-20) mg/dL Creatinine (0.8-1.5) mg/dL Glucose (75-100) mg/dL POC Glucose 159 H (70-105)
[2019-08-23] MEDS: ACETAMINOPHEN 325 MG TAB PO PRN (16:10)
--- NOTE | 2019-08-23 17:42 | Progress Note ---
Assessment and Plan (1) Acute renal failure - suspect multifactorial CLAUDETTE in relation to dehydration, tubular injury in setting of respiratory failure - creatinine 1.9->2.4->3.2->3.1->2.7->2.6->2.3 today - no acute indications for dialysis - continue supportive measures - holding diuretic and JAMEY inhibitor - daily labs - avoid nephrotoxins (2) Influenza - currently under droplet precautions - Continue supportive measures (3) Acute on chronic respiratory failure with hypoxemia - now extubated (4) Acidosis Likely related to CLAUDETTE, continue to monitor. Now improved Subjective Date of service: 08/23/19 Principal diagnosis: respiratory failure Interval history: Patient extubated now. Patient alert and denies any issues. Objective - Exam Narrative Exam: General appearance: no acute distres EENT: intact Neck: no JVD Respiratory: decreased breath sounds, on facemask Cardiology: regular, S1S2 Gastrointestinal: normal, normoactive bowel sounds Integumentary: no rash Neurologic: alert Psychiatric: appropriate mood - Vital Signs Vital signs: Vital Signs - 12hr 08/23/19 08/23/19 08/23/19 06:00 06:27 07:00 Temperature Pulse Rate 88 84 88 Respiratory 16 15 Rate Blood Pressure 172/88 167/86 167/86 O2 Sat by Pulse 92 92 Oximetry 08/23/19 08/23/19 08/23/19 08:00 08:01 08:30 Temperature 98.2 F Pulse Rate 96 H 103 H 96 H Respiratory 12 12 Rate Blood Pressure 188/92 177/93 O2 Sat by Pulse 92 93 94 Oximetry 08/23/19 08/23/19 08/23/19 09:01 09:16 10:00 Temperature Pulse Rate 96 H 90 92 H Respiratory 13 13 Rate Blood Pressure 202/93 173/87 165/83 O2 Sat by Pulse 92 93 Oximetry 08/23/19 08/23/19 08/23/19 10:50 11:01 12:00 Temperature Pulse Rate 94 H 117 H 89 Respiratory 19 15 Rate Blood Pressure 184/91 113/92 191/94 O2 Sat by Pulse 93 94 Oximetry 08/23/19 08/23/19 08/23/19 12:15 12:52 13:01 Temperature 99.9 F H Pulse Rate 93 H 94 H Respiratory 14 Rate Blood Pressure 141/69 176/65 O2 Sat by Pulse 94 96 Oximetry 08/23/19 08/23/19 08/23/19 13:58 14:01 15:01 Temperature Pulse Rate 93 H 91 H 93 H Respiratory 25 H 14 Rate Blood Pressure 141/69 156/84 177/79 O2 Sat by Pulse 90 92 Oximetry 08/23/19 08/23/19 16:01 17:01 Temperature Pulse Rate 94 H 80 Respiratory 15 16 Rate Blood Pressure 172/83 155/108 O2 Sat by Pulse 90 91 Oximetry - Lab 08/23/19 04:14 08/23/19 04:14 Most recent lab results ABG pH 7.314 pH Units (7.350-7.450) L 08/21/19 04:40 ABG pCO2 54.6 mm Hg 08/21/19 04:40 ABG pO2 78.3 mm Hg (80.0-90.0) L 08/21/19 04:40 ABG HCO3 27.1 mmol/L (20.0-26.0) H 08/21/19 04:40 ABG O2 Saturation 94.8 % (95.0-99.0) L 08/21/19 04:40 Calcium 8.5 mg/dL (8.4-10.2) 08/23/19 04:14 Medications & Allergies - Medications Allergies/Adverse Reactions: Allergies No Known Allergies Allergy (Unverified 08/15/19 13:08) Home Medications: Home Medications Medication Instructions Recorded Confirmed Last Taken Type Rosuvastatin Calcium 20 mg PO QDAY 08/16/19 08/16/19 08/14/19 History Terazosin HCl 2 mg PO QDAY 08/16/19 08/16/19 08/14/19 History Trandolapril/Verapamil HCl [Tarka 4 mg PO QDAY 08/16/19 08/16/19 08/14/19 History ER 4-240 mg] Triamter/Hctz 37.5-25 mg 1 tab PO QDAY 08/16/19 08/16/19 08/14/19 History [Maxzide-25] Verapamil ER [Calan Sr] 180 mg PO BID 08/16/19 08/16/19 08/14/19 History amLODIPine [Norvasc] 10 mg PO DAILY 08/16/19 08/16/19 08/14/19 History Active Medications: Generic Name Dose Route Start Last Admin Trade Name Freq PRN Reason Stop Dose Admin Acetaminophen 650 mg 08/15/19 16:00 08/23/19 16:10 Tylenol PO 650 mg Q4H PRN Administration Pain MILD(1-3)/Fever >100.5/HARDY Albuterol 2.5 mg 08/15/19 16:00 Proventil IH Q4HRT PRN Shortness Of Breath Albuterol/Ipratropium 1 ampul 08/20/19 14:00 08/23/19 14:07 Duoneb *Not For Prn Use* IH 1 ampul TIDRT LEORA Administration Amlodipine Besylate 10 mg 08/19/19 14:00 08/23/19 09:01 Amlodipine PO 10 mg DAILY LEORA Administration Lipase/Protease/Amylase 1 each 08/17/19 14:53 Pancreaze 10,500 Unit FEEDTUBE PRN PRN For Clogged Feeding Tube Atorvastatin Calcium 40 mg 08/19/19 22:00 08/22/19 21:58 Lipitor PO 40 mg QHS LEORA Administration Famotidine 20 mg 08/19/19 10:00 08/23/19 09:01 Pepcid PO 20 mg QDAY LEORA Administration Fentanyl 50 mcg 08/19/19 12:59 08/19/19 15:12 Sublimaze IV 50 mcg Q4H PRN Administration Pain, Moderate (4-6) Heparin Sodium (Porcine) 5,000 unit 08/15/19 22:00 08/23/19 09:00 Heparin SUB-Q 5,000 unit Q12HR LEORA Administration Hydralazine HCl 10 mg 08/21/19 11:09 08/23/19 09:16 Apresoline IV 10 mg Q4HR PRN Administration SBP>160 or DBP>110 Hydralazine HCl 100 mg 08/23/19 14:00 08/23/19 13:58 Apresoline PO 100 mg Q8HR LEORA Administration Hydrophilic Ointment 1 applic 08/15/19 17:33 Vaseline Lip Therapy TP Q2HR PRN Dry Lips Linezolid 600 mg in 300 mls @ 300 mls/hr 08/17/19 22:00 08/23/19 09:00 Zyvox 600mg/300ml IV 300 mls/hr Q12HR LEORA Administration Protocol Fentanyl Citrate 2,000 mcg in 100 mls @ 5.67 mls/hr 08/18/19 13:00 08/22/19 22:05 Fentanyl Drip Premix IV 1 mcg/kg/hr TITR LEORA 5.67 mls/hr Administration Protocol 1 MCG/KG/HR Dextrose/Sodium Chloride 1,000 mls @ 42 mls/hr 08/23/19 12:00 D5/0.45ns IV DIRECT LEORA Lorazepam 0.5 mg 08/15/19 13:10 08/21/19 20:19 Ativan IV 0.5 mg Q4H PRN Administration Anxiety Lorazepam 2 mg 08/15/19 21:27 08/21/19 17:57 Ativan IV 2 mg Q1HR PRN Administration CIWA-Ar 8-15 Methylprednisolone Sodium Succinate 60 mg 08/20/19 14:00 08/23/19 13:57 Solu-Medrol IV 60 mg Q8HR LEORA Administration Multi-Ingred Cream/Lotion/Oil/Oint 1 applic 08/15/19 17:33 Artificial Tears Ophth Oint OU Q4HR PRN Dry Eye(s) Ondansetron HCl 4 mg 08/15/19 16:00 Zofran IV Q8H PRN Nausea And Vomiting Prazosin HCl 1 mg 08/19/19 16:00 08/23/19 10:50 Prazosin PO 1 mg QDAY LEORA Administration Scopolamine 1 each 08/18/19 13:00 08/21/19 13:21 Transderm-Scop TD 1 each Q3D LEORA Administration Simple Syrup 15 ml 08/17/19 14:53 Simple Syrup FEEDTUBE PRN PRN Hypoglycemia Simple Syrup 30 ml 08/17/19 14:53 Simple Syrup FEEDTUBE PRN PRN Hypoglycemia Sodium Bicarbonate 325 mg 08/17/19 14:53 Sodium Bicarbonate FEEDTUBE PRN PRN For Clogged Feeding Tube Sodium Chloride 10 ml 08/15/19 22:00 08/23/19 09:01 Sodium Chloride Flush Syringe 10 Ml IV 10 ml BID LEORA Administration Sodium Chloride 10 ml 08/15/19 16:00 Sodium Chloride Flush Syringe 10 Ml IV PRN PRN LINE FLUSH
[2019-08-24] MEDS: methylPREDNISolone Sod Succinate 40 MG/1 ML INJ IV SCH ×3 (05:30→22:20)
[2019-08-24] MEDS: hydrALAZINE 25 MG TAB PO SCH ×3 (05:31→22:21)
--- NOTE | 2019-08-24 08:29 | Progress Note ---
Assessment and Plan Assessment and plan: Sepsis. Continue Zyvox as per ID recommendations. F Acute on chronic hypoxemic respiratory failure. extubated Patient likely has COPD given his smoking history. Hypertensive urgency Increase Hydralazine to 100mg tid Influenza. Completed Tamiflu. Resp isolation Bilateral pneumonia. As above. Continue Zyvox Acute kidney injury. Etiology secondary to vasomotor nephropathy and ATN/sep sis. Continue IV fluid hydration. Renal ultrasound within normal limits. Nephrology following. Toxic metabolic encephalopathy. Improved. Continue to treat underlying causes. Tobacco use disorder. Patient will be counseled on cessation once liberated from the ventilator. The high probability of a clinically significant, sudden or life threatening deterioration of the [respiratory and renal] system(s) required my full and direct attention, intervention and personal management. The aggregate critical care time was [31] minutes. This time is in addition to time spent performing reported procedures but includes the following: [x] Data Review and interpretation [x] Patient assessment and monitoring of vital signs [x] Documentation [x] Medication orders and management History Interval history: Feels better extubated yesterday Hospitalist Physical - Physical exam Narrative exam: General appearance: Present: no acute distress, o - EENT Eyes: Present: PERRL, EOM intact ENT: hearing intact, clear oral mucosa, dentition normal - Neck Neck: Present: supple, normal ROM - Respiratory Respiratory effort: normal Respiratory: bilateral: Decreased breath sounds bilat, bilat rhonchi - Cardiovascular Rhythm: regular Heart Sounds: Present: S1 & S2. Absent: gallop, rub - Extremities Extremities: no ischemia, No edema, Full ROM - Abdominal General gastrointestinal: soft, non-tender, non-distended, normal bowel sounds - Integumentary Integumentary: Present: clear, warm, dry - Neurologic Neurologic: CNII-XII intact, moves all extremities, awake, alert - Constitutional Vitals: Temp Pulse Resp BP Pulse Ox 98.9 F 87 26 H 150/77 95 08/24/19 03:25 08/24/19 08:00 08/24/19 08:00 08/24/19 08:00 08/24/19 08:00 General appearance: Present: no acute distress, other (Patient orally intubated on mechanical ventilation) Results - Labs CBC & Chem 7: 08/24/19 08:16 08/24/19 08:16 Labs: Laboratory Last Values WBC 14.7 K/mm3 (4.5-11.0) H 08/23/19 04:14 RBC 4.05 M/mm3 (3.65-5.03) 08/23/19 04:14 Hgb 11.5 gm/dl (11.8-15.2) L 08/23/19 04:14 Hct 35.2 % (35.5-45.6) L 08/23/19 04:14 MCV 87 fl (84-94) 08/23/19 04:14 MCH 28 pg (28-32) 08/23/19 04:14 MCHC 33 % (32-34) 08/23/19 04:14 RDW 16.5 % (13.2-15.2) H 08/23/19 04:14 Plt Count 296 K/mm3 (140-440) 08/23/19 04:14 Lymph % (Auto) 11.2 % (13.4-35.0) L 08/20/19 05:02 [place] % (Auto) 12.3 % (0.0-7.3) H 08/20/19 05:02 Eos % (Auto) 1.2 % (0.0-4.3) 08/20/19 05:02 Baso % (Auto) 0.4 % (0.0-1.8) 08/20/19 05:02 Lymph # 1.2 K/mm3 (1.2-5.4) 08/20/19 05:02 [place] # 1.3 K/mm3 (0.0-0.8) H 08/20/19 05:02 Eos # 0.1 K/mm3 (0.0-0.4) 08/20/19 05:02 Baso # 0.0 K/mm3 (0.0-0.1) 08/20/19 05:02 Add Manual Diff Complete 08/19/19 05:15 Total Counted 100 08/19/19 05:15 Seg Neutrophils % 74.9 % (40.0-70.0) H 08/20/19 05:02 Seg Neuts % (Manual) 69.0 % (40.0-70.0) 08/19/19 05:15 Band Neutrophils % 0 % 08/19/19 05:15 Lymphocytes % (Manual) 17.0 % (13.4-35.0) 08/19/19 05:15 Reactive Lymphs % (Man) 1.0 % 08/19/19 05:15 Monocytes % (Manual) 12.0 % (0.0-7.3) H 08/19/19 05:15 Eosinophils % (Manual) 1.0 % (0.0-4.3) 08/19/19 05:15 Basophils % (Manual) 0 % (0.0-1.8) 08/19/19 05:15 Metamyelocytes % 0 % 08/19/19 05:15 Myelocytes % 0 % 08/19/19 05:15 Promyelocytes % 0 % 08/19/19 05:15 Blast Cells % 0 % 08/19/19 05:15 Nucleated RBC % Not Reportable 08/19/19 05:15 Seg Neutrophils # 7.8 K/mm3 (1.8-7.7) H 08/20/19 05:02 Seg Neutrophils # Man 5.9 K/mm3 (1.8-7.7) 08/19/19 05:15 Band Neutrophils # 0.0 K/mm3 08/19/19 05:15 Lymphocytes # (Manual) 1.4 K/mm3 (1.2-5.4) 08/19/19 05:15 Abs React Lymphs (Man) 0.1 K/mm3 08/19/19 05:15 Monocytes # (Manual) 1.0 K/mm3 (0.0-0.8) H 08/19/19 05:15 Eosinophils # (Manual) 0.1 K/mm3 (0.0-0.4) 08/19/19 05:15 Basophils # (Manual) 0.0 K/mm3 (0.0-0.1) 08/19/19 05:15 Metamyelocytes # 0.0 K/mm3 08/19/19 05:15 Myelocytes # 0.0 K/mm3 08/19/19 05:15 Promyelocytes # 0.0 K/mm3 08/19/19 05:15 Blast Cells # 0.0 K/mm3 08/19/19 05:15 WBC Morphology Not Reportable 08/19/19 05:15 Hypersegmented Neuts Not Reportable 08/19/19 05:15 Hyposegmented Neuts Not Reportable 08/19/19 05:15 Hypogranular Neuts Not Reportable 08/19/19 05:15 Smudge Cells Not Reportable 08/19/19 05:15 Toxic Granulation Not Reportable 08/19/19 05:15 Toxic Vacuolation Not Reportable 08/19/19 05:15 Dohle Bodies Not Reportable 08/19/19 05:15 Pelger-Huet Anomaly Not Reportable 08/19/19 05:15 Dalila Rods Not Reportable 08/19/19 05:15 Platelet Estimate Consistent w auto 08/19/19 05:15 Clumped Platelets Not Reportable 08/19/19 05:15 Plt Clumps, EDTA Not Reportable 08/19/19 05:15 Large Platelets Not Reportable 08/19/19 05:15 Giant Platelets Not Reportable 08/19/19 05:15 Platelet Satelliting Not Reportable 08/19/19 05:15 Plt Morphology Comment Not Reportable 08/19/19 05:15 RBC Morphology Not Reportable 08/19/19 05:15 Dimorphic RBCs Not Reportable 08/19/19 05:15 Polychromasia Not Reportable 08/19/19 05:15 Hypochromasia Not Reportable 08/19/19 05:15 Poikilocytosis Not Reportable 08/19/19 05:15 Anisocytosis 1+ 08/19/19 05:15 Microcytosis Not Reportable 08/19/19 05:15 Macrocytosis Not Reportable 08/19/19 05:15 Spherocytes Not Reportable 08/19/19 05:15 Pappenheimer Bodies Not Reportable 08/19/19 05:15 Sickle Cells Not Reportable 08/19/19 05:15 Target Cells Not Reportable 08/19/19 05:15 Tear Drop Cells Not Reportable 08/19/19 05:15 Ovalocytes Not Reportable 08/19/19 05:15 Helmet Cells Not Reportable 08/19/19 05:15 [place] Bodies Not Reportable 08/19/19 05:15 [place] Rings Not Reportable 08/19/19 05:15 [place] Cells Not Reportable 08/19/19 05:15 Bite Cells Not Reportable 08/19/19 05:15 Crenated Cell Not Reportable 08/19/19 05:15 Elliptocytes Not Reportable 08/19/19 05:15 Acanthocytes (Spur) Not Reportable 08/19/19 05:15 Rouleaux Not Reportable 08/19/19 05:15 Hemoglobin C Crystals Not Reportable 08/19/19 05:15 Schistocytes Not Reportable 08/19/19 05:15 Malaria parasites Not Reportable 08/19/19 05:15 Magdiel Bodies Not Reportable 08/19/19 05:15 Hem Pathologist Commnt No 08/19/19 05:15 POC ABG pH 7.393 (7.35-7.45) 08/23/19 12:05 ABG pH 7.314 pH Units (7.350-7.450) L 08/21/19 04:40 POC ABG pCO2 45.4 (35-45) H 08/23/19 12:05 ABG pCO2 54.6 mm Hg 08/21/19 04:40 POC ABG pO2 84 (80-105) 08/23/19 12:05 ABG pO2 78.3 mm Hg (80.0-90.0) L 08/21/19 04:40 POC ABG HCO3 27.7 (22-26 mml/L) 08/23/19 12:05 ABG HCO3 27.1 mmol/L (20.0-26.0) H 08/21/19 04:40 POC ABG Total CO2 29 (23-27mmol/L) 08/23/19 12:05 POC ABG O2 Sat 96 08/23/19 12:05 ABG O2 Saturation 94.8 % (95.0-99.0) L 08/21/19 04:40 ABG O2 Content 13.8 (0.0-44) 08/21/19 04:40 POC ABG Base Excess 3 ((-2) - (+3)mmol/L) 08/23/19 12:05 ABG Base Excess 0.3 mmol/L (-2.0-3.0) 08/21/19 04:40 ABG Hemoglobin 10.5 gm/dl (14.0-18.0) L 08/21/19 04:40 ABG Carboxyhemoglobin 1.4 % (0.0-5.0) 08/21/19 04:40 ABG Methemoglobin 0.5 % (0.0-1.5) 08/21/19 04:40 Oxyhemoglobin 93.0 % (95.0-99.0) L 08/21/19 04:40 FiO2 50 % 08/23/19 12:05 Sodium 143 mmol/L (137-145) 08/23/19 04:14 Potassium 4.2 mmol/L (3.6-5.0) 08/23/19 04:14 Chloride 106.1 mmol/L (98-107) 08/23/19 04:14 Carbon Dioxide 25 mmol/L (22-30) 08/23/19 04:14 Anion Gap 16 mmol/L 08/23/19 04:14 BUN 41 mg/dL (9-20) H 08/23/19 04:14 Creatinine 2.3 mg/dL (0.8-1.5) H 08/23/19 04:14 Estimated GFR 34 ml/min 08/23/19 04:14 BUN/Creatinine Ratio 18 % 08/23/19 04:14 Glucose 174 mg/dL (75-100) H 08/23/19 04:14 POC Glucose 118 (70-105) H 08/24/19 06:33 Hemoglobin A1c 6.0 % (4-6) 08/23/19 04:14 Lactic Acid 1.10 mmol/L (0.7-2.0) 08/15/19 23:36 Calcium 8.5 mg/dL (8.4-10.2) 08/23/19 04:14 Total Bilirubin 1.50 mg/dL (0.1-1.2) H 08/15/19 13:16 AST 82 units/L (5-40) H 08/15/19 13:16 ALT 46 units/L (7-56) 08/15/19 13:16 Alkaline Phosphatase 90 units/L (35-129) 08/15/19 13:16 Troponin T 0.018 ng/mL (0.00-0.029) 08/15/19 13:16 Total Protein 7.9 g/dL (6.3-8.2) 08/15/19 13:16 Albumin 3.6 g/dL (3.9-5) L 08/15/19 13:16 Albumin/Globulin Ratio 0.8 % 08/15/19 13:16 Urine Color [place] (Yellow) 08/16/19 14:40 Urine Turbidity Cloudy (Clear) 08/16/19 14:40 Urine pH 5.0 (5.0-7.0) 08/16/19 14:40 Ur Specific [place] 1.015 (1.003-1.030) 08/16/19 14:40 Urine Protein 100 mg/dl mg/dL (Negative) 08/16/19 14:40 Urine Glucose (UA) Neg mg/dL (Negative) 08/16/19 14:40 Urine Ketones Neg mg/dL (Negative) 08/16/19 14:40 Urine Blood Mod (Negative) 08/16/19 14:40 Urine Nitrite Neg (Negative) 08/16/19 14:40 Urine Bilirubin Neg (Negative) 08/16/19 14:40 Urine Urobilinogen 4.0 mg/dL (<2.0) 08/16/19 14:40 Ur Leukocyte Esterase Tr (Negative) 08/16/19 14:40 Urine WBC (Auto) 8.0 /HPF (0.0-6.0) H 08/16/19 14:40 Urine RBC (Auto) 1.0 /HPF (0.0-6.0) 08/16/19 14:40 U Epithel Cells (Auto) < 1.0 /HPF (0-13.0) 08/16/19 14:40 Random Vancomycin 7.9 ug/mL (0-40.0) 08/17/19 05:31 Active Medications - Current Medications Current Medications: Generic Name Dose Route Start Last Admin Trade Name Freq PRN Reason Stop Dose Admin Acetaminophen 650 mg 08/15/19 16:00 08/23/19 16:10 Tylenol PO 650 mg Q4H PRN Administration Pain MILD(1-3)/Fever >100.5/HARDY Albuterol 2.5 mg 08/15/19 16:00 Proventil IH Q4HRT PRN Shortness Of Breath Albuterol/Ipratropium 1 ampul 08/20/19 14:00 08/23/19 20:29 Duoneb *Not For Prn Use* IH 1 ampul TIDRT LEORA Administration Amlodipine Besylate 10 mg 08/19/19 14:00 08/23/19 09:01 Amlodipine PO 10 mg DAILY LEORA Administration Lipase/Protease/Amylase 1 each 08/17/19 14:53 Pancreaze 10,500 Unit FEEDTUBE PRN PRN For Clogged Feeding Tube Atorvastatin Calcium 40 mg 08/19/19 22:00 08/23/19 22:36 Lipitor PO 40 mg QHS LEORA Administration Famotidine 20 mg 08/19/19 10:00 08/23/19 09:01 Pepcid PO 20 mg QDAY LEORA Administration Fentanyl 50 mcg 08/19/19 12:59 08/19/19 15:12 Sublimaze IV 50 mcg Q4H PRN Administration Pain, Moderate (4-6) Heparin Sodium (Porcine) 5,000 unit 08/15/19 22:00 08/23/19 22:36 Heparin SUB-Q 5,000 unit Q12HR LEORA Administration Hydralazine HCl 10 mg 08/21/19 11:09 08/23/19 09:16 Apresoline IV 10 mg Q4HR PRN Administration SBP>160 or DBP>110 Hydralazine HCl 100 mg 08/23/19 14:00 08/24/19 05:31 Apresoline PO 100 mg Q8HR LEORA Administration Hydrophilic Ointment 1 applic 08/15/19 17:33 Vaseline Lip Therapy TP Q2HR PRN Dry Lips Linezolid 600 mg in 300 mls @ 300 mls/hr 08/17/19 22:00 08/23/19 22:26 Zyvox 600mg/300ml IV 300 mls/hr Q12HR LEORA Administration Protocol Dextrose/Sodium Chloride 1,000 mls @ 42 mls/hr 08/23/19 12:00 D5/0.45ns IV DIRECT LEORA Lorazepam 0.5 mg 08/15/19 13:10 08/21/19 20:19 Ativan IV 0.5 mg Q4H PRN Administration Anxiety Lorazepam 2 mg 08/15/19 21:27 08/21/19 17:57 Ativan IV 2 mg Q1HR PRN Administration CIWA-Ar 8-15 Methylprednisolone Sodium Succinate 40 mg 08/24/19 06:00 08/24/19 05:30 Solu-Medrol IV 40 mg Q8HR LEORA Administration Multi-Ingred Cream/Lotion/Oil/Oint 1 applic 08/15/19 17:33 Artificial Tears Ophth Oint OU Q4HR PRN Dry Eye(s) Ondansetron HCl 4 mg 08/15/19 16:00 Zofran IV Q8H PRN Nausea And Vomiting Prazosin HCl 1 mg 08/19/19 16:00 08/23/19 10:50 Prazosin PO 1 mg QDAY LEORA Administration Scopolamine 1 each 08/18/19 13:00 08/21/19 13:21 Transderm-Scop TD 1 each Q3D LEORA Administration Simple Syrup 15 ml 08/17/19 14:53 Simple Syrup FEEDTUBE PRN PRN Hypoglycemia Simple Syrup 30 ml 08/17/19 14:53 Simple Syrup FEEDTUBE PRN PRN Hypoglycemia Sodium Bicarbonate 325 mg 08/17/19 14:53 Sodium Bicarbonate FEEDTUBE PRN PRN For Clogged Feeding Tube Sodium Chloride 10 ml 08/15/19 22:00 08/23/19 22:37 Sodium Chloride Flush Syringe 10 Ml IV 10 ml BID LEORA Administration Sodium Chloride 10 ml 08/15/19 16:00 Sodium Chloride Flush Syringe 10 Ml IV PRN PRN LINE FLUSH Nutrition/Malnutrition Assess - Dietary Evaluation Nutrition/Malnutrition Findings: Nutrition Notes Start: 08/18/19 09:16 Freq: Status: Active Protocol: Document 08/21/19 10:37 LM (Rec: 08/21/19 10:44 LM [id number]) Nutrition Notes Initial or Follow up Reassessment Current Diagnosis Acute Kidney Injury,Decubitus( Pressure Ulcer),Sepsis, Hypertension,Respiratory Failure Other Pertinent Diagnosis Influenza, nicotine/ETOH dependence Current Diet Nepro 1.8 with Carbsteady at 45 ml/hr Labs/Tests Na 147 BUN 30 Cr 2.4 Pertinent Medications Solumedrol Height 6 ft Weight 113.4 kg [place] Body Weight (kg) 80.90 BMI 33.9 Subjective/Other Information Nepro running at 45 ml/hr at time of visit. Pt's Na remains elevated but trending down. Will increase flush. Percent of energy/protein needs met: 100%/75% Burn Absent Trauma Absent Current % PO Negligible Minimum of two criteria No #1 Nutrition Diagnosis Inadequate oral intake Diagnosis Progress(for reassessment Continues documentation) Is patient on ventilator? Yes Is Patient Ambulatory and/or Out of Bed No REE-([facility]-confined to bed) 2341.476 Kcal/Kg value to use for calculation 17 Approximate Energy Requirements Using 1928 kcal/Kg Calculation Used for Recommendations Kcal/kg Additional Notes Protein: 116-194g (1.2-2g/kg using AdjBW 97 kg) Fluid: 1 ml/kcal or per MD Nutrition Intervention Change Diet Order: TF Nutrition Support: Nepro 1.8 with Carbsteady at 45 ml/hr Flush 300 ml q4hr for hypernatremia Flush 200 ml q4hr once hypernatremia resolves Kcal 1,944 Protein (gm) 87 Fluid (mL) 785 Goal #1 TF tolerance Goal #2 Meet at least 75% of energy and protein needs Anticipated Discharge Needs: unable to determine at this time Follow-Up By: 08/28/19 Additional Comments F/U for TF tolerance/Na lab
[2019-08-24 09:06] LABS: Hematocrit 34.1 % (35.5-45.6); Hemoglobin 11.5 gm/dl (11.8-15.2); Mean Corpuscular HGB Conc 34 % (32-34); Mean Corpuscular Volume 87 fl (84-94); Platelet Count 280 K/mm3 (140-440); Red Blood Count 3.94 M/mm3 (3.65-5.03); Red Cell Distribution Width 16.6 % (13.2-15.2)
[2019-08-24] MEDS: IPRATROPIUM/ALBUTEROL SULFATE 3 ML AMPUL.NEB IH SCH ×3 (09:25→19:04)
[2019-08-24 09:31] LABS: Calcium 8.6 mg/dL (8.4-10.2)
[2019-08-24] MEDS: FAMOTIDINE 20 MG TAB PO SCH (09:42)
[2019-08-24] MEDS: PRAZOSIN 1 MG CAP PO SCH (09:42)
[2019-08-24] MEDS: amLODIPine 10 MG TAB PO SCH (09:42)
[2019-08-24] MEDS: LINEZOLID 600 MG/300 ML BAG IV SCH ×2 (09:42→22:11)
[2019-08-24] MEDS: HEPARIN 5,000 UNIT/1 ML VIAL SUB-Q SCH ×2 (09:43→22:16)
[2019-08-24] MEDS: LORazepam 2 MG/ML VIAL IV PRN (10:20)
--- NOTE | 2019-08-24 12:26 | XRay Report ---
CHEST 1 VIEW INDICATION / CLINICAL INFORMATION: Respiratory failure. COMPARISON: 08/22/2019 chest radiograph FINDINGS: SUPPORT DEVICES: None. HEART / MEDIASTINUM: Stable. LUNGS / PLEURA: Increasing prominence of interstitial markings throughout the lungs with reticular pa ttern. No definite pleural fluid on the right. Stable, small left pleural effusion. No pneumothorax. IMPRESSION: Borderline cardiomegaly and interstitial prominence suggesting mild pulmonary edema. Stable, small le ft pleural effusion. Signer Name: Erwin Torres MD Signed: 08/24/2019 12:21 PM Workstation Name: [id number]
--- NOTE | 2019-08-24 13:43 | Progress Note ---
Assessment and Plan (1) Acute renal failure - suspect multifactorial CLAUDETTE in relation to dehydration, tubular injury in setting of respiratory failure - creatinine 1.9->2.4->3.2->3.1->2.7->2.6->2.3 today - no acute indications for dialysis - continue supportive measures - holding diuretic and JAMEY inhibitor - daily labs - avoid nephrotoxins (2) Influenza - currently under droplet precautions - Continue supportive measures (3) Acute on chronic respiratory failure with hypoxemia - now extubated, wean oxygen per ICU/pulm (4) Acidosis Likely related to CLAUDETTE, continue to monitor. Now improved Subjective Date of service: 08/24/19 Principal diagnosis: respiratory failure Interval history: No acute issues noted. Patient alert and denies any issues. Continues to use facemask. Objective - Exam Narrative Exam: General appearance: no acute distres EENT: intact Neck: no JVD Respiratory: decreased breath sounds, on facemask Cardiology: regular, S1S2 Gastrointestinal: normal, normoactive bowel sounds Integumentary: no rash Neurologic: alert Psychiatric: appropriate mood - Vital Signs Vital signs: Vital Signs - 12hr 08/24/19 08/24/19 08/24/19 02:01 03:00 03:01 Temperature Pulse Rate 80 89 77 Pulse Rate [ Anterior Bilateral] Respiratory 17 20 12 Rate Respiratory Rate [Anterior Bilateral] Blood Pressure 160/82 151/76 O2 Sat by Pulse 95 95 96 Oximetry 08/24/19 08/24/19 08/24/19 03:25 04:00 04:01 Temperature 98.9 F Pulse Rate 66 94 H Pulse Rate [ Anterior Bilateral] Respiratory 16 Rate Respiratory Rate [Anterior Bilateral] Blood Pressure 157/86 O2 Sat by Pulse 95 95 Oximetry 08/24/19 08/24/19 08/24/19 05:01 05:31 06:01 Temperature Pulse Rate 93 H 95 H 80 Pulse Rate [ Anterior Bilateral] Respiratory 15 18 Rate Respiratory Rate [Anterior Bilateral] Blood Pressure 151/70 151/70 153/80 O2 Sat by Pulse 96 96 Oximetry 08/24/19 08/24/19 08/24/19 07:01 08:00 09:01 Temperature Pulse Rate 99 H 79 82 Pulse Rate [ Anterior Bilateral] Respiratory 26 H 26 H 18 Rate Respiratory Rate [Anterior Bilateral] Blood Pressure 153/80 150/77 150/74 O2 Sat by Pulse 93 94 95 Oximetry 08/24/19 08/24/19 08/24/19 09:24 09:40 09:42 Temperature Pulse Rate 86 Pulse Rate [ 86 Anterior Bilateral] Respiratory Rate Respiratory 20 Rate [Anterior Bilateral] Blood Pressure 150/74 O2 Sat by Pulse 94 Oximetry 08/24/19 08/24/19 08/24/19 10:00 11:01 11:44 Temperature Pulse Rate 84 93 H Pulse Rate [ Anterior Bilateral] Respiratory 12 33 H Rate Respiratory Rate [Anterior Bilateral] Blood Pressure 148/76 143/64 O2 Sat by Pulse 94 96 91 Oximetry 08/24/19 08/24/19 08/24/19 12:00 12:01 13:30 Temperature Pulse Rate 91 H 105 H 93 H Pulse Rate [ Anterior Bilateral] Respiratory 17 Rate Respiratory Rate [Anterior Bilateral] Blood Pressure 148/58 132/70 O2 Sat by Pulse 90 89 Oximetry - Lab 08/24/19 08:16 08/24/19 08:16 Most recent lab results ABG pH 7.314 pH Units (7.350-7.450) L 08/21/19 04:40 ABG pCO2 54.6 mm Hg 08/21/19 04:40 ABG pO2 78.3 mm Hg (80.0-90.0) L 08/21/19 04:40 ABG HCO3 27.1 mmol/L (20.0-26.0) H 08/21/19 04:40 ABG O2 Saturation 94.8 % (95.0-99.0) L 08/21/19 04:40 Calcium 8.6 mg/dL (8.4-10.2) 08/24/19 08:16 Medications & Allergies - Medications Allergies/Adverse Reactions: Allergies No Known Allergies Allergy (Unverified 08/15/19 13:08) Home Medications: Home Medications Medication Instructions Recorded Confirmed Last Taken Type Rosuvastatin Calcium 20 mg PO QDAY 08/16/19 08/16/19 08/14/19 History Terazosin HCl 2 mg PO QDAY 08/16/19 08/16/19 08/14/19 History Trandolapril/Verapamil HCl [[place] 4 mg PO QDAY 08/16/19 08/16/19 08/14/19 History ER 4-240 mg] Triamter/Hctz 37.5-25 mg 1 tab PO QDAY 08/16/19 08/16/19 08/14/19 History [Maxzide-25] Verapamil ER [Calan Sr] 180 mg PO BID 08/16/19 08/16/19 08/14/19 History amLODIPine [Norvasc] 10 mg PO DAILY 08/16/19 08/16/19 08/14/19 History Active Medications: Generic Name Dose Route Start Last Admin Trade Name Freq PRN Reason Stop Dose Admin Acetaminophen 650 mg 08/15/19 16:00 08/23/19 16:10 Tylenol PO 650 mg Q4H PRN Administration Pain MILD(1-3)/Fever >100.5/HARDY Albuterol 2.5 mg 08/15/19 16:00 Proventil IH Q4HRT PRN Shortness Of Breath Albuterol/Ipratropium 1 ampul 08/20/19 14:00 08/24/19 09:25 Duoneb *Not For Prn Use* IH 1 ampul TIDRT LEORA Administration Amlodipine Besylate 10 mg 08/19/19 14:00 08/24/19 09:42 Amlodipine PO 10 mg DAILY LEORA Administration Lipase/Protease/Amylase 1 each 08/17/19 14:[address] 10,500 Unit FEEDTUBE PRN PRN For Clogged Feeding Tube Atorvastatin Calcium 40 mg 08/19/19 22:00 08/23/19 22:36 Lipitor PO 40 mg QHS LEORA Administration Famotidine 20 mg 08/19/19 10:00 08/24/19 09:42 Pepcid PO 20 mg QDAY LEORA Administration Heparin Sodium (Porcine) 5,000 unit 08/15/19 22:00 08/24/19 09:43 Heparin SUB-Q 5,000 unit Q12HR LEORA Administration Hydralazine HCl 10 mg 08/21/19 11:09 08/23/19 09:16 Apresoline IV 10 mg Q4HR PRN Administration SBP>160 or DBP>110 Hydralazine HCl 100 mg 08/23/19 14:00 08/24/19 13:30 Apresoline PO 100 mg Q8HR LEORA Administration Hydrophilic Ointment 1 applic 08/15/19 17:33 Vaseline Lip Therapy TP Q2HR PRN Dry Lips Linezolid 600 mg in 300 mls @ 300 mls/hr 08/17/19 22:00 08/24/19 09:42 Zyvox 600mg/300ml IV 08/25/19 08:52 300 mls/hr Q12HR LEORA Administration Protocol Dextrose/Sodium Chloride 1,000 mls @ 42 mls/hr 08/23/19 12:00 D5/0.45ns IV DIRECT LEORA Methylprednisolone Sodium Succinate 40 mg 08/24/19 06:00 08/24/19 13:30 Solu-Medrol IV 40 mg Q8HR LEORA Administration Multi-Ingred Cream/Lotion/Oil/Oint 1 applic 08/15/19 17:33 Artificial Tears Ophth Oint OU Q4HR PRN Dry Eye(s) Ondansetron HCl 4 mg 08/15/19 16:00 Zofran IV Q8H PRN Nausea And Vomiting Prazosin HCl 1 mg 08/19/19 16:00 08/24/19 09:42 Prazosin PO 1 mg QDAY LEORA Administration Simple Syrup 15 ml 08/17/19 14:53 Simple Syrup FEEDTUBE PRN PRN Hypoglycemia Simple Syrup 30 ml 08/17/19 14:53 Simple Syrup FEEDTUBE PRN PRN Hypoglycemia Sodium Bicarbonate 325 mg 08/17/19 14:53 Sodium Bicarbonate FEEDTUBE PRN PRN For Clogged Feeding Tube Sodium Chloride 10 ml 08/15/19 22:00 08/24/19 09:48 Sodium Chloride Flush Syringe 10 Ml IV 10 ml BID LEORA Administration Sodium Chloride 10 ml 08/15/19 16:00 Sodium Chloride Flush Syringe 10 Ml IV PRN PRN LINE FLUSH
[2019-08-25] MEDS: methylPREDNISolone Sod Succinate 40 MG/1 ML INJ IV SCH ×3 (06:05→23:06)
[2019-08-25] MEDS: hydrALAZINE 25 MG TAB PO SCH ×3 (07:27→23:07)
--- NOTE | 2019-08-25 09:01 | Progress Note ---
Assessment and Plan Sepsis Acute respiratory failure with hypoxemia and hypercapnia s/p MVS Influenza Bilateral pneumonia Acute renal failure Tobacco use disorder/Nicotine dependence Thrombocytopenia Need to re-orient him Discussed with PT to get him out of bed today,lights on during the day Asked the daughter to continue to explain, where he is, what has happened Low dose Seroquel tonight to help with sleep an agitation Monitor in ICU overnight NIPPV tonight - continue to wean supplemental oxygen for target O2 sat's > 90% - Bronchodilators with pulmonary hygiene per RT -Continue steroid taper -RESEARCH CLERK to evlaute swallow function/dysphagia - Accuchecks with glycemic control per SSI (While critically ill target blood glucose of 140-180 mg/dL; avoid hypoglycemia) - Avoid benzodiazepines to reduce the possibility of delirium - Empiric antibiotics for post viral PNA(on linezolid) , complete antiviral agents-ID following - prn analgesia - Maintenance of sleep-wake cycle, avoid delirium - Enteral nutritional support -Aspiration precautions, HOB >40 - G.I. & VTE prophylaxis, while on heparin monitor for bleeding and trend platelets - PT/OT/ROM exercises - Mobility protocol and off loading for pressure ulcer prevention -Renally dose all medications, avoid nephrotoxins -Nicotine withdrawal precautions Discussed the need for outpatient pulmonary follow up to characterize lung disease, get sleep study and ongoing care CONDITION: FAIR PROGNOSIS: FAIR CODE STATUS: FULL CODE Updated his daughter at the bedside re care plan Subjective Date of service: 08/25/19 Principal diagnosis: respiratory failure Interval history: Patient is seen today for: acute hypoxic respiratory failure on MVS, bilateral alveolar infiltrates, morbid obesity, influenza infection ( complicated): CLAUDETTE Seen and examined at bedside; 24hour events reviewed; nursing and respiratory care staff consulted; no adverse overnight events reported to me; Vitals, labs, medications, chart reviewed. No fevers, extubated yesterday but agitated and uncomfortable. trying to get out of bed, some episodes of confusion. Daughter is at the bedside, no fevers, no vomiting. Objective Vital Signs - 12hr 08/24/19 08/24/19 08/24/19 22:00 22:01 22:21 Temperature Pulse Rate 84 94 H Pulse Rate [ 83 Right Dorsalis Pedis] Respiratory 17 Rate Blood Pressure 167/88 167/88 O2 Sat by Pulse 90 91 Oximetry 08/24/19 08/24/19 08/24/19 22:27 23:01 23:17 Temperature 98.9 F Pulse Rate 85 86 Pulse Rate [ Right Dorsalis Pedis] Respiratory 14 15 Rate Blood Pressure 167/88 172/93 O2 Sat by Pulse 91 92 Oximetry 08/25/19 08/25/19 08/25/19 00:00 01:01 02:00 Temperature Pulse Rate 88 84 Pulse Rate [ 81 81 Right Dorsalis Pedis] Respiratory 17 15 Rate Blood Pressure 172/93 142/54 O2 Sat by Pulse 91 91 90 Oximetry 08/25/19 08/25/19 08/25/19 02:01 03:01 03:44 Temperature Pulse Rate 89 86 Pulse Rate [ 83 Right Dorsalis Pedis] Respiratory 20 25 H Rate Blood Pressure 160/88 166/88 O2 Sat by Pulse 91 92 90 Oximetry 08/25/19 08/25/19 08/25/19 03:47 04:01 04:06 Temperature 98.7 F Pulse Rate 84 81 Pulse Rate [ Right Dorsalis Pedis] Respiratory 29 H Rate Blood Pressure 169/94 O2 Sat by Pulse 92 Oximetry 08/25/19 08/25/19 08/25/19 05:01 06:01 07:01 Temperature Pulse Rate 83 84 84 Pulse Rate [ Right Dorsalis Pedis] Respiratory 18 21 27 H Rate Blood Pressure 135/44 158/80 167/75 O2 Sat by Pulse 92 92 90 Oximetry 08/25/19 08/25/19 08/25/19 07:27 08:00 08:01 Temperature Pulse Rate 79 85 79 Pulse Rate [ 85 Right Dorsalis Pedis] Respiratory 16 Rate Blood Pressure 167/75 167/75 O2 Sat by Pulse 93 91 Oximetry Constitutional: no acute distress, alert Eyes: non-icteric ENT: oropharynx moist Neck: supple, no lymphadenopathy, no JVD Effort: normal Ascultation: Bilateral: diminished breath sounds, rhonchi Cardiovascular: regular rate and rhythm, other (S1,S2) Gastrointestinal: normoactive bowel sounds, soft, non-tender, other (distended) Integumentary: normal Extremities: no cyanosis, no edema, pink and warm, pulses normal Neurologic: non-focal exam, pupils equal and round, motor strength normal and, other (agitation and confusion) Psychiatric: anxious CBC and BMP: 08/27/19 07:45 08/29/19 15:10 ABG, PT/INR, D-dimer: ABG POC ABG pH 7.359 (7.35-7.45) 08/24/19 12:30 ABG pH 7.314 pH Units (7.350-7.450) L 08/21/19 04:40 POC ABG pCO2 54.7 (35-45) H 08/24/19 12:30 ABG pCO2 54.6 mm Hg 08/21/19 04:40 POC ABG pO2 63 (80-105) L 08/24/19 12:30 ABG pO2 78.3 mm Hg (80.0-90.0) L 08/21/19 04:40 POC ABG HCO3 30.8 (22-26 mml/L) 08/24/19 12:30 POC ABG Total CO2 32 (23-27mmol/L) 08/24/19 12:30 POC ABG O2 Sat 90 08/24/19 12:30 ABG O2 Saturation 94.8 % (95.0-99.0) L 08/21/19 04:40 Abnormal lab findings: Abnormal Labs 08/15/19 08/15/19 08/15/19 13:16 13:16 17:16 WBC 14.7 H Hgb Hct RDW 17.3 H Plt Count Lymph % (Auto) Baker % (Auto) 11.3 H Lymph # Baker # 1.7 H Seg Neutrophils % 71.9 H Seg Neuts % (Manual) Lymphocytes % (Manual) Monocytes % (Manual) Nucleated RBC % Seg Neutrophils # 10.6 H Monocytes # (Manual) POC ABG pH 7.182 L ABG pH POC ABG pCO2 > 70 H POC ABG pO2 ABG pO2 ABG HCO3 ABG O2 Saturation ABG Hemoglobin Oxyhemoglobin Sodium Chloride Carbon Dioxide BUN 28 H Creatinine 1.9 H Glucose 133 H POC Glucose Calcium Total Bilirubin 1.50 H AST 82 H Albumin 3.6 L Urine WBC (Auto) 08/15/19 08/16/19 08/16/19 18:17 03:41 03:41 WBC Hgb 11.6 L Hct 34.3 L D RDW 17.4 H Plt Count 119 L Lymph % (Auto) 11.4 L Baker % (Auto) 11.6 H Lymph # 1.0 L Baker # 1.1 H Seg Neutrophils % 76.9 H Seg Neuts % (Manual) Lymphocytes % (Manual) Monocytes % (Manual) Nucleated RBC % Seg Neutrophils # Monocytes # (Manual) POC ABG pH 7.280 L ABG pH POC ABG pCO2 64.7 H POC ABG pO2 64 L ABG pO2 ABG HCO3 ABG O2 Saturation ABG Hemoglobin Oxyhemoglobin Sodium Chloride 107.1 H Carbon Dioxide BUN 34 H Creatinine 2.4 H Glucose 138 H POC Glucose Calcium 7.2 L D Total Bilirubin AST Albumin Urine WBC (Auto) 08/16/19 08/16/19 08/16/19 06:27 11:19 14:40 WBC Hgb Hct RDW Plt Count Lymph % (Auto) Baker % (Auto) Lymph # Baker # Seg Neutrophils % Seg Neuts % (Manual) Lymphocytes % (Manual) Monocytes % (Manual) Nucleated RBC % Seg Neutrophils # Monocytes # (Manual) POC ABG pH 7.336 L ABG pH POC ABG pCO2 47.9 H 48.7 H POC ABG pO2 69 L 130 H ABG pO2 ABG HCO3 ABG O2 Saturation ABG Hemoglobin Oxyhemoglobin Sodium Chloride Carbon Dioxide BUN Creatinine Glucose POC Glucose Calcium Total Bilirubin AST Albumin Urine WBC (Auto) 8.0 H 08/17/19 08/17/19 08/17/19 05:31 05:31 06:30 WBC Hgb 11.5 L Hct 34.3 L RDW 17.3 H Plt Count Lymph % (Auto) Baker % (Auto) 13.5 H Lymph # Baker # 1.3 H Seg Neutrophils % 70.7 H Seg Neuts % (Manual) Lymphocytes % (Manual) Monocytes % (Manual) Nucleated RBC % Seg Neutrophils # Monocytes # (Manual) POC ABG pH ABG pH POC ABG pCO2 POC ABG pO2 ABG pO2 116.6 H ABG HCO3 ABG O2 Saturation ABG Hemoglobin 13.9 L Oxyhemoglobin Sodium 146 H Chloride 112.1 H Carbon Dioxide BUN 47 H Creatinine 3.2 H Glucose POC Glucose Calcium 7.7 L Total Bilirubin AST Albumin Urine WBC (Auto) 08/17/19 08/18/19 08/18/19 20:31 04:20 04:20 WBC Hgb 11.4 L Hct 34.3 L RDW 17.3 H Plt Count 137 L Lymph % (Auto) Baker % (Auto) Lymph # Baker # Seg Neutrophils % Seg Neuts % (Manual) 79.0 H Lymphocytes % (Manual) 13.0 L Monocytes % (Manual) 8.0 H Nucleated RBC % 1.0 H Seg Neutrophils # Monocytes # (Manual) POC ABG pH ABG pH POC ABG pCO2 POC ABG pO2 78 L ABG pO2 ABG HCO3 ABG O2 Saturation ABG Hemoglobin Oxyhemoglobin Sodium 148 H Chloride 112.3 H Carbon Dioxide 20 L BUN 40 H Creatinine 3.1 H Glucose 109 H POC Glucose Calcium 7.9 L Total Bilirubin AST Albumin Urine WBC (Auto) 08/18/19 08/18/19 08/19/19 06:45 23:19 04:30 WBC Hgb Hct RDW Plt Count Lymph % (Auto) Baker % (Auto) Lymph # Baker # Seg Neutrophils % Seg Neuts % (Manual) Lymphocytes % (Manual) Monocytes % (Manual) Nucleated RBC % Seg Neutrophils # Monocytes # (Manual) POC ABG pH ABG pH POC ABG pCO2 45.2 H POC ABG pO2 55 L ABG pO2 72.2 L ABG HCO3 26.1 H ABG O2 Saturation 94.4 L ABG Hemoglobin 11.5 L Oxyhemoglobin 92.6 L Sodium Chloride Carbon Dioxide BUN Creatinine Glucose POC Glucose 158 H Calcium Total Bilirubin AST Albumin Urine WBC (Auto) 08/19/19 08/19/19 08/19/19 05:15 05:15 05:28 WBC Hgb 11.3 L Hct 34.4 L RDW 17.1 H Plt Count Lymph % (Auto) Baker % (Auto) Lymph # Baker # Seg Neutrophils % Seg Neuts % (Manual) Lymphocytes % (Manual) Monocytes % (Manual) 12.0 H Nucleated RBC % Seg Neutrophils # Monocytes # (Manual) 1.0 H POC ABG pH ABG pH POC ABG pCO2 POC ABG pO2 ABG pO2 ABG HCO3 ABG O2 Saturation ABG Hemoglobin Oxyhemoglobin Sodium 149 H Chloride 115.0 H Carbon Dioxide 21 L BUN 32 H Creatinine 2.7 H Glucose 112 H POC Glucose 113 H Calcium 7.8 L Total Bilirubin AST Albumin Urine WBC (Auto) 08/19/19 08/19/19 08/19/19 13:00 17:46 22:45 WBC Hgb Hct RDW Plt Count Lymph % (Auto) Baker % (Auto) Lymph # Baker # Seg Neutrophils % Seg Neuts % (Manual) Lymphocytes % (Manual) Monocytes % (Manual) Nucleated RBC % Seg Neutrophils # Monocytes # (Manual) POC ABG pH ABG pH POC ABG pCO2 POC ABG pO2 ABG pO2 ABG HCO3 ABG O2 Saturation ABG Hemoglobin Oxyhemoglobin Sodium Chloride Carbon Dioxide BUN Creatinine Glucose POC Glucose 126 H 112 H 172 H Calcium Total Bilirubin AST Albumin Urine WBC (Auto) 08/20/19 08/20/19 08/20/19 04:00 05:02 05:02 WBC Hgb 11.1 L Hct 33.4 L RDW 17.1 H Plt Count Lymph % (Auto) 11.2 L Baker % (Auto) 12.3 H Lymph # Baker # 1.3 H Seg Neutrophils % 74.9 H Seg Neuts % (Manual) Lymphocytes % (Manual) Monocytes % (Manual) Nucleated RBC % Seg Neutrophils # 7.8 H Monocytes # (Manual) POC ABG pH ABG pH POC ABG pCO2 45.1 H POC ABG pO2 70 L ABG pO2 ABG HCO3 ABG O2 Saturation ABG Hemoglobin Oxyhemoglobin Sodium 146 H Chloride 111.7 H Carbon Dioxide BUN 27 H Creatinine 2.4 H Glucose 123 H POC Glucose Calcium 8.1 L Total Bilirubin AST Albumin Urine WBC (Auto) 08/20/19 08/20/19 08/20/19 05:51 11:39 18:26 WBC Hgb Hct RDW Plt Count Lymph % (Auto) Baker % (Auto) Lymph # Baker # Seg Neutrophils % Seg Neuts % (Manual) Lymphocytes % (Manual) Monocytes % (Manual) Nucleated RBC % Seg Neutrophils # Monocytes # (Manual) POC ABG pH ABG pH POC ABG pCO2 POC ABG pO2 ABG pO2 ABG HCO3 ABG O2 Saturation ABG Hemoglobin Oxyhemoglobin Sodium Chloride Carbon Dioxide BUN Creatinine Glucose POC Glucose 108 H 116 H 137 H Calcium Total Bilirubin AST Albumin Urine WBC (Auto) 08/21/19 08/21/19 08/21/19 04:40 05:25 05:56 WBC Hgb Hct RDW Plt Count Lymph % (Auto) Baker % (Auto) Lymph # Baker # Seg Neutrophils % Seg Neuts % (Manual) Lymphocytes % (Manual) Monocytes % (Manual) Nucleated RBC % Seg Neutrophils # Monocytes # (Manual) POC ABG pH ABG pH 7.314 L POC ABG pCO2 POC ABG pO2 ABG pO2 78.3 L ABG HCO3 27.1 H ABG O2 Saturation 94.8 L ABG Hemoglobin 10.5 L Oxyhemoglobin 93.0 L Sodium 147 H Chloride 110.7 H Carbon Dioxide BUN 30 H Creatinine 2.4 H Glucose 144 H POC Glucose 129 H Calcium 8.0 L Total Bilirubin AST Albumin Urine WBC (Auto) 08/21/19 08/22/19 08/22/19 12:39 00:08 03:45 WBC Hgb Hct RDW Plt Count Lymph % (Auto) Baker % (Auto) Lymph # Baker # Seg Neutrophils % Seg Neuts % (Manual) Lymphocytes % (Manual) Monocytes % (Manual) Nucleated RBC % Seg Neutrophils # Monocytes # (Manual) POC ABG pH ABG pH POC ABG pCO2 POC ABG pO2 ABG pO2 ABG HCO3 ABG O2 Saturation ABG Hemoglobin Oxyhemoglobin Sodium 147 H Chloride 110.6 H Carbon Dioxide BUN 36 H Creatinine 2.4 H Glucose 195 H POC Glucose 193 H 173 H Calcium 8.1 L Total Bilirubin AST Albumin Urine WBC (Auto) 08/22/19 08/22/19 08/22/19 05:19 05:41 11:20 WBC Hgb Hct RDW Plt Count Lymph % (Auto) Baker % (Auto) Lymph # Baker # Seg Neutrophils % Seg Neuts % (Manual) Lymphocytes % (Manual) Monocytes % (Manual) Nucleated RBC % Seg Neutrophils # Monocytes # (Manual) POC ABG pH 7.328 L ABG pH POC ABG pCO2 53.0 H 49.7 H POC ABG pO2 75 L 62 L ABG pO2 ABG HCO3 ABG O2 Saturation ABG Hemoglobin Oxyhemoglobin Sodium Chloride Carbon Dioxide BUN Creatinine Glucose POC Glucose 176 H Calcium Total Bilirubin AST Albumin Urine WBC (Auto) 08/22/19 08/22/19 08/23/19 11:22 16:58 04:14 WBC Hgb Hct RDW Plt Count Lymph % (Auto) Baker % (Auto) Lymph # Baker # Seg Neutrophils % Seg Neuts % (Manual) Lymphocytes % (Manual) Monocytes % (Manual) Nucleated RBC % Seg Neutrophils # Monocytes # (Manual) POC ABG pH ABG pH POC ABG pCO2 POC ABG pO2 ABG pO2 ABG HCO3 ABG O2 Saturation ABG Hemoglobin Oxyhemoglobin Sodium Chloride Carbon Dioxide BUN 41 H Creatinine 2.3 H Glucose 174 H POC Glucose 217 H 174 H Calcium Total Bilirubin AST Albumin Urine WBC (Auto) 08/23/19 08/23/19 08/23/19 04:14 05:01 12:05 WBC 14.7 H Hgb 11.5 L Hct 35.2 L RDW 16.5 H Plt Count Lymph % (Auto) Baker % (Auto) Lymph # Baker # Seg Neutrophils % Seg Neuts % (Manual) Lymphocytes % (Manual) Monocytes % (Manual) Nucleated RBC % Seg Neutrophils # Monocytes # (Manual) POC ABG pH ABG pH POC ABG pCO2 45.4 H POC ABG pO2 ABG pO2 ABG HCO3 ABG O2 Saturation ABG Hemoglobin Oxyhemoglobin Sodium Chloride Carbon Dioxide BUN Creatinine Glucose POC Glucose 159 H Calcium Total Bilirubin AST Albumin Urine WBC (Auto) 08/23/19 08/23/19 08/24/19 12:53 18:51 06:33 WBC Hgb Hct RDW Plt Count Lymph % (Auto) Baker % (Auto) Lymph # Baker # Seg Neutrophils % Seg Neuts % (Manual) Lymphocytes % (Manual) Monocytes % (Manual) Nucleated RBC % Seg Neutrophils # Monocytes # (Manual) POC ABG pH ABG pH POC ABG pCO2 POC ABG pO2 ABG pO2 ABG HCO3 ABG O2 Saturation ABG Hemoglobin Oxyhemoglobin Sodium Chloride Carbon Dioxide BUN Creatinine Glucose POC Glucose 191 H 142 H 118 H Calcium Total Bilirubin AST Albumin Urine WBC (Auto) 08/24/19 08/24/19 08/24/19 08:16 08:16 11:56 WBC 13.3 H Hgb 11.5 L Hct 34.1 L RDW 16.6 H Plt Count Lymph % (Auto) Baker % (Auto) Lymph # Baker # Seg Neutrophils % Seg Neuts % (Manual) Lymphocytes % (Manual) Monocytes % (Manual) Nucleated RBC % Seg Neutrophils # Monocytes # (Manual) POC ABG pH ABG pH POC ABG pCO2 POC ABG pO2 ABG pO2 ABG HCO3 ABG O2 Saturation ABG Hemoglobin Oxyhemoglobin Sodium Chloride Carbon Dioxide BUN 50 H Creatinine 2.3 H Glucose 121 H POC Glucose 115 H Calcium Total Bilirubin AST Albumin Urine WBC (Auto) 08/24/19 12:30 WBC Hgb Hct RDW Plt Count Lymph % (Auto) Baker % (Auto) Lymph # Baker # Seg Neutrophils % Seg Neuts % (Manual) Lymphocytes % (Manual) Monocytes % (Manual) Nucleated RBC % Seg Neutrophils # Monocytes # (Manual) POC ABG pH ABG pH POC ABG pCO2 54.7 H POC ABG pO2 63 L ABG pO2 ABG HCO3 ABG O2 Saturation ABG Hemoglobin Oxyhemoglobin Sodium Chloride Carbon Dioxide BUN Creatinine Glucose POC Glucose Calcium Total Bilirubin AST Albumin Urine WBC (Auto)
--- NOTE | 2019-08-25 09:01 | Progress Note ---
Assessment and Plan Sepsis Acute respiratory failure with hypoxemia and hypercapnia s/p MVS Influenza Bilateral pneumonia Acute renal failure Tobacco use disorder/Nicotine dependence Thrombocytopenia - continue to wean supplemental oxygen for target O2 sat's > 90% - Bronchodilators with pulmonary hygiene per RT -Start steroid taper -DIRECTOR OF BUSINESS CONTINUITY to evlaute swallow function/dysphagia - Accuchecks with glycemic control per SSI (While critically ill target blood glucose of 140-180 mg/dL; avoid hypoglycemia) - Avoid benzodiazepines to reduce the possibility of delirium - Empiric antibiotics for post viral PNA(on linezolid) , complete antiviral agents-ID following - prn analgesia - Maintenance of sleep-wake cycle, avoid delirium - Enteral nutritional support -Aspiration precautions, HOB >40 - G.I. & VTE prophylaxis, while on heparin monitor for bleeding and trend platelets - PT/OT/ROM exercises - Mobility protocol and off loading for pressure ulcer prevention -Renally dose all medications, avoid nephrotoxins -Nicotine withdrawal precautions -Smoking cessation counselling done at the bedside. Discussed the need for outpatient pulmonary follow up to characterize lung disease, get sleep study and ongoing care CONDITION: FAIR PROGNOSIS: FAIR CODE STATUS: FULL CODE Updated his daughter at the bedside re care plan Subjective Date of service: 08/24/19 Principal diagnosis: respiratory failure Interval history: Patient is seen today for: acute hypoxic respiratory failure on MVS, bilateral alveolar infiltrates, morbid obesity, influenza infection ( complicated): CLAUDETTE Seen and examined at bedside; 24hour events reviewed; nursing and respiratory care staff consulted; no adverse overnight events reported to me; Vitals, labs, medications, chart reviewed. No fevers, extubated yesterday but agitated and uncomfortable. trying to get out of bed, some episodes of conf usion. Daughter is at the bedside, no fevers, no vomiting. Objective Vital Signs - 12hr 08/24/19 08/24/19 08/24/19 21:01 22:00 22:01 Temperature Pulse Rate 88 84 Pulse Rate [ 83 Right Dorsalis Pedis] Respiratory 17 Rate Blood Pressure 146/81 167/88 O2 Sat by Pulse 91 90 91 Oximetry 08/24/19 08/24/19 08/24/19 22:21 22:27 23:01 Temperature Pulse Rate 94 H 85 86 Pulse Rate [ Right Dorsalis Pedis] Respiratory 14 15 Rate Blood Pressure 167/88 167/88 172/93 O2 Sat by Pulse 91 92 Oximetry 08/24/19 08/25/19 08/25/19 23:17 00:00 01:01 Temperature 98.9 F Pulse Rate 88 84 Pulse Rate [ 81 Right Dorsalis Pedis] Respiratory 17 15 Rate Blood Pressure 172/93 142/54 O2 Sat by Pulse 91 91 Oximetry 08/25/19 08/25/19 08/25/19 02:00 02:01 03:01 Temperature Pulse Rate 89 86 Pulse Rate [ 81 Right Dorsalis Pedis] Respiratory 20 25 H Rate Blood Pressure 160/88 166/88 O2 Sat by Pulse 90 91 92 Oximetry 08/25/19 08/25/19 08/25/19 03:44 03:47 04:01 Temperature Pulse Rate 84 81 Pulse Rate [ 83 Right Dorsalis Pedis] Respiratory 29 H Rate Blood Pressure 169/94 O2 Sat by Pulse 90 92 Oximetry 08/25/19 08/25/19 08/25/19 04:06 05:01 06:01 Temperature 98.7 F Pulse Rate 83 84 Pulse Rate [ Right Dorsalis Pedis] Respiratory 18 21 Rate Blood Pressure 135/44 158/80 O2 Sat by Pulse 92 92 Oximetry 08/25/19 08/25/19 08/25/19 07:01 07:27 08:00 Temperature Pulse Rate 84 79 85 Pulse Rate [ 85 Right Dorsalis Pedis] Respiratory 27 H Rate Blood Pressure 167/75 167/75 O2 Sat by Pulse 90 93 Oximetry 08/25/19 08:01 Temperature Pulse Rate 79 Pulse Rate [ Right Dorsalis Pedis] Respiratory 16 Rate Blood Pressure 167/75 O2 Sat by Pulse 91 Oximetry Constitutional: no acute distress, alert Eyes: non-icteric ENT: oropharynx moist Neck: supple, no lymphadenopathy, no JVD Effort: normal Ascultation: Bilateral: diminished breath sounds, rhonchi Cardiovascular: regular rate and rhythm, other (S1,S2) Gastrointestinal: normoactive bowel sounds, soft, non-tender, other (distended) Integumentary: normal Extremities: no cyanosis, no edema, pink and warm, pulses normal Neurologic: non-focal exam, pupils equal and round, motor strength normal and, other (agitation and confusion) Psychiatric: anxious CBC and BMP: 08/24/19 08:16 08/24/19 08:16 ABG, PT/INR, D-dimer: ABG POC ABG pH 7.359 (7.35-7.45) 08/24/19 12:30 ABG pH 7.314 pH Units (7.350-7.450) L 08/21/19 04:40 POC ABG pCO2 54.7 (35-45) H 08/24/19 12:30 ABG pCO2 54.6 mm Hg 08/21/19 04:40 POC ABG pO2 63 (80-105) L 08/24/19 12:30 ABG pO2 78.3 mm Hg (80.0-90.0) L 08/21/19 04:40 POC ABG HCO3 30.8 (22-26 mml/L) 08/24/19 12:30 POC ABG Total CO2 32 (23-27mmol/L) 08/24/19 12:30 POC ABG O2 Sat 90 08/24/19 12:30 ABG O2 Saturation 94.8 % (95.0-99.0) L 08/21/19 04:40 Abnormal lab findings: Abnormal Labs 08/15/19 08/15/19 08/15/19 13:16 13:16 17:16 WBC 14.7 H Hgb Hct RDW 17.3 H Plt Count Lymph % (Auto) [place] % (Auto) 11.3 H Lymph # [place] # 1.7 H Seg Neutrophils % 71.9 H Seg Neuts % (Manual) Lymphocytes % (Manual) Monocytes % (Manual) Nucleated RBC % Seg Neutrophils # 10.6 H Monocytes # (Manual) POC ABG pH 7.182 L ABG pH POC ABG pCO2 > 70 H POC ABG pO2 ABG pO2 ABG HCO3 ABG O2 Saturation ABG Hemoglobin Oxyhemoglobin Sodium Chloride Carbon Dioxide BUN 28 H Creatinine 1.9 H Glucose 133 H POC Glucose Calcium Total Bilirubin 1.50 H AST 82 H Albumin 3.6 L Urine WBC (Auto) 08/15/19 08/16/19 08/16/19 18:17 03:41 03:41 WBC Hgb 11.6 L Hct 34.3 L D RDW 17.4 H Plt Count 119 L Lymph % (Auto) 11.4 L [place] % (Auto) 11.6 H Lymph # 1.0 L [place] # 1.1 H Seg Neutrophils % 76.9 H Seg Neuts % (Manual) Lymphocytes % (Manual) Monocytes % (Manual) Nucleated RBC % Seg Neutrophils # Monocytes # (Manual) POC ABG pH 7.280 L ABG pH POC ABG pCO2 64.7 H POC ABG pO2 64 L ABG pO2 ABG HCO3 ABG O2 Saturation ABG Hemoglobin Oxyhemoglobin Sodium Chloride 107.1 H Carbon Dioxide BUN 34 H Creatinine 2.4 H Glucose 138 H POC Glucose Calcium 7.2 L D Total Bilirubin AST Albumin Urine WBC (Auto) 08/16/19 08/16/19 08/16/19 06:27 11:19 14:40 WBC Hgb Hct RDW Plt Count Lymph % (Auto) [place] % (Auto) Lymph # [place] # Seg Neutrophils % Seg Neuts % (Manual) Lymphocytes % (Manual) Monocytes % (Manual) Nucleated RBC % Seg Neutrophils # Monocytes # (Manual) POC ABG pH 7.336 L ABG pH POC ABG pCO2 47.9 H 48.7 H POC ABG pO2 69 L 130 H ABG pO2 ABG HCO3 ABG O2 Saturation ABG Hemoglobin Oxyhemoglobin Sodium Chloride Carbon Dioxide BUN Creatinine Glucose POC Glucose Calcium Total Bilirubin AST Albumin Urine WBC (Auto) 8.0 H 08/17/19 08/17/19 08/17/19 05:31 05:31 06:30 WBC Hgb 11.5 L Hct 34.3 L RDW 17.3 H Plt Count Lymph % (Auto) [place] % (Auto) 13.5 H Lymph # [place] # 1.3 H Seg Neutrophils % 70.7 H Seg Neuts % (Manual) Lymphocytes % (Manual) Monocytes % (Manual) Nucleated RBC % Seg Neutrophils # Monocytes # (Manual) POC ABG pH ABG pH POC ABG pCO2 POC ABG pO2 ABG pO2 116.6 H ABG HCO3 ABG O2 Saturation ABG Hemoglobin 13.9 L Oxyhemoglobin Sodium 146 H Chloride 112.1 H Carbon Dioxide BUN 47 H Creatinine 3.2 H Glucose POC Glucose Calcium 7.7 L Total Bilirubin AST Albumin Urine WBC (Auto) 08/17/19 08/18/19 08/18/19 20:31 04:20 04:20 WBC Hgb 11.4 L Hct 34.3 L RDW 17.3 H Plt Count 137 L Lymph % (Auto) [place] % (Auto) Lymph # [place] # Seg Neutrophils % Seg Neuts % (Manual) 79.0 H Lymphocytes % (Manual) 13.0 L Monocytes % (Manual) 8.0 H Nucleated RBC % 1.0 H Seg Neutrophils # Monocytes # (Manual) POC ABG pH ABG pH POC ABG pCO2 POC ABG pO2 78 L ABG pO2 ABG HCO3 ABG O2 Saturation ABG Hemoglobin Oxyhemoglobin Sodium 148 H Chloride 112.3 H Carbon Dioxide 20 L BUN 40 H Creatinine 3.1 H Glucose 109 H POC Glucose Calcium 7.9 L Total Bilirubin AST Albumin Urine WBC (Auto) 08/18/19 08/18/19 08/19/19 06:45 23:19 04:30 WBC Hgb Hct RDW Plt Count Lymph % (Auto) [place] % (Auto) Lymph # [place] # Seg Neutrophils % Seg Neuts % (Manual) Lymphocytes % (Manual) Monocytes % (Manual) Nucleated RBC % Seg Neutrophils # Monocytes # (Manual) POC ABG pH ABG pH POC ABG pCO2 45.2 H POC ABG pO2 55 L ABG pO2 72.2 L ABG HCO3 26.1 H ABG O2 Saturation 94.4 L ABG Hemoglobin 11.5 L Oxyhemoglobin 92.6 L Sodium Chloride Carbon Dioxide BUN Creatinine Glucose POC Glucose 158 H Calcium Total Bilirubin AST Albumin Urine WBC (Auto) 08/19/19 08/19/19 08/19/19 05:15 05:15 05:28 WBC Hgb 11.3 L Hct 34.4 L RDW 17.1 H Plt Count Lymph % (Auto) [place] % (Auto) Lymph # [place] # Seg Neutrophils % Seg Neuts % (Manual) Lymphocytes % (Manual) Monocytes % (Manual) 12.0 H Nucleated RBC % Seg Neutrophils # Monocytes # (Manual) 1.0 H POC ABG pH ABG pH POC ABG pCO2 POC ABG pO2 ABG pO2 ABG HCO3 ABG O2 Saturation ABG Hemoglobin Oxyhemoglobin Sodium 149 H Chloride 115.0 H Carbon Dioxide 21 L BUN 32 H Creatinine 2.7 H Glucose 112 H POC Glucose 113 H Calcium 7.8 L Total Bilirubin AST Albumin Urine WBC (Auto) 08/19/19 08/19/19 08/19/19 13:00 17:46 22:45 WBC Hgb Hct RDW Plt Count Lymph % (Auto) [place] % (Auto) Lymph # [place] # Seg Neutrophils % Seg Neuts % (Manual) Lymphocytes % (Manual) Monocytes % (Manual) Nucleated RBC % Seg Neutrophils # Monocytes # (Manual) POC ABG pH ABG pH POC ABG pCO2 POC ABG pO2 ABG pO2 ABG HCO3 ABG O2 Saturation ABG Hemoglobin Oxyhemoglobin Sodium Chloride Carbon Dioxide BUN Creatinine Glucose POC Glucose 126 H 112 H 172 H Calcium Total Bilirubin AST Albumin Urine WBC (Auto) 08/20/19 08/20/19 08/20/19 04:00 05:02 05:02 WBC Hgb 11.1 L Hct 33.4 L RDW 17.1 H Plt Count Lymph % (Auto) 11.2 L [place] % (Auto) 12.3 H Lymph # [place] # 1.3 H Seg Neutrophils % 74.9 H Seg Neuts % (Manual) Lymphocytes % (Manual) Monocytes % (Manual) Nucleated RBC % Seg Neutrophils # 7.8 H Monocytes # (Manual) POC ABG pH ABG pH POC ABG pCO2 45.1 H POC ABG pO2 70 L ABG pO2 ABG HCO3 ABG O2 Saturation ABG Hemoglobin Oxyhemoglobin Sodium 146 H Chloride 111.7 H Carbon Dioxide BUN 27 H Creatinine 2.4 H Glucose 123 H POC Glucose Calcium 8.1 L Total Bilirubin AST Albumin Urine WBC (Auto) 08/20/19 08/20/19 08/20/19 05:51 11:39 18:26 WBC Hgb Hct RDW Plt Count Lymph % (Auto) [place] % (Auto) Lymph # [place] # Seg Neutrophils % Seg Neuts % (Manual) Lymphocytes % (Manual) Monocytes % (Manual) Nucleated RBC % Seg Neutrophils # Monocytes # (Manual) POC ABG pH ABG pH POC ABG pCO2 POC ABG pO2 ABG pO2 ABG HCO3 ABG O2 Saturation ABG Hemoglobin Oxyhemoglobin Sodium Chloride Carbon Dioxide BUN Creatinine Glucose POC Glucose 108 H 116 H 137 H Calcium Total Bilirubin AST Albumin Urine WBC (Auto) 08/21/19 08/21/19 08/21/19 04:40 05:25 05:56 WBC Hgb Hct RDW Plt Count Lymph % (Auto) [place] % (Auto) Lymph # [place] # Seg Neutrophils % Seg Neuts % (Manual) Lymphocytes % (Manual) Monocytes % (Manual) Nucleated RBC % Seg Neutrophils # Monocytes # (Manual) POC ABG pH ABG pH 7.314 L POC ABG pCO2 POC ABG pO2 ABG pO2 78.3 L ABG HCO3 27.1 H ABG O2 Saturation 94.8 L ABG Hemoglobin 10.5 L Oxyhemoglobin 93.0 L Sodium 147 H Chloride 110.7 H Carbon Dioxide BUN 30 H Creatinine 2.4 H Glucose 144 H POC Glucose 129 H Calcium 8.0 L Total Bilirubin AST Albumin Urine WBC (Auto) 08/21/19 08/22/19 08/22/19 12:39 00:08 03:45 WBC Hgb Hct RDW Plt Count Lymph % (Auto) [place] % (Auto) Lymph # [place] # Seg Neutrophils % Seg Neuts % (Manual) Lymphocytes % (Manual) Monocytes % (Manual) Nucleated RBC % Seg Neutrophils # Monocytes # (Manual) POC ABG pH ABG pH POC ABG pCO2 POC ABG pO2 ABG pO2 ABG HCO3 ABG O2 Saturation ABG Hemoglobin Oxyhemoglobin Sodium 147 H Chloride 110.6 H Carbon Dioxide BUN 36 H Creatinine 2.4 H Glucose 195 H POC Glucose 193 H 173 H Calcium 8.1 L Total Bilirubin AST Albumin Urine WBC (Auto) 08/22/19 08/22/19 08/22/19 05:19 05:41 11:20 WBC Hgb Hct RDW Plt Count Lymph % (Auto) [place] % (Auto) Lymph # [place] # Seg Neutrophils % Seg Neuts % (Manual) Lymphocytes % (Manual) Monocytes % (Manual) Nucleated RBC % Seg Neutrophils # Monocytes # (Manual) POC ABG pH 7.328 L ABG pH POC ABG pCO2 53.0 H 49.7 H POC ABG pO2 75 L 62 L ABG pO2 ABG HCO3 ABG O2 Saturation ABG Hemoglobin Oxyhemoglobin Sodium Chloride Carbon Dioxide BUN Creatinine Glucose POC Glucose 176 H Calcium Total Bilirubin AST Albumin Urine WBC (Auto) 08/22/19 08/22/19 08/23/19 11:22 16:58 04:14 WBC Hgb Hct RDW Plt Count Lymph % (Auto) [place] % (Auto) Lymph # [place] # Seg Neutrophils % Seg Neuts % (Manual) Lymphocytes % (Manual) Monocytes % (Manual) Nucleated RBC % Seg Neutrophils # Monocytes # (Manual) POC ABG pH ABG pH POC ABG pCO2 POC ABG pO2 ABG pO2 ABG HCO3 ABG O2 Saturation ABG Hemoglobin Oxyhemoglobin Sodium Chloride Carbon Dioxide BUN 41 H Creatinine 2.3 H Glucose 174 H POC Glucose 217 H 174 H Calcium Total Bilirubin AST Albumin Urine WBC (Auto) 08/23/19 08/23/19 08/23/19 04:14 05:01 12:05 WBC 14.7 H Hgb 11.5 L Hct 35.2 L RDW 16.5 H Plt Count Lymph % (Auto) [place] % (Auto) Lymph # [place] # Seg Neutrophils % Seg Neuts % (Manual) Lymphocytes % (Manual) Monocytes % (Manual) Nucleated RBC % Seg Neutrophils # Monocytes # (Manual) POC ABG pH ABG pH POC ABG pCO2 45.4 H POC ABG pO2 ABG pO2 ABG HCO3 ABG O2 Saturation ABG Hemoglobin Oxyhemoglobin Sodium Chloride Carbon Dioxide BUN Creatinine Glucose POC Glucose 159 H Calcium Total Bilirubin AST Albumin Urine WBC (Auto) 08/23/19 08/23/19 08/24/19 12:53 18:51 06:33 WBC Hgb Hct RDW Plt Count Lymph % (Auto) [place] % (Auto) Lymph # [place] # Seg Neutrophils % Seg Neuts % (Manual) Lymphocytes % (Manual) Monocytes % (Manual) Nucleated RBC % Seg Neutrophils # Monocytes # (Manual) POC ABG pH ABG pH POC ABG pCO2 POC ABG pO2 ABG pO2 ABG HCO3 ABG O2 Saturation ABG Hemoglobin Oxyhemoglobin Sodium Chloride Carbon Dioxide BUN Creatinine Glucose POC Glucose 191 H 142 H 118 H Calcium Total Bilirubin AST Albumin Urine WBC (Auto) 08/24/19 08/24/19 08/24/19 08:16 08:16 11:56 WBC 13.3 H Hgb 11.5 L Hct 34.1 L RDW 16.6 H Plt Count Lymph % (Auto) [place] % (Auto) Lymph # [place] # Seg Neutrophils % Seg Neuts % (Manual) Lymphocytes % (Manual) Monocytes % (Manual) Nucleated RBC % Seg Neutrophils # Monocytes # (Manual) POC ABG pH ABG pH POC ABG pCO2 POC ABG pO2 ABG pO2 ABG HCO3 ABG O2 Saturation ABG Hemoglobin Oxyhemoglobin Sodium Chloride Carbon Dioxide BUN 50 H Creatinine 2.3 H Glucose 121 H POC Glucose 115 H Calcium Total Bilirubin AST Albumin Urine WBC (Auto) 08/24/19 12:30 WBC Hgb Hct RDW Plt Count Lymph % (Auto) [place] % (Auto) Lymph # [place] # Seg Neutrophils % Seg Neuts % (Manual) Lymphocytes % (Manual) Monocytes % (Manual) Nucleated RBC % Seg Neutrophils # Monocytes # (Manual) POC ABG pH ABG pH POC ABG pCO2 54.7 H POC ABG pO2 63 L ABG pO2 ABG HCO3 ABG O2 Saturation ABG Hemoglobin Oxyhemoglobin Sodium Chloride Carbon Dioxide BUN Creatinine Glucose POC Glucose Calcium Total Bilirubin AST Albumin Urine WBC (Auto) Chest x-ray: image reviewed
[2019-08-25] MEDS: IPRATROPIUM/ALBUTEROL SULFATE 3 ML AMPUL.NEB IH SCH ×3 (09:11→19:36)
--- NOTE | 2019-08-25 09:22 | Progress Note ---
Subjective Principal diagnosis: respiratory failure Interval history: Patient was seen today for follow-up on multiple renal related issues Events of this hospitalization were noted Admitted here with respiratory failure, influenza Patient noted to have acute severe renal failure: Currently renal function stabilizing Interdisciplinary notes were also reviewed Vitals intake output medications were reviewed Past medical history: Reviewed Family, social history: Reviewed Allergies: Reviewed Physical examination General: No acute distress Vitals: Reviewed HEENT: Oral mucosa moist no icterus Neck: Supple no thyromegaly nodular mass or JVD Chest: few basilar crackles Heart: Regular rate and rhythm S1-S2 heard no S3-S4 Abdomen: Soft nontender no suprapubic masses no organomegaly Extremity: Dry skin less than 1+ edema Psych: No evidence of any agitation and aggression noted Derm: No petechial rash Assessment and plan: Acute kidney injury, educated to acute tubular necrosis in the setting of respiratory failure, hypoxemia At this time there is no indication for renal replacement therapy continue to hold diuretic as well as JAMEY inhibitor Renal function relatively stable as of yesterday creatinine was 2.3 which is 2.3 today Hypernatremia appears to have improved was 147 4 days ago and currently at 142 Patient does need follow-up labs today Renal ultrasonogram: Unremarkable Patient needs to make a follow-up appointment office upon discharge please arrange Admitted with influenza on droplet precaution, respiratory failure which may have aggravated his renal failure Mild anemia: Hemoglobin currently stable at 11.5 due to acute illness, Acidosis continue to monitor and follow All renal related issues were discussed with the patient, patient does exhibit good understanding, lab results were also discussed with patient in simple [place] Prognosis: Guarded We'll continue to follow and make recommendation from renal standpoint Objective - Vital Signs Vital signs: Vital Signs - 12hr 08/24/19 08/24/19 08/24/19 22:00 22:01 22:21 Temperature Pulse Rate 84 94 H Pulse Rate [ 83 Right Dorsalis Pedis] Respiratory 17 Rate Blood Pressure 167/88 167/88 O2 Sat by Pulse 90 91 Oximetry 08/24/19 08/24/19 08/24/19 22:27 23:01 23:17 Temperature 98.9 F Pulse Rate 85 86 Pulse Rate [ Right Dorsalis Pedis] Respiratory 14 15 Rate Blood Pressure 167/88 172/93 O2 Sat by Pulse 91 92 Oximetry 01/06/20 01/06/20 01/06/20 00:00 01:01 02:00 Temperature Pulse Rate 88 84 Pulse Rate [ 81 81 Right Dorsalis Pedis] Respiratory 17 15 Rate Blood Pressure 172/93 142/54 O2 Sat by Pulse 91 91 90 Oximetry 08/25/19 08/25/19 08/25/19 02:01 03:01 03:44 Temperature Pulse Rate 89 86 Pulse Rate [ 83 Right Dorsalis Pedis] Respiratory 20 25 H Rate Blood Pressure 160/88 166/88 O2 Sat by Pulse 91 92 90 Oximetry 08/25/19 08/25/19 08/25/19 03:47 04:01 04:06 Temperature 98.7 F Pulse Rate 84 81 Pulse Rate [ Right Dorsalis Pedis] Respiratory 29 H Rate Blood Pressure 169/94 O2 Sat by Pulse 92 Oximetry 08/25/19 08/25/19 08/25/19 05:01 06:01 07:01 Temperature Pulse Rate 83 84 84 Pulse Rate [ Right Dorsalis Pedis] Respiratory 18 21 27 H Rate Blood Pressure 135/44 158/80 167/75 O2 Sat by Pulse 92 92 90 Oximetry 08/25/19 08/25/19 08/25/19 07:27 08:00 08:01 Temperature Pulse Rate 79 85 79 Pulse Rate [ 85 Right Dorsalis Pedis] Respiratory 16 Rate Blood Pressure 167/75 167/75 O2 Sat by Pulse 93 91 Oximetry 08/25/19 09:11 Temperature Pulse Rate Pulse Rate [ Right Dorsalis Pedis] Respiratory Rate Blood Pressure O2 Sat by Pulse 92 Oximetry - Lab 08/24/19 08:16 08/24/19 08:16 Most recent lab results ABG pH 7.314 pH Units (7.350-7.450) L 08/21/19 04:40 ABG pCO2 54.6 mm Hg 08/21/19 04:40 ABG pO2 78.3 mm Hg (80.0-90.0) L 08/21/19 04:40 ABG HCO3 27.1 mmol/L (20.0-26.0) H 08/21/19 04:40 ABG O2 Saturation 94.8 % (95.0-99.0) L 08/21/19 04:40 Calcium 8.6 mg/dL (8.4-10.2) 08/24/19 08:16 Medications & Allergies - Medications Allergies/Adverse Reactions: Allergies No Known Allergies Allergy (Unverified 08/15/19 13:08) Home Medications: Home Medications Medication Instructions Recorded Confirmed Last Taken Type Rosuvastatin Calcium 20 mg PO QDAY 08/16/19 08/16/19 08/14/19 History Terazosin HCl 2 mg PO QDAY 08/16/19 08/16/19 08/14/19 History Trandolapril/Verapamil HCl [[place] 4 mg PO QDAY 08/16/19 08/16/19 08/14/19 History ER 4-240 mg] Triamter/Hctz 37.5-25 mg 1 tab PO QDAY 08/16/19 08/16/19 08/14/19 History [Maxzide-25] Verapamil ER [Calan Sr] 180 mg PO BID 08/16/19 08/16/19 08/14/19 History amLODIPine [Norvasc] 10 mg PO DAILY 08/16/19 08/16/19 08/14/19 History Active Medications: Generic Name Dose Route Start Last Admin Trade Name Freq PRN Reason Stop Dose Admin Acetaminophen 650 mg 08/15/19 16:00 08/23/19 16:10 Tylenol PO 650 mg Q4H PRN Administration Pain MILD(1-3)/Fever >100.5/HARDY Albuterol 2.5 mg 08/15/19 16:00 Proventil IH Q4HRT PRN Shortness Of Breath Albuterol/Ipratropium 1 ampul 08/20/19 14:00 08/25/19 09:11 Duoneb *Not For Prn Use* IH 1 ampul TIDRT LEORA Administration Amlodipine Besylate 10 mg 08/19/19 14:00 08/24/19 09:42 Amlodipine PO 10 mg DAILY LEORA Administration Lipase/Protease/Amylase 1 each 08/17/19 14:53 Pancreaze 10,500 Unit FEEDTUBE PRN PRN For Clogged Feeding Tube Atorvastatin Calcium 40 mg 08/19/19 22:00 08/24/19 22:22 Lipitor PO 40 mg QHS LEORA Administration Famotidine 20 mg 08/19/19 10:00 08/24/19 09:42 Pepcid PO 20 mg QDAY LEORA Administration Heparin Sodium (Porcine) 5,000 unit 08/15/19 22:00 08/24/19 22:16 Heparin SUB-Q 5,000 unit Q12HR LEORA Administration Hydralazine HCl 10 mg 08/21/19 11:09 08/23/19 09:16 Apresoline IV 10 mg Q4HR PRN Administration SBP>160 or DBP>110 Hydralazine HCl 100 mg 08/23/19 14:00 08/25/19 07:27 Apresoline PO 100 mg Q8HR LEORA Administration Hydrophilic Ointment 1 applic 08/15/19 17:33 Vaseline Lip Therapy TP Q2HR PRN Dry Lips Methylprednisolone Sodium Succinate 40 mg 08/24/19 06:00 08/25/19 06:05 Solu-Medrol IV 40 mg Q8HR LEORA Administration Multi-Ingred Cream/Lotion/Oil/Oint 1 applic 08/15/19 17:33 Artificial Tears Ophth Oint OU Q4HR PRN Dry Eye(s) Ondansetron HCl 4 mg 08/15/19 16:00 Zofran IV Q8H PRN Nausea And Vomiting Prazosin HCl 1 mg 08/19/19 16:00 08/24/19 09:42 Prazosin PO 1 mg QDAY LEORA Administration Simple Syrup 15 ml 08/17/19 14:53 Simple Syrup FEEDTUBE PRN PRN Hypoglycemia Simple Syrup 30 ml 08/17/19 14:53 Simple Syrup FEEDTUBE PRN PRN Hypoglycemia Sodium Bicarbonate 325 mg 08/17/19 14:53 Sodium Bicarbonate FEEDTUBE PRN PRN For Clogged Feeding Tube Sodium Chloride 10 ml 08/15/19 22:00 08/24/19 22:10 Sodium Chloride Flush Syringe 10 Ml IV 10 ml BID LEORA Administration Sodium Chloride 10 ml 08/15/19 16:00 Sodium Chloride Flush Syringe 10 Ml IV PRN PRN LINE FLUSH
--- NOTE | 2019-08-25 09:35 | Progress Note ---
Assessment and Plan Assessment and plan: Sepsis. Continue Zyvox(last dose today) as per ID recommendations. Acute on chronic hypoxemic respiratory failure. extubated 08/23/2019 Patient likely has COPD given his smoking history. Hypertensive urgency Improved Increased Hydralazine to 100mg tid Influenza. Completed Tamiflu. Resp isolation Bilateral pneumonia. As above. Continue Zyvox Acute kidney injury. Etiology secondary to vasomotor nephropathy and ATN/sepsis. Continue IV fluid hydration. Renal ultrasound within normal limits. Nephrology following. Toxic metabolic encephalopathy. Improved. Continue to treat underlying causes. Tobacco use disorder. Patient counseled on cessatiion patient stable to transfer to Tele The high probability of a clinically significant, sudden or life threatening deterioration of the [respiratory and renal] system(s) required my full and direct attention, intervention and personal management. The aggregate critical care time was [32] minutes. This time is in addition to time spent performing reported procedures but includes the following: [x] Data Review and interpretation [x] Patient assessment and monitoring of vital signs [x] Documentation [x] Medication orders and management History Interval history: Feels better extubated 08/23/19 Hospitalist Physical - Physical exam Narrative exam: General appearance: Present: no acute distress, - EENT Eyes: Present: PERRL, EOM intact ENT: hearing intact, clear oral mucosa, dentition normal - Neck Neck: Present: supple, normal ROM - Respiratory Respiratory effort: normal Respiratory: bilateral: Decreased breath sounds bilat, bilat rhonchi - Cardiovascular Rhythm: regular Heart Sounds: Present: S1 & S2. Absent: gallop, rub - Extremities Extremities: no ischemia, No edema, Full ROM - Abdominal General gastrointestinal: soft, non-tender, non-distended, normal bowel sounds - Integumentary Integumentary: Present: clear, warm, dry - Neurologic Neurologic: CNII-XII intact, moves all extremities, awake, alert,oriented X 3 - Constitutional Vitals: Temp Pulse Resp BP Pulse Ox 98.7 F 85 22 167/75 92 08/25/19 04:06 08/25/19 09:31 08/25/19 09:31 08/25/19 08:01 08/25/19 09:11 General appearance: Present: no acute distress, other (Patient orally intubated on mechanical ventilation) Results - Labs CBC & Chem 7: 08/24/19 08:16 08/24/19 08:16 Labs: Laboratory Last Values WBC 13.3 K/mm3 (4.5-11.0) H 08/24/19 08:16 RBC 3.94 M/mm3 (3.65-5.03) 08/24/19 08:16 Hgb 11.5 gm/dl (11.8-15.2) L 08/24/19 08:16 Hct 34.1 % (35.5-45.6) L 08/24/19 08:16 MCV 87 fl (84-94) 08/24/19 08:16 MCH 29 pg (28-32) 08/24/19 08:16 MCHC 34 % (32-34) 08/24/19 08:16 RDW 16.6 % (13.2-15.2) H 08/24/19 08:16 Plt Count 280 K/mm3 (140-440) 08/24/19 08:16 Lymph % (Auto) 11.2 % (13.4-35.0) L 08/20/19 05:02 [place] % (Auto) 12.3 % (0.0-7.3) H 08/20/19 05:02 Eos % (Auto) 1.2 % (0.0-4.3) 08/20/19 05:02 Baso % (Auto) 0.4 % (0.0-1.8) 08/20/19 05:02 Lymph # 1.2 K/mm3 (1.2-5.4) 08/20/19 05:02 [place] # 1.3 K/mm3 (0.0-0.8) H 08/20/19 05:02 Eos # 0.1 K/mm3 (0.0-0.4) 08/20/19 05:02 Baso # 0.0 K/mm3 (0.0-0.1) 08/20/19 05:02 Add Manual Diff Complete 08/19/19 05:15 Total Counted 100 08/19/19 05:15 Seg Neutrophils % 74.9 % (40.0-70.0) H 08/20/19 05:02 Seg Neuts % (Manual) 69.0 % (40.0-70.0) 08/19/19 05:15 Band Neutrophils % 0 % 08/19/19 05:15 Lymphocytes % (Manual) 17.0 % (13.4-35.0) 08/19/19 05:15 Reactive Lymphs % (Man) 1.0 % 08/19/19 05:15 Monocytes % (Manual) 12.0 % (0.0-7.3) H 08/19/19 05:15 Eosinophils % (Manual) 1.0 % (0.0-4.3) 08/19/19 05:15 Basophils % (Manual) 0 % (0.0-1.8) 08/19/19 05:15 Metamyelocytes % 0 % 08/19/19 05:15 Myelocytes % 0 % 08/19/19 05:15 Promyelocytes % 0 % 08/19/19 05:15 Blast Cells % 0 % 08/19/19 05:15 Nucleated RBC % Not Reportable 08/19/19 05:15 Seg Neutrophils # 7.8 K/mm3 (1.8-7.7) H 08/20/19 05:02 Seg Neutrophils # Man 5.9 K/mm3 (1.8-7.7) 08/19/19 05:15 Band Neutrophils # 0.0 K/mm3 08/19/19 05:15 Lymphocytes # (Manual) 1.4 K/mm3 (1.2-5.4) 08/19/19 05:15 Abs React Lymphs (Man) 0.1 K/mm3 08/19/19 05:15 Monocytes # (Manual) 1.0 K/mm3 (0.0-0.8) H 08/19/19 05:15 Eosinophils # (Manual) 0.1 K/mm3 (0.0-0.4) 08/19/19 05:15 Basophils # (Manual) 0.0 K/mm3 (0.0-0.1) 08/19/19 05:15 Metamyelocytes # 0.0 K/mm3 08/19/19 05:15 Myelocytes # 0.0 K/mm3 08/19/19 05:15 Promyelocytes # 0.0 K/mm3 08/19/19 05:15 Blast Cells # 0.0 K/mm3 08/19/19 05:15 WBC Morphology Not Reportable 08/19/19 05:15 Hypersegmented Neuts Not Reportable 08/19/19 05:15 Hyposegmented Neuts Not Reportable 08/19/19 05:15 Hypogranular Neuts Not Reportable 08/19/19 05:15 Smudge Cells Not Reportable 08/19/19 05:15 Toxic Granulation Not Reportable 08/19/19 05:15 Toxic Vacuolation Not Reportable 08/19/19 05:15 Dohle Bodies Not Reportable 08/19/19 05:15 Pelger-Huet Anomaly Not Reportable 08/19/19 05:15 Dalila Rods Not Reportable 08/19/19 05:15 Platelet Estimate Consistent w auto 08/19/19 05:15 Clumped Platelets Not Reportable 08/19/19 05:15 Plt Clumps, EDTA Not Reportable 08/19/19 05:15 Large Platelets Not Reportable 08/19/19 05:15 Giant Platelets Not Reportable 08/19/19 05:15 Platelet Satelliting Not Reportable 08/19/19 05:15 Plt Morphology Comment Not Reportable 08/19/19 05:15 RBC Morphology Not Reportable 08/19/19 05:15 Dimorphic RBCs Not Reportable 08/19/19 05:15 Polychromasia Not Reportable 08/19/19 05:15 Hypochromasia Not Reportable 08/19/19 05:15 Poikilocytosis Not Reportable 08/19/19 05:15 Anisocytosis 1+ 08/19/19 05:15 Microcytosis Not Reportable 08/19/19 05:15 Macrocytosis Not Reportable 08/19/19 05:15 Spherocytes Not Reportable 08/19/19 05:15 Pappenheimer Bodies Not Reportable 08/19/19 05:15 Sickle Cells Not Reportable 08/19/19 05:15 Target Cells Not Reportable 08/19/19 05:15 Tear Drop Cells Not Reportable 08/19/19 05:15 Ovalocytes Not Reportable 08/19/19 05:15 Helmet Cells Not Reportable 08/19/19 05:15 Sif[place]es-Sh[place]oni Bodies Not Reportable 08/19/19 05:15 [place] Rings Not Reportable 08/19/19 05:15 [place] Cells Not Reportable 08/19/19 05:15 Bite Cells Not Reportable 08/19/19 05:15 Crenated Cell Not Reportable 08/19/19 05:15 Elliptocytes Not Reportable 08/19/19 05:15 Acanthocytes (Spur) Not Reportable 08/19/19 05:15 Rouleaux Not Reportable 08/19/19 05:15 Hemoglobin C Crystals Not Reportable 08/19/19 05:15 Schistocytes Not Reportable 08/19/19 05:15 Malaria parasites Not Reportable 08/19/19 05:15 Magdiel Bodies Not Reportable 08/19/19 05:15 Hem Pathologist Commnt No 08/19/19 05:15 POC ABG pH 7.359 (7.35-7.45) 08/24/19 12:30 ABG pH 7.314 pH Units (7.350-7.450) L 08/21/19 04:40 POC ABG pCO2 54.7 (35-45) H 08/24/19 12:30 ABG pCO2 54.6 mm Hg 08/21/19 04:40 POC ABG pO2 63 (80-105) L 08/24/19 12:30 ABG pO2 78.3 mm Hg (80.0-90.0) L 08/21/19 04:40 POC ABG HCO3 30.8 (22-26 mml/L) 08/24/19 12:30 ABG HCO3 27.1 mmol/L (20.0-26.0) H 08/21/19 04:40 POC ABG Total CO2 32 (23-27mmol/L) 08/24/19 12:30 POC ABG O2 Sat 90 08/24/19 12:30 ABG O2 Saturation 94.8 % (95.0-99.0) L 08/21/19 04:40 ABG O2 Content 13.8 (0.0-44) 08/21/19 04:40 POC ABG Base Excess 5 ((-2) - (+3)mmol/L) 08/24/19 12:30 ABG Base Excess 0.3 mmol/L (-2.0-3.0) 08/21/19 04:40 ABG Hemoglobin 10.5 gm/dl (14.0-18.0) L 08/21/19 04:40 ABG Carboxyhemoglobin 1.4 % (0.0-5.0) 08/21/19 04:40 ABG Methemoglobin 0.5 % (0.0-1.5) 08/21/19 04:40 Oxyhemoglobin 93.0 % (95.0-99.0) L 08/21/19 04:40 FiO2 35 % 08/24/19 12:30 Sodium 142 mmol/L (137-145) 08/24/19 08:16 Potassium 3.8 mmol/L (3.6-5.0) 08/24/19 08:16 Chloride 103.9 mmol/L (98-107) 08/24/19 08:16 Carbon Dioxide 23 mmol/L (22-30) 08/24/19 08:16 Anion Gap 19 mmol/L 08/24/19 08:16 BUN 50 mg/dL (9-20) H 08/24/19 08:16 Creatinine 2.3 mg/dL (0.8-1.5) H 08/24/19 08:16 Estimated GFR 34 ml/min 08/24/19 08:16 BUN/Creatinine Ratio 22 % 08/24/19 08:16 Glucose 121 mg/dL (75-100) H 08/24/19 08:16 POC Glucose 115 (70-105) H 08/24/19 11:56 Hemoglobin A1c 6.0 % (4-6) 08/23/19 04:14 Lactic Acid 1.10 mmol/L (0.7-2.0) 08/15/19 23:36 Calcium 8.6 mg/dL (8.4-10.2) 08/24/19 08:16 Total Bilirubin 1.50 mg/dL (0.1-1.2) H 08/15/19 13:16 AST 82 units/L (5-40) H 08/15/19 13:16 ALT 46 units/L (7-56) 08/15/19 13:16 Alkaline Phosphatase 90 units/L (35-129) 08/15/19 13:16 Troponin T 0.018 ng/mL (0.00-0.029) 08/15/19 13:16 Total Protein 7.9 g/dL (6.3-8.2) 08/15/19 13:16 Albumin 3.6 g/dL (3.9-5) L 08/15/19 13:16 Albumin/Globulin Ratio 0.8 % 08/15/19 13:16 Urine Color [place] (Yellow) 08/16/19 14:40 Urine Turbidity Cloudy (Clear) 08/16/19 14:40 Urine pH 5.0 (5.0-7.0) 08/16/19 14:40 Ur Specific [place] 1.015 (1.003-1.030) 08/16/19 14:40 Urine Protein 100 mg/dl mg/dL (Negative) 08/16/19 14:40 Urine Glucose (UA) Neg mg/dL (Negative) 08/16/19 14:40 Urine Ketones Neg mg/dL (Negative) 08/16/19 14:40 Urine Blood Mod (Negative) 08/16/19 14:40 Urine Nitrite Neg (Negative) 08/16/19 14:40 Urine Bilirubin Neg (Negative) 08/16/19 14:40 Urine Urobilinogen 4.0 mg/dL (<2.0) 08/16/19 14:40 Ur Leukocyte Esterase Tr (Negative) 08/16/19 14:40 Urine WBC (Auto) 8.0 /HPF (0.0-6.0) H 08/16/19 14:40 Urine RBC (Auto) 1.0 /HPF (0.0-6.0) 08/16/19 14:40 U Epithel Cells (Auto) < 1.0 /HPF (0-13.0) 08/16/19 14:40 Random Vancomycin 7.9 ug/mL (0-40.0) 08/17/19 05:31 Active Medications - Current Medications Current Medications: Generic Name Dose Route Start Last Admin Trade Name Freq PRN Reason Stop Dose Admin Acetaminophen 650 mg 08/15/19 16:00 08/23/19 16:10 Tylenol PO 650 mg Q4H PRN Administration Pain MILD(1-3)/Fever >100.5/HARDY Albuterol 2.5 mg 08/15/19 16:00 Proventil IH Q4HRT PRN Shortness Of Breath Albuterol/Ipratropium 1 ampul 08/20/19 14:00 08/25/19 09:11 Duoneb *Not For Prn Use* IH 1 ampul TIDRT LEORA Administration Amlodipine Besylate 10 mg 08/19/19 14:00 08/24/19 09:42 Amlodipine PO 10 mg DAILY LEORA Administration Lipase/Protease/Amylase 1 each 08/17/19 14:53 Pancreaze 10,500 Unit FEEDTUBE PRN PRN For Clogged Feeding Tube Atorvastatin Calcium 40 mg 08/19/19 22:00 08/24/19 22:22 Lipitor PO 40 mg QHS LEORA Administration Famotidine 20 mg 08/19/19 10:00 08/24/19 09:42 Pepcid PO 20 mg QDAY LEORA Administration Heparin Sodium (Porcine) 5,000 unit 08/15/19 22:00 08/24/19 22:16 Heparin SUB-Q 5,000 unit Q12HR LEORA Administration Hydralazine HCl 10 mg 08/21/19 11:09 08/23/19 09:16 Apresoline IV 10 mg Q4HR PRN Administration SBP>160 or DBP>110 Hydralazine HCl 100 mg 08/23/19 14:00 08/25/19 07:27 Apresoline PO 100 mg Q8HR LEORA Administration Hydrophilic Ointment 1 applic 08/15/19 17:33 Vaseline Lip Therapy TP Q2HR PRN Dry Lips Methylprednisolone Sodium Succinate 40 mg 08/24/19 06:00 08/25/19 06:05 Solu-Medrol IV 40 mg Q8HR LEORA Administration Multi-Ingred Cream/Lotion/Oil/Oint 1 applic 08/15/19 17:33 Artificial Tears Ophth Oint OU Q4HR PRN Dry Eye(s) Ondansetron HCl 4 mg 08/15/19 16:00 Zofran IV Q8H PRN Nausea And Vomiting Prazosin HCl 1 mg 08/19/19 16:00 08/24/19 09:42 Prazosin PO 1 mg QDAY LEORA Administration Simple Syrup 15 ml 08/17/19 14:53 Simple Syrup FEEDTUBE PRN PRN Hypoglycemia Simple Syrup 30 ml 08/17/19 14:53 Simple Syrup FEEDTUBE PRN PRN Hypoglycemia Sodium Bicarbonate 325 mg 08/17/19 14:53 Sodium Bicarbonate FEEDTUBE PRN PRN For Clogged Feeding Tube Sodium Chloride 10 ml 08/15/19 22:00 08/24/19 22:10 Sodium Chloride Flush Syringe 10 Ml IV 10 ml BID LEORA Administration Sodium Chloride 10 ml 08/15/19 16:00 Sodium Chloride Flush Syringe 10 Ml IV PRN PRN LINE FLUSH Nutrition/Malnutrition Assess - Dietary Evaluation Nutrition/Malnutrition Findings: Nutrition Notes Start: 08/18/19 0 9:16 Freq: Status: Active Protocol: Document 08/21/19 10:37 LM (Rec: 08/21/19 10:44 LM -[email or web address]) Nutrition Notes Initial or Follow up Reassessment Current Diagnosis Acute Kidney Injury,Decubitus( Pressure Ulcer),Sepsis, Hypertension,Respiratory Failure Other Pertinent Diagnosis Influenza, nicotine/ETOH dependence Current Diet Nepro 1.8 with Carbsteady at 45 ml/hr Labs/Tests Na 147 BUN 30 Cr 2.4 Pertinent Medications Solumedrol Height 6 ft Weight 113.4 kg [place] Body Weight (kg) 80.90 BMI 33.9 Subjective/Other Information Nepro running at 45 ml/hr at time of visit. Pt's Na remains elevated but trending down. Will increase flush. Percent of energy/protein needs met: 100%/75% Burn Absent Trauma Absent Current % PO Negligible Minimum of two criteria No #1 Nutrition Diagnosis Inadequate oral intake Diagnosis Progress(for reassessment Continues documentation) Is patient on ventilator? Yes Is Patient Ambulatory and/or Out of Bed No REE-([place] [facility]-confined to bed) 2341.476 Kcal/Kg value to use for calculation 17 Approximate Energy Requirements Using 1928 kcal/Kg Calculation Used for Recommendations Kcal/kg Additional Notes Protein: 116-194g (1.2-2g/kg using AdjBW 97 kg) Fluid: 1 ml/kcal or per MD Nutrition Intervention Change Diet Order: TF Nutrition Support: Nepro 1.8 with Carbsteady at 45 ml/hr Flush 300 ml q4hr for hypernatremia Flush 200 ml q4hr once hypernatremia resolves Kcal 1,944 Protein (gm) 87 Fluid (mL) 785 Goal #1 TF tolerance Goal #2 Meet at least 75% of energy and protein needs Anticipated Discharge Needs: unable to determine at this time Follow-Up By: 08/28/19 Additional Comments F/U for TF tolerance/Na lab
--- NOTE | 2019-08-25 10:21 | Progress Note ---
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 Etiology complicated influenza with MRSA pneumonia. #Complicated influenza with pneumonia: improving. #Acute resp insufficiency: due to pneumonia ?COPD: now extubated. Still on the vent. #Mild elevated LFTs from sepsis #CLAUDETTE: renally adjusted abx. Creatinine still elevated #AMS: improved. Recs: completed linezolid, stable. Tani Hayden MD, FACP [facility] C: [phone] O: [phone] F: [phone] Subjective Date of service: 08/25/19 Principal diagnosis: respiratory failure Interval history: Afebrile. Extubated. On ventimask. Denies any complaints other than mild shortness of breath. Objective - Exam Narrative Exam: Constitutional: awake, alert, on ventimask Head, Ears, Nose: Normocephalic, atraumatic. External ears, nose normal Eyes: Conjunctivae/corneas clear. No icterus. No ptosis. Neck: supple, no meningeal signs Oral: no tursh Cardiovascular: S1 S2 + Respiratory: AE clear b/l GI: Soft, non tender, bowel sounds + Musculoskeletal: No pedal edema, no cyanosis. Skin: no rash, lesions Hem/Lymphatic: No palpable cervical or supraclavicular nodes. No lymphangitis Psych: no agitation Neurological: awake, alert, oriented x 3 - Constitutional Vitals: Vital Signs Temp Pulse Resp BP Pulse Ox 98.2 F 85 22 149/85 92 08/25/19 08:00 08/25/19 09:31 08/25/19 09:31 08/25/19 09:00 08/25/19 09:11 Temperature -Last 24 Hours Temperature 98.2 F Temperature 98.7 F Temperature 98.9 F Temperature 98.8 F Temperature 98.3 F - Labs CBC & Chem 7: 08/24/19 08:16 08/24/19 08:16 Labs: Abnormal lab results 08/24/19 08/24/19 Range/Units 11:56 12:30 POC ABG pCO2 54.7 H (35-45) POC ABG pO2 63 L (80-105) POC Glucose 115 H (70-105)
[2019-08-25] MEDS: FAMOTIDINE 20 MG TAB PO SCH (10:24)
[2019-08-25] MEDS: amLODIPine 10 MG TAB PO SCH (10:24)
[2019-08-25] MEDS: PRAZOSIN 1 MG CAP PO SCH (10:24)
[2019-08-25] MEDS: HEPARIN 5,000 UNIT/1 ML VIAL SUB-Q SCH ×2 (10:26→23:07)
[2019-08-26] MEDS: methylPREDNISolone Sod Succinate 40 MG/1 ML INJ IV SCH ×3 (06:50→22:44)
[2019-08-26] MEDS: hydrALAZINE 25 MG TAB PO SCH ×3 (06:50→22:43)
--- NOTE | 2019-08-26 08:25 | Progress Note ---
Subjective Principal diagnosis: respiratory failure Interval history: Patient was seen today for follow-up on multiple renal related issues Events of this hospitalization were noted atient has been transferred out of ICU He has much better understanding of his renal failure now admitted here with influenza and respiratory failure Interdisciplinary notes were also reviewed Vitals intake output medications were reviewed Past medical history: Reviewed Family, social history: Reviewed Allergies: Reviewed Physical examination General: No acute distress Vitals: Reviewed HEENT: Oral mucosa moist no icterus Neck: Supple no thyromegaly nodular mass or JVD Chest: few basilar crackles, occasional wheezes Heart: Regular rate and rhythm S1-S2 heard no S3-S4 Abdomen: Soft nontender no suprapubic masses no organomegaly Extremity: Dry skin less than 1+ edema Psych: No evidence of any agitation and aggression noted Derm: No petechial rash Assessment and plan: Acute kidney injury, From renal standpoint today. We do not have any new labs, creatinine was 2.3 as of August 24 Will order for a follow-up labs Hypernatremia needs follow-up on the sodium level Blood pressure currently well controlled Patient was extensively counseled and educated about the degree and severity of his renal failure and need to make an appointment for follow-up in the office Continue to monitor renal function avoid nephrotoxic medication diuretic JAMEY inhibitor as Hypernatremia appears to have improved was 147 4 days ago and currently at 142 Patient does need follow-up labs today Renal ultrasonogram: Unremarkable Patient needs to make a follow-up appointment office upon discharge please arrange Admitted with influenza on droplet precaution, respiratory failure which may have aggravated his renal failure Mild anemia: Hemoglobin currently stable at 11.5 due to acute illness, Acidosis continue to monitor and follow All renal related issues were discussed with the patient, patient does exhibit good understanding, lab results were also discussed with patient in simple [place] Prognosis: Guarded We'll continue to follow and make recommendation from renal standpoint Objective - Vital Signs Vital signs: Vital Signs - 12hr 08/25/19 08/25/19 08/25/19 23:07 23:16 23:55 Temperature 98.5 F Pulse Rate 74 90 107 H Pulse Rate [ Right Dorsalis Pedis] Respiratory 20 28 H Rate Blood Pressure 158/47 158/85 Blood Pressure [Right] O2 Sat by Pulse 90 100 Oximetry 08/26/19 08/26/19 08/26/19 00:00 00:04 03:21 Temperature 98.2 F 98.1 F Pulse Rate 91 H 91 H 81 Pulse Rate [ 86 Right Dorsalis Pedis] Respiratory 16 22 Rate Blood Pressure 169/92 168/92 Blood Pressure [Right] O2 Sat by Pulse 93 93 94 Oximetry 08/26/19 08/26/19 08/26/19 04:00 05:28 06:50 Temperature 98.1 F Pulse Rate 81 81 81 Pulse Rate [ 82 Right Dorsalis Pedis] Respiratory Rate Blood Pressure 118/67 Blood Pressure 118/67 [Right] O2 Sat by Pulse 95 95 Oximetry - Lab 08/24/19 08:16 08/24/19 08:16 Most recent lab results ABG pH 7.314 pH Units (7.350-7.450) L 08/21/19 04:40 ABG pCO2 54.6 mm Hg 08/21/19 04:40 ABG pO2 78.3 mm Hg (80.0-90.0) L 08/21/19 04:40 ABG HCO3 27.1 mmol/L (20.0-26.0) H 08/21/19 04:40 ABG O2 Saturation 94.8 % (95.0-99.0) L 08/21/19 04:40 Calcium 8.6 mg/dL (8.4-10.2) 08/24/19 08:16 Medications & Allergies - Medications Allergies/Adverse Reactions: Allergies No Known Allergies Allergy (Unverified 08/15/19 13:08) Home Medications: Home Medications Medication Instructions Recorded Confirmed Last Taken Type Rosuvastatin Calcium 20 mg PO QDAY 08/16/19 08/16/19 08/14/19 History Terazosin HCl 2 mg PO QDAY 08/16/19 08/16/19 08/14/19 History Trandolapril/Verapamil HCl [[place]ark[place] 4 mg PO QDAY 08/16/19 08/16/19 08/14/19 History ER 4-240 mg] Triamter/Hctz 37.5-25 mg 1 tab PO QDAY 08/16/19 08/16/19 08/14/19 History [Maxzide-25] Verapamil ER [Calan Sr] 180 mg PO BID 08/16/19 08/16/19 08/14/19 History amLODIPine [Norvasc] 10 mg PO DAILY 08/16/19 08/16/1908/14/19 History Active Medications: Generic Name Dose Route Start Last Admin Trade Name Freq PRN Reason Stop Dose Admin Acetaminophen 650 mg 08/15/19 16:00 08/23/19 16:10 Tylenol PO 650 mg Q4H PRN Administration Pain MILD(1-3)/Fever >100.5/HARDY Albuterol 2.5 mg 08/15/19 16:00 Proventil IH Q4HRT PRN Shortness Of Breath Albuterol/Ipratropium 1 ampul 08/20/19 14:00 08/25/19 19:36 Duoneb *Not For Prn Use* IH 1 ampul TIDRT LEORA Administration Amlodipine Besylate 10 mg 08/19/19 14:00 08/25/19 10:24 Amlodipine PO 10 mg DAILY LEORA Administration Lipase/Protease/Amylase 1 each 08/17/19 14:53 Pancreazdenise [place] 10,500 Unit FEEDTUBE PRN PRN For Clogged Feeding Tube Atorvastatin Calcium 40 mg 08/19/19 22:00 08/25/19 23:07 Lipitor PO 40 mg QHS LEORA Administration Famotidine 20 mg 08/19/19 10:00 08/25/19 10:24 Pepcid PO 20 mg QDAY LEORA Administration Heparin Sodium (Porcine) 5,000 unit 08/15/19 22:00 08/25/19 23:07 Heparin SUB-Q 5,000 unit Q12HR LEORA Administration Hydralazine HCl 10 mg 08/21/19 11:09 08/23/19 09:16 Apresoline IV 10 mg Q4HR PRN Administration SBP>160 or DBP>110 Hydralazine HCl 100 mg 08/23/19 14:00 08/26/19 06:50 Apresoline PO 100 mg Q8HR LEORA Administration Hydrophilic Ointment 1 applic 08/15/19 17:33 Vaseline Lip Therapy TP Q2HR PRN Dry Lips Methylprednisolone Sodium Succinate 40 mg 08/24/19 06:00 08/26/19 06:50 Solu-Medrol IV 40 mg Q8HR LEORA Administration Multi-Ingred Cream/Lotion/Oil/Oint 1 applic 08/15/19 17:33 Artificial Tears Ophth Oint OU Q4HR PRN Dry Eye(s) Ondansetron HCl 4 mg 08/15/19 16:00 Zofran IV Q8H PRN Nausea And Vomiting Prazosin HCl 1 mg 08/19/19 16:00 08/25/19 10:24 Prazosin PO 1 mg QDAY LEORA Administration Simple Syrup 15 ml 08/17/19 14:53 Simple Syrup FEEDTUBE PRN PRN Hypoglycemia Simple Syrup 30 ml 08/17/19 14:53 Simple Syrup FEEDTUBE PRN PRN Hypoglycemia Sodium Bicarbonate 325 mg 08/17/19 14:53 Sodium Bicarbonate FEEDTUBE PRN PRN For Clogged Feeding Tube Sodium Chloride 10 ml 08/15/19 22:00 08/25/19 23:08 Sodium Chloride Flush Syringe 10 Ml IV 10 ml BID LEORA Administration Sodium Chloride 10 ml 08/15/19 16:00 08/26/19 06:51 Sodium Chloride Flush Syringe 10 Ml IV 10 ml PRN PRN Administration LINE FLUSH
[2019-08-26] MEDS: IPRATROPIUM/ALBUTEROL SULFATE 3 ML AMPUL.NEB IH SCH ×3 (08:56→21:24)
[2019-08-26] MEDS: HEPARIN 5,000 UNIT/1 ML VIAL SUB-Q SCH ×2 (10:00→22:44)
[2019-08-26] MEDS: amLODIPine 10 MG TAB PO SCH (10:01)
[2019-08-26] MEDS: FAMOTIDINE 20 MG TAB PO SCH (10:01)
[2019-08-26] MEDS: PRAZOSIN 1 MG CAP PO SCH (10:01)
[2019-08-26 10:13] LABS: Hematocrit 34.6 % (35.5-45.6); Hemoglobin 11.4 gm/dl (11.8-15.2); Mean Corpuscular HGB Conc 33 % (32-34); Mean Corpuscular Volume 87 fl (84-94); Platelet Count 248 K/mm3 (140-440); Red Blood Count 3.99 M/mm3 (3.65-5.03); Red Cell Distribution Width 16.1 % (13.2-15.2)
[2019-08-26 10:39] LABS: Calcium 8.4 mg/dL (8.4-10.2)
--- NOTE | 2019-08-26 11:12 | Progress Note ---
Assessment and Plan Assessment and plan: Sepsis. Completed antibiotics. Etiology complicated influenza with MRSA pneumonia. Acute on chronic hypoxemic respiratory failure. extubated 08/23/2019, however patient with continuous BiPAP. Patient likely has COPD given his smoking history. Follow-up chest x-ray in a.m. Hypertensive urgency Improved Continue hydralazine to 100mg tid Influenza. Completed Tamiflu. Resp isolation Bilateral pneumonia. As above. Resolving. Acute kidney injury. Etiology secondary to vasomotor nephropathy and AT N/sepsis. Continue IV fluid hydration. Renal ultrasound within normal limits. Nephrology following. Toxic metabolic encephalopathy. Improved. Continue to treat underlying causes. Tobacco use disorder. Patient counseled on cessatiion History Interval history: No new issues overnight. Hospitalist Physical - Constitutional Vitals: Temp Pulse Resp BP Pulse Ox 98.1 F 87 20 147/77 92 08/26/19 05:28 08/26/19 10:01 08/26/19 08:56 08/26/19 10:01 08/26/19 09:15 General appearance: Present: no acute distress, other (Patient orally intubated on mechanical ventilation) - EENT Eyes: Present: PERRL, EOM intact ENT: hearing intact, clear oral mucosa, dentition normal - Neck Neck: Present: supple, normal ROM - Respiratory Respiratory effort: normal Respiratory: bilateral: CTA - Cardiovascular Rhythm: regular Heart Sounds: Present: S1 & S2. Absent: gallop, rub - Extremities Extremities: no ischemia, No edema, Full ROM - Abdominal General gastrointestinal: soft, non-tender, non-distended, normal bowel sounds - Integumentary Integumentary: Present: clear, warm, dry - Neurologic Neurologic: CNII-XII intact, moves all extremities Results - Labs CBC & Chem 7: 08/26/19 08:23 08/26/19 08:23 Labs: Laboratory Last Values WBC 13.2 K/mm3 (4.5-11.0) H 08/26/19 08:23 RBC 3.99 M/mm3 (3.65-5.03) 08/26/19 08:23 Hgb 11.4 gm/dl (11.8-15.2) L 08/26/19 08:23 Hct 34.6 % (35.5-45.6) L 08/26/19 08:23 MCV 87 fl (84-94) 08/26/19 08:23 MCH 29 pg (28-32) 08/26/19 08:23 MCHC 33 % (32-34) 08/26/19 08:23 RDW 16.1 % (13.2-15.2) H 08/26/19 08:23 Plt Count 248 K/mm3 (140-440) 08/26/19 08:23 Lymph % (Auto) 11.2 % (13.4-35.0) L 08/20/19 05:02 [place] % (Auto) 12.3 % (0.0-7.3) H 08/20/19 05:02 Eos % (Auto) 1.2 % (0.0-4.3) 08/20/19 05:02 Baso % (Auto) 0.4 % (0.0-1.8) 08/20/19 05:02 Lymph # 1.2 K/mm3 (1.2-5.4) 08/20/19 05:02 [place] # 1.3 K/mm3 (0.0-0.8) H 08/20/19 05:02 Eos # 0.1 K/mm3 (0.0-0.4) 08/20/19 05:02 Baso # 0.0 K/mm3 (0.0-0.1) 08/20/19 05:02 Add Manual Diff Complete 08/19/19 05:15 Total Counted 100 08/19/19 05:15 Seg Neutrophils % 74.9 % (40.0-70.0) H 08/20/19 05:02 Seg Neuts % (Manual) 69.0 % (40.0-70.0) 08/19/19 05:15 Band Neutrophils % 0 % 08/19/19 05:15 Lymphocytes % (Manual) 17.0 % (13.4-35.0) 08/19/19 05:15 Reactive Lymphs % (Man) 1.0 % 08/19/19 05:15 Monocytes % (Manual) 12.0 % (0.0-7.3) H 08/19/19 05:15 Eosinophils % (Manual) 1.0 % (0.0-4.3) 08/19/19 05:15 Basophils % (Manual) 0 % (0.0-1.8) 08/19/19 05:15 Metamyelocytes % 0 % 08/19/19 05:15 Myelocytes % 0 % 08/19/19 05:15 Promyelocytes % 0 % 08/19/19 05:15 Blast Cells % 0 % 08/19/19 05:15 Nucleated RBC % Not Reportable 08/19/19 05:15 Seg Neutrophils # 7.8 K/mm3 (1.8-7.7) H 08/20/19 05:02 Seg Neutrophils # Man 5.9 K/mm3 (1.8-7.7) 08/19/19 05:15 Band Neutrophils # 0.0 K/mm3 08/19/19 05:15 Lymphocytes # (Manual) 1.4 K/mm3 (1.2-5.4) 08/19/19 05:15 Abs React Lymphs (Man) 0.1 K/mm3 08/19/19 05:15 Monocytes # (Manual) 1.0 K/mm3 (0.0-0.8) H 08/19/19 05:15 Eosinophils # (Manual) 0.1 K/mm3 (0.0-0.4) 08/19/19 05:15 Basophils # (Manual) 0.0 K/mm3 (0.0-0.1) 08/19/19 05:15 Metamyelocytes # 0.0 K/mm3 08/19/19 05:15 Myelocytes # 0.0 K/mm3 08/19/19 05:15 Promyelocytes # 0.0 K/mm3 08/19/19 05:15 Blast Cells # 0.0 K/mm3 08/19/19 05:15 WBC Morphology Not Reportable 08/19/19 05:15 Hypersegmented Neuts Not Reportable 08/19/19 05:15 Hyposegmented Neuts Not Reportable 08/19/19 05:15 Hypogranular Neuts Not Reportable 08/19/19 05:15 Smudge Cells Not Reportable 08/19/19 05:15 Toxic Granulation Not Reportable 08/19/19 05:15 Toxic Vacuolation Not Reportable 08/19/19 05:15 Dohle Bodies Not Reportable 08/19/19 05:15 Pelger-Huet Anomaly Not Reportable 08/19/19 05:15 Dalila Rods Not Reportable 08/19/19 05:15 Platelet Estimate Consistent w auto 08/19/19 05:15 Clumped Platelets Not Reportable 08/19/19 05:15 Plt Clumps, EDTA Not Reportable 08/19/19 05:15 Large Platelets Not Reportable 08/19/19 05:15 Giant Platelets Not Reportable 08/19/19 05:15 Platelet Satelliting Not Reportable 08/19/19 05:15 Plt Morphology Comment Not Reportable 08/19/19 05:15 RBC Morphology Not Reportable 08/19/19 05:15 Dimorphic RBCs Not Reportable 08/19/19 05:15 Polychromasia Not Reportable 08/19/19 05:15 Hypochromasia Not Reportable 08/19/19 05:15 Poikilocytosis Not Reportable 08/19/19 05:15 Anisocytosis 1+ 08/19/19 05:15 Microcytosis Not Reportable 08/19/19 05:15 Macrocytosis Not Reportable 08/19/19 05:15 Spherocytes Not Reportable 08/19/19 05:15 Pappenheimer Bodies Not Reportable 08/19/19 05:15 Sickle Cells Not Reportable 08/19/19 05:15 Target Cells Not Reportable 08/19/19 05:15 Tear Drop Cells Not Reportable 08/19/19 05:15 Ovalocytes Not Reportable 08/19/19 05:15 Helmet Cells Not Reportable 08/19/19 05:15 [place] Bodies Not Reportable 08/19/19 05:15 [place] Rings Not Reportable 08/19/19 05:15 [place] Cells Not Reportable 08/19/19 05:15 Bite Cells Not Reportable 08/19/19 05:15 Crenated Cell Not Reportable 08/19/19 05:15 Elliptocytes Not Reportable 08/19/19 05:15 Acanthocytes (Spur) Not Reportable 08/19/19 05:15 Rouleaux Not Reportable 08/19/19 05:15 Hemoglobin C Crystals Not Reportable 08/19/19 05:15 Schistocytes Not Reportable 08/19/19 05:15 Malaria parasites Not Reportable 08/19/19 05:15 Magdiel Bodies Not Reportable 08/19/19 05:15 Hem Pathologist Commnt No 08/19/19 05:15 POC ABG pH 7.359 (7.35-7.45) 08/24/19 12:30 ABG pH 7.314 pH Units (7.350-7.450) L 08/21/19 04:40 POC ABG pCO2 54.7 (35-45) H 08/24/19 12:30 ABG pCO2 54.6 mm Hg 08/21/19 04:40 POC ABG pO2 63 (80-105) L 08/24/19 12:30 ABG pO2 78.3 mm Hg (80.0-90.0) L 08/21/19 04:40 POC ABG HCO3 30.8 (22-26 mml/L) 08/24/19 12:30 ABG HCO3 27.1 mmol/L (20.0-26.0) H 08/21/19 04:40 POC ABG Total CO2 32 (23-27mmol/L) 08/24/19 12:30 POC ABG O2 Sat 90 08/24/19 12:30 ABG O2 Saturation 94.8 % (95.0-99.0) L 08/21/19 04:40 ABG O2 Content 13.8 (0.0-44) 08/21/19 04:40 POC ABG Base Excess 5 ((-2) - (+3)mmol/L) 08/24/19 12:30 ABG Base Excess 0.3 mmol/L (-2.0-3.0) 08/21/19 04:40 ABG Hemoglobin 10.5 gm/dl (14.0-18.0) L 08/21/19 04:40 ABG Carboxyhemoglobin 1.4 % (0.0-5.0) 08/21/19 04:40 ABG Methemoglobin 0.5 % (0.0-1.5) 08/21/19 04:40 Oxyhemoglobin 93.0 % (95.0-99.0) L 08/21/19 04:40 FiO2 35 % 08/24/19 12:30 Sodium 148 mmol/L (137-145) H 08/26/19 08:23 Potassium 4.1 mmol/L (3.6-5.0) 08/26/19 08:23 Chloride 108.1 mmol/L (98-107) H 08/26/19 08:23 Carbon Dioxide 25 mmol/L (22-30) 08/26/19 08:23 Anion Gap 19 mmol/L 08/26/19 08:23 BUN 46 mg/dL (9-20) H 08/26/19 08:23 Creatinine 2.0 mg/dL (0.8-1.5) H 08/26/19 08:23 Estimated GFR 41 ml/min 08/26/19 08:23 BUN/Creatinine Ratio 23 % 08/26/19 08:23 Glucose 112 mg/dL (75-100) H 08/26/19 08:23 POC Glucose 160 (70-105) H 08/26/19 10:18 Hemoglobin A1c 6.0 % (4-6) 08/23/19 04:14 Lactic Acid 1.10 mmol/L (0.7-2.0) 08/15/19 23:36 Calcium 8.4 mg/dL (8.4-10.2) 08/26/19 08:23 Total Bilirubin 1.50 mg/dL (0.1-1.2) H 08/15/19 13:16 AST 82 units/L (5-40) H 08/15/19 13:16 ALT 46 units/L (7-56) 08/15/19 13:16 Alkaline Phosphatase 90 units/L (35-129) 08/15/19 13:16 Troponin T 0.018 ng/mL (0.00-0.029) 08/15/19 13:16 Total Protein 7.9 g/dL (6.3-8.2) 08/15/19 13:16 Albumin 3.6 g/dL (3.9-5) L 08/15/19 13:16 Albumin/Globulin Ratio 0.8 % 08/15/19 13:16 Urine Color [place] (Yellow) 08/16/19 14:40 Urine Turbidity Cloudy (Clear) 08/16/19 14:40 Urine pH 5.0 (5.0-7.0) 08/16/19 14:40 Ur Specific [place] 1.015 (1.003-1.030) 08/16/19 14:40 Urine Protein 100 mg/dl mg/dL (Negative) 08/16/19 14:40 Urine Glucose (UA) Neg mg/dL (Negative) 08/16/19 14:40 Urine Ketones Neg mg/dL (Negative) 08/16/19 14:40 Urine Blood Mod (Negative) 08/16/19 14:40 Urine Nitrite Neg (Negative) 08/16/19 14:40 Urine Bilirubin Neg (Negative) 08/16/19 14:40 Urine Urobilinogen 4.0 mg/dL (<2.0) 08/16/19 14:40 Ur Leukocyte Esterase Tr (Negative) 08/16/19 14:40 Urine WBC (Auto) 8.0 /HPF (0.0-6.0) H 08/16/19 14:40 Urine RBC (Auto) 1.0 /HPF (0.0-6.0) 08/16/19 14:40 U Epithel Cells (Auto) < 1.0 /HPF (0-13.0) 08/16/19 14:40 Random Vancomycin 7.9 ug/mL (0-40.0) 08/17/19 05:31 Active Medications - Current Medications Current Medications: Generic Name Dose Route Start Last Admin Trade Name Freq PRN Reason Stop Dose Admin Acetaminophen 650 mg 08/15/19 16:00 08/23/19 16:10 Tylenol PO 650 mg Q4H PRN Administration Pain MILD(1-3)/Fever >100.5/HARDY Albuterol 2.5 mg 08/15/19 16:00 Proventil IH Q4HRT PRN Shortness Of Breath Albuterol/Ipratropium 1 ampul 08/20/19 14:00 08/26/19 08:56 Duoneb *Not For Prn Use* IH 1 ampul TIDRT LEORA Administration Amlodipine Besylate 10 mg 08/19/19 14:00 08/26/19 10:01 Amlodipine PO 10 mg DAILY LEORA Administration Lipase/Protease/Amylase 1 each 08/17/19 14:53 Pancrejonas [place] 10,500 Unit FEEDTUBE PRN PRN For Clogged Feeding Tube Atorvastatin Calcium 40 mg 08/19/19 22:00 08/25/19 23:07 Lipitor PO 40 mg QHS LEORA Administration Famotidine 20 mg 08/19/19 10:00 08/26/19 10:01 Pepcid PO 20 mg QDAY LEORA Administration Heparin Sodium (Porcine) 5,000 unit 08/15/19 22:00 08/26/19 10:00 Heparin SUB-Q 5,000 unit Q12HR LEORA Administration Hydralazine HCl 10 mg 08/21/19 11:09 08/23/19 09:16 Apresoline IV 10 mg Q4HR PRN Administration SBP>160 or DBP>110 Hydralazine HCl 100 mg 08/23/19 14:00 08/26/19 06:50 Apresoline PO 100 mg Q8HR LEORA Administration Hydrophilic Ointment 1 applic 08/15/19 17:33 Vaseline Lip Therapy TP Q2HR PRN Dry Lips Methylprednisolone Sodium Succinate 40 mg 08/24/19 06:00 08/26/19 06:50 Solu-Medrol IV 40 mg Q8HR LEORA Administration Multi-Ingred Cream/Lotion/Oil/Oint 1 applic 08/15/19 17:33 Artificial Tears Ophth Oint OU Q4HR PRN Dry Eye(s) Ondansetron HCl 4 mg 08/15/19 16:00 Zofran IV Q8H PRN Nausea And Vomiting Prazosin HCl 1 mg 08/19/19 16:00 08/26/19 10:01 Prazosin PO 1 mg QDAY LEORA Administration Simple Syrup 15 ml 08/17/19 14:53 Simple Syrup FEEDTUBE PRN PRN Hypoglycemia Simple Syrup 30 ml 08/17/19 14:53 Simple Syrup FEEDTUBE PRN PRN Hypoglycemia Sodium Bicarbonate 325 mg 08/17/19 14:53 Sodium Bicarbonate FEEDTUBE PRN PRN For Clogged Feeding Tube Sodium Chloride 10 ml 08/15/19 22:00 08/26/19 10:02 Sodium Chloride Flush Syringe 10 Ml IV 10 ml BID LEORA Administration Sodium Chloride 10 ml 08/15/19 16:00 08/26/19 06:51 Sodium Chloride Flush Syringe 10 Ml IV 10 ml PRN PRN Administration LINE FLUSH Nutrition/Malnutrition Assess - Dietary Evaluation Nutrition/Malnutrition Findings: Nutrition Notes Start: 08/18/19 09:16 Freq: Status: Active Protocol: Document 08/21/19 10:37 LM (Rec: 08/21/19 10:44 LM [email or web address]) Nutrition Notes Initial or Follow up Reassessment Current Diagnosis Acute Kidney Injury,Decubitus( Pressure Ulcer),Sepsis, Hypertension,Respiratory Failure Other Pertinent Diagnosis Influenza, nicotine/ETOH dependence Current Diet Nepro 1.8 with Carbsteady at 45 ml/hr Labs/Tests Na 147 BUN 30 Cr 2.4 Pertinent Medications Solumedrol Height 6 ft Weight 113.4 kg [place] Body Weight (kg) 80.90 BMI 33.9 Subjective/Other Information Nepro running at 45 ml/hr at time of visit. Pt's Na remains elevated but trending down. Will increase flush. Percent of energy/protein needs met: 100%/75% Burn Absent Trauma Absent Current % PO Negligible Minimum of two criteria No #1 Nutrition Diagnosis Inadequate oral intake Diagnosis Progress(for reassessment Continues documentation) Is patient on ventilator? Yes Is Patient Ambulatory and/or Out of Bed No REE-([place]-confined to bed) 2341.476 Kcal/Kg value to use for calculation 17 Approximate Energy Requirements Using 1928 kcal/Kg Calculation Used for Recommendations Kcal/kg Additional Notes Protein: 116-194g (1.2-2g/kg using AdjBW 97 kg) Fluid: 1 ml/kcal or per MD Nutrition Intervention Change Diet Order: TF Nutrition Support: Nepro 1.8 with Carbsteady at 45 ml/hr Flush 300 ml q4hr for hypernatremia Flush 200 ml q4hr once hypernatremia resolves Kcal 1,944 Protein (gm) 87 Fluid (mL) 785 Goal #1 TF tolerance Goal #2 Meet at least 75% of energy and protein needs Anticipated Discharge Needs: unable to determine at this time Follow-Up By: 08/28/19 Additional Comments F/U for TF tolerance/Na lab
--- NOTE | 2019-08-26 13:10 | Progress Note ---
Assessment and Plan Patient 68yo male w/ history of hypertension presenting with acute hypoxic respiratory failure on MVS, bilateral alveolar infiltrates, morbid obesity, influenza infection, and CLAUDETTE. Patient alert and sitting in bed. He is currently on 5 liters of oxygen with O2 saturation 92%. Denies being on home oxygen. CPAP on standby. Quit smoking cigarettes 30 years ago with a 20 pack years. 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 - Patient Problems (1) Acute on chronic respiratory failure with hypoxemia Current Visit: Yes Status: Acute Plan to address problem: on 5 liters oxygen via nasal canula. current O2 Saturation 92% Albuterol/atrovent aerosol treatments q 6 hours. Continue I/V solumedrol. Continue S/C Heparin. Continue famotidine. (2) Acute renal failure Current Visit: Yes Status: Acute Qualifiers: Acute renal failure type: with acute tubular necrosis Qualified Code(s): N17.0 - Acute kidney failure with tubular necrosis Plan to address problem: Management as per nephrology. (3) Encephalopathy Current Visit: Yes Status: Acute Plan to address problem: Management as per primary care and neurology. (4) Nicotine dependence Current Visit: Yes Status: Acute Qualifiers: Nicotine product type: cigarettes Plan to address problem: Patient said stopped smoking 30 years ago. Subjective Date of service: 08/26/19 Principal diagnosis: respiratory failure Interval history: Patient 68yo male w/ history of hypertension presenting with acute hypoxic respiratory failure on MVS, bilateral alveolar infiltrates, morbid obesity, influenza infection, and CLAUDETTE. Patient alert and sitting in bed. He is currently on 5 liters of oxygen with O2 saturation 92%. Denies being on home oxygen. CPAP on standby. Quit smoking cigarettes 30 years ago with a 20 pack years. 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 Objective Vital Signs - 12hr 08/26/19 08/26/19 08/26/19 03:21 04:00 05:28 Temperature 98.1 F 98.1 F Pulse Rate 81 81 81 Pulse Rate [ Anterior Bilateral] Pulse Rate [ 82 Right Dorsalis Pedis] Respiratory 22 Rate Respiratory Rate [Anterior Bilateral] Blood Pressure 168/92 Blood Pressure 118/67 [Right] O2 Sat by Pulse 94 95 95 Oximetry 08/26/19 08/26/19 08/26/19 06:50 08:56 09:15 Temperature Pulse Rate 81 Pulse Rate [ 85 Anterior Bilateral] Pulse Rate [ Right Dorsalis Pedis] Respiratory Rate Respiratory 20 Rate [Anterior Bilateral] Blood Pressure 118/67 Blood Pressure [Right] O2 Sat by Pulse 92 Oximetry 08/26/19 10:01 Temperature Pulse Rate 87 Pulse Rate [ Anterior Bilateral] Pulse Rate [ Right Dorsalis Pedis] Respiratory Rate Respiratory Rate [Anterior Bilateral] Blood Pressure 147/77 Blood Pressure [Right] O2 Sat by Pulse Oximetry Constitutional: no acute distress, alert Eyes: non-icteric ENT: oropharynx moist Neck: supple, no lymphadenopathy, no JVD Effort: normal Ascultation: Bilateral: diminished breath sounds, rhonchi Cardiovascular: regular rate and rhythm, other (S1,S2) Gastrointestinal: normoactive bowel sounds, soft, non-tender, other (distended) Integumentary: normal Extremities: no cyanosis, no edema, pink and warm, pulses normal Neurologic: non-focal exam, pupils equal and round, motor strength normal and Psychiatric: mood appropriate, affect normal CBC and BMP: 08/26/19 08:23 08/26/19 08:23 ABG, PT/INR, D-dimer: ABG POC ABG pH 7.359 (7.35-7.45) 08/24/19 12:30 ABG pH 7.314 pH Units (7.350-7.450) L 08/21/19 04:40 POC ABG pCO2 54.7 (35-45) H 08/24/19 12:30 ABG pCO2 54.6 mm Hg 08/21/19 04:40 POC ABG pO2 63 (80-105) L 08/24/19 12:30 ABG pO2 78.3 mm Hg (80.0-90.0) L 08/21/19 04:40 POC ABG HCO3 30.8 (22-26 mml/L) 08/24/19 12:30 POC ABG Total CO2 32 (23-27mmol/L) 08/24/19 12:30 POC ABG O2 Sat 90 08/24/19 12:30 ABG O2 Saturation 94.8 % (95.0-99.0) L 08/21/19 04:40 Abnormal lab findings: Abnormal Labs 08/15/19 08/15/19 08/15/19 13:16 13:16 17:16 WBC 14.7 H Hgb Hct RDW 17.3 H Plt Count Lymph % (Auto) Morgan % (Auto) 11.3 H Lymph # Morgan # 1.7 H Seg Neutrophils % 71.9 H Seg Neuts % (Manual) Lymphocytes % (Manual) Monocytes % (Manual) Nucleated RBC % Seg Neutrophils # 10.6 H Monocytes # (Manual) POC ABG pH 7.182 L ABG pH POC ABG pCO2 > 70 H POC ABG pO2 ABG pO2 ABG HCO3 ABG O2 Saturation ABG Hemoglobin Oxyhemoglobin Sodium Chloride Carbon Dioxide BUN 28 H Creatinine 1.9 H Glucose 133 H POC Glucose Calcium Total Bilirubin 1.50 H AST 82 H Albumin 3.6 L Urine WBC (Auto) 08/15/19 08/16/19 08/16/19 18:17 03:41 03:41 WBC Hgb 11.6 L Hct 34.3 L D RDW 17.4 H Plt Count 119 L Lymph % (Auto) 11.4 L Morgan % (Auto) 11.6 H Lymph # 1.0 L Morgan # 1.1 H Seg Neutrophils % 76.9 H Seg Neuts % (Manual) Lymphocytes % (Manual) Monocytes % (Manual) Nucleated RBC % Seg Neutrophils # Monocytes # (Manual) POC ABG pH 7.280 L ABG pH POC ABG pCO2 64.7 H POC ABG pO2 64 L ABG pO2 ABG HCO3 ABG O2 Saturation ABG Hemoglobin Oxyhemoglobin Sodium Chloride 107.1 H Carbon Dioxide BUN 34 H Creatinine 2.4 H Glucose 138 H POC Glucose Calcium 7.2 L D Total Bilirubin AST Albumin Urine WBC (Auto) 08/16/19 08/16/19 08/16/19 06:27 11:19 14:40 WBC Hgb Hct RDW Plt Count Lymph % (Auto) Morgan % (Auto) Lymph # Morgan # Seg Neutrophils % Seg Neuts % (Manual) Lymphocytes % (Manual) Monocytes % (Manual) Nucleated RBC % Seg Neutrophils # Monocytes # (Manual) POC ABG pH 7.336 L ABG pH POC ABG pCO2 47.9 H 48.7 H POC ABG pO2 69 L 130 H ABG pO2 ABG HCO3 ABG O2 Saturation ABG Hemoglobin Oxyhemoglobin Sodium Chloride Carbon Dioxide BUN Creatinine Glucose POC Glucose Calcium Total Bilirubin AST Albumin Urine WBC (Auto) 8.0 H 08/17/19 08/17/19 08/17/19 05:31 05:31 06:30 WBC Hgb 11.5 L Hct 34.3 L RDW 17.3 H Plt Count Lymph % (Auto) Morgan % (Auto) 13.5 H Lymph # Morgan # 1.3 H Seg Neutrophils % 70.7 H Seg Neuts % (Manual) Lymphocytes % (Manual) Monocytes % (Manual) Nucleated RBC % Seg Neutrophils # Monocytes # (Manual) POC ABG pH ABG pH POC ABG pCO2 POC ABG pO2 ABG pO2 116.6 H ABG HCO3 ABG O2 Saturation ABG Hemoglobin 13.9 L Oxyhemoglobin Sodium 146 H Chloride 112.1 H Carbon Dioxide BUN 47 H Creatinine 3.2 H Glucose POC Glucose Calcium 7.7 L Total Bilirubin AST Albumin Urine WBC (Auto) 08/17/19 08/18/19 08/18/19 20:31 04:20 04:20 WBC Hgb 11.4 L Hct 34.3 L RDW 17.3 H Plt Count 137 L Lymph % (Auto) Morgan % (Auto) Lymph # Morgan # Seg Neutrophils % Seg Neuts % (Manual) 79.0 H Lymphocytes % (Manual) 13.0 L Monocytes % (Manual) 8.0 H Nucleated RBC % 1.0 H Seg Neutrophils # Monocytes # (Manual) POC ABG pH ABG pH POC ABG pCO2 POC ABG pO2 78 L ABG pO2 ABG HCO3 ABG O2 Saturation ABG Hemoglobin Oxyhemoglobin Sodium 148 H Chloride 112.3 H Carbon Dioxide 20 L BUN 40 H Creatinine 3.1 H Glucose 109 H POC Glucose Calcium 7.9 L Total Bilirubin AST Albumin Urine WBC (Auto) 08/18/19 08/18/19 08/19/19 06:45 23:19 04:30 WBC Hgb Hct RDW Plt Count Lymph % (Auto) Morgan % (Auto) Lymph # Morgan # Seg Neutrophils % Seg Neuts % (Manual) Lymphocytes % (Manual) Monocytes % (Manual) Nucleated RBC % Seg Neutrophils # Monocytes # (Manual) POC ABG pH ABG pH POC ABG pCO2 45.2 H POC ABG pO2 55 L ABG pO2 72.2 L ABG HCO3 26.1 H ABG O2 Saturation 94.4 L ABG Hemoglobin 11.5 L Oxyhemoglobin 92.6 L Sodium Chloride Carbon Dioxide BUN Creatinine Glucose POC Glucose 158 H Calcium Total Bilirubin AST Albumin Urine WBC (Auto) 08/19/19 08/19/1919 05:15 05:15 05:28 WBC Hgb 11.3 L Hct 34.4 L RDW 17.1 H Plt Count Lymph % (Auto) Morgan % (Auto) Lymph # Morgan # Seg Neutrophils % Seg Neuts % (Manual) Lymphocytes % (Manual) Monocytes % (Manual) 12.0 H Nucleated RBC % Seg Neutrophils # Monocytes # (Manual) 1.0 H POC ABG pH ABG pH POC ABG pCO2 POC ABG pO2 ABG pO2 ABG HCO3 ABG O2 Saturation ABG Hemoglobin Oxyhemoglobin Sodium 149 H Chloride 115.0 H Carbon Dioxide 21 L BUN 32 H Creatinine 2.7 H Glucose 112 H POC Glucose 113 H Calcium 7.8 L Total Bilirubin AST Albumin Urine WBC (Auto) 08/19/19 08/19/19 08/19/19 13:00 17:46 22:45 WBC Hgb Hct RDW Plt Count Lymph % (Auto) Morgan % (Auto) Lymph # Morgan # Seg Neutrophils % Seg Neuts % (Manual) Lymphocytes % (Manual) Monocytes % (Manual) Nucleated RBC % Seg Neutrophils # Monocytes # (Manual) POC ABG pH ABG pH POC ABG pCO2 POC ABG pO2 ABG pO2 ABG HCO3 ABG O2 Saturation ABG Hemoglobin Oxyhemoglobin Sodium Chloride Carbon Dioxide BUN Creatinine Glucose POC Glucose 126 H 112 H 172 H Calcium Total Bilirubin AST Albumin Urine WBC (Auto) 08/20/19 08/20/19 08/20/19 04:00 05:02 05:02 WBC Hgb 11.1 L Hct 33.4 L RDW 17.1 H Plt Count Lymph % (Auto) 11.2 L Morgan % (Auto) 12.3 H Lymph # Morgan # 1.3 H Seg Neutrophils % 74.9 H Seg Neuts % (Manual) Lymphocytes % (Manual) Monocytes % (Manual) Nucleated RBC % Seg Neutrophils # 7.8 H Monocytes # (Manual) POC ABG pH ABG pH POC ABG pCO2 45.1 H POC ABG pO2 70 L ABG pO2 ABG HCO3 ABG O2 Saturation ABG Hemoglobin Oxyhemoglobin Sodium 146 H Chloride 111.7 H Carbon Dioxide BUN 27 H Creatinine 2.4 H Glucose 123 H POC Glucose Calcium 8.1 L Total Bilirubin AST Albumin Urine WBC (Auto) 08/20/19 08/20/19 08/20/19 05:51 11:39 18:26 WBC Hgb Hct RDW Plt Count Lymph % (Auto) Morgan % (Auto) Lymph # Morgan # Seg Neutrophils % Seg Neuts % (Manual) Lymphocytes % (Manual) Monocytes % (Manual) Nucleated RBC % Seg Neutrophils # Monocytes # (Manual) POC ABG pH ABG pH POC ABG pCO2 POC ABG pO2 ABG pO2 ABG HCO3 ABG O2 Saturation ABG Hemoglobin Oxyhemoglobin Sodium Chloride Carbon Dioxide BUN Creatinine Glucose POC Glucose 108 H 116 H 137 H Calcium Total Bilirubin AST Albumin Urine WBC (Auto) 08/21/19 08/21/19 08/21/19 04:40 05:25 05:56 WBC Hgb Hct RDW Plt Count Lymph % (Auto) Morgan % (Auto) Lymph # Morgan # Seg Neutrophils % Seg Neuts % (Manual) Lymphocytes % (Manual) Monocytes % (Manual) Nucleated RBC % Seg Neutrophils # Monocytes # (Manual) POC ABG pH ABG pH 7.314 L POC ABG pCO2 POC ABG pO2 ABG pO2 78.3 L ABG HCO3 27.1 H ABG O2 Saturation 94.8 L ABG Hemoglobin 10.5 L Oxyhemoglobin 93.0 L Sodium 147 H Chloride 110.7 H Carbon Dioxide BUN 30 H Creatinine 2.4 H Glucose 144 H POC Glucose 129 H Calcium 8.0 L Total Bilirubin AST Albumin Urine WBC (Auto) 08/21/19 08/22/19 08/22/19 12:39 00:08 03:45 WBC Hgb Hct RDW Plt Count Lymph % (Auto) Morgan % (Auto) Lymph # Morgan # Seg Neutrophils % Seg Neuts % (Manual) Lymphocytes % (Manual) Monocytes % (Manual) Nucleated RBC % Seg Neutrophils # Monocytes # (Manual) POC ABG pH ABG pH POC ABG pCO2 POC ABG pO2 ABG pO2 ABG HCO3 ABG O2 Saturation ABG Hemoglobin Oxyhemoglobin Sodium 147 H Chloride 110.6 H Carbon Dioxide BUN 36 H Creatinine 2.4 H Glucose 195 H POC Glucose 193 H 173 H Calcium 8.1 L Total Bilirubin AST Albumin Urine WBC (Auto) 08/22/19 08/22/19 08/22/19 05:19 05:41 11:20 WBC Hgb Hct RDW Plt Count Lymph % (Auto) Morgan % (Auto) Lymph # Morgan # Seg Neutrophils % Seg Neuts % (Manual) Lymphocytes % (Manual) Monocytes % (Manual) Nucleated RBC % Seg Neutrophils # Monocytes # (Manual) POC ABG pH 7.328 L ABG pH POC ABG pCO2 53.0 H 49.7 H POC ABG pO2 75 L 62 L ABG pO2 ABG HCO3 ABG O2 Saturation ABG Hemoglobin Oxyhemoglobin Sodium Chloride Carbon Dioxide BUN Creatinine Glucose POC Glucose 176 H Calcium Total Bilirubin AST Albumin Urine WBC (Auto) 08/22/19 08/22/19 08/23/19 11:22 16:58 04:14 WBC Hgb Hct RDW Plt Count Lymph % (Auto) Morgan % (Auto) Lymph # Morgan # Seg Neutrophils % Seg Neuts % (Manual) Lymphocytes % (Manual) Monocytes % (Manual) Nucleated RBC % Seg Neutrophils # Monocytes # (Manual) POC ABG pH ABG pH POC ABG pCO2 POC ABG pO2 ABG pO2 ABG HCO3 ABG O2 Saturation ABG Hemoglobin Oxyhemoglobin Sodium Chloride Carbon Dioxide BUN 41 H Creatinine 2.3 H Glucose 174 H POC Glucose 217 H 174 H Calcium Total Bilirubin AST Albumin Urine WBC (Auto) 08/23/19 08/23/19 08/23/19 04:14 05:01 12:05 WBC 14.7 H Hgb 11.5 L Hct 35.2 L RDW 16.5 H Plt Count Lymph % (Auto) Morgan % (Auto) Lymph # Morgan # Seg Neutrophils % Seg Neuts % (Manual) Lymphocytes % (Manual) Monocytes % (Manual) Nucleated RBC % Seg Neutrophils # Monocytes # (Manual) POC ABG pH ABG pH POC ABG pCO2 45.4 H POC ABG pO2 ABG pO2 ABG HCO3 ABG O2 Saturation ABG Hemoglobin Oxyhemoglobin Sodium Chloride Carbon Dioxide BUN Creatinine Glucose POC Glucose 159 H Calcium Total Bilirubin AST Albumin Urine WBC (Auto) 08/23/19 08/23/19 08/24/19 12:53 18:51 06:33 WBC Hgb Hct RDW Plt Count Lymph % (Auto) Morgan % (Auto) Lymph # Morgan # Seg Neutrophils % Seg Neuts % (Manual) Lymphocytes % (Manual) Monocytes % (Manual) Nucleated RBC % Seg Neutrophils # Monocytes # (Manual) POC ABG pH ABG pH POC ABG pCO2 POC ABG pO2 ABG pO2 ABG HCO3 ABG O2 Saturation ABG Hemoglobin Oxyhemoglobin Sodium Chloride Carbon Dioxide BUN Creatinine Glucose POC Glucose 191 H 142 H 118 H Calcium Total Bilirubin AST Albumin Urine WBC (Auto) 08/24/19 08/24/19 08/24/19 08:16 08:16 11:56 WBC 13.3 H Hgb 11.5 L Hct 34.1 L RDW 16.6 H Plt Count Lymph % (Auto) Morgan % (Auto) Lymph # Morgan # Seg Neutrophils % Seg Neuts % (Manual) Lymphocytes % (Manual) Monocytes % (Manual) Nucleated RBC % Seg Neutrophils # Monocytes # (Manual) POC ABG pH ABG pH POC ABG pCO2 POC ABG pO2 ABG pO2 ABG HCO3 ABG O2 Saturation ABG Hemoglobin Oxyhemoglobin Sodium Chloride Carbon Dioxide BUN 50 H Creatinine 2.3 H Glucose 121 H POC Glucose 115 H Calcium Total Bilirubin AST Albumin Urine WBC (Auto) 08/24/19 08/25/19 08/26/19 12:30 12:34 08:23 WBC 13.2 H Hgb 11.4 L Hct 34.6 L RDW 16.1 H Plt Count Lymph % (Auto) Morgan % (Auto) Lymph # Morgan # Seg Neutrophils % Seg Neuts % (Manual) Lymphocytes % (Manual) Monocytes % (Manual) Nucleated RBC % Seg Neutrophils # Monocytes # (Manual) POC ABG pH ABG pH POC ABG pCO2 54.7 H POC ABG pO2 63 L ABG pO2 ABG HCO3 ABG O2 Saturation ABG Hemoglobin Oxyhemoglobin Sodium Chloride Carbon Dioxide BUN Creatinine Glucose POC Glucose 167 H Calcium Total Bilirubin AST Albumin Urine WBC (Auto) 08/26/19 08/26/19 08/26/19 08:23 10:18 12:24 WBC Hgb Hct RDW Plt Count Lymph % (Auto) Morgan % (Auto) Lymph # Morgan # Seg Neutrophils % Seg Neuts % (Manual) Lymphocytes % (Manual) Monocytes % (Manual) Nucleated RBC % Seg Neutrophils # Monocytes # (Manual) POC ABG pH ABG pH POC ABG pCO2 POC ABG pO2 ABG pO2 ABG HCO3 ABG O2 Saturation ABG Hemoglobin Oxyhemoglobin Sodium 148 H Chloride 108.1 H Carbon Dioxide BUN 46 H Creatinine 2.0 H Glucose 112 H POC Glucose 160 H 139 H Calcium Total Bilirubin AST Albumin Urine WBC (Auto) Chest x-ray: report reviewed (Borderline cardiomegaly, mild pulmonary congestion and small left pleural effusion.), image reviewed
--- NOTE | 2019-08-26 13:44 | Progress Note ---
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 Etiology complicated influenza with MRSA pneumonia. Completed Rx. #Complicated influenza with pneumonia: completed Rx. #Acute resp insufficiency: due to pneumonia ?COPD: now extubated and weaned to nasal cannula. #Mild elevated LFTs from sepsis #CLAUDETTE: renally adjusted abx. Creatinine still elevated #AMS: improved. Recs: doing well, off antibiotics. ID will sign off. Please call with questions. Tani Hayden MD, FACP [facility] ([facility] C: [phone] O: [phone] F: [phone] Subjective Date of service: 08/26/19 Principal diagnosis: respiratory failure Interval history: On the medical floor now, out of ICU. Feels well. Denies any complaints. No fever. Remains on oxygen. Objective - Exam Narrative Exam: Constitutional: awake, alert, on nasal cannula Head, Ears, Nose: Normocephalic, atraumatic. External ears, nose normal Eyes: Conjunctivae/corneas clear. No icterus. No ptosis. Neck: supple, no meningeal signs Oral: no tursh Cardiovascular: S1 S2 + Respiratory: AE clear b/l GI: Soft, non tender, bowel sounds + Musculoskeletal: No pedal edema, no cyanosis. Skin: no rash, lesions Hem/Lymphatic: No palpable cervical or supraclavicular nodes. No lymphangitis Psych: mood ok, affect normal Neurological: awake, alert, oriented x 3 - Constitutional Vitals: Vital Signs Temp Pulse Resp BP Pulse Ox 98.1 F 87 20 147/77 92 08/26/19 05:28 08/26/19 10:01 08/26/19 08:56 08/26/19 10:01 08/26/19 09:15 Temperature -Last 24 Hours Temperature 98.1 F Temperature 98.1 F Temperature 98.2 F Temperature 98.5 F Temperature 98.8 F Temperature 98.9 F - Labs CBC & Chem 7: 08/26/19 08:23 08/26/19 08:23 Labs: Abnormal lab results 08/26/19 08/26/19 08/26/19 Range/Units 08:23 08:23 10:18 WBC 13.2 H (4.5-11.0) K/mm3 Hgb 11.4 L (11.8-15.2) gm/dl Hct 34.6 L (35.5-45.6) % RDW 16.1 H (13.2-15.2) % Sodium 148 H (137-145) mmol/L Chloride 108.1 H (98-107) mmol/L BUN 46 H (9-20) mg/dL Creatinine 2.0 H (0.8-1.5) mg/dL Glucose 112 H (75-100) mg/dL POC Glucose 160 H (70-105) 08/26/19 Range/Units 12:24 WBC (4.5-11.0) K/mm3 Hgb (11.8-15.2) gm/dl Hct (35.5-45.6) % RDW (13.2-15.2) % Sodium (137-145) mmol/L Chloride (98-107) mmol/L BUN (9-20) mg/dL Creatinine (0.8-1.5) mg/dL Glucose (75-100) mg/dL POC Glucose 139 H (70-105)
[2019-08-27] MEDS: hydrALAZINE 25 MG TAB PO SCH ×3 (06:07→21:11)
[2019-08-27] MEDS: methylPREDNISolone Sod Succinate 40 MG/1 ML INJ IV SCH ×3 (06:09→21:13)
--- NOTE | 2019-08-27 07:59 | XRay Report ---
CHEST 1 VIEW INDICATION: PNA. COMPARISON: 08/24/2019 FINDINGS: Support devices: None. Heart: Upper limits of normal in size. Pulmonary vasculature: Pulmonary vessels are more distinct than on the last exam. Lungs/Pleura: Decreased bilateral interstitial opacities. No pulmonary consolidation. Improved aerati on of the lung bases. Additional findings: None. IMPRESSION: 1. Interval improvement with near complete resolution of interstitial pulmonary edema. Signer Name: Pa Dang MD Signed: 08/27/2019 7:54 AM Workstation Name: [id number]
[2019-08-27] MEDS: IPRATROPIUM/ALBUTEROL SULFATE 3 ML AMPUL.NEB IH SCH ×3 (08:11→21:12)
[2019-08-27 08:25] LABS: Basophils % (Auto) 0.1 % (0.0-1.8); Hematocrit 34.3 % (35.5-45.6); Hemoglobin 11.4 gm/dl (11.8-15.2); Lymphocytes # (Auto) 0.7 K/mm3 (1.2-5.4); Lymphocytes % (Auto) 5.7 % (13.4-35.0); Mean Corpuscular HGB Conc 33 % (32-34); Mean Corpuscular Volume 87 fl (84-94); Monocytes # (Auto) 0.7 K/mm3 (0.0-0.8); Monocytes % (Auto) 5.8 % (0.0-7.3); Platelet Count 245 K/mm3 (140-440); Red Blood Count 3.95 M/mm3 (3.65-5.03); Red Cell Distribution Width 16.1 % (13.2-15.2)
--- NOTE | 2019-08-27 08:39 | Progress Note ---
Subjective Principal diagnosis: respiratory failure Interval history: Patient was seen today for follow-up on multiple renal related issues resting comfortably in bed no acute distress Interdisciplinary notes were also reviewed Vitals intake output medications were reviewed Past medical history: Reviewed Family, social history: Reviewed Allergies: Reviewed Physical examination General: No acute distress Vitals: Reviewed HEENT: Oral mucosa moist no icterus Neck: Supple no thyromegaly nodular mass or JVD Chest: few basilar crackles, occasional wheezes Heart: Regular rate and rhythm S1-S2 heard no S3-S4 Abdomen: Soft nontender no suprapubic masses no organomegaly Extremity: Dry skin less than 1+ edema Psych: No evidence of any agitation and aggression noted Derm: No petechial rash Assessment and plan: Acute kidney injury,From renal standpoint patient's last creatinine is 2.0 sodium 148 potassium 4.1 bicarbonate is 25, there is slow improvement in renal function over time,long-term renal prognosis remains guarded at this time Hypernatremia: Patient will need a follow-up on the labs Anemia: Hemoglobin is currently stable at 11.4 Blood pressure has been stable 147/78, Better controlled Patient was extensively counseled and educated about the degree and severity of his renal failure and need to make an appointment for follow-up in the office Continue to monitor renal function avoid nephrotoxic medication diuretic JAMEY inhibitor as Renal ultrasonogram: Unremarkable Admitted with influenza on droplet precaution, respiratory failure which may have aggravated his renal failure Acidosis continue to monitor and follow All renal related issues were discussed with the patient, We'll continue to follow and make recommendation from renal standpoint Objective - Vital Signs Vital signs: Vital Signs - 12hr 08/26/19 08/26/19 08/26/19 21:17 21:26 22:43 Temperature Pulse Rate 100 H 88 Pulse Rate [ 88 Anterior Bilateral] Respiratory 25 H Rate Respiratory 17 Rate [Anterior Bilateral] Blood Pressure 153/80 O2 Sat by Pulse 94 100 Oximetry 08/26/19 08/27/19 08/27/19 23:15 00:00 03:24 Temperature 98.5 F 98.4 F Pulse Rate 85 81 71 Pulse Rate [ Anterior Bilateral] Respiratory 20 18 Rate Respiratory Rate [Anterior Bilateral] Blood Pressure 147/74 145/85 O2 Sat by Pulse 94 96 93 Oximetry 08/27/19 08/27/19 08/27/19 04:00 06:07 08:08 Temperature 98.3 F Pulse Rate 72 75 88 Pulse Rate [ Anterior Bilateral] Respiratory 18 Rate Respiratory Rate [Anterior Bilateral] Blood Pressure 145/85 147/78 O2 Sat by Pulse 91 Oximetry 08/27/19 08/27/19 08:13 08:18 Temperature Pulse Rate Pulse Rate [ 84 Anterior Bilateral] Respiratory Rate Respiratory 18 Rate [Anterior Bilateral] Blood Pressure O2 Sat by Pulse 92 94 Oximetry - Lab 08/27/19 07:45 08/26/19 08:23 Most recent lab results ABG pH 7.314 pH Units (7.350-7.450) L 08/21/19 04:40 ABG pCO2 54.6 mm Hg 08/21/19 04:40 ABG pO2 78.3 mm Hg (80.0-90.0) L 08/21/19 04:40 ABG HCO3 27.1 mmol/L (20.0-26.0) H 08/21/19 04:40 ABG O2 Saturation 94.8 % (95.0-99.0) L 08/21/19 04:40 Calcium 8.4 mg/dL (8.4-10.2) 08/26/19 08:23 Medications & Allergies - Medications Allergies/Adverse Reactions: Allergies No Known Allergies Allergy (Unverified 08/15/19 13:08) Home Medications: Home Medications Medication Instructions Recorded Confirmed Last Taken Type Rosuvastatin Calcium 20 mg PO QDAY 08/16/19 08/16/19 08/14/19 History Terazosin HCl 2 mg PO QDAY 08/16/19 08/16/19 08/14/19 History Trandolapril/Verapamil HCl [Tarka 4 mg PO QDAY 08/16/19 08/16/19 08/14/19 History ER 4-240 mg] Triamter/Hctz 37.5-25 mg 1 tab PO QDAY 08/16/19 08/16/19 08/14/19 History [Maxzide-25] Verapamil ER [Calan Sr] 180 mg PO BID 08/16/19 08/16/19 08/14/19 History amLODIPine [Norvasc] 10 mg PO DAILY 08/16/19 08/16/19 08/14/19 History Active Medications: Generic Name Dose Route Start Last Admin Trade Name Freq PRN Reason Stop Dose Admin Acetaminophen 650 mg 08/15/19 16:00 08/23/19 16:10 Tylenol PO 650 mg Q4H PRN Administration Pain MILD(1-3)/Fever >100.5/HARDY Albuterol 2.5 mg 08/15/19 16:00 Proventil IH Q4HRT PRN Shortness Of Breath Albuterol/Ipratropium 1 ampul 08/20/19 14:00 08/27/19 08:11 Duoneb *Not For Prn Use* IH 1 ampul TIDRT LEORA Administration Amlodipine Besylate 10 mg 08/19/19 14:00 08/26/19 10:01 Amlodipine PO 10 mg DAILY LEORA Administration Lipase/Protease/Amylase 1 each 08/17/19 14:53 Pancreaze 10,500 Unit FEEDTUBE PRN PRN For Clogged Feeding Tube Atorvastatin Calcium 40 mg 08/19/19 22:00 08/26/19 22:44 Lipitor PO 40 mg QHS LEORA Administration Famotidine 20 mg 08/19/19 10:00 08/26/19 10:01 Pepcid PO 20 mg QDAY LEORA Administration Heparin Sodium (Porcine) 5,000 unit 08/15/19 22:00 08/26/19 22:44 Heparin SUB-Q 5,000 unit Q12HR LEORA Administration Hydralazine HCl 10 mg 08/21/19 11:09 08/23/19 09:16 Apresoline IV 10 mg Q4HR PRN Administration SBP>160 or DBP>110 Hydralazine HCl 100 mg 08/23/19 14:00 08/27/19 06:07 Apresoline PO 100 mg Q8HR LEORA Administration Hydrophilic Ointment 1 applic 08/15/19 17:33 Vaseline Lip Therapy TP Q2HR PRN Dry Lips Methylprednisolone Sodium Succinate 40 mg 08/24/19 06:00 08/27/19 06:09 Solu-Medrol IV 40 mg Q8HR LEORA Administration Multi-Ingred Cream/Lotion/Oil/Oint 1 applic 08/15/19 17:33 Artificial Tears Ophth Oint OU Q4HR PRN Dry Eye(s) Ondansetron HCl 4 mg 08/15/19 16:00 Zofran IV Q8H PRN Nausea And Vomiting Prazosin HCl 1 mg 08/19/19 16:00 08/26/19 10:01 Prazosin PO 1 mg QDAY LEORA Administration Simple Syrup 15 ml 08/17/19 14:53 Simple Syrup FEEDTUBE PRN PRN Hypoglycemia Simple Syrup 30 ml 08/17/19 14:53 Simple Syrup FEEDTUBE PRN PRN Hypoglycemia Sodium Bicarbonate 325 mg 08/17/19 14:53 Sodium Bicarbonate FEEDTUBE PRN PRN For Clogged Feeding Tube Sodium Chloride 10 ml 08/15/19 22:00 08/26/19 22:44 Sodium Chloride Flush Syringe 10 Ml IV 10 ml BID LEORA Administration Sodium Chloride 10 ml 08/15/19 16:00 08/26/19 06:51 Sodium Chloride Flush Syringe 10 Ml IV 10 ml PRN PRN Administration LINE FLUSH
[2019-08-27] MEDS: HEPARIN 5,000 UNIT/1 ML VIAL SUB-Q SCH ×2 (10:17→21:13)
[2019-08-27] MEDS: FAMOTIDINE 20 MG TAB PO SCH (10:18)
[2019-08-27] MEDS: amLODIPine 10 MG TAB PO SCH (10:18)
[2019-08-27] MEDS: PRAZOSIN 1 MG CAP PO SCH (10:19)
--- NOTE | 2019-08-27 11:51 | Progress Note ---
Assessment and Plan Assessment and plan: Sepsis. Completed antibiotics. Etiology complicated influenza with MRSA pneumonia. Acute on chronic hypoxemic respiratory failure. extubated 08/23/2019, however patient with continuous BiPAP. Patient likely has COPD given his smoking history. Follow-up chest x-ray in a.m. Hypertensive urgency Improved Continue hydralazine to 100mg tid Influenza. Completed Tamiflu. Resp isolation Bilateral pneumonia. As above. Resolving. Acute kidney injury. Etiology secondary to vasomotor nephropathy and AT N/sepsis. Continue IV fluid hydration. Renal ultrasound within normal limits. Nephrology following. Toxic metabolic encephalopathy. Improved. Continue to treat underlying causes. Tobacco use disorder. Patient counseled on cessatiion History Interval history: No new issues overnight. Hospitalist Physical - Constitutional Vitals: Temp Pulse Resp BP Pulse Ox 98.3 F 94 H 18 155/80 94 08/27/19 08:08 08/27/19 10:19 08/27/19 08:13 08/27/19 10:19 08/27/19 08:18 General appearance: Present: no acute distress, other (Patient orally intubated on mechanical ventilation) - EENT Eyes: Present: PERRL, EOM intact ENT: hearing intact, clear oral mucosa, dentition normal - Neck Neck: Present: supple, normal ROM - Respiratory Respiratory effort: normal Respiratory: bilateral: CTA - Cardiovascular Rhythm: regular Heart Sounds: Present: S1 & S2. Absent: gallop, rub - Extremities Extremities: no ischemia, No edema, Full ROM - Abdominal General gastrointestinal: soft, non-tender, non-distended, normal bowel sounds - Integumentary Integumentary: Present: clear, warm, dry - Neurologic Neurologic: CNII-XII intact, moves all extremities Results - Labs CBC & Chem 7: 08/27/19 07:45 08/27/19 07:45 Labs: Laboratory Last Values WBC 11.6 K/mm3 (4.5-11.0) H 08/27/19 07:45 RBC 3.95 M/mm3 (3.65-5.03) 08/27/19 07:45 Hgb 11.4 gm/dl (11.8-15.2) L 08/27/19 07:45 Hct 34.3 % (35.5-45.6) L 08/27/19 07:45 MCV 87 fl (84-94) 08/27/19 07:45 MCH 29 pg (28-32) 08/27/19 07:45 MCHC 33 % (32-34) 08/27/19 07:45 RDW 16.1 % (13.2-15.2) H 08/27/19 07:45 Plt Count 245 K/mm3 (140-440) 08/27/19 07:45 Lymph % (Auto) 5.7 % (13.4-35.0) L 08/27/19 07:45 [place] % (Auto) 5.8 % (0.0-7.3) 08/27/19 07:45 Eos % (Auto) 0.0 % (0.0-4.3) 08/27/19 07:45 Baso % (Auto) 0.1 % (0.0-1.8) 08/27/19 07:45 Lymph # 0.7 K/mm3 (1.2-5.4) L 08/27/19 07:45 [place] # 0.7 K/mm3 (0.0-0.8) 08/27/19 07:45 Eos # 0.0 K/mm3 (0.0-0.4) 08/27/19 07:45 Baso # 0.0 K/mm3 (0.0-0.1) 08/27/19 07:45 Add Manual Diff Complete 08/19/19 05:15 Total Counted 100 08/19/19 05:15 Seg Neutrophils % 88.4 % (40.0-70.0) H 08/27/19 07:45 Seg Neuts % (Manual) 69.0 % (40.0-70.0) 08/19/19 05:15 Band Neutrophils % 0 % 08/19/19 05:15 Lymphocytes % (Manual) 17.0 % (13.4-35.0) 08/19/19 05:15 Reactive Lymphs % (Man) 1.0 % 08/19/19 05:15 Monocytes % (Manual) 12.0 % (0.0-7.3) H 08/19/19 05:15 Eosinophils % (Manual) 1.0 % (0.0-4.3) 08/19/19 05:15 Basophils % (Manual) 0 % (0.0-1.8) 08/19/19 05:15 Metamyelocytes % 0 % 08/19/19 05:15 Myelocytes % 0 % 08/19/19 05:15 Promyelocytes % 0 % 08/19/19 05:15 Blast Cells % 0 % 08/19/19 05:15 Nucleated RBC % Not Reportable 08/19/19 05:15 Seg Neutrophils # 10.2 K/mm3 (1.8-7.7) H 08/27/19 07:45 Seg Neutrophils # Man 5.9 K/mm3 (1.8-7.7) 08/19/19 05:15 Band Neutrophils # 0.0 K/mm3 08/19/19 05:15 Lymphocytes # (Manual) 1.4 K/mm3 (1.2-5.4) 08/19/19 05:15 Abs React Lymphs (Man) 0.1 K/mm3 08/19/19 05:15 Monocytes # (Manual) 1.0 K/mm3 (0.0-0.8) H 08/19/19 05:15 Eosinophils # (Manual) 0.1 K/mm3 (0.0-0.4) 08/19/19 05:15 Basophils # (Manual) 0.0 K/mm3 (0.0-0.1) 08/19/19 05:15 Metamyelocytes # 0.0 K/mm3 08/19/19 05:15 Myelocytes # 0.0 K/mm3 08/19/19 05:15 Promyelocytes # 0.0 K/mm3 08/19/19 05:15 Blast Cells # 0.0 K/mm3 08/19/19 05:15 WBC Morphology Not Reportable 08/19/19 05:15 Hypersegmented Neuts Not Reportable 08/19/19 05:15 Hyposegmented Neuts Not Reportable 08/19/19 05:15 Hypogranular Neuts Not Reportable 08/19/19 05:15 Smudge Cells Not Reportable 08/19/19 05:15 Toxic Granulation Not Reportable 08/19/19 05:15 Toxic Vacuolation Not Reportable 08/19/19 05:15 Dohle Bodies Not Reportable 08/19/19 05:15 Pelger-Huet Anomaly Not Reportable 08/19/19 05:15 Dalila Rods Not Reportable 08/19/19 05:15 Platelet Estimate Consistent w auto 08/19/19 05:15 Clumped Platelets Not Reportable 08/19/19 05:15 Plt Clumps, EDTA Not Reportable 08/19/19 05:15 Large Platelets Not Reportable 08/19/19 05:15 Giant Platelets Not Reportable 08/19/19 05:15 Platelet Satelliting Not Reportable 08/19/19 05:15 Plt Morphology Comment Not Reportable 08/19/19 05:15 RBC Morphology Not Reportable 08/19/19 05:15 Dimorphic RBCs Not Reportable 08/19/19 05:15 Polychromasia Not Reportable 08/19/19 05:15 Hypochromasia Not Reportable 08/19/19 05:15 Poikilocytosis Not Reportable 08/19/19 05:15 Anisocytosis 1+ 08/19/19 05:15 Microcytosis Not Reportable 08/19/19 05:15 Macrocytosis Not Reportable 08/19/19 05:15 Spherocytes Not Reportable 08/19/19 05:15 Pappenheimer Bodies Not Reportable 08/19/19 05:15 Sickle Cells Not Reportable 08/19/19 05:15 Target Cells Not Reportable 08/19/19 05:15 Tear Drop Cells Not Reportable 08/19/19 05:15 Ovalocytes Not Reportable 08/19/19 05:15 Helmet Cells Not Reportable 08/19/19 05:15 Sifuentes-Wing Bodies Not Reportable 08/19/19 05:15 Bimble Rings Not Reportable 08/19/19 05:15 Alana Cells Not Reportable 08/19/19 05:15 Bite Cells Not Reportable 08/19/19 05:15 Crenated Cell Not Reportable 08/19/19 05:15 Elliptocytes Not Reportable 08/19/19 05:15 Acanthocytes (Spur) Not Reportable 08/19/19 05:15 Rouleaux Not Reportable 08/19/19 05:15 Hemoglobin C Crystals Not Reportable 08/19/19 05:15 Schistocytes Not Reportable 08/19/19 05:15 Malaria parasites Not Reportable 08/19/19 05:15 Magdiel Bodies Not Reportable 08/19/19 05:15 Hem Pathologist Commnt No 08/19/19 05:15 POC ABG pH 7.359 (7.35-7.45) 08/24/19 12:30 ABG pH 7.314 pH Units (7.350-7.450) L 08/21/19 04:40 POC ABG pCO2 54.7 (35-45) H 08/24/19 12:30 ABG pCO2 54.6 mm Hg 08/21/19 04:40 POC ABG pO2 63 (80-105) L 08/24/19 12:30 ABG pO2 78.3 mm Hg (80.0-90.0) L 08/21/19 04:40 POC ABG HCO3 30.8 (22-26 mml/L) 08/24/19 12:30 ABG HCO3 27.1 mmol/L (20.0-26.0) H 08/21/19 04:40 POC ABG Total CO2 32 (23-27mmol/L) 08/24/19 12:30 POC ABG O2 Sat 90 08/24/19 12:30 ABG O2 Saturation 94.8 % (95.0-99.0) L 08/21/19 04:40 ABG O2 Content 13.8 (0.0-44) 08/21/19 04:40 POC ABG Base Excess 5 ((-2) - (+3)mmol/L) 08/24/19 12:30 ABG Base Excess 0.3 mmol/L (-2.0-3.0) 08/21/19 04:40 ABG Hemoglobin 10.5 gm/dl (14.0-18.0) L 08/21/19 04:40 ABG Carboxyhemoglobin 1.4 % (0.0-5.0) 08/21/19 04:40 ABG Methemoglobin 0.5 % (0.0-1.5) 08/21/19 04:40 Oxyhemoglobin 93.0 % (95.0-99.0) L 08/21/19 04:40 FiO2 35 % 08/24/19 12:30 Sodium 142 mmol/L (137-145) 08/27/19 07:45 Potassium 4.1 mmol/L (3.6-5.0) 08/27/19 07:45 Chloride 103.9 mmol/L (98-107) 08/27/19 07:45 Carbon Dioxide 24 mmol/L (22-30) 08/27/19 07:45 Anion Gap 18 mmol/L 08/27/19 07:45 BUN 44 mg/dL (9-20) H 08/27/19 07:45 Creatinine 2.0 mg/dL (0.8-1.5) H 08/27/19 07:45 Estimated GFR 41 ml/min 08/27/19 07:45 BUN/Creatinine Ratio 22 % 08/27/19 07:45 Glucose 143 mg/dL (75-100) H 08/27/19 07:45 POC Glucose 188 (70-105) H 08/26/19 17:45 Hemoglobin A1c 6.0 % (4-6) 08/23/19 04:14 Lactic Acid 1.10 mmol/L (0.7-2.0) 08/15/19 23:36 Calcium 8.0 mg/dL (8.4-10.2) L 08/27/19 07:45 Total Bilirubin 1.50 mg/dL (0.1-1.2) H 08/15/19 13:16 AST 82 units/L (5-40) H 08/15/19 13:16 ALT 46 units/L (7-56) 08/15/19 13:16 Alkaline Phosphatase 90 units/L (35-129) 08/15/19 13:16 Troponin T 0.018 ng/mL (0.00-0.029) 08/15/19 13:16 Total Protein 7.9 g/dL (6.3-8.2) 08/15/19 13:16 Albumin 3.6 g/dL (3.9-5) L 08/15/19 13:16 Albumin/Globulin Ratio 0.8 % 08/15/19 13:16 Urine Color [place] (Yellow) 08/16/19 14:40 Urine Turbidity Cloudy (Clear) 08/16/19 14:40 Urine pH 5.0 (5.0-7.0) 08/16/19 14:40 Ur Specific [place] 1.015 (1.003-1.030) 08/16/19 14:40 Urine Protein 100 mg/dl mg/dL (Negative) 08/16/19 14:40 Urine Glucose (UA) Neg mg/dL (Negative) 08/16/19 14:40 Urine Ketones Neg mg/dL (Negative) 08/16/19 14:40 Urine Blood Mod (Negative) 08/16/19 14:40 Urine Nitrite Neg (Negative) 08/16/19 14:40 Urine Bilirubin Neg (Negative) 08/16/19 14:40 Urine Urobilinogen 4.0 mg/dL (<2.0) 08/16/19 14:40 Ur Leukocyte Esterase Tr (Negative) 08/16/19 14:40 Urine WBC (Auto) 8.0 /HPF (0.0-6.0) H 08/16/19 14:40 Urine RBC (Auto) 1.0 /HPF (0.0-6.0) 08/16/19 14:40 U Epithel Cells (Auto) < 1.0 /HPF (0-13.0) 08/16/19 14:40 Random Vancomycin 7.9 ug/mL (0-40.0) 08/17/19 05:31 Active Medications - Current Medications Current Medications: Generic Name Dose Route Start Last Admin Trade Name Freq PRN Reason Stop Dose Admin Acetaminophen 650 mg 08/15/19 16:00 08/23/19 16:10 Tylenol PO 650 mg Q4H PRN Administration Pain MILD(1-3)/Fever >100.5/HARDY Albuterol 2.5 mg 08/15/19 16:00 Proventil IH Q4HRT PRN Shortness Of Breath Albuterol/Ipratropium 1 ampul 08/20/19 14:00 08/27/19 08:11 Duoneb *Not For Prn Use* IH 1 ampul TIDRT LEORA Administration Amlodipine Besylate 10 mg 08/19/19 14:00 08/27/19 10:18 Amlodipine PO 10 mg DAILY LEORA Administration Atorvastatin Calcium 40 mg 08/19/19 22:00 08/26/19 22:44 Lipitor PO 40 mg QHS LEORA Administration Famotidine 20 mg 08/19/19 10:00 08/27/19 10:18 Pepcid PO 20 mg QDAY LEORA Administration Heparin Sodium (Porcine) 5,000 unit 08/15/19 22:00 08/27/19 10:17 Heparin SUB-Q 5,000 unit Q12HR LEORA Administration Hydralazine HCl 10 mg 08/21/19 11:09 08/23/19 09:16 Apresoline IV 10 mg Q4HR PRN Administration SBP>160 or DBP>110 Hydralazine HCl 100 mg 08/23/19 14:00 08/27/19 06:07 Apresoline PO 100 mg Q8HR LEORA Administration Hydrophilic Ointment 1 applic 08/15/19 17:33 Vaseline Lip Therapy TP Q2HR PRN Dry Lips Methylprednisolone Sodium Succinate 40 mg 08/24/19 06:00 08/27/19 06:09 Solu-Medrol IV 40 mg Q8HR LEORA Administration Multi-Ingred Cream/Lotion/Oil/Oint 1 applic 08/15/19 17:33 Artificial Tears Ophth Oint OU Q4HR PRN Dry Eye(s) Ondansetron HCl 4 mg 08/15/19 16:00 Zofran IV Q8H PRN Nausea And Vomiting Prazosin HCl 1 mg 08/19/19 16:00 08/27/19 10:19 Prazosin PO 1 mg QDAY LEORA Administration Sodium Chloride 10 ml 08/15/19 22:00 08/27/19 10:19 Sodium Chloride Flush Syringe 10 Ml IV 10 ml BID LEORA Administration Sodium Chloride 10 ml 08/15/19 16:00 08/26/19 06:51 Sodium Chloride Flush Syringe 10 Ml IV 10 ml PRN PRN Administration LINE FLUSH Nutrition/Malnutrition Assess - Dietary Evaluation Nutrition/Malnutrition Findings: Nutrition Notes Start: 08/18/19 09:16 Freq: Status: Active Protocol: Document 08/21/19 10:37 LM (Rec: 08/21/19 10:44 LM [email or web address]) Nutrition Notes Initial or Follow up Reassessment Current Diagnosis Acute Kidney Injury,Decubitus( Pressure Ulcer),Sepsis, Hypertension,Respiratory Failure Other Pertinent Diagnosis Influenza, nicotine/ETOH dependence Current Diet Nepro 1.8 with Carbsteady at 45 ml/hr Labs/Tests Na 147 BUN 30 Cr 2.4 Pertinent Medications Solumedrol Height 6 ft Weight 113.4 kg [place] Body Weight (kg) 80.90 BMI 33.9 Subjective/Other Information Nepro running at 45 ml/hr at time of visit. Pt's Na remains elevated but trending down. Will increase flush. Percent of energy/protein needs met: 100%/75% Burn Absent Trauma Absent Current % PO Negligible Minimum of two criteria No #1 Nutrition Diagnosis Inadequate oral intake Diagnosis Progress(for reassessment Continues documentation) Is patient on ventilator? Yes Is Patient Ambulatory and/or Out of Bed No REE-(Louise-St. Jeor-confined to bed) 2341.476 Kcal/Kg value to use for calculation 17 Approximate Energy Requirements Using 1928 kcal/Kg Calculation Used for Recommendations Kcal/kg Additional Notes Protein: 116-194g (1.2-2g/kg using AdjBW 97 kg) Fluid: 1 ml/kcal or per MD Nutrition Intervention Change Diet Order: TF Nutrition Support: Nepro 1.8 with Carbsteady at 45 ml/hr Flush 300 ml q4hr for hypernatremia Flush 200 ml q4hr once hypernatremia resolves Kcal 1,944 Protein (gm) 87 Fluid (mL) 785 Goal #1 TF tolerance Goal #2 Meet at least 75% of energy and protein needs Anticipated Discharge Needs: unable to determine at this time Follow-Up By: 08/28/19 Additional Comments F/U for TF tolerance/Na lab
--- NOTE | 2019-08-27 12:34 | Progress Note ---
Assessment and Plan Patient 68yo male w/ history of hypertension presenting with acute hypoxic respiratory failure on MVS, bilateral alveolar infiltrates, morbid obesity, influenza infection, and CLAUDETTE. Patient alert and sitting in bed. He is currently on 4 liters of oxygen with O2 saturation 94%. Denies being on home oxygen. Quit smoking cigarettes 30 years ago with a 20 pack year history. 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 Patient going on BIPAP during night time. Recommend PFTs and sleep study as out patient. - Patient Problems (1) Acute on chronic respiratory failure with hypoxemia Current Visit: Yes Status: Acute Plan to address problem: on 4 liters oxygen via nasal canula. current O2 Saturation 94% BIPAP during night time. Albuterol/atrovent aerosol treatments q 6 hours. Continue I/V solumedrol. Continue S/C Heparin. Continue famotidine. (2) Acute renal failure Current Visit: Yes Status: Acute Qualifiers: Acute renal failure type: with acute tubular necrosis Qualified Code(s): N17.0 - Acute kidney failure with tubular necrosis Plan to address problem: Management as per nephrology. (3) Encephalopathy Current Visit: Yes Status: Acute Plan to address problem: Management as per primary care and neurology. (4) Nicotine dependence Current Visit: Yes Status: Acute Qualifiers: Nicotine product type: cigarettes Plan to address problem: Patient said stopped smoking 30 years ago. Subjective Date of service: 08/27/19 Principal diagnosis: respiratory failure Interval history: Patient 68yo male w/ history of hypertension presenting with acute hypoxic respiratory failure on MVS, bilateral alveolar infiltrates, morbid obesity, inf luenza infection, and CLAUDETTE. Patient alert and sitting in bed. He is currently on 4 liters of oxygen with O2 saturation 94%. Denies being on home oxygen. Quit smoking cigarettes 30 years ago with a 20 pack year history. 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 Patient going on BIPAP during night time. Recommend PFTs and sleep study as out patient. Objective Vital Signs - 12hr 08/27/19 08/27/19 08/27/19 03:24 04:00 06:07 Temperature 98.4 F Pulse Rate 71 72 75 Pulse Rate [ Anterior Bilateral] Respiratory 18 Rate Respiratory Rate [Anterior Bilateral] Blood Pressure 145/85 145/85 O2 Sat by Pulse 93 Oximetry 08/27/19 08/27/19 08/27/19 08:08 08:13 08:18 Temperature 98.3 F Pulse Rate 88 Pulse Rate [ 82 Anterior Bilateral] Respiratory 18 Rate Respiratory 18 Rate [Anterior Bilateral] Blood Pressure 147/78 O2 Sat by Pulse 91 92 94 Oximetry 08/27/19 08/27/19 10:18 10:19 Temperature Pulse Rate 94 H 94 H Pulse Rate [ Anterior Bilateral] Respiratory Rate Respiratory Rate [Anterior Bilateral] Blood Pressure 155/80 155/80 O2 Sat by Pulse Oximetry Constitutional: no acute distress, alert Eyes: non-icteric ENT: oropharynx moist Neck: supple, no lymphadenopathy, no JVD Effort: normal Ascultation: Bilateral: diminished breath sounds, rhonchi Cardiovascular: regular rate and rhythm, other (S1,S2) Gastrointestinal: normoactive bowel sounds, soft, non-tender, other (distended) Integumentary: normal Extremities: no cyanosis, no edema, pink and warm, pulses normal Neurologic: non-focal exam, pupils equal and round, motor strength normal and Psychiatric: mood appropriate, affect normal CBC and BMP: 08/27/19 07:45 08/27/19 07:45 ABG, PT/INR, D-dimer: ABG POC ABG pH 7.359 (7.35-7.45) 08/24/19 12:30 ABG pH 7.314 pH Units (7.350-7.450) L 08/21/19 04:40 POC ABG pCO2 54.7 (35-45) H 08/24/19 12:30 ABG pCO2 54.6 mm Hg 08/21/19 04:40 POC ABG pO2 63 (80-105) L 08/24/19 12:30 ABG pO2 78.3 mm Hg (80.0-90.0) L 08/21/19 04:40 POC ABG HCO3 30.8 (22-26 mml/L) 08/24/19 12:30 POC ABG Total CO2 32 (23-27mmol/L) 08/24/19 12:30 POC ABG O2 Sat 90 08/24/19 12:30 ABG O2 Saturation 94.8 % (95.0-99.0) L 08/21/19 04:40 Abnormal lab findings: Abnormal Labs 12/27/19 12/27/19 12/27/19 13:16 13:16 17:16 WBC 14.7 H Hgb Hct RDW 17.3 H Plt Count Lymph % (Auto) [place] % (Auto) 11.3 H Lymph # [place] # 1.7 H Seg Neutrophils % 71.9 H Seg Neuts % (Manual) Lymphocytes % (Manual) Monocytes % (Manual) Nucleated RBC % Seg Neutrophils # 10.6 H Monocytes # (Manual) POC ABG pH 7.182 L ABG pH POC ABG pCO2 > 70 H POC ABG pO2 ABG pO2 ABG HCO3 ABG O2 Saturation ABG Hemoglobin Oxyhemoglobin Sodium Chloride Carbon Dioxide BUN 28 H Creatinine 1.9 H Glucose 133 H POC Glucose Calcium Total Bilirubin 1.50 H AST 82 H Albumin 3.6 L Urine WBC (Auto) 08/15/19 08/16/19 08/16/19 18:17 03:41 03:41 WBC Hgb 11.6 L Hct 34.3 L D RDW 17.4 H Plt Count 119 L Lymph % (Auto) 11.4 L [place] % (Auto) 11.6 H Lymph # 1.0 L [place] # 1.1 H Seg Neutrophils % 76.9 H Seg Neuts % (Manual) Lymphocytes % (Manual) Monocytes % (Manual) Nucleated RBC % Seg Neutrophils # Monocytes # (Manual) POC ABG pH 7.280 L ABG pH POC ABG pCO2 64.7 H POC ABG pO2 64 L ABG pO2 ABG HCO3 ABG O2 Saturation ABG Hemoglobin Oxyhemoglobin Sodium Chloride 107.1 H Carbon Dioxide BUN 34 H Creatinine 2.4 H Glucose 138 H POC Glucose Calcium 7.2 L D Total Bilirubin AST Albumin Urine WBC (Auto) 08/16/19 08/16/19 08/16/19 06:27 11:19 14:40 WBC Hgb Hct RDW Plt Count Lymph % (Auto) [place] % (Auto) Lymph # [place] # Seg Neutrophils % Seg Neuts % (Manual) Lymphocytes % (Manual) Monocytes % (Manual) Nucleated RBC % Seg Neutrophils # Monocytes # (Manual) POC ABG pH 7.336 L ABG pH POC ABG pCO2 47.9 H 48.7 H POC ABG pO2 69 L 130 H ABG pO2 ABG HCO3 ABG O2 Saturation ABG Hemoglobin Oxyhemoglobin Sodium Chloride Carbon Dioxide BUN Creatinine Glucose POC Glucose Calcium Total Bilirubin AST Albumin Urine WBC (Auto) 8.0 H 12/08/17/19 08/17/19 05:31 05:31 06:30 WBC Hgb 11.5 L Hct 34.3 L RDW 17.3 H Plt Count Lymph % (Auto) [place] % (Auto) 13.5 H Lymph # [place] # 1.3 H Seg Neutrophils % 70.7 H Seg Neuts % (Manual) Lymphocytes % (Manual) Monocytes % (Manual) Nucleated RBC % Seg Neutrophils # Monocytes # (Manual) POC ABG pH ABG pH POC ABG pCO2 POC ABG pO2 ABG pO2 116.6 H ABG HCO3 ABG O2 Saturation ABG Hemoglobin 13.9 L Oxyhemoglobin Sodium 146 H Chloride 112.1 H Carbon Dioxide BUN 47 H Creatinine 3.2 H Glucose POC Glucose Calcium 7.7 L Total Bilirubin AST Albumin Urine WBC (Auto) 08/17/19 08/18/19 08/18/19 20:31 04:20 04:20 WBC Hgb 11.4 L Hct 34.3 L RDW 17.3 H Plt Count 137 L Lymph % (Auto) [place] % (Auto) Lymph # [place] # Seg Neutrophils % Seg Neuts % (Manual) 79.0 H Lymphocytes % (Manual) 13.0 L Monocytes % (Manual) 8.0 H Nucleated RBC % 1.0 H Seg Neutrophils # Monocytes # (Manual) POC ABG pH ABG pH POC ABG pCO2 POC ABG pO2 78 L ABG pO2 ABG HCO3 ABG O2 Saturation ABG Hemoglobin Oxyhemoglobin Sodium 148 H Chloride 112.3 H Carbon Dioxide 20 L BUN 40 H Creatinine 3.1 H Glucose 109 H POC Glucose Calcium 7.9 L Total Bilirubin AST Albumin Urine WBC (Auto) 08/18/19 08/18/19 08/19/19 06:45 23:19 04:30 WBC Hgb Hct RDW Plt Count Lymph % (Auto) [place] % (Auto) Lymph # [place] # Seg Neutrophils % Seg Neuts % (Manual) Lymphocytes % (Manual) Monocytes % (Manual) Nucleated RBC % Seg Neutrophils # Monocytes # (Manual) POC ABG pH ABG pH POC ABG pCO2 45.2 H POC ABG pO2 55 L ABG pO2 72.2 L ABG HCO3 26.1 H ABG O2 Saturation 94.4 L ABG Hemoglobin 11.5 L Oxyhemoglobin 92.6 L Sodium Chloride Carbon Dioxide BUN Creatinine Glucose POC Glucose 158 H Calcium Total Bilirubin AST Albumin Urine WBC (Auto) 08/19/19 08/19/19 08/19/19 05:15 05:15 05:28 WBC Hgb 11.3 L Hct 34.4 L RDW 17.1 H Plt Count Lymph % (Auto) [place] % (Auto) Lymph # [place] # Seg Neutrophils % Seg Neuts % (Manual) Lymphocytes % (Manual) Monocytes % (Manual) 12.0 H Nucleated RBC % Seg Neutrophils # Monocytes # (Manual) 1.0 H POC ABG pH ABG pH POC ABG pCO2 POC ABG pO2 ABG pO2 ABG HCO3 ABG O2 Saturation ABG Hemoglobin Oxyhemoglobin Sodium 149 H Chloride 115.0 H Carbon Dioxide 21 L BUN 32 H Creatinine 2.7 H Glucose 112 H POC Glucose 113 H Calcium 7.8 L Total Bilirubin AST Albumin Urine WBC (Auto) 08/19/19 08/19/19 08/19/19 13:00 17:46 22:45 WBC Hgb Hct RDW Plt Count Lymph % (Auto) [place] % (Auto) Lymph # [place] # Seg Neutrophils % Seg Neuts % (Manual) Lymphocytes % (Manual) Monocytes % (Manual) Nucleated RBC % Seg Neutrophils # Monocytes # (Manual) POC ABG pH ABG pH POC ABG pCO2 POC ABG pO2 ABG pO2 ABG HCO3 ABG O2 Saturation ABG Hemoglobin Oxyhemoglobin Sodium Chloride Carbon Dioxide BUN Creatinine Glucose POC Glucose 126 H 112 H 172 H Calcium Total Bilirubin AST Albumin Urine WBC (Auto) 08/20/19 08/20/19 08/20/19 04:00 05:02 05:02 WBC Hgb 11.1 L Hct 33.4 L RDW 17.1 H Plt Count Lymph % (Auto) 11.2 L [place] % (Auto) 12.3 H Lymph # [place] # 1.3 H Seg Neutrophils % 74.9 H Seg Neuts % (Manual) Lymphocytes % (Manual) Monocytes % (Manual) Nucleated RBC % Seg Neutrophils # 7.8 H Monocytes # (Manual) POC ABG pH ABG pH POC ABG pCO2 45.1 H POC ABG pO2 70 L ABG pO2 ABG HCO3 ABG O2 Saturation ABG Hemoglobin Oxyhemoglobin Sodium 146 H Chloride 111.7 H Carbon Dioxide BUN 27 H Creatinine 2.4 H Glucose 123 H POC Glucose Calcium 8.1 L Total Bilirubin AST Albumin Urine WBC (Auto) 08/20/19 08/20/19 08/20/19 05:51 11:39 18:26 WBC Hgb Hct RDW Plt Count Lymph % (Auto) [place] % (Auto) Lymph # [place] # Seg Neutrophils % Seg Neuts % (Manual) Lymphocytes % (Manual) Monocytes % (Manual) Nucleated RBC % Seg Neutrophils # Monocytes # (Manual) POC ABG pH ABG pH POC ABG pCO2 POC ABG pO2 ABG pO2 ABG HCO3 ABG O2 Saturation ABG Hemoglobin Oxyhemoglobin Sodium Chloride Carbon Dioxide BUN Creatinine Glucose POC Glucose 108 H 116 H 137 H Calcium Total Bilirubin AST Albumin Urine WBC (Auto) 08/21/19 08/21/19 08/21/19 04:40 05:25 05:56 WBC Hgb Hct RDW Plt Count Lymph % (Auto) [place] % (Auto) Lymph # [place] # Seg Neutrophils % Seg Neuts % (Manual) Lymphocytes % (Manual) Monocytes % (Manual) Nucleated RBC % Seg Neutrophils # Monocytes # (Manual) POC ABG pH ABG pH 7.314 L POC ABG pCO2 POC ABG pO2 ABG pO2 78.3 L ABG HCO3 27.1 H ABG O2 Saturation 94.8 L ABG Hemoglobin 10.5 L Oxyhemoglobin 93.0 L Sodium 147 H Chloride 110.7 H Carbon Dioxide BUN 30 H Creatinine 2.4 H Glucose 144 H POC Glucose 129 H Calcium 8.0 L Total Bilirubin AST Albumin Urine WBC (Auto) 08/21/19 08/22/19 08/22/19 12:39 00:08 03:45 WBC Hgb Hct RDW Plt Count Lymph % (Auto) [place] % (Auto) Lymph # [place] # Seg Neutrophils % Seg Neuts % (Manual) Lymphocytes % (Manual) Monocytes % (Manual) Nucleated RBC % Seg Neutrophils # Monocytes # (Manual) POC ABG pH ABG pH POC ABG pCO2 POC ABG pO2 ABG pO2 ABG HCO3 ABG O2 Saturation ABG Hemoglobin Oxyhemoglobin Sodium 147 H Chloride 110.6 H Carbon Dioxide BUN 36 H Creatinine 2.4 H Glucose 195 H POC Glucose 193 H 173 H Calcium 8.1 L Total Bilirubin AST Albumin Urine WBC (Auto) 08/22/19 08/22/19 08/22/19 05:19 05:41 11:20 WBC Hgb Hct RDW Plt Count Lymph % (Auto) [place] % (Auto) Lymph # [place] # Seg Neutrophils % Seg Neuts % (Manual) Lymphocytes % (Manual) Monocytes % (Manual) Nucleated RBC % Seg Neutrophils # Monocytes # (Manual) POC ABG pH 7.328 L ABG pH POC ABG pCO2 53.0 H 49.7 H POC ABG pO2 75 L 62 L ABG pO2 ABG HCO3 ABG O2 Saturation ABG Hemoglobin Oxyhemoglobin Sodium Chloride Carbon Dioxide BUN Creatinine Glucose POC Glucose 176 H Calcium Total Bilirubin AST Albumin Urine WBC (Auto) 08/22/19 08/22/19 08/23/19 11:22 16:58 04:14 WBC Hgb Hct RDW Plt Count Lymph % (Auto) [place] % (Auto) Lymph # [place] # Seg Neutrophils % Seg Neuts % (Manual) Lymphocytes % (Manual) Monocytes % (Manual) Nucleated RBC % Seg Neutrophils # Monocytes # (Manual) POC ABG pH ABG pH POC ABG pCO2 POC ABG pO2 ABG pO2 ABG HCO3 ABG O2 Saturation ABG Hemoglobin Oxyhemoglobin Sodium Chloride Carbon Dioxide BUN 41 H Creatinine 2.3 H Glucose 174 H POC Glucose 217 H 174 H Calcium Total Bilirubin AST Albumin Urine WBC (Auto) 08/23/19 08/23/19 08/23/19 04:14 05:01 12:05 WBC 14.7 H Hgb 11.5 L Hct 35.2 L RDW 16.5 H Plt Count Lymph % (Auto) [place] % (Auto) Lymph # [place] # Seg Neutrophils % Seg Neuts % (Manual) Lymphocytes % (Manual) Monocytes % (Manual) Nucleated RBC % Seg Neutrophils # Monocytes # (Manual) POC ABG pH ABG pH POC ABG pCO2 45.4 H POC ABG pO2 ABG pO2 ABG HCO3 ABG O2 Saturation ABG Hemoglobin Oxyhemoglobin Sodium Chloride Carbon Dioxide BUN Creatinine Glucose POC Glucose 159 H Calcium Total Bilirubin AST Albumin Urine WBC (Auto) 08/23/19 08/23/19 08/24/19 12:53 18:51 06:33 WBC Hgb Hct RDW Plt Count Lymph % (Auto) [place] % (Auto) Lymph # [place] # Seg Neutrophils % Seg Neuts % (Manual) Lymphocytes % (Manual) Monocytes % (Manual) Nucleated RBC % Seg Neutrophils # Monocytes # (Manual) POC ABG pH ABG pH POC ABG pCO2 POC ABG pO2 ABG pO2 ABG HCO3 ABG O2 Saturation ABG Hemoglobin Oxyhemoglobin Sodium Chloride Carbon Dioxide BUN Creatinine Glucose POC Glucose 191 H 142 H 118 H Calcium Total Bilirubin AST Albumin Urine WBC (Auto) 08/24/19 08/24/19 08/24/19 08:16 08:16 11:56 WBC 13.3 H Hgb 11.5 L Hct 34.1 L RDW 16.6 H Plt Count Lymph % (Auto) [place] % (Auto) Lymph # [place] # Seg Neutrophils % Seg Neuts % (Manual) Lymphocytes % (Manual) Monocytes % (Manual) Nucleated RBC % Seg Neutrophils # Monocytes # (Manual) POC ABG pH ABG pH POC ABG pCO2 POC ABG pO2 ABG pO2 ABG HCO3 ABG O2 Saturation ABG Hemoglobin Oxyhemoglobin Sodium Chloride Carbon Dioxide BUN 50 H Creatinine 2.3 H Glucose 121 H POC Glucose 115 H Calcium Total Bilirubin AST Albumin Urine WBC (Auto) 08/24/19 08/25/19 08/26/19 12:30 12:34 08:23 WBC 13.2 H Hgb 11.4 L Hct 34.6 L RDW 16.1 H Plt Count Lymph % (Auto) [place] % (Auto) Lymph # [place] # Seg Neutrophils % Seg Neuts % (Manual) Lymphocytes % (Manual) Monocytes % (Manual) Nucleated RBC % Seg Neutrophils # Monocytes # (Manual) POC ABG pH ABG pH POC ABG pCO2 54.7 H POC ABG pO2 63 L ABG pO2 ABG HCO3 ABG O2 Saturation ABG Hemoglobin Oxyhemoglobin Sodium Chloride Carbon Dioxide BUN Creatinine Glucose POC Glucose 167 H Calcium Total Bilirubin AST Albumin Urine WBC (Auto) 08/26/19 08/26/19 08/26/19 08:23 10:18 12:24 WBC Hgb Hct RDW Plt Count Lymph % (Auto) [place] % (Auto) Lymph # [place] # Seg Neutrophils % Seg Neuts % (Manual) Lymphocytes % (Manual) Monocytes % (Manual) Nucleated RBC % Seg Neutrophils # Monocytes # (Manual) POC ABG pH ABG pH POC ABG pCO2 POC ABG pO2 ABG pO2 ABG HCO3 ABG O2 Saturation ABG Hemoglobin Oxyhemoglobin Sodium 148 H Chloride 108.1 H Carbon Dioxide BUN 46 H Creatinine 2.0 H Glucose 112 H POC Glucose 160 H 139 H Calcium Total Bilirubin AST Albumin Urine WBC (Auto) 08/26/19 08/27/19 08/27/19 17:45 07:45 07:45 WBC 11.6 H Hgb 11.4 L Hct 34.3 L RDW 16.1 H Plt Count Lymph % (Auto) 5.7 L [place] % (Auto) Lymph # 0.7 L [place] # Seg Neutrophils % 88.4 H Seg Neuts % (Manual) Lymphocytes % (Manual) Monocytes % (Manual) Nucleated RBC % Seg Neutrophils # 10.2 H Monocytes # (Manual) POC ABG pH ABG pH POC ABG pCO2 POC ABG pO2 ABG pO2 ABG HCO3 ABG O2 Saturation ABG Hemoglobin Oxyhemoglobin Sodium Chloride Carbon Dioxide BUN 44 H Creatinine 2.0 H Glucose 143 H POC Glucose 188 H Calcium 8.0 L Total Bilirubin AST Albumin Urine WBC (Auto) Chest x-ray: report reviewed (Reported near complete resolution of interstitial pulmonary edema.), image reviewed
[2019-08-28] MEDS: hydrALAZINE 25 MG TAB PO SCH ×3 (06:37→22:26)
[2019-08-28] MEDS: methylPREDNISolone Sod Succinate 40 MG/1 ML INJ IV SCH ×3 (06:37→22:26)
--- NOTE | 2019-08-28 08:49 | Progress Note ---
Subjective Principal diagnosis: respiratory failure Interval history: Patient was seen today for follow-up on multiple renal related issues resting comfortably in bed no acute distress he has much better understanding of his renal failure now Interdisciplinary notes were also reviewed Vitals intake output medications were reviewed Past medical history: Reviewed Family, social history: Reviewed Allergies: Reviewed Physical examination General: No acute distress Vitals: Reviewed HEENT: Oral mucosa moist no icterus Neck: Supple no thyromegaly nodular mass or JVD Chest: few basilar crackles, occasional wheezes Heart: Regular rate and rhythm S1-S2 heard no S3-S4 Abdomen: Soft nontender no suprapubic masses no organomegaly Extremity: Dry skin less than 1+ edema Psych: No evidence of any agitation and aggression noted Derm: No petechial rash Assessment and plan: Acute kidney injury, Acute renal failure currently creatinine has been stable at 2.0 as of yesterday, will need follow-up labs please order continue to monitor renal function Hypernatremia current sodium is 142 better to follow enal ultrasonogram has been normal during this admission Mild anemia: Hemoglobin 11.4 stable since last 2 days Hypernatremia: better, will need periodic follow-up Patient was extensively counseled and educated about the degree and severity of his renal failure and need to make an appointment for follow-up in the office Admitted with influenza on droplet precaution, respiratory failure which may have aggravated his renal failure Acidosis continue to monitor and follow All renal related issues were discussed with the patient, We'll continue to follow and make recommendation from renal standpoint Objective - Vital Signs Vital signs: Vital Signs - 12hr 08/27/19 08/27/19 08/27/19 21:08 21:11 21:22 Temperature Pulse Rate 92 H Pulse Rate [ 88 Anterior Bilateral] Respiratory Rate Respiratory 16 Rate [Anterior Bilateral] Blood Pressure 147/79 O2 Sat by Pulse 94 Oximetry 08/27/19 08/27/19 08/28/19 22:00 23:37 00:00 Temperature 98.5 F Pulse Rate 85 85 Pulse Rate [ Anterior Bilateral] Respiratory 18 Rate Respiratory Rate [Anterior Bilateral] Blood Pressure 155/87 O2 Sat by Pulse 94 93 Oximetry 08/28/19 08/28/19 08/28/19 03:46 06:37 07:29 Temperature 98.4 F 99.2 F Pulse Rate 79 79 82 Pulse Rate [ Anterior Bilateral] Respiratory 19 30 H Rate Respiratory Rate [Anterior Bilateral] Blood Pressure 159/77 159/71 164/83 O2 Sat by Pulse 94 92 Oximetry - Lab 08/27/19 07:45 08/27/19 07:45 Most recent lab results ABG pH 7.314 pH Units (7.350-7.450) L 08/21/19 04:40 ABG pCO2 54.6 mm Hg 08/21/19 04:40 ABG pO2 78.3 mm Hg (80.0-90.0) L 08/21/19 04:40 ABG HCO3 27.1 mmol/L (20.0-26.0) H 08/21/19 04:40 ABG O2 Saturation 94.8 % (95.0-99.0) L 08/21/19 04:40 Calcium 8.0 mg/dL (8.4-10.2) L 08/27/19 07:45 Medications & Allergies - Medications Allergies/Adverse Reactions: Allergies No Known Allergies Allergy (Unverified 08/15/19 13:08) Home Medications: Home Medications Medication Instructions Recorded Confirmed Last Taken Type Rosuvastatin Calcium 20 mg PO QDAY 08/16/19 08/16/19 08/14/19 History Terazosin HCl 2 mg PO QDAY 08/16/19 08/16/19 08/14/19 History Trandolapril/Verapamil HCl [Tarka 4 mg PO QDAY 08/16/19 08/16/19 08/14/19 History ER 4-240 mg] Triamter/Hctz 37.5-25 mg 1 tab PO QDAY 08/16/19 08/16/19 08/14/19 History [Maxzide-25] Verapamil ER [Calan Sr] 180 mg PO BID 08/16/19 08/16/19 08/14/19 History amLODIPine [Norvasc] 10 mg PO DAILY 08/16/19 08/16/19 08/14/19 History Active Medications: Generic Name Dose Route Start Last Admin Trade Name Freq PRN Reason Stop Dose Admin Acetaminophen 650 mg 08/15/19 16:00 08/23/19 16:10 Tylenol PO 650 mg Q4H PRN Administration Pain MILD(1-3)/Fever >100.5/HARDY Albuterol 2.5 mg 08/15/19 16:00 Proventil IH Q4HRT PRN Shortness Of Breath Albuterol/Ipratropium 1 ampul 08/20/19 14:00 08/27/19 21:12 Duoneb *Not For Prn Use* IH 1 ampul TIDRT LEORA Administration Amlodipine Besylate 10 mg 08/19/19 14:00 08/27/19 10:18 Amlodipine PO 10 mg DAILY LEORA Administration Atorvastatin Calcium 40 mg 08/19/19 22:00 08/27/19 21:12 Lipitor PO 40 mg QHS LEORA Administration Famotidine 20 mg 08/19/19 10:00 08/27/19 10:18 Pepcid PO 20 mg QDAY LEORA Administration Heparin Sodium (Porcine) 5,000 unit 08/15/19 22:00 08/27/19 21:13 Heparin SUB-Q 5,000 unit Q12HR LEORA Administration Hydralazine HCl 10 mg 08/21/19 11:09 08/23/19 09:16 Apresoline IV 10 mg Q4HR PRN Administration SBP>160 or DBP>110 Hydralazine HCl 100 mg 08/23/19 14:00 08/28/19 06:37 Apresoline PO 100 mg Q8HR LEORA Administration Hydrophilic Ointment 1 applic 08/15/19 17:33 Vaseline Lip Therapy TP Q2HR PRN Dry Lips Methylprednisolone Sodium Succinate 40 mg 08/24/19 06:00 08/28/19 06:37 Solu-Medrol IV 40 mg Q8HR LEORA Administration Multi-Ingred Cream/Lotion/Oil/Oint 1 applic 08/15/19 17:33 Artificial Tears Ophth Oint OU Q4HR PRN Dry Eye(s) Ondansetron HCl 4 mg 08/15/19 16:00 Zofran IV Q8H PRN Nausea And Vomiting Prazosin HCl 1 mg 08/19/19 16:00 08/27/19 10:19 Prazosin PO 1 mg QDAY LEORA Administration Sodium Chloride 10 ml 08/15/19 22:00 08/27/19 21:14 Sodium Chloride Flush Syringe 10 Ml IV 10 ml BID LEORA Administration Sodium Chloride 10 ml 08/15/19 16:00 08/28/19 06:37 Sodium Chloride Flush Syringe 10 Ml IV 10 ml PRN PRN Administration LINE FLUSH
[2019-08-28] MEDS: IPRATROPIUM/ALBUTEROL SULFATE 3 ML AMPUL.NEB IH SCH ×3 (08:58→20:53)
[2019-08-28] MEDS: FAMOTIDINE 20 MG TAB PO SCH (10:29)
[2019-08-28] MEDS: HEPARIN 5,000 UNIT/1 ML VIAL SUB-Q SCH ×2 (10:29→22:27)
[2019-08-28] MEDS: amLODIPine 10 MG TAB PO SCH (10:33)
[2019-08-28] MEDS: PRAZOSIN 1 MG CAP PO SCH (10:34)
--- NOTE | 2019-08-28 15:53 | Progress Note ---
Assessment and Plan - Patient Problems (1) Diabetes 1.5, managed as type 2 Current Visit: Yes Status: Acute Plan to address problem: Patient diabetes fairly well controlled. Goal is to keep Accu-Chek less than 180 has been 121 160 139. Continue present management. (2) Acute on chronic respiratory failure with hypoxemia Current Visit: Yes Status: Acute Plan to address problem: Acute on chronic respiratory failure seems to be resolving. Expect patient to be discharged 1 to 3 days. Weaning O2 tolerating well. Suspect patient to go home with BiPAP every night and also home O2. Deconditioning has improved. (3) Acute renal failure Current Visit: Yes Status: Acute Qualifiers: Acute renal failure type: with acute tubular necrosis Qualified Code(s): N17.0 - Acute kidney failure with tubular necrosis Plan to address problem: Continues to improve. Creatinine now 1.9. Renal following. Avoid nephrotoxic agents. Low-sodium diet. (4) Nicotine dependence Current Visit: Yes Status: Acute Qualifiers: Nicotine product type: cigarettes Plan to address problem: Nicotine patch continued at home (5) Respiratory failure, acute Current Visit: Yes Status: Acute Plan to address problem: Patient acute respiratory failure resolving mostly chronic now. Bilateral pneumonia treated stable. History Interval history: Resting comfortably at bedside states he feels better. Daughter at bedside all questions and concerns answered. Hospitalist Physical - Constitutional Vitals: Temp Pulse Resp BP Pulse Ox 98.0 F 91 H 17 133/74 91 08/28/19 12:02 08/28/19 14:02 08/28/19 14:00 08/28/19 14:02 08/28/19 12:02 General appearance: Present: no acute distress, mild distress, other (Patient orally intubated on mechanical ventilation) - EENT Eyes: Present: PERRL, EOM intact ENT: hearing intact, clear oral mucosa, dentition normal - Neck Neck: Present: supple, normal ROM - Respiratory Respiratory: bilateral: diminished (Coughing) - Cardiovascular Rhythm: regular Heart Sounds: Present: S1 & S2 - Extremities Extremities: no ischemia, pulses intact, pulses symmetrical, normal temperature Extremity abnormal: edema Peripheral Pulses: within normal limits - Abdominal General gastrointestinal: soft, non-tender, other (Obese), no hepatomegaly, no splenomegaly - Integumentary Integumentary: Present: clear, warm, erythema - Psychiatric Psychiatric: appropriate mood/affect, intact judgment & insight - Neurologic Neurologic: CNII-XII intact, moves all extremities, other (Increase strength.) Results - Labs CBC & Chem 7: 08/27/19 07:45 08/29/19 15:10 Labs: Laboratory Last Values WBC 11.6 K/mm3 (4.5-11.0) H 08/27/19 07:45 RBC 3.95 M/mm3 (3.65-5.03) 08/27/19 07:45 Hgb 11.4 gm/dl (11.8-15.2) L 08/27/19 07:45 Hct 34.3 % (35.5-45.6) L 08/27/19 07:45 MCV 87 fl (84-94) 08/27/19 07:45 MCH 29 pg (28-32) 08/27/19 07:45 MCHC 33 % (32-34) 08/27/19 07:45 RDW 16.1 % (13.2-15.2) H 08/27/19 07:45 Plt Count 245 K/mm3 (140-440) 08/27/19 07:45 Lymph % (Auto) 5.7 % (13.4-35.0) L 08/27/19 07:45 [place] % (Auto) 5.8 % (0.0-7.3) 08/27/19 07:45 Eos % (Auto) 0.0 % (0.0-4.3) 08/27/19 07:45 Baso % (Auto) 0.1 % (0.0-1.8) 08/27/19 07:45 Lymph # 0.7 K/mm3 (1.2-5.4) L 08/27/19 07:45 [place] # 0.7 K/mm3 (0.0-0.8) 08/27/19 07:45 Eos # 0.0 K/mm3 (0.0-0.4) 08/27/19 07:45 Baso # 0.0 K/mm3 (0.0-0.1) 08/27/19 07:45 Add Manual Diff Complete 08/19/19 05:15 Total Counted 100 08/19/19 05:15 Seg Neutrophils % 88.4 % (40.0-70.0) H 08/27/19 07:45 Seg Neuts % (Manual) 69.0 % (40.0-70.0) 08/19/19 05:15 Band Neutrophils % 0 % 08/19/19 05:15 Lymphocytes % (Manual) 17.0 % (13.4-35.0) 08/19/19 05:15 Reactive Lymphs % (Man) 1.0 % 08/19/19 05:15 Monocytes % (Manual) 12.0 % (0.0-7.3) H 08/19/19 05:15 Eosinophils % (Manual) 1.0 % (0.0-4.3) 08/19/19 05:15 Basophils % (Manual) 0 % (0.0-1.8) 08/19/19 05:15 Metamyelocytes % 0 % 08/19/19 05:15 Myelocytes % 0 % 08/19/19 05:15 Promyelocytes % 0 % 08/19/19 05:15 Blast Cells % 0 % 08/19/19 05:15 Nucleated RBC % Not Reportable 08/19/19 05:15 Seg Neutrophils # 10.2 K/mm3 (1.8-7.7) H 08/27/19 07:45 Seg Neutrophils # Man 5.9 K/mm3 (1.8-7.7) 08/19/19 05:15 Band Neutrophils # 0.0 K/mm3 08/19/19 05:15 Lymphocytes # (Manual) 1.4 K/mm3 (1.2-5.4) 08/19/19 05:15 Abs React Lymphs (Man) 0.1 K/mm3 08/19/19 05:15 Monocytes # (Manual) 1.0 K/mm3 (0.0-0.8) H 08/19/19 05:15 Eosinophils # (Manual) 0.1 K/mm3 (0.0-0.4) 08/19/19 05:15 Basophils # (Manual) 0.0 K/mm3 (0.0-0.1) 08/19/19 05:15 Metamyelocytes # 0.0 K/mm3 08/19/19 05:15 Myelocytes # 0.0 K/mm3 08/19/19 05:15 Promyelocytes # 0.0 K/mm3 08/19/19 05:15 Blast Cells # 0.0 K/mm3 08/19/19 05:15 WBC Morphology Not Reportable 08/19/19 05:15 Hypersegmented Neuts Not Reportable 08/19/19 05:15 Hyposegmented Neuts Not Reportable 08/19/19 05:15 Hypogranular Neuts Not Reportable 08/19/19 05:15 Smudge Cells Not Reportable 08/19/19 05:15 Toxic Granulation Not Reportable 08/19/19 05:15 Toxic Vacuolation Not Reportable 08/19/19 05:15 Dohle Bodies Not Reportable 08/19/19 05:15 Pelger-Huet Anomaly Not Reportable 08/19/19 05:15 Dalila Rods Not Reportable 08/19/19 05:15 Platelet Estimate Consistent w auto 08/19/19 05:15 Clumped Platelets Not Reportable 08/19/19 05:15 Plt Clumps, EDTA Not Reportable 08/19/19 05:15 Large Platelets Not Reportable 08/19/19 05:15 Giant Platelets Not Reportable 08/19/19 05:15 Platelet Satelliting Not Reportable 08/19/19 05:15 Plt Morphology Comment Not Reportable 08/19/19 05:15 RBC Morphology Not Reportable 08/19/19 05:15 Dimorphic RBCs Not Reportable 08/19/19 05:15 Polychromasia Not Reportable 08/19/19 05:15 Hypochromasia Not Reportable 08/19/19 05:15 Poikilocytosis Not Reportable 08/19/19 05:15 Anisocytosis 1+ 08/19/19 05:15 Microcytosis Not Reportable 08/19/19 05:15 Macrocytosis Not Reportable 08/19/19 05:15 Spherocytes Not Reportable 08/19/19 05:15 Pappenheimer Bodies Not Reportable 08/19/19 05:15 Sickle Cells Not Reportable 08/19/19 05:15 Target Cells Not Reportable 08/19/19 05:15 Tear Drop Cells Not Reportable 08/19/19 05:15 Ovalocytes Not Reportable 08/19/19 05:15 Helmet Cells Not Reportable 08/19/19 05:15 [place] Bodies Not Reportable 08/19/19 05:15 [place] Rings Not Reportable 08/19/19 05:15 [place] Cells Not Reportable 08/19/19 05:15 Bite Cells Not Reportable 08/19/19 05:15 Crenated Cell Not Reportable 08/19/19 05:15 Elliptocytes Not Reportable 08/19/19 05:15 Acanthocytes (Spur) Not Reportable 08/19/19 05:15 Rouleaux Not Reportable 08/19/19 05:15 Hemoglobin C Crystals Not Reportable 08/19/19 05:15 Schistocytes Not Reportable 08/19/19 05:15 Malaria parasites Not Reportable 08/19/19 05:15 Magdiel Bodies Not Reportable 08/19/19 05:15 Hem Pathologist Commnt No 08/19/19 05:15 POC ABG pH 7.359 (7.35-7.45) 08/24/19 12:30 ABG pH 7.314 pH Units (7.350-7.450) L 08/21/19 04:40 POC ABG pCO2 54.7 (35-45) H 08/24/19 12:30 ABG pCO2 54.6 mm Hg 08/21/19 04:40 POC ABG pO2 63 (80-105) L 08/24/19 12:30 ABG pO2 78.3 mm Hg (80.0-90.0) L 08/21/19 04:40 POC ABG HCO3 30.8 (22-26 mml/L) 08/24/19 12:30 ABG HCO3 27.1 mmol/L (20.0-26.0) H 08/21/19 04:40 POC ABG Total CO2 32 (23-27mmol/L) 08/24/19 12:30 POC ABG O2 Sat 90 08/24/19 12:30 ABG O2 Saturation 94.8 % (95.0-99.0) L 08/21/19 04:40 ABG O2 Content 13.8 (0.0-44) 08/21/19 04:40 POC ABG Base Excess 5 ((-2) - (+3)mmol/L) 08/24/19 12:30 ABG Base Excess 0.3 mmol/L (-2.0-3.0) 08/21/19 04:40 ABG Hemoglobin 10.5 gm/dl (14.0-18.0) L 08/21/19 04:40 ABG Carboxyhemoglobin 1.4 % (0.0-5.0) 08/21/19 04:40 ABG Methemoglobin 0.5 % (0.0-1.5) 08/21/19 04:40 Oxyhemoglobin 93.0 % (95.0-99.0) L 08/21/19 04:40 FiO2 35 % 08/24/19 12:30 Sodium 142 mmol/L (137-145) 08/27/19 07:45 Potassium 4.1 mmol/L (3.6-5.0) 08/27/19 07:45 Chloride 103.9 mmol/L (98-107) 08/27/19 07:45 Carbon Dioxide 24 mmol/L (22-30) 08/27/19 07:45 Anion Gap 18 mmol/L 08/27/19 07:45 BUN 44 mg/dL (9-20) H 08/27/19 07:45 Creatinine 2.0 mg/dL (0.8-1.5) H 08/27/19 07:45 Estimated GFR 41 ml/min 08/27/19 07:45 BUN/Creatinine Ratio 22 % 08/27/19 07:45 Glucose 143 mg/dL (75-100) H 08/27/19 07:45 POC Glucose 188 (70-105) H 08/26/19 17:45 Hemoglobin A1c 6.0 % (4-6) 08/23/19 04:14 Lactic Acid 1.10 mmol/L (0.7-2.0) 08/15/19 23:36 Calcium 8.0 mg/dL (8.4-10.2) L 08/27/19 07:45 Total Bilirubin 1.50 mg/dL (0.1-1.2) H 08/15/19 13:16 AST 82 units/L (5-40) H 08/15/19 13:16 ALT 46 units/L (7-56) 08/15/19 13:16 Alkaline Phosphatase 90 units/L (35-129) 08/15/19 13:16 Troponin T 0.018 ng/mL (0.00-0.029) 08/15/19 13:16 Total Protein 7.9 g/dL (6.3-8.2) 08/15/19 13:16 Albumin 3.6 g/dL (3.9-5) L 08/15/19 13:16 Albumin/Globulin Ratio 0.8 % 08/15/19 13:16 Urine Color [place] (Yellow) 08/16/19 14:40 Urine Turbidity Cloudy (Clear) 08/16/19 14:40 Urine pH 5.0 (5.0-7.0) 08/16/19 14:40 Ur Specific [place] 1.015 (1.003-1.030) 08/16/19 14:40 Urine Protein 100 mg/dl mg/dL (Negative) 08/16/19 14:40 Urine Glucose (UA) Neg mg/dL (Negative) 08/16/19 14:40 Urine Ketones Neg mg/dL (Negative) 08/16/19 14:40 Urine Blood Mod (Negative) 08/16/19 14:40 Urine Nitrite Neg (Negative) 08/16/19 14:40 Urine Bilirubin Neg (Negative) 08/16/19 14:40 Urine Urobilinogen 4.0 mg/dL (<2.0) 08/16/19 14:40 Ur Leukocyte Esterase Tr (Negative) 08/16/19 14:40 Urine WBC (Auto) 8.0 /HPF (0.0-6.0) H 08/16/19 14:40 Urine RBC (Auto) 1.0 /HPF (0.0-6.0) 08/16/19 14:40 U Epithel Cells (Auto) < 1.0 /HPF (0-13.0) 08/16/19 14:40 Random Vancomycin 7.9 ug/mL (0-40.0) 08/17/19 05:31 Active Medications - Current Medications Current Medications: Generic Name Dose Route Start Last Admin Trade Name Freq PRN Reason Stop Dose Admin Acetaminophen 650 mg 08/15/19 16:00 08/23/19 16:10 Tylenol PO 650 mg Q4H PRN Administration Pain MILD(1-3)/Fever >100.5/HARDY Albuterol 2.5 mg 08/15/19 16:00 Proventil IH Q4HRT PRN Shortness Of Breath Albuterol/Ipratropium 1 ampul 08/20/19 14:00 08/28/19 13:53 Duoneb *Not For Prn Use* IH 1 ampul TIDRT LEORA Administration Amlodipine Besylate 10 mg 08/19/19 14:00 08/28/19 10:33 Amlodipine PO 10 mg DAILY LEORA Administration Atorvastatin Calcium 40 mg 08/19/19 22:00 08/27/19 21:12 Lipitor PO 40 mg QHS LEORA Administration Famotidine 20 mg 08/19/19 10:00 08/28/19 10:29 Pepcid PO 20 mg QDAY LEORA Administration Heparin Sodium (Porcine) 5,000 unit 08/15/19 22:00 08/28/19 10:29 Heparin SUB-Q 5,000 unit Q12HR LEORA Administration Hydralazine HCl 10 mg 08/21/19 11:09 08/23/19 09:16 Apresoline IV 10 mg Q4HR PRN Administration SBP>160 or DBP>110 Hydralazine HCl 100 mg 08/23/19 14:00 08/28/19 14:02 Apresoline PO 100 mg Q8HR LEORA Administration Hydrophilic Ointment 1 applic 08/15/19 17:33 Vaseline Lip Therapy TP Q2HR PRN Dry Lips Methylprednisolone Sodium Succinate 40 mg 08/24/19 06:00 08/28/19 14:02 Solu-Medrol IV 40 mg Q8HR LEORA Administration Multi-Ingred Cream/Lotion/Oil/Oint 1 applic 08/15/19 17:33 Artificial Tears Ophth Oint OU Q4HR PRN Dry Eye(s) Ondansetron HCl 4 mg 08/15/19 16:00 Zofran IV Q8H PRN Nausea And Vomiting Prazosin HCl 1 mg 08/19/19 16:00 08/28/19 10:34 Prazosin PO 1 mg QDAY LEORA Administration Sodium Chloride 10 ml 08/15/19 22:00 08/28/19 10:30 Sodium Chloride Flush Syringe 10 Ml IV 10 ml BID LEORA Administration Sodium Chloride 10 ml 08/15/19 16:00 08/28/19 06:37 Sodium Chloride Flush Syringe 10 Ml IV 10 ml PRN PRN Administration LINE FLUSH Nutrition/Malnutrition Assess - Dietary Evaluation Nutrition/Malnutrition Findings: Nutrition Notes Start: 08/18/19 09:16 Freq: Status: Active Protocol: Document 08/28/19 11:45 SYLWIA (Rec: 08/28/19 12:03 SYLWIA [id number]) Co-Sign 08/28/19 11:45 LP Nutrition Notes Initial or Follow up Reassessment Current Diagnosis Acute Kidney Injury,Decubitus( Pressure Ulcer),Sepsis, Hypertension,Respiratory Failure Other Pertinent Diagnosis Influenza, nicotine/ETOH dependence Current Diet Mechanical soft Labs/Tests BUN 44 Cr 2 BG 143 Pertinent Medications Solu-medrol Lipitor Height 6 ft Weight 105.9 kg Bastian Body Weight (kg) 80.90 BMI 31.6 Weight change and time frame Wt change noted. Possibly due to inaccurate bed scale Subjective/Other Information F/U for TF tolerance. Pt was evaluated by SUPPORT WORKER and is safe for a mechanical soft diet. Pt strongly doesn't like the food. Pt ate cereal for breakfast. Pt stated that he only ate carrots yesterday. Noted that pt doesn't like nor want the nepros. Percent of energy/protein needs met: 0%/0% Burn Absent Trauma Absent Current % PO Negligible Minimum of two criteria No #1 Nutrition Diagnosis Inadequate oral intake Diagnosis Progress(for reassessment Continues documentation) Is patient on ventilator? No Is Patient Ambulatory and/or Out of Bed Yes REE-([facility]-ambulatory/OOB) [ 2433.600 [id number]] Kcal/Kg value to use for calculation 19 Approximate Energy Requirements Using 2012 kcal/Kg Calculation Used for Recommendations Kcal/kg Additional Notes Protein: 112-140 (1.2-1.5g/kg AdjBW 93kg) Fluid: 1 ml/kcal or per MD Nutrition Intervention Change Diet Order: Continue current Nutrition Support: D/C Nepro 1.8 with Carbsteady at 45 ml/hr Goal #1 Meet at least 75% of energy and protein needs Anticipated Discharge Needs: unable to determine at this time Follow-Up By: 09/01/19 Additional Comments F/U for PO intakes and food preferences
--- NOTE | 2019-08-28 18:46 | Progress Note ---
Assessment and Plan Sepsis Acute respiratory failure with hypoxemia and hypercapnia on MVS Influenza Bilateral pneumonia Acute renal failure Tobacco use disorder/Nicotine dependence Thrombocytopenia - continue to wean supplemental oxygen for target O2 sat's > 90% - continue bronchodilators with pulmonary hygiene per RT - continue accuchecks with glycemic control per SSI for target BG < 180 mg/dL; avoid hypoglycemia) - continue to avoid benzodiazepines to reduce the possibility of delirium - complete empiric antibiotics for post viral PNA; complete antiviral agents per ID - prn analgesia per pain score - Maintenance of sleep-wake cycle, avoid delirium - Aspiration precautions, HOB >40 - G.I. & VTE prophylaxis, while on heparin monitor for bleeding and trend platelets - PT/OT/ROM exercises - Mobility protocol and off loading for pressure ulcer prevention - Renally dose all medications, avoid nephrotoxins - Nicotine withdrawal precautions - Smoking cessation counselling done ... re-evaluate in am & prn Subjective Date of service: 08/28/19 Principal diagnosis: Severe Sepsis; Acute hypoxemic resp failure; Influenza; Jeramy PNA; CLAUDETTE Interval history: Patient is seen today for: Sepsis; Acute respiratory failure with hypoxemia and hypercapnia; Influenza; Bilateral pneumonia; CLAUDETTE; Tobacco use disorder/Nicotine dependence; Thrombocytopenia Seen and examined at bedside; 24 hour events reviewed; nursing and respiratory care staff consulted; no adverse overnight events reported to me; resting peacefully in bed; feels better; denies acute chest pains or palpitations; No N/V/F/C Objective Vital Signs - 12hr 08/28/19 08/28/19 08/28/19 07:29 08:00 09:00 Temperature 99.2 F Pulse Rate 82 78 Pulse Rate [ 87 Anterior Bilateral] Respiratory 30 H Rate Respiratory 18 Rate [Anterior Bilateral] Blood Pressure 164/83 Blood Pressure [Right] O2 Sat by Pulse 92 95 Oximetry 08/28/19 08/28/19 08/28/19 10:00 10:33 10:34 Temperature Pulse Rate 82 82 Pulse Rate [ Anterior Bilateral] Respiratory 14 Rate Respiratory Rate [Anterior Bilateral] Blood Pressure 139/70 139/70 Blood Pressure [Right] O2 Sat by Pulse 95 Oximetry 08/28/19 08/28/19 08/28/19 12:00 12:02 14:00 Temperature 98.0 F Pulse Rate 87 90 Pulse Rate [ 83 Anterior Bilateral] Respiratory 20 Rate Respiratory 17 Rate [Anterior Bilateral] Blood Pressure 157/80 Blood Pressure [Right] O2 Sat by Pulse 91 Oximetry 08/28/19 08/28/19 08/28/19 14:02 16:00 16:58 Temperature 98.0 F Pulse Rate 91 H 76 86 Pulse Rate [ Anterior Bilateral] Respiratory 18 Rate Respiratory Rate [Anterior Bilateral] Blood Pressure 133/74 Blood Pressure 150/78 [Right] O2 Sat by Pulse 95 Oximetry Constitutional: no acute distress, alert Eyes: non-icteric ENT: oropharynx moist Neck: supple, no lymphadenopathy, no JVD Effort: normal Ascultation: Bilateral: diminished breath sounds, rhonchi Percussion: Bilateral: not dull Cardiovascular: regular rate and rhythm, other (S1,S2) Gastrointestinal: normoactive bowel sounds, soft, non-tender, other (distended) Integumentary: normal Extremities: no cyanosis, no edema, pink and warm, pulses normal Neurologic: non-focal exam, pupils equal and round, motor strength normal and Psychiatric: mood appropriate, affect normal CBC and BMP: 08/27/19 07:45 08/27/19 07:45 ABG, PT/INR, D-dimer: ABG POC ABG pH 7.359 (7.35-7.45) 08/24/19 12:30 ABG pH 7.314 pH Units (7.350-7.450) L 08/21/19 04:40 POC ABG pCO2 54.7 (35-45) H 08/24/19 12:30 ABG pCO2 54.6 mm Hg 08/21/19 04:40 POC ABG pO2 63 (80-105) L 08/24/19 12:30 ABG pO2 78.3 mm Hg (80.0-90.0) L 08/21/19 04:40 POC ABG HCO3 30.8 (22-26 mml/L) 08/24/19 12:30 POC ABG Total CO2 32 (23-27mmol/L) 08/24/19 12:30 POC ABG O2 Sat 90 08/24/19 12:30 ABG O2 Saturation 94.8 % (95.0-99.0) L 08/21/19 04:40 Abnormal lab findings: Abnormal Labs 08/15/19 08/15/19 08/15/19 13:16 13:16 17:16 WBC 14.7 H Hgb Hct RDW 17.3 H Plt Count Lymph % (Auto) [place] % (Auto) 11.3 H Lymph # [place] # 1.7 H Seg Neutrophils % 71.9 H Seg Neuts % (Manual) Lymphocytes % (Manual) Monocytes % (Manual) Nucleated RBC % Seg Neutrophils # 10.6 H Monocytes # (Manual) POC ABG pH 7.182 L ABG pH POC ABG pCO2 > 70 H POC ABG pO2 ABG pO2 ABG HCO3 ABG O2 Saturation ABG Hemoglobin Oxyhemoglobin Sodium Chloride Carbon Dioxide BUN 28 H Creatinine 1.9 H Glucose 133 H POC Glucose Calcium Total Bilirubin 1.50 H AST 82 H Albumin 3.6 L Urine WBC (Auto) 08/15/19 08/16/19 08/16/19 18:17 03:41 03:41 WBC Hgb 11.6 L Hct 34.3 L D RDW 17.4 H Plt Count 119 L Lymph % (Auto) 11.4 L [place] % (Auto) 11.6 H Lymph # 1.0 L [place] # 1.1 H Seg Neutrophils % 76.9 H Seg Neuts % (Manual) Lymphocytes % (Manual) Monocytes % (Manual) Nucleated RBC % Seg Neutrophils # Monocytes # (Manual) POC ABG pH 7.280 L ABG pH POC ABG pCO2 64.7 H POC ABG pO2 64 L ABG pO2 ABG HCO3 ABG O2 Saturation ABG Hemoglobin Oxyhemoglobin Sodium Chloride 107.1 H Carbon Dioxide BUN 34 H Creatinine 2.4 H Glucose 138 H POC Glucose Calcium 7.2 L D Total Bilirubin AST Albumin Urine WBC (Auto) 08/16/19 08/16/19 08/16/19 06:27 11:19 14:40 WBC Hgb Hct RDW Plt Count Lymph % (Auto) [place] % (Auto) Lymph # [place] # Seg Neutrophils % Seg Neuts % (Manual) Lymphocytes % (Manual) Monocytes % (Manual) Nucleated RBC % Seg Neutrophils # Monocytes # (Manual) POC ABG pH 7.336 L ABG pH POC ABG pCO2 47.9 H 48.7 H POC ABG pO2 69 L 130 H ABG pO2 ABG HCO3 ABG O2 Saturation ABG Hemoglobin Oxyhemoglobin Sodium Chloride Carbon Dioxide BUN Creatinine Glucose POC Glucose Calcium Total Bilirubin AST Albumin Urine WBC (Auto) 8.0 H 08/17/19 08/17/19 08/17/19 05:31 05:31 06:30 WBC Hgb 11.5 L Hct 34.3 L RDW 17.3 H Plt Count Lymph % (Auto) [place] % (Auto) 13.5 H Lymph # [place] # 1.3 H Seg Neutrophils % 70.7 H Seg Neuts % (Manual) Lymphocytes % (Manual) Monocytes % (Manual) Nucleated RBC % Seg Neutrophils # Monocytes # (Manual) POC ABG pH ABG pH POC ABG pCO2 POC ABG pO2 ABG pO2 116.6 H ABG HCO3 ABG O2 Saturation ABG Hemoglobin 13.9 L Oxyhemoglobin Sodium 146 H Chloride 112.1 H Carbon Dioxide BUN 47 H Creatinine 3.2 H Glucose POC Glucose Calcium 7.7 L Total Bilirubin AST Albumin Urine WBC (Auto) 08/17/19 08/18/19 08/18/19 20:31 04:20 04:20 WBC Hgb 11.4 L Hct 34.3 L RDW 17.3 H Plt Count 137 L Lymph % (Auto) [place] % (Auto) Lymph # [place] # Seg Neutrophils % Seg Neuts % (Manual) 79.0 H Lymphocytes % (Manual) 13.0 L Monocytes % (Manual) 8.0 H Nucleated RBC % 1.0 H Seg Neutrophils # Monocytes # (Manual) POC ABG pH ABG pH POC ABG pCO2 POC ABG pO2 78 L ABG pO2 ABG HCO3 ABG O2 Saturation ABG Hemoglobin Oxyhemoglobin Sodium 148 H Chloride 112.3 H Carbon Dioxide 20 L BUN 40 H Creatinine 3.1 H Glucose 109 H POC Glucose Calcium 7.9 L Total Bilirubin AST Albumin Urine WBC (Auto) 08/18/19 08/18/19 08/19/19 06:45 23:19 04:30 WBC Hgb Hct RDW Plt Count Lymph % (Auto) [place] % (Auto) Lymph # [place] # Seg Neutrophils % Seg Neuts % (Manual) Lymphocytes % (Manual) Monocytes % (Manual) Nucleated RBC % Seg Neutrophils # Monocytes # (Manual) POC ABG pH ABG pH POC ABG pCO2 45.2 H POC ABG pO2 55 L ABG pO2 72.2 L ABG HCO3 26.1 H ABG O2 Saturation 94.4 L ABG Hemoglobin 11.5 L Oxyhemoglobin 92.6 L Sodium Chloride Carbon Dioxide BUN Creatinine Glucose POC Glucose 158 H Calcium Total Bilirubin AST Albumin Urine WBC (Auto) 08/19/19 08/19/19 08/19/19 05:15 05:15 05:28 WBC Hgb 11.3 L Hct 34.4 L RDW 17.1 H Plt Count Lymph % (Auto) [place] % (Auto) Lymph # [place] # Seg Neutrophils % Seg Neuts % (Manual) Lymphocytes % (Manual) Monocytes % (Manual) 12.0 H Nucleated RBC % Seg Neutrophils # Monocytes # (Manual) 1.0 H POC ABG pH ABG pH POC ABG pCO2 POC ABG pO2 ABG pO2 ABG HCO3 ABG O2 Saturation ABG Hemoglobin Oxyhemoglobin Sodium 149 H Chloride 115.0 H Carbon Dioxide 21 L BUN 32 H Creatinine 2.7 H Glucose 112 H POC Glucose 113 H Calcium 7.8 L Total Bilirubin AST Albumin Urine WBC (Auto) 08/19/19 08/19/19 08/19/19 13:00 17:46 22:45 WBC Hgb Hct RDW Plt Count Lymph % (Auto) [place] % (Auto) Lymph # [place] # Seg Neutrophils % Seg Neuts % (Manual) Lymphocytes % (Manual) Monocytes % (Manual) Nucleated RBC % Seg Neutrophils # Monocytes # (Manual) POC ABG pH ABG pH POC ABG pCO2 POC ABG pO2 ABG pO2 ABG HCO3 ABG O2 Saturation ABG Hemoglobin Oxyhemoglobin Sodium Chloride Carbon Dioxide BUN Creatinine Glucose POC Glucose 126 H 112 H 172 H Calcium Total Bilirubin AST Albumin Urine WBC (Auto) 08/20/19 08/20/19 08/20/19 04:00 05:02 05:02 WBC Hgb 11.1 L Hct 33.4 L RDW 17.1 H Plt Count Lymph % (Auto) 11.2 L [place] % (Auto) 12.3 H Lymph # [place] # 1.3 H Seg Neutrophils % 74.9 H Seg Neuts % (Manual) Lymphocytes % (Manual) Monocytes % (Manual) Nucleated RBC % Seg Neutrophils # 7.8 H Monocytes # (Manual) POC ABG pH ABG pH POC ABG pCO2 45.1 H POC ABG pO2 70 L ABG pO2 ABG HCO3 ABG O2 Saturation ABG Hemoglobin Oxyhemoglobin Sodium 146 H Chloride 111.7 H Carbon Dioxide BUN 27 H Creatinine 2.4 H Glucose 123 H POC Glucose Calcium 8.1 L Total Bilirubin AST Albumin Urine WBC (Auto) 08/20/19 08/20/19 08/20/19 05:51 11:39 18:26 WBC Hgb Hct RDW Plt Count Lymph % (Auto) [place] % (Auto) Lymph # [place] # Seg Neutrophils % Seg Neuts % (Manual) Lymphocytes % (Manual) Monocytes % (Manual) Nucleated RBC % Seg Neutrophils # Monocytes # (Manual) POC ABG pH ABG pH POC ABG pCO2 POC ABG pO2 ABG pO2 ABG HCO3 ABG O2 Saturation ABG Hemoglobin Oxyhemoglobin Sodium Chloride Carbon Dioxide BUN Creatinine Glucose POC Glucose 108 H 116 H 137 H Calcium Total Bilirubin AST Albumin Urine WBC (Auto) 08/21/19 08/21/19 08/21/19 04:40 05:25 05:56 WBC Hgb Hct RDW Plt Count Lymph % (Auto) [place] % (Auto) Lymph # [place] # Seg Neutrophils % Seg Neuts % (Manual) Lymphocytes % (Manual) Monocytes % (Manual) Nucleated RBC % Seg Neutrophils # Monocytes # (Manual) POC ABG pH ABG pH 7.314 L POC ABG pCO2 POC ABG pO2 ABG pO2 78.3 L ABG HCO3 27.1 H ABG O2 Saturation 94.8 L ABG Hemoglobin 10.5 L Oxyhemoglobin 93.0 L Sodium 147 H Chloride 110.7 H Carbon Dioxide BUN 30 H Creatinine 2.4 H Glucose 144 H POC Glucose 129 H Calcium 8.0 L Total Bilirubin AST Albumin Urine WBC (Auto) 08/21/19 08/22/19 08/22/19 12:39 00:08 03:45 WBC Hgb Hct RDW Plt Count Lymph % (Auto) [place] % (Auto) Lymph # [place] # Seg Neutrophils % Seg Neuts % (Manual) Lymphocytes % (Manual) Monocytes % (Manual) Nucleated RBC % Seg Neutrophils # Monocytes # (Manual) POC ABG pH ABG pH POC ABG pCO2 POC ABG pO2 ABG pO2 ABG HCO3 ABG O2 Saturation ABG Hemoglobin Oxyhemoglobin Sodium 147 H Chloride 110.6 H Carbon Dioxide BUN 36 H Creatinine 2.4 H Glucose 195 H POC Glucose 193 H 173 H Calcium 8.1 L Total Bilirubin AST Albumin Urine WBC (Auto) 08/22/19 08/22/19 08/22/19 05:19 05:41 11:20 WBC Hgb Hct RDW Plt Count Lymph % (Auto) [place] % (Auto) Lymph # [place] # Seg Neutrophils % Seg Neuts % (Manual) Lymphocytes % (Manual) Monocytes % (Manual) Nucleated RBC % Seg Neutrophils # Monocytes # (Manual) POC ABG pH 7.328 L ABG pH POC ABG pCO2 53.0 H 49.7 H POC ABG pO2 75 L 62 L ABG pO2 ABG HCO3 ABG O2 Saturation ABG Hemoglobin Oxyhemoglobin Sodium Chloride Carbon Dioxide BUN Creatinine Glucose POC Glucose 176 H Calcium Total Bilirubin AST Albumin Urine WBC (Auto) 08/22/19 08/22/19 08/23/19 11:22 16:58 04:14 WBC Hgb Hct RDW Plt Count Lymph % (Auto) [place] % (Auto) Lymph # [place] # Seg Neutrophils % Seg Neuts % (Manual) Lymphocytes % (Manual) Monocytes % (Manual) Nucleated RBC % Seg Neutrophils # Monocytes # (Manual) POC ABG pH ABG pH POC ABG pCO2 POC ABG pO2 ABG pO2 ABG HCO3 ABG O2 Saturation ABG Hemoglobin Oxyhemoglobin Sodium Chloride Carbon Dioxide BUN 41 H Creatinine 2.3 H Glucose 174 H POC Glucose 217 H 174 H Calcium Total Bilirubin AST Albumin Urine WBC (Auto) 08/23/19 08/23/19 08/23/19 04:14 05:01 12:05 WBC 14.7 H Hgb 11.5 L Hct 35.2 L RDW 16.5 H Plt Count Lymph % (Auto) [place] % (Auto) Lymph # [place] # Seg Neutrophils % Seg Neuts % (Manual) Lymphocytes % (Manual) Monocytes % (Manual) Nucleated RBC % Seg Neutrophils # Monocytes # (Manual) POC ABG pH ABG pH POC ABG pCO2 45.4 H POC ABG pO2 ABG pO2 ABG HCO3 ABG O2 Saturation ABG Hemoglobin Oxyhemoglobin Sodium Chloride Carbon Dioxide BUN Creatinine Glucose POC Glucose 159 H Calcium Total Bilirubin AST Albumin Urine WBC (Auto) 08/23/19 08/23/19 08/24/19 12:53 18:51 06:33 WBC Hgb Hct RDW Plt Count Lymph % (Auto) [place] % (Auto) Lymph # [place] # Seg Neutrophils % Seg Neuts % (Manual) Lymphocytes % (Manual) Monocytes % (Manual) Nucleated RBC % Seg Neutrophils # Monocytes # (Manual) POC ABG pH ABG pH POC ABG pCO2 POC ABG pO2 ABG pO2 ABG HCO3 ABG O2 Saturation ABG Hemoglobin Oxyhemoglobin Sodium Chloride Carbon Dioxide BUN Creatinine Glucose POC Glucose 191 H 142 H 118 H Calcium Total Bilirubin AST Albumin Urine WBC (Auto) 08/24/19 08/24/1920 08:16 08:16 11:56 WBC 13.3 H Hgb 11.5 L Hct 34.1 L RDW 16.6 H Plt Count Lymph % (Auto) [place] % (Auto) Lymph # [place] # Seg Neutrophils % Seg Neuts % (Manual) Lymphocytes % (Manual) Monocytes % (Manual) Nucleated RBC % Seg Neutrophils # Monocytes # (Manual) POC ABG pH ABG pH POC ABG pCO2 POC ABG pO2 ABG pO2 ABG HCO3 ABG O2 Saturation ABG Hemoglobin Oxyhemoglobin Sodium Chloride Carbon Dioxide BUN 50 H Creatinine 2.3 H Glucose 121 H POC Glucose 115 H Calcium Total Bilirubin AST Albumin Urine WBC (Auto) 08/24/19 08/25/19 08/26/19 12:30 12:34 08:23 WBC 13.2 H Hgb 11.4 L Hct 34.6 L RDW 16.1 H Plt Count Lymph % (Auto) [place] % (Auto) Lymph # [place] # Seg Neutrophils % Seg Neuts % (Manual) Lymphocytes % (Manual) Monocytes % (Manual) Nucleated RBC % Seg Neutrophils # Monocytes # (Manual) POC ABG pH ABG pH POC ABG pCO2 54.7 H POC ABG pO2 63 L ABG pO2 ABG HCO3 ABG O2 Saturation ABG Hemoglobin Oxyhemoglobin Sodium Chloride Carbon Dioxide BUN Creatinine Glucose POC Glucose 167 H Calcium Total Bilirubin AST Albumin Urine WBC (Auto) 08/26/19 08/26/19 08/26/19 08:23 10:18 12:24 WBC Hgb Hct RDW Plt Count Lymph % (Auto) [place] % (Auto) Lymph # [place] # Seg Neutrophils % Seg Neuts % (Manual) Lymphocytes % (Manual) Monocytes % (Manual) Nucleated RBC % Seg Neutrophils # Monocytes # (Manual) POC ABG pH ABG pH POC ABG pCO2 POC ABG pO2 ABG pO2 ABG HCO3 ABG O2 Saturation ABG Hemoglobin Oxyhemoglobin Sodium 148 H Chloride 108.1 H Carbon Dioxide BUN 46 H Creatinine 2.0 H Glucose 112 H POC Glucose 160 H 139 H Calcium Total Bilirubin AST Albumin Urine WBC (Auto) 08/26/19 08/27/19 08/27/19 17:45 07:45 07:45 WBC 11.6 H Hgb 11.4 L Hct 34.3 L RDW 16.1 H Plt Count Lymph % (Auto) 5.7 L [place] % (Auto) Lymph # 0.7 L [place] # Seg Neutrophils % 88.4 H Seg Neuts % (Manual) Lymphocytes % (Manual) Monocytes % (Manual) Nucleated RBC % Seg Neutrophils # 10.2 H Monocytes # (Manual) POC ABG pH ABG pH POC ABG pCO2 POC ABG pO2 ABG pO2 ABG HCO3 ABG O2 Saturation ABG Hemoglobin Oxyhemoglobin Sodium Chloride Carbon Dioxide BUN 44 H Creatinine 2.0 H Glucose 143 H POC Glucose 188 H Calcium 8.0 L Total Bilirubin AST Albumin Urine WBC (Auto)
[2019-08-29] MEDS: hydrALAZINE 25 MG TAB PO SCH ×3 (05:30→21:43)
[2019-08-29] MEDS: methylPREDNISolone Sod Succinate 40 MG/1 ML INJ IV SCH ×3 (05:30→21:44)
[2019-08-29] MEDS: IPRATROPIUM/ALBUTEROL SULFATE 3 ML AMPUL.NEB IH SCH ×3 (07:50→20:20)
[2019-08-29] MEDS: PRAZOSIN 1 MG CAP PO SCH (10:46)
[2019-08-29] MEDS: amLODIPine 10 MG TAB PO SCH (10:47)
[2019-08-29] MEDS: FAMOTIDINE 20 MG TAB PO SCH (10:47)
[2019-08-29] MEDS: HEPARIN 5,000 UNIT/1 ML VIAL SUB-Q SCH ×2 (10:48→21:43)
--- NOTE | 2019-08-29 11:55 | Progress Note ---
Subjective Principal diagnosis: Severe Sepsis; Acute hypoxemic resp failure; Influenza; Jeramy PNA; CLAUDETTE Interval history: Patient was seen today for follow-up on multiple renal related issues feeling better no acute complaints urine output is good lood pressure is well controlled Vitals intake output medications were reviewed Past medical history: Reviewed Family, social history: Reviewed Allergies: Reviewed Physical examination General: No acute distress Vitals: Reviewed HEENT: Oral mucosa moist no icterus Neck: Supple no thyromegaly nodular mass or JVD Chest: few basilar crackles, occasional wheezes Heart: Regular rate and rhythm S1-S2 heard no S3-S4 Abdomen: Soft nontender no suprapubic masses no organomegaly Extremity: Dry skin less than 1+ edema Psych: No evidence of any agitation and aggression noted Derm: No petechial rash Assessment and plan: Acute kidney injury, Renal standpoint patient's blood pressure is stable he is nonoliguric, as of August 27 his creatinine is 2.0 potassium 4.1 he will need a follow-up lab Overall improving slowly from renal standpoint Etiology of renal failure ischemic renal injury: HTN Renal ultrasonogram: Normal Hypernatremia needs follow-up on monitoring acidosis: Better All renal related issues were discussed with the patient, We'll continue to follow and make recommendation from renal standpoint Objective - Vital Signs Vital signs: Vital Signs - 12hr 08/29/19 08/29/19 08/29/19 00:09 00:17 05:25 Temperature 98.5 F 98.1 F Pulse Rate 77 91 H 80 Pulse Rate [ Anterior Bilateral] Respiratory 18 23 18 Rate Respiratory Rate [Anterior Bilateral] Blood Pressure 132/52 147/81 O2 Sat by Pulse 97 92 96 Oximetry 08/29/19 08/29/19 08/29/19 07:10 07:51 08:00 Temperature 98.0 F Pulse Rate 79 84 Pulse Rate [ 89 Anterior Bilateral] Respiratory 18 Rate Respiratory 20 Rate [Anterior Bilateral] Blood Pressure 136/67 O2 Sat by Pulse 96 92 Oximetry 08/29/19 08/29/19 08/29/19 10:00 10:46 10:47 Temperature Pulse Rate 88 88 Pulse Rate [ Anterior Bilateral] Respiratory 20 Rate Respiratory Rate [Anterior Bilateral] Blood Pressure 136/68 136/68 O2 Sat by Pulse 95 Oximetry 08/29/19 11:07 Temperature 98.2 F Pulse Rate 93 H Pulse Rate [ Anterior Bilateral] Respiratory 18 Rate Respiratory Rate [Anterior Bilateral] Blood Pressure 143/85 O2 Sat by Pulse 94 Oximetry - Lab 08/27/19 07:45 08/27/19 07:45 Most recent lab results ABG pH 7.314 pH Units (7.350-7.450) L 08/21/19 04:40 ABG pCO2 54.6 mm Hg 08/21/19 04:40 ABG pO2 78.3 mm Hg (80.0-90.0) L 08/21/19 04:40 ABG HCO3 27.1 mmol/L (20.0-26.0) H 08/21/19 04:40 ABG O2 Saturation 94.8 % (95.0-99.0) L 08/21/19 04:40 Calcium 8.0 mg/dL (8.4-10.2) L 08/27/19 07:45 Medications & Allergies - Medications Allergies/Adverse Reactions: Allergies No Known Allergies Allergy (Unverified 08/15/19 13:08) Home Medications: Home Medications Medication Instructions Recorded Confirmed Last Taken Type Rosuvastatin Calcium 20 mg PO QDAY 08/16/19 08/16/19 08/14/19 History Terazosin HCl 2 mg PO QDAY 08/16/19 08/16/19 08/14/19 History Trandolapril/Verapamil HCl [[place] 4 mg PO QDAY 08/16/19 08/16/19 08/14/19 History ER 4-240 mg] Triamter/Hctz 37.5-25 mg 1 tab PO QDAY 08/16/19 08/16/19 08/14/19 History [Maxzide-25] Verapamil ER [Calan Sr] 180 mg PO BID 08/16/19 08/16/19 08/14/19 History amLODIPine [Norvasc] 10 mg PO DAILY 08/16/19 08/16/19 08/14/19 History Active Medications: Generic Name Dose Route Start Last Admin Trade Name Freq PRN Reason Stop Dose Admin Acetaminophen 650 mg 08/15/19 16:00 08/23/19 16:10 Tylenol PO 650 mg Q4H PRN Administration Pain MILD(1-3)/Fever >100.5/HARDY Albuterol 2.5 mg 08/15/19 16:00 Proventil IH Q4HRT PRN Shortness Of Breath Albuterol/Ipratropium 1 ampul 08/20/19 14:00 08/29/19 07:50 Duoneb *Not For Prn Use* IH 1 ampul TIDRT LEORA Administration Amlodipine Besylate 10 mg 08/19/19 14:00 08/29/19 10:47 Amlodipine PO 10 mg DAILY LEORA Administration Atorvastatin Calcium 40 mg 08/19/19 22:00 08/28/19 22:26 Lipitor PO 40 mg QHS LEORA Administration Famotidine 20 mg 08/19/19 10:00 08/29/19 10:47 Pepcid PO 20 mg QDAY LEORA Administration Heparin Sodium (Porcine) 5,000 unit 08/15/19 22:00 08/29/19 10:48 Heparin SUB-Q 5,000 unit Q12HR LEORA Administration Hydralazine HCl 10 mg 08/21/19 11:09 08/23/19 09:16 Apresoline IV 10 mg Q4HR PRN Administration SBP>160 or DBP>110 Hydralazine HCl 100 mg 08/23/19 14:00 08/29/19 05:30 Apresoline PO 100 mg Q8HR LEORA Administration Hydrophilic Ointment 1 applic 08/15/19 17:33 Vaseline Lip Therapy TP Q2HR PRN Dry Lips Methylprednisolone Sodium Succinate 40 mg 08/24/19 06:00 08/29/19 05:30 Solu-Medrol IV 40 mg Q8HR LEORA Administration Multi-Ingred Cream/Lotion/Oil/Oint 1 applic 08/15/19 17:33 Artificial Tears Ophth Oint OU Q4HR PRN Dry Eye(s) Ondansetron HCl 4 mg 08/15/19 16:00 Zofran IV Q8H PRN Nausea And Vomiting Prazosin HCl 1 mg 08/19/19 16:00 08/29/19 10:46 Prazosin PO 1 mg QDAY LEORA Administration Sodium Chloride 10 ml 08/15/19 22:00 08/29/19 10:47 Sodium Chloride Flush Syringe 10 Ml IV 10 ml BID LEORA Administration Sodium Chloride 10 ml 08/15/19 16:00 08/28/19 06:37 Sodium Chloride Flush Syringe 10 Ml IV 10 ml PRN PRN Administration LINE FLUSH
--- NOTE | 2019-08-29 16:15 | Progress Note ---
Assessment and Plan Sepsis Acute respiratory failure with hypoxemia and hypercapnia on MVS Influenza Bilateral pneumonia Acute renal failure Tobacco use disorder/Nicotine dependence Thrombocytopenia - continue to wean supplemental oxygen for target O2 sat's > 90% - home oxygen evaluation - continue bronchodilators with pulmonary hygiene per RT - continue accuchecks with glycemic control per SSI for target BG < 180 mg/dL; avoid hypoglycemia) - continue to avoid benzodiazepines to reduce the possibility of delirium - complete empiric antibiotics for post viral PNA; complete antiviral agents per ID - prn analgesia per pain score - Maintenance of sleep-wake cycle, avoid delirium - Aspiration precautions, HOB >40 - G.I. & VTE prophylaxis, while on heparin monitor for bleeding and trend platelets - PT/OT/ROM exercises - Mobility protocol and off loading for pressure ulcer prevention - Renally dose all medications, avoid nephrotoxins - Nicotine withdrawal precautions - Smoking cessation counselling done ... re-evaluate in am & prn Subjective Date of service: 08/29/19 Principal diagnosis: Severe Sepsis; Acute hypoxemic resp failure; Influenza; Jeramy PNA; CLAUDETTE Interval history: Patient is seen today for: Sepsis; Acute respiratory failure with hypoxemia and hypercapnia; Influenza; Bilateral pneumonia; CLAUDETTE; Tobacco use disorder/Nicotine dependence; Thrombocytopenia Seen and examined at bedside; 24 hour events reviewed; nursing and respiratory care staff consulted; no adverse overnight events reported to me; resting peacefully in bed; still with some SOB & ARDON; remains on supplemental oxygen Objective Vital Signs - 12hr 08/29/19 08/29/19 08/29/19 05:25 07:10 07:51 Temperature 98.1 F 98.0 F Pulse Rate 80 79 Pulse Rate [ 89 Anterior Bilateral] Respiratory 18 18 Rate Respiratory 20 Rate [Anterior Bilateral] Blood Pressure 147/81 136/67 O2 Sat by Pulse 96 96 92 Oximetry 08/29/19 08/29/19 08/29/19 08:00 10:00 10:46 Temperature Pulse Rate 84 88 Pulse Rate [ Anterior Bilateral] Respiratory 20 Rate Respiratory Rate [Anterior Bilateral] Blood Pressure 136/68 O2 Sat by Pulse 95 Oximetry 08/29/19 08/29/19 08/29/19 10:47 11:07 12:00 Temperature 98.2 F Pulse Rate 88 93 H 88 Pulse Rate [ Anterior Bilateral] Respiratory 18 Rate Respiratory Rate [Anterior Bilateral] Blood Pressure 136/68 143/85 O2 Sat by Pulse 94 Oximetry 08/29/19 15:35 Temperature 99.1 F Pulse Rate 92 H Pulse Rate [ Anterior Bilateral] Respiratory 18 Rate Respiratory Rate [Anterior Bilateral] Blood Pressure 122/66 O2 Sat by Pulse 94 Oximetry Constitutional: no acute distress, alert Eyes: non-icteric ENT: oropharynx moist Neck: supple, no lymphadenopathy, no JVD Effort: normal Ascultation: Bilateral: diminished breath sounds, rhonchi Percussion: Bilateral: not dull Cardiovascular: regular rate and rhythm, other (S1,S2) Gastrointestinal: normoactive bowel sounds, soft, non-tender, other (distended) Integumentary: normal Extremities: no cyanosis, no edema, pink and warm, pulses normal Neurologic: non-focal exam, pupils equal and round, motor strength normal and Psychiatric: mood appropriate, affect normal CBC and BMP: 08/27/19 07:45 08/29/19 15:10 ABG, PT/INR, D-dimer: ABG POC ABG pH 7.359 (7.35-7.45) 08/24/19 12:30 ABG pH 7.314 pH Units (7.350-7.450) L 08/21/19 04:40 POC ABG pCO2 54.7 (35-45) H 08/24/19 12:30 ABG pCO2 54.6 mm Hg 08/21/19 04:40 POC ABG pO2 63 (80-105) L 08/24/19 12:30 ABG pO2 78.3 mm Hg (80.0-90.0) L 08/21/19 04:40 POC ABG HCO3 30.8 (22-26 mml/L) 08/24/19 12:30 POC ABG Total CO2 32 (23-27mmol/L) 08/24/19 12:30 POC ABG O2 Sat 90 08/24/19 12:30 ABG O2 Saturation 94.8 % (95.0-99.0) L 08/21/19 04:40 Abnormal lab findings: Abnormal Labs 08/15/19 08/15/19 08/15/19 13:16 13:16 17:16 WBC 14.7 H Hgb Hct RDW 17.3 H Plt Count Lymph % (Auto) [place] % (Auto) 11.3 H Lymph # [place] # 1.7 H Seg Neutrophils % 71.9 H Seg Neuts % (Manual) Lymphocytes % (Manual) Monocytes % (Manual) Nucleated RBC % Seg Neutrophils # 10.6 H Monocytes # (Manual) POC ABG pH 7.182 L ABG pH POC ABG pCO2 > 70 H POC ABG pO2 ABG pO2 ABG HCO3 ABG O2 Saturation ABG Hemoglobin Oxyhemoglobin Sodium Chloride Carbon Dioxide BUN 28 H Creatinine 1.9 H Glucose 133 H POC Glucose Calcium Total Bilirubin 1.50 H AST 82 H Albumin 3.6 L Urine WBC (Auto) 08/15/19 08/16/19 08/16/19 18:17 03:41 03:41 WBC Hgb 11.6 L Hct 34.3 L D RDW 17.4 H Plt Count 119 L Lymph % (Auto) 11.4 L [place] % (Auto) 11.6 H Lymph # 1.0 L [place] # 1.1 H Seg Neutrophils % 76.9 H Seg Neuts % (Manual) Lymphocytes % (Manual) Monocytes % (Manual) Nucleated RBC % Seg Neutrophils # Monocytes # (Manual) POC ABG pH 7.280 L ABG pH POC ABG pCO2 64.7 H POC ABG pO2 64 L ABG pO2 ABG HCO3 ABG O2 Saturation ABG Hemoglobin Oxyhemoglobin Sodium Chloride 107.1 H Carbon Dioxide BUN 34 H Creatinine 2.4 H Glucose 138 H POC Glucose Calcium 7.2 L D Total Bilirubin AST Albumin Urine WBC (Auto) 08/16/19 08/16/19 08/16/19 06:27 11:19 14:40 WBC Hgb Hct RDW Plt Count Lymph % (Auto) [place] % (Auto) Lymph # [place] # Seg Neutrophils % Seg Neuts % (Manual) Lymphocytes % (Manual) Monocytes % (Manual) Nucleated RBC % Seg Neutrophils # Monocytes # (Manual) POC ABG pH 7.336 L ABG pH POC ABG pCO2 47.9 H 48.7 H POC ABG pO2 69 L 130 H ABG pO2 ABG HCO3 ABG O2 Saturation ABG Hemoglobin Oxyhemoglobin Sodium Chloride Carbon Dioxide BUN Creatinine Glucose POC Glucose Calcium Total Bilirubin AST Albumin Urine WBC (Auto) 8.0 H 08/17/19 08/17/19 08/17/19 05:31 05:31 06:30 WBC Hgb 11.5 L Hct 34.3 L RDW 17.3 H Plt Count Lymph % (Auto) [place] % (Auto) 13.5 H Lymph # [place] # 1.3 H Seg Neutrophils % 70.7 H Seg Neuts % (Manual) Lymphocytes % (Manual) Monocytes % (Manual) Nucleated RBC % Seg Neutrophils # Monocytes # (Manual) POC ABG pH ABG pH POC ABG pCO2 POC ABG pO2 ABG pO2 116.6 H ABG HCO3 ABG O2 Saturation ABG Hemoglobin 13.9 L Oxyhemoglobin Sodium 146 H Chloride 112.1 H Carbon Dioxide BUN 47 H Creatinine 3.2 H Glucose POC Glucose Calcium 7.7 L Total Bilirubin AST Albumin Urine WBC (Auto) 08/17/19 08/18/19 08/18/19 20:31 04:20 04:20 WBC Hgb 11.4 L Hct 34.3 L RDW 17.3 H Plt Count 137 L Lymph % (Auto) [place] % (Auto) Lymph # [place] # Seg Neutrophils % Seg Neuts % (Manual) 79.0 H Lymphocytes % (Manual) 13.0 L Monocytes % (Manual) 8.0 H Nucleated RBC % 1.0 H Seg Neutrophils # Monocytes # (Manual) POC ABG pH ABG pH POC ABG pCO2 POC ABG pO2 78 L ABG pO2 ABG HCO3 ABG O2 Saturation ABG Hemoglobin Oxyhemoglobin Sodium 148 H Chloride 112.3 H Carbon Dioxide 20 L BUN 40 H Creatinine 3.1 H Glucose 109 H POC Glucose Calcium 7.9 L Total Bilirubin AST Albumin Urine WBC (Auto) 08/18/19 08/18/19 08/19/19 06:45 23:19 04:30 WBC Hgb Hct RDW Plt Count Lymph % (Auto) [place] % (Auto) Lymph # [place] # Seg Neutrophils % Seg Neuts % (Manual) Lymphocytes % (Manual) Monocytes % (Manual) Nucleated RBC % Seg Neutrophils # Monocytes # (Manual) POC ABG pH ABG pH POC ABG pCO2 45.2 H POC ABG pO2 55 L ABG pO2 72.2 L ABG HCO3 26.1 H ABG O2 Saturation 94.4 L ABG Hemoglobin 11.5 L Oxyhemoglobin 92.6 L Sodium Chloride Carbon Dioxide BUN Creatinine Glucose POC Glucose 158 H Calcium Total Bilirubin AST Albumin Urine WBC (Auto) 08/19/19 08/19/19 08/19/19 05:15 05:15 05:28 WBC Hgb 11.3 L Hct 34.4 L RDW 17.1 H Plt Count Lymph % (Auto) [place] % (Auto) Lymph # [place] # Seg Neutrophils % Seg Neuts % (Manual) Lymphocytes % (Manual) Monocytes % (Manual) 12.0 H Nucleated RBC % Seg Neutrophils # Monocytes # (Manual) 1.0 H POC ABG pH ABG pH POC ABG pCO2 POC ABG pO2 ABG pO2 ABG HCO3 ABG O2 Saturation ABG Hemoglobin Oxyhemoglobin Sodium 149 H Chloride 115.0 H Carbon Dioxide 21 L BUN 32 H Creatinine 2.7 H Glucose 112 H POC Glucose 113 H Calcium 7.8 L Total Bilirubin AST Albumin Urine WBC (Auto) 08/19/19 08/19/19 08/19/19 13:00 17:46 22:45 WBC Hgb Hct RDW Plt Count Lymph % (Auto) [place] % (Auto) Lymph # [place] # Seg Neutrophils % Seg Neuts % (Manual) Lymphocytes % (Manual) Monocytes % (Manual) Nucleated RBC % Seg Neutrophils # Monocytes # (Manual) POC ABG pH ABG pH POC ABG pCO2 POC ABG pO2 ABG pO2 ABG HCO3 ABG O2 Saturation ABG Hemoglobin Oxyhemoglobin Sodium Chloride Carbon Dioxide BUN Creatinine Glucose POC Glucose 126 H 112 H 172 H Calcium Total Bilirubin AST Albumin Urine WBC (Auto) 08/20/19 08/20/19 08/20/19 04:00 05:02 05:02 WBC Hgb 11.1 L Hct 33.4 L RDW 17.1 H Plt Count Lymph % (Auto) 11.2 L [place] % (Auto) 12.3 H Lymph # [place] # 1.3 H Seg Neutrophils % 74.9 H Seg Neuts % (Manual) Lymphocytes % (Manual) Monocytes % (Manual) Nucleated RBC % Seg Neutrophils # 7.8 H Monocytes # (Manual) POC ABG pH ABG pH POC ABG pCO2 45.1 H POC ABG pO2 70 L ABG pO2 ABG HCO3 ABG O2 Saturation ABG Hemoglobin Oxyhemoglobin Sodium 146 H Chloride 111.7 H Carbon Dioxide BUN 27 H Creatinine 2.4 H Glucose 123 H POC Glucose Calcium 8.1 L Total Bilirubin AST Albumin Urine WBC (Auto) 08/20/19 08/20/19 08/20/19 05:51 11:39 18:26 WBC Hgb Hct RDW Plt Count Lymph % (Auto) [place] % (Auto) Lymph # [place] # Seg Neutrophils % Seg Neuts % (Manual) Lymphocytes % (Manual) Monocytes % (Manual) Nucleated RBC % Seg Neutrophils # Monocytes # (Manual) POC ABG pH ABG pH POC ABG pCO2 POC ABG pO2 ABG pO2 ABG HCO3 ABG O2 Saturation ABG Hemoglobin Oxyhemoglobin Sodium Chloride Carbon Dioxide BUN Creatinine Glucose POC Glucose 108 H 116 H 137 H Calcium Total Bilirubin AST Albumin Urine WBC (Auto) 08/21/19 08/21/19 08/21/19 04:40 05:25 05:56 WBC Hgb Hct RDW Plt Count Lymph % (Auto) [place] % (Auto) Lymph # [place] # Seg Neutrophils % Seg Neuts % (Manual) Lymphocytes % (Manual) Monocytes % (Manual) Nucleated RBC % Seg Neutrophils # Monocytes # (Manual) POC ABG pH ABG pH 7.314 L POC ABG pCO2 POC ABG pO2 ABG pO2 78.3 L ABG HCO3 27.1 H ABG O2 Saturation 94.8 L ABG Hemoglobin 10.5 L Oxyhemoglobin 93.0 L Sodium 147 H Chloride 110.7 H Carbon Dioxide BUN 30 H Creatinine 2.4 H Glucose 144 H POC Glucose 129 H Calcium 8.0 L Total Bilirubin AST Albumin Urine WBC (Auto) 08/21/19 08/22/19 08/22/19 12:39 00:08 03:45 WBC Hgb Hct RDW Plt Count Lymph % (Auto) [place] % (Auto) Lymph # [place] # Seg Neutrophils % Seg Neuts % (Manual) Lymphocytes % (Manual) Monocytes % (Manual) Nucleated RBC % Seg Neutrophils # Monocytes # (Manual) POC ABG pH ABG pH POC ABG pCO2 POC ABG pO2 ABG pO2 ABG HCO3 ABG O2 Saturation ABG Hemoglobin Oxyhemoglobin Sodium 147 H Chloride 110.6 H Carbon Dioxide BUN 36 H Creatinine 2.4 H Glucose 195 H POC Glucose 193 H 173 H Calcium 8.1 L Total Bilirubin AST Albumin Urine WBC (Auto) 08/22/19 08/22/19 08/22/19 05:19 05:41 11:20 WBC Hgb Hct RDW Plt Count Lymph % (Auto) [place] % (Auto) Lymph # [place] # Seg Neutrophils % Seg Neuts % (Manual) Lymphocytes % (Manual) Monocytes % (Manual) Nucleated RBC % Seg Neutrophils # Monocytes # (Manual) POC ABG pH 7.328 L ABG pH POC ABG pCO2 53.0 H 49.7 H POC ABG pO2 75 L 62 L ABG pO2 ABG HCO3 ABG O2 Saturation ABG Hemoglobin Oxyhemoglobin Sodium Chloride Carbon Dioxide BUN Creatinine Glucose POC Glucose 176 H Calcium Total Bilirubin AST Albumin Urine WBC (Auto) 08/22/19 08/22/19 08/23/19 11:22 16:58 04:14 WBC Hgb Hct RDW Plt Count Lymph % (Auto) [place] % (Auto) Lymph # [place] # Seg Neutrophils % Seg Neuts % (Manual) Lymphocytes % (Manual) Monocytes % (Manual) Nucleated RBC % Seg Neutrophils # Monocytes # (Manual) POC ABG pH ABG pH POC ABG pCO2 POC ABG pO2 ABG pO2 ABG HCO3 ABG O2 Saturation ABG Hemoglobin Oxyhemoglobin Sodium Chloride Carbon Dioxide BUN 41 H Creatinine 2.3 H Glucose 174 H POC Glucose 217 H 174 H Calcium Total Bilirubin AST Albumin Urine WBC (Auto) 08/23/19 08/23/19 08/23/19 04:14 05:01 12:05 WBC 14.7 H Hgb 11.5 L Hct 35.2 L RDW 16.5 H Plt Count Lymph % (Auto) [place] % (Auto) Lymph # [place] # Seg Neutrophils % Seg Neuts % (Manual) Lymphocytes % (Manual) Monocytes % (Manual) Nucleated RBC % Seg Neutrophils # Monocytes # (Manual) POC ABG pH ABG pH POC ABG pCO2 45.4 H POC ABG pO2 ABG pO2 ABG HCO3 ABG O2 Saturation ABG Hemoglobin Oxyhemoglobin Sodium Chloride Carbon Dioxide BUN Creatinine Glucose POC Glucose 159 H Calcium Total Bilirubin AST Albumin Urine WBC (Auto) 08/23/19 08/23/19 08/24/19 12:53 18:51 06:33 WBC Hgb Hct RDW Plt Count Lymph % (Auto) [place] % (Auto) Lymph # [place] # Seg Neutrophils % Seg Neuts % (Manual) Lymphocytes % (Manual) Monocytes % (Manual) Nucleated RBC % Seg Neutrophils # Monocytes # (Manual) POC ABG pH ABG pH POC ABG pCO2 POC ABG pO2 ABG pO2 ABG HCO3 ABG O2 Saturation ABG Hemoglobin Oxyhemoglobin Sodium Chloride Carbon Dioxide BUN Creatinine Glucose POC Glucose 191 H 142 H 118 H Calcium Total Bilirubin AST Albumin Urine WBC (Auto) 08/24/19 08/24/19 08/24/19 08:16 08:16 11:56 WBC 13.3 H Hgb 11.5 L Hct 34.1 L RDW 16.6 H Plt Count Lymph % (Auto) [place] % (Auto) Lymph # [place] # Seg Neutrophils % Seg Neuts % (Manual) Lymphocytes % (Manual) Monocytes % (Manual) Nucleated RBC % Seg Neutrophils # Monocytes # (Manual) POC ABG pH ABG pH POC ABG pCO2 POC ABG pO2 ABG pO2 ABG HCO3 ABG O2 Saturation ABG Hemoglobin Oxyhemoglobin Sodium Chloride Carbon Dioxide BUN 50 H Creatinine 2.3 H Glucose 121 H POC Glucose 115 H Calcium Total Bilirubin AST Albumin Urine WBC (Auto) 08/24/19 08/25/19 08/26/19 12:30 12:34 08:23 WBC 13.2 H Hgb 11.4 L Hct 34.6 L RDW 16.1 H Plt Count Lymph % (Auto) [place] % (Auto) Lymph # [place] # Seg Neutrophils % Seg Neuts % (Manual) Lymphocytes % (Manual) Monocytes % (Manual) Nucleated RBC % Seg Neutrophils # Monocytes # (Manual) POC ABG pH ABG pH POC ABG pCO2 54.7 H POC ABG pO2 63 L ABG pO2 ABG HCO3 ABG O2 Saturation ABG Hemoglobin Oxyhemoglobin Sodium Chloride Carbon Dioxide BUN Creatinine Glucose POC Glucose 167 H Calcium Total Bilirubin AST Albumin Urine WBC (Auto) 08/26/19 08/26/19 08/26/19 08:23 10:18 12:24 WBC Hgb Hct RDW Plt Count Lymph % (Auto) [place] % (Auto) Lymph # [place] # Seg Neutrophils % Seg Neuts % (Manual) Lymphocytes % (Manual) Monocytes % (Manual) Nucleated RBC % Seg Neutrophils # Monocytes # (Manual) POC ABG pH ABG pH POC ABG pCO2 POC ABG pO2 ABG pO2 ABG HCO3 ABG O2 Saturation ABG Hemoglobin Oxyhemoglobin Sodium 148 H Chloride 108.1 H Carbon Dioxide BUN 46 H Creatinine 2.0 H Glucose 112 H POC Glucose 160 H 139 H Calcium Total Bilirubin AST Albumin Urine WBC (Auto) 08/26/19 08/27/19 08/27/19 17:45 07:45 07:45 WBC 11.6 H Hgb 11.4 L Hct 34.3 L RDW 16.1 H Plt Count Lymph % (Auto) 5.7 L [place] % (Auto) Lymph # 0.7 L [place] # Seg Neutrophils % 88.4 H Seg Neuts % (Manual) Lymphocytes % (Manual) Monocytes % (Manual) Nucleated RBC % Seg Neutrophils # 10.2 H Monocytes # (Manual) POC ABG pH ABG pH POC ABG pCO2 POC ABG pO2 ABG pO2 ABG HCO3 ABG O2 Saturation ABG Hemoglobin Oxyhemoglobin Sodium Chloride Carbon Dioxide BUN 44 H Creatinine 2.0 H Glucose 143 H POC Glucose 188 H Calcium 8.0 L Total Bilirubin AST Albumin Urine WBC (Auto) Allied health notes reviewed: nursing
--- NOTE | 2019-08-29 21:11 | Progress Note ---
Assessment and Plan - Patient Problems (1) Diabetes 1.5, managed as type 2 Current Visit: Yes Status: Acute Plan to address problem: Patient diabetes fairly well controlled. Goal is to keep Accu-Chek less than 180 has been 121 160 139. Continue present management. (2) Acute on chronic respiratory failure with hypoxemia Current Visit: Yes Status: Acute Plan to address problem: Acute on chronic respiratory failure seems to be resolving. Expect patient to be discharged 1 to 3 days. Weaning O2 tolerating well. Suspect patient to go home with BiPAP every night and also home O2. Deconditioning has improved. Should be to be discharged with oxygen BiPAP Sunday or Sunday. Follow pulmonology recommendations. Continue to wean as indicated. (3) Acute renal failure Current Visit: Yes Status: Acute Qualifiers: Acute renal failure type: with acute tubular necrosis Qualified Code(s): N17.0 - Acute kidney failure with tubular necrosis Plan to address problem: Continues to improve. Creatinine now 1.9. Renal following. Avoid nephrotoxic agents. Low-sodium diet. Follow-up renal function on Sunday. (4) Nicotine dependence Current Visit: Yes Status: Acute Qualifiers: Nicotine product type: cigarettes Plan to address problem: Nicotine patch continued at home (5) Respiratory failure, acute Current Visit: Yes Status: Acute Plan to address problem: Patient acute respiratory failure resolving mostly chronic now. Bilateral pneumonia treated stable. History Interval history: Patient appears to be doing much better today was able to get up with a walkerCough and shortness of breath Patient still extremely dyspneic and short of breath. I do not think this will improve during this hospital stay. home O2 Cough and shortness of breath Patient still extremely dyspneic and short of breath. I do not think this will improve during this hospital stay. home O2 discussed entire hospital course with daughter who is at the bedside. All questions answered to her concerns. Hospitalist Physical - Constitutional Vitals: Temp Pulse Resp BP Pulse Ox 99.1 F 95 H 20 138/72 96 08/29/19 15:35 08/29/19 20:25 08/29/19 20:25 08/29/19 16:32 08/29/19 20:26 General appearance: Present: no acute distress, mild distress, other (Patient orally intubated on mechanical ventilation) - EENT Eyes: Present: PERRL, EOM intact ENT: hearing intact, clear oral mucosa, dentition normal - Respiratory Respiratory: bilateral: diminished - Cardiovascular Rhythm: regular - Extremities Extremities: no ischemia, pulses intact, pulses symmetrical, No edema, normal temperature, normal color Peripheral Pulses: within normal limits - Abdominal General gastrointestinal: soft, non-tender, non-distended, normal bowel sounds, other (Obese), no hepatomegaly, no splenomegaly - Psychiatric Psychiatric: appropriate mood/affect, intact judgment & insight, memory intact - Neurologic Neurologic: CNII-XII intact, focal deficits, moves all extremities, other (+1 edema.) Results - Labs CBC & Chem 7: 08/27/19 07:45 08/29/19 15:10 Labs: Laboratory Last Values WBC 11.6 K/mm3 (4.5-11.0) H 08/27/19 07:45 RBC 3.95 M/mm3 (3.65-5.03) 08/27/19 07:45 Hgb 11.4 gm/dl (11.8-15.2) L 08/27/19 07:45 Hct 34.3 % (35.5-45.6) L 08/27/19 07:45 MCV 87 fl (84-94) 08/27/19 07:45 MCH 29 pg (28-32) 08/27/19 07:45 MCHC 33 % (32-34) 08/27/19 07:45 RDW 16.1 % (13.2-15.2) H 08/27/19 07:45 Plt Count 245 K/mm3 (140-440) 08/27/19 07:45 Lymph % (Auto) 5.7 % (13.4-35.0) L 08/27/19 07:45 [place] % (Auto) 5.8 % (0.0-7.3) 08/27/19 07:45 Eos % (Auto) 0.0 % (0.0-4.3) 08/27/19 07:45 Baso % (Auto) 0.1 % (0.0-1.8) 08/27/19 07:45 Lymph # 0.7 K/mm3 (1.2-5.4) L 08/27/19 07:45 [place]on # 0.7 K/mm3 (0.0-0.8) 08/27/19 07:45 Eos # 0.0 K/mm3 (0.0-0.4) 08/27/19 07:45 Baso # 0.0 K/mm3 (0.0-0.1) 08/27/19 07:45 Add Manual Diff Complete 08/19/19 05:15 Total Counted 100 08/19/19 05:15 Seg Neutrophils % 88.4 % (40.0-70.0) H 08/27/19 07:45 Seg Neuts % (Manual) 69.0 % (40.0-70.0) 08/19/19 05:15 Band Neutrophils % 0 % 08/19/19 05:15 Lymphocytes % (Manual) 17.0 % (13.4-35.0) 08/19/19 05:15 Reactive Lymphs % (Man) 1.0 % 08/19/19 05:15 Monocytes % (Manual) 12.0 % (0.0-7.3) H 08/19/19 05:15 Eosinophils % (Manual) 1.0 % (0.0-4.3) 08/19/19 05:15 Basophils % (Manual) 0 % (0.0-1.8) 08/19/19 05:15 Metamyelocytes % 0 % 08/19/19 05:15 Myelocytes % 0 % 08/19/19 05:15 Promyelocytes % 0 % 08/19/19 05:15 Blast Cells % 0 % 08/19/19 05:15 Nucleated RBC % Not Reportable 08/19/19 05:15 Seg Neutrophils # 10.2 K/mm3 (1.8-7.7) H 08/27/19 07:45 Seg Neutrophils # Man 5.9 K/mm3 (1.8-7.7) 08/19/19 05:15 Band Neutrophils # 0.0 K/mm3 08/19/19 05:15 Lymphocytes # (Manual) 1.4 K/mm3 (1.2-5.4) 08/19/19 05:15 Abs React Lymphs (Man) 0.1 K/mm3 08/19/19 05:15 Monocytes # (Manual) 1.0 K/mm3 (0.0-0.8) H 08/19/19 05:15 Eosinophils # (Manual) 0.1 K/mm3 (0.0-0.4) 08/19/19 05:15 Basophils # (Manual) 0.0 K/mm3 (0.0-0.1) 08/19/19 05:15 Metamyelocytes # 0.0 K/mm3 08/19/19 05:15 Myelocytes # 0.0 K/mm3 08/19/19 05:15 Promyelocytes # 0.0 K/mm3 08/19/19 05:15 Blast Cells # 0.0 K/mm3 08/19/19 05:15 WBC Morphology Not Reportable 08/19/19 05:15 Hypersegmented Neuts Not Reportable 08/19/19 05:15 Hyposegmented Neuts Not Reportable 08/19/19 05:15 Hypogranular Neuts Not Reportable 08/19/19 05:15 Smudge Cells Not Reportable 08/19/19 05:15 Toxic Granulation Not Reportable 08/19/19 05:15 Toxic Vacuolation Not Reportable 08/19/19 05:15 Dohle Bodies Not Reportable 08/19/19 05:15 Pelger-Huet Anomaly Not Reportable 08/19/19 05:15 Dalila Rods Not Reportable 08/19/19 05:15 Platelet Estimate Consistent w auto 08/19/19 05:15 Clumped Platelets Not Reportable 08/19/19 05:15 Plt Clumps, EDTA Not Reportable 08/19/19 05:15 Large Platelets Not Reportable 08/19/19 05:15 Giant Platelets Not Reportable 08/19/19 05:15 Platelet Satelliting Not Reportable 08/19/19 05:15 Plt Morphology Comment Not Reportable 08/19/19 05:15 RBC Morphology Not Reportable 08/19/19 05:15 Dimorphic RBCs Not Reportable 08/19/19 05:15 Polychromasia Not Reportable 08/19/19 05:15 Hypochromasia Not Reportable 08/19/19 05:15 Poikilocytosis Not Reportable 08/19/19 05:15 Anisocytosis 1+ 08/19/19 05:15 Microcytosis Not Reportable 08/19/19 05:15 Macrocytosis Not Reportable 08/19/19 05:15 Spherocytes Not Reportable 08/19/19 05:15 Pappenheimer Bodies Not Reportable 08/19/19 05:15 Sickle Cells Not Reportable 08/19/19 05:15 Target Cells Not Reportable 08/19/19 05:15 Tear Drop Cells Not Reportable 08/19/19 05:15 Ovalocytes Not Reportable 08/19/19 05:15 Helmet Cells Not Reportable 08/19/19 05:15 Sifuentes-[place] Bodies Not Reportable 08/19/19 05:15 [place] Rings Not Reportable 08/19/19 05:15 Alana Cells Not Reportable 08/19/19 05:15 Bite Cells Not Reportable 08/19/19 05:15 Crenated Cell Not Reportable 08/19/19 05:15 Elliptocytes Not Reportable 08/19/19 05:15 Acanthocytes (Spur) Not Reportable 08/19/19 05:15 Rouleaux Not Reportable 08/19/19 05:15 Hemoglobin C Crystals Not Reportable 08/19/19 05:15 Schistocytes Not Reportable 08/19/19 05:15 Malaria parasites Not Reportable 08/19/19 05:15 Magdiel Bodies Not Reportable 08/19/19 05:15 Hem Pathologist Commnt No 08/19/19 05:15 POC ABG pH 7.359 (7.35-7.45) 08/24/19 12:30 ABG pH 7.314 pH Units (7.350-7.450) L 08/21/19 04:40 POC ABG pCO2 54.7 (35-45) H 08/24/19 12:30 ABG pCO2 54.6 mm Hg 08/21/19 04:40 POC ABG pO2 63 (80-105) L 08/24/19 12:30 ABG pO2 78.3 mm Hg (80.0-90.0) L 08/21/19 04:40 POC ABG HCO3 30.8 (22-26 mml/L) 08/24/19 12:30 ABG HCO3 27.1 mmol/L (20.0-26.0) H 08/21/19 04:40 POC ABG Total CO2 32 (23-27mmol/L) 08/24/19 12:30 POC ABG O2 Sat 90 08/24/19 12:30 ABG O2 Saturation 94.8 % (95.0-99.0) L 08/21/19 04:40 ABG O2 Content 13.8 (0.0-44) 08/21/19 04:40 POC ABG Base Excess 5 ((-2) - (+3)mmol/L) 08/24/19 12:30 ABG Base Excess 0.3 mmol/L (-2.0-3.0) 08/21/19 04:40 ABG Hemoglobin 10.5 gm/dl (14.0-18.0) L 08/21/19 04:40 ABG Carboxyhemoglobin 1.4 % (0.0-5.0) 08/21/19 04:40 ABG Methemoglobin 0.5 % (0.0-1.5) 08/21/19 04:40 Oxyhemoglobin 93.0 % (95.0-99.0) L 08/21/19 04:40 FiO2 35 % 08/24/19 12:30 Sodium 142 mmol/L (137-145) 08/29/19 15:10 Potassium 4.1 mmol/L (3.6-5.0) 08/29/19 15:10 Chloride 103.2 mmol/L (98-107) 08/29/19 15:10 Carbon Dioxide 27 mmol/L (22-30) 08/29/19 15:10 Anion Gap 16 mmol/L 08/29/19 15:10 BUN 32 mg/dL (9-20) H 08/29/19 15:10 Creatinine 1.7 mg/dL (0.8-1.5) H 08/29/19 15:10 Estimated GFR 49 ml/min 08/29/19 15:10 BUN/Creatinine Ratio 19 % 08/29/19 15:10 Glucose 172 mg/dL (75-100) H 08/29/19 15:10 POC Glucose 188 (70-105) H 08/26/19 17:45 Hemoglobin A1c 6.0 % (4-6) 08/23/19 04:14 Osmolality 305 Mosm/kg 08/29/19 15:10 Lactic Acid 1.10 mmol/L (0.7-2.0) 08/15/19 23:36 Calcium 8.0 mg/dL (8.4-10.2) L 08/29/19 15:10 Total Bilirubin 1.50 mg/dL (0.1-1.2) H 08/15/19 13:16 AST 82 units/L (5-40) H 08/15/19 13:16 ALT 46 units/L (7-56) 08/15/19 13:16 Alkaline Phosphatase 90 units/L (35-129) 08/15/19 13:16 Troponin T 0.018 ng/mL (0.00-0.029) 08/15/19 13:16 Total Protein 7.9 g/dL (6.3-8.2) 08/15/19 13:16 Albumin 3.6 g/dL (3.9-5) L 08/15/19 13:16 Albumin/Globulin Ratio 0.8 % 08/15/19 13:16 Urine Color [place] (Yellow) 08/16/19 14:40 Urine Turbidity Cloudy (Clear) 08/16/19 14:40 Urine pH 5.0 (5.0-7.0) 08/16/19 14:40 Ur Specific [place] 1.015 (1.003-1.030) 08/16/19 14:40 Urine Protein 100 mg/dl mg/dL (Negative) 08/16/19 14:40 Urine Glucose (UA) Neg mg/dL (Negative) 08/16/19 14:40 Urine Ketones Neg mg/dL (Negative) 08/16/19 14:40 Urine Blood Mod (Negative) 08/16/19 14:40 Urine Nitrite Neg (Negative) 08/16/19 14:40 Urine Bilirubin Neg (Negative) 08/16/19 14:40 Urine Urobilinogen 4.0 mg/dL (<2.0) 08/16/19 14:40 Ur Leukocyte Esterase Tr (Negative) 08/16/19 14:40 Urine WBC (Auto) 8.0 /HPF (0.0-6.0) H 08/16/19 14:40 Urine RBC (Auto) 1.0 /HPF (0.0-6.0) 08/16/19 14:40 U Epithel Cells (Auto) < 1.0 /HPF (0-13.0) 08/16/19 14:40 Random Vancomycin 7.9 ug/mL (0-40.0) 08/17/19 05:31 Active Medications - Current Medications Current Medications: Generic Name Dose Route Start Last Admin Trade Name Freq PRN Reason Stop Dose Admin Acetaminophen 650 mg 08/15/19 16:00 08/23/19 16:10 Tylenol PO 650 mg Q4H PRN Administration Pain MILD(1-3)/Fever >100.5/HARDY Albuterol 2.5 mg 08/15/19 16:00 Proventil IH Q4HRT PRN Shortness Of Breath Albuterol/Ipratropium 1 ampul 08/20/19 14:00 08/29/19 20:20 Duoneb *Not For Prn Use* IH 1 ampul TIDRT LEORA Administration Amlodipine Besylate 10 mg 08/19/19 14:00 08/29/19 10:47 Amlodipine PO 10 mg DAILY LEORA Administration Atorvastatin Calcium 40 mg 08/19/19 22:00 08/28/19 22:26 Lipitor PO 40 mg QHS LEORA Administration Famotidine 20 mg 08/19/19 10:00 08/29/19 10:47 Pepcid PO 20 mg QDAY LEORA Administration Heparin Sodium (Porcine) 5,000 unit 08/15/19 22:00 08/29/19 10:48 Heparin SUB-Q 5,000 unit Q12HR LEORA Administration Hydralazine HCl 10 mg 08/21/19 11:09 08/23/19 09:16 Apresoline IV 10 mg Q4HR PRN Administration SBP>160 or DBP>110 Hydralazine HCl 100 mg 08/23/19 14:00 08/29/19 16:32 Apresoline PO 100 mg Q8HR LEORA Administration Hydrophilic Ointment 1 applic 08/15/19 17:33 Vaseline Lip Therapy TP Q2HR PRN Dry Lips Methylprednisolone Sodium Succinate 40 mg 08/24/19 06:00 08/29/19 16:32 Solu-Medrol IV 40 mg Q8HR LEORA Administration Multi-Ingred Cream/Lotion/Oil/Oint 1 applic 08/15/19 17:33 Artificial Tears Ophth Oint OU Q4HR PRN Dry Eye(s) Ondansetron HCl 4 mg 08/15/19 16:00 Zofran IV Q8H PRN Nausea And Vomiting Prazosin HCl 1 mg 08/19/19 16:00 08/29/19 10:46 Prazosin PO 1 mg QDAY LEORA Administration Sodium Chloride 10 ml 08/15/19 22:00 08/29/19 10:47 Sodium Chloride Flush Syringe 10 Ml IV 10 ml BID LEORA Administration Sodium Chloride 10 ml 08/15/19 16:00 08/28/19 06:37 Sodium Chloride Flush Syringe 10 Ml IV 10 ml PRN PRN Administration LINE FLUSH Nutrition/Malnutrition Assess - Dietary Evaluation Nutrition/Malnutrition Findings: Nutrition Notes Start: 08/18/19 09:16 Freq: Status: Active Protocol: Document 08/28/19 11:45 SYLWIA (Rec: 08/28/19 12:03 SYLWIA [id number]) Co-Sign 08/28/19 11:45 LP Nutrition Notes Initial or Follow up Reassessment Current Diagnosis Acute Kidney Injury,Decubitus( Pressure Ulcer),Sepsis, Hypertension,Respiratory Failure Other Pertinent Diagnosis Influenza, nicotine/ETOH dependence Current Diet Mechanical soft Labs/Tests BUN 44 Cr 2 BG 143 Pertinent Medications Solu-medrol Lipitor Height 6 ft Weight 105.9 kg [place] Body Weight (kg) 80.90 BMI 31.6 Weight change and time frame Wt change noted. Possibly due to inaccurate bed scale Subjective/Other Information F/U for TF tolerance. Pt was evaluated by [employer] and is safe for a mechanical soft diet. Pt strongly doesn't like the food. Pt ate cereal for breakfast. Pt stated that he only ate carrots yesterday. Noted that pt doesn't like nor want the nepros. Percent of energy/protein needs met: 0%/0% Burn Absent Trauma Absent Current % PO Negligible Minimum of two criteria No #1 Nutrition Diagnosis Inadequate oral intake Diagnosis Progress(for reassessment Continues documentation) Is patient on ventilator? No Is Patient Ambulatory and/or Out of Bed Yes REE-([facility]-ambulatory/OOB) [ 3593.600 [id number]] Kcal/Kg value to use for calculation 19 Approximate Energy Requirements Using 2012 kcal/Kg Calculation Used for Recommendations Kcal/kg Additional Notes Protein: 112-140 (1.2-1.5g/kg AdjBW 93kg) Fluid: 1 ml/kcal or per MD Nutrition Intervention Change Diet Order: Continue current Nutrition Support: D/C Nepro 1.8 with Carbsteady at 45 ml/hr Goal #1 Meet at least 75% of energy and protein needs Anticipated Discharge Needs: unable to determine at this time Follow-Up By: 09/01/19 Additional Comments F/U for PO intakes and food preferences
[2019-08-30] MEDS: methylPREDNISolone Sod Succinate 40 MG/1 ML INJ IV SCH ×3 (05:53→21:54)
[2019-08-30] MEDS: hydrALAZINE 25 MG TAB PO SCH ×3 (05:53→21:53)
[2019-08-30] MEDS: IPRATROPIUM/ALBUTEROL SULFATE 3 ML AMPUL.NEB IH SCH ×3 (09:05→21:02)
[2019-08-30] MEDS: FAMOTIDINE 20 MG TAB PO SCH (09:43)
[2019-08-30] MEDS: amLODIPine 10 MG TAB PO SCH (09:43)
[2019-08-30] MEDS: PRAZOSIN 1 MG CAP PO SCH (09:43)
[2019-08-30] MEDS: HEPARIN 5,000 UNIT/1 ML VIAL SUB-Q SCH ×2 (09:44→21:54)
--- NOTE | 2019-08-30 11:07 | Progress Note ---
Subjective Principal diagnosis: Severe Sepsis; Acute hypoxemic resp failure; Influenza; Jeramy PNA; CLAUDETTE Interval history: Patient was seen today for follow-up on multiple renal related issues feeling better no acute complaints urine output is good creatinine yesterday was 1.7 His blood pressure is currently well controlled Vitals intake output medications were reviewed Past medical history: Reviewed Family, social history: Reviewed Allergies: Reviewed Physical examination General: No acute distress Vitals: Reviewed HEENT: Oral mucosa moist no icterus Neck: Supple no thyromegaly nodular mass or JVD Chest: few basilar crackles, occasional wheezes Heart: Regular rate and rhythm S1-S2 heard no S3-S4 Abdomen: Soft nontender no suprapubic masses no organomegaly Extremity: Dry skin less than 1+ edema Psych: No evidence of any agitation and aggression noted Derm: No petechial rash Assessment and plan: Acute kidney injury, Renal standpoint patient blood pressure is stable, as of yesterday his creatinine is 1.7 showing signs of improvement Other electrolytes are okay continue to monitor renal function Need to follow up in office upon discharge Etiology of renal failure ischemic renal injury: HTN Renal ultrasonogram: Normal Hypernatremia needs follow-up on monitoring acidosis: Better All renal related issues were discussed with the patient, We'll continue to follow and make recommendation from renal standpoint Objective - Vital Signs Vital signs: Vital Signs - 12hr 08/29/19 08/30/19 08/30/19 23:52 04:37 08:00 Temperature 98.7 F 98.7 F Pulse Rate 66 71 Pulse Rate [ 83 Anterior Bilateral] Respiratory 20 24 Rate Respiratory 18 Rate [Anterior Bilateral] Blood Pressure 156/75 145/82 O2 Sat by Pulse 91 96 Oximetry 08/30/19 08/30/19 08/30/19 08:56 09:05 10:00 Temperature 98.7 F Pulse Rate 90 78 Pulse Rate [ Anterior Bilateral] Respiratory 18 18 Rate Respiratory Rate [Anterior Bilateral] Blood Pressure 147/80 O2 Sat by Pulse 92 93 96 Oximetry - Lab 08/27/19 07:45 08/29/19 15:10 Most recent lab results ABG pH 7.314 pH Units (7.350-7.450) L 08/21/19 04:40 ABG pCO2 54.6 mm Hg 08/21/19 04:40 ABG pO2 78.3 mm Hg (80.0-90.0) L 08/21/19 04:40 ABG HCO3 27.1 mmol/L (20.0-26.0) H 08/21/19 04:40 ABG O2 Saturation 94.8 % (95.0-99.0) L 08/21/19 04:40 Calcium 8.0 mg/dL (8.4-10.2) L 08/29/19 15:10 Medications & Allergies - Medications Allergies/Adverse Reactions: Allergies No Known Allergies Allergy (Unverified 08/15/19 13:08) Home Medications: Home Medications Medication Instructions Recorded Confirmed Last Taken Type Rosuvastatin Calcium 20 mg PO QDAY 08/16/19 08/16/19 08/14/19 History Terazosin HCl 2 mg PO QDAY 08/16/19 08/16/19 08/14/19 History Trandolapril/Verapamil HCl [Tarka 4 mg PO QDAY 08/16/19 08/16/19 08/14/19 History ER 4-240 mg] Triamter/Hctz 37.5-25 mg 1 tab PO QDAY 08/16/19 08/16/19 08/14/19 History [Maxzide-25] Verapamil ER [Calan Sr] 180 mg PO BID 08/16/19 08/16/19 08/14/19 History amLODIPine [Norvasc] 10 mg PO DAILY 08/16/19 08/16/19 08/14/19 History Active Medications: Generic Name Dose Route Start Last Admin Trade Name Freq PRN Reason Stop Dose Admin Acetaminophen 650 mg 08/15/19 16:00 08/23/19 16:10 Tylenol PO 650 mg Q4H PRN Administration Pain MILD(1-3)/Fever >100.5/HARDY Albuterol 2.5 mg 08/15/19 16:00 Proventil IH Q4HRT PRN Shortness Of Breath Albuterol/Ipratropium 1 ampul 08/20/19 14:00 08/30/19 09:05 Duoneb *Not For Prn Use* IH 1 ampul TIDRT LEORA Administration Amlodipine Besylate 10 mg 08/19/19 14:00 08/30/19 09:43 Amlodipine PO 10 mg DAILY LEORA Administration Atorvastatin Calcium 40 mg 08/19/19 22:00 08/29/19 21:43 Lipitor PO 40 mg QHS LEORA Administration Famotidine 20 mg 08/19/19 10:00 08/30/19 09:43 Pepcid PO 20 mg QDAY LEORA Administration Heparin Sodium (Porcine) 5,000 unit 08/15/19 22:00 08/30/19 09:44 Heparin SUB-Q 5,000 unit Q12HR LEORA Administration Hydralazine HCl 10 mg 08/21/19 11:09 08/23/19 09:16 Apresoline IV 10 mg Q4HR PRN Administration SBP>160 or DBP>110 Hydralazine HCl 100 mg 08/23/19 14:00 08/30/19 05:53 Apresoline PO 100 mg Q8HR LEORA Administration Hydrophilic Ointment 1 applic 08/15/19 17:33 Vaseline Lip Therapy TP Q2HR PRN Dry Lips Methylprednisolone Sodium Succinate 40 mg 08/24/19 06:00 08/30/19 05:53 Solu-Medrol IV 40 mg Q8HR LEORA Administration Multi-Ingred Cream/Lotion/Oil/Oint 1 applic 08/15/19 17:33 Artificial Tears Ophth Oint OU Q4HR PRN Dry Eye(s) Ondansetron HCl 4 mg 08/15/19 16:00 Zofran IV Q8H PRN Nausea And Vomiting Prazosin HCl 1 mg 08/19/19 16:00 08/30/19 09:43 Prazosin PO 1 mg QDAY LEORA Administration Sodium Chloride 10 ml 08/15/19 22:00 08/30/19 09:45 Sodium Chloride Flush Syringe 10 Ml IV 10 ml BID LEORA Administration Sodium Chloride 10 ml 08/15/19 16:00 08/28/19 06:37 Sodium Chloride Flush Syringe 10 Ml IV 10 ml PRN PRN Administration LINE FLUSH
--- NOTE | 2019-08-30 11:24 | Progress Note ---
Assessment and Plan Sepsis Acute respiratory failure with hypoxemia and hypercapnia on MVS Influenza Bilateral pneumonia Acute renal failure Tobacco use disorder/Nicotine dependence Thrombocytopenia - continue to wean supplemental oxygen for target O2 sat's > 90% - home oxygen evaluation - continue bronchodilators with pulmonary hygiene per RT - continue accuchecks with glycemic control per SSI for target BG < 180 mg/dL; avoid hypoglycemia) - continue to avoid benzodiazepines to reduce the possibility of delirium - complete empiric antibiotics for post viral PNA - prn analgesia per pain score - Maintenance of sleep-wake cycle, avoid delirium - VTE prophylaxis, while on heparin monitor for bleeding and trend platelets - PT/OT/ROM -continue to increase activity - Nicotine withdrawal precautions - Smoking cessation counselling done Outpatient pulmonary follow up COPD medications Discharge planning Subjective Date of service: 08/30/19 Principal diagnosis: Severe Sepsis; Acute hypoxemic resp failure; Influenza; Jeramy PNA; CLAUDETTE Interval history: Patient is seen today for: acute hypoxic respiratory failure s/p MVS, bilateral alveolar infiltrates, morbid obesity, influenza infection ( complicated): CLAUDETTE Seen and examined at bedside; 24hour events reviewed; nursing and respiratory care staff consulted; no adverse overnight events reported to me; Vitals, labs, medications, chart reviewed. No fevers,no vomiting, ambulating, remains on supplemental oxygen at 2L/min On going cough but improving, Objective Vital Signs - 12hr 08/29/19 08/30/19 08/30/19 23:52 04:37 08:00 Temperature 98.7 F 98.7 F Pulse Rate 66 71 Pulse Rate [ 83 Anterior Bilateral] Respiratory 20 24 Rate Respiratory 18 Rate [Anterior Bilateral] Blood Pressure 156/75 145/82 O2 Sat by Pulse 91 96 Oximetry 08/30/19 08/30/19 08/30/19 08:56 09:05 10:00 Temperature 98.7 F Pulse Rate 90 78 Pulse Rate [ Anterior Bilateral] Respiratory 18 18 Rate Respiratory Rate [Anterior Bilateral] Blood Pressure 147/80 O2 Sat by Pulse 92 93 96 Oximetry Constitutional: no acute distress, alert, other (obese) Eyes: non-icteric ENT: oropharynx moist, other (short neck) Neck: supple, no lymphadenopathy, no JVD Effort: normal Ascultation: Bilateral: diminished breath sounds, rhonchi Percussion: Bilateral: not dull Cardiovascular: regular rate and rhythm, other (S1,S2) Gastrointestinal: normoactive bowel sounds, soft, non-tender, other (distended) Integumentary: normal Extremities: no cyanosis, no edema, pink and warm, pulses normal Neurologic: normal mental status, non-focal exam, pupils equal and round, motor strength normal and Psychiatric: mood appropriate, affect normal CBC and BMP: 08/27/19 07:45 08/29/19 15:10 ABG, PT/INR, D-dimer: ABG POC ABG pH 7.359 (7.35-7.45) 08/24/19 12:30 ABG pH 7.314 pH Units (7.350-7.450) L 08/21/19 04:40 POC ABG pCO2 54.7 (35-45) H 08/24/19 12:30 ABG pCO2 54.6 mm Hg 08/21/19 04:40 POC ABG pO2 63 (80-105) L 08/24/19 12:30 ABG pO2 78.3 mm Hg (80.0-90.0) L 08/21/19 04:40 POC ABG HCO3 30.8 (22-26 mml/L) 08/24/19 12:30 POC ABG Total CO2 32 (23-27mmol/L) 08/24/19 12:30 POC ABG O2 Sat 90 08/24/19 12:30 ABG O2 Saturation 94.8 % (95.0-99.0) L 08/21/19 04:40 Abnormal lab findings: Abnormal Labs 08/15/19 08/15/19 08/15/19 13:16 13:16 17:16 WBC 14.7 H Hgb Hct RDW 17.3 H Plt Count Lymph % (Auto) [place] % (Auto) 11.3 H Lymph # [place] # 1.7 H Seg Neutrophils % 71.9 H Seg Neuts % (Manual) Lymphocytes % (Manual) Monocytes % (Manual) Nucleated RBC % Seg Neutrophils # 10.6 H Monocytes # (Manual) POC ABG pH 7.182 L ABG pH POC ABG pCO2 > 70 H POC ABG pO2 ABG pO2 ABG HCO3 ABG O2 Saturation ABG Hemoglobin Oxyhemoglobin Sodium Chloride Carbon Dioxide BUN 28 H Creatinine 1.9 H Glucose 133 H POC Glucose Calcium Total Bilirubin 1.50 H AST 82 H Albumin 3.6 L Urine WBC (Auto) 08/15/19 08/16/19 08/16/19 18:17 03:41 03:41 WBC Hgb 11.6 L Hct 34.3 L D RDW 17.4 H Plt Count 119 L Lymph % (Auto) 11.4 L [place] % (Auto) 11.6 H Lymph # 1.0 L [place] # 1.1 H Seg Neutrophils % 76.9 H Seg Neuts % (Manual) Lymphocytes % (Manual) Monocytes % (Manual) Nucleated RBC % Seg Neutrophils # Monocytes # (Manual) POC ABG pH 7.280 L ABG pH POC ABG pCO2 64.7 H POC ABG pO2 64 L ABG pO2 ABG HCO3 ABG O2 Saturation ABG Hemoglobin Oxyhemoglobin Sodium Chloride 107.1 H Carbon Dioxide BUN 34 H Creatinine 2.4 H Glucose 138 H POC Glucose Calcium 7.2 L D Total Bilirubin AST Albumin Urine WBC (Auto) 08/16/19 08/16/19 08/16/19 06:27 11:19 14:40 WBC Hgb Hct RDW Plt Count Lymph % (Auto) [place] % (Auto) Lymph # [place] # Seg Neutrophils % Seg Neuts % (Manual) Lymphocytes % (Manual) Monocytes % (Manual) Nucleated RBC % Seg Neutrophils # Monocytes # (Manual) POC ABG pH 7.336 L ABG pH POC ABG pCO2 47.9 H 48.7 H POC ABG pO2 69 L 130 H ABG pO2 ABG HCO3 ABG O2 Saturation ABG Hemoglobin Oxyhemoglobin Sodium Chloride Carbon Dioxide BUN Creatinine Glucose POC Glucose Calcium Total Bilirubin AST Albumin Urine WBC (Auto) 8.0 H 08/17/19 08/17/19 08/17/19 05:31 05:31 06:30 WBC Hgb 11.5 L Hct 34.3 L RDW 17.3 H Plt Count Lymph % (Auto) [place] % (Auto) 13.5 H Lymph # [place] # 1.3 H Seg Neutrophils % 70.7 H Seg Neuts % (Manual) Lymphocytes % (Manual) Monocytes % (Manual) Nucleated RBC % Seg Neutrophils # Monocytes # (Manual) POC ABG pH ABG pH POC ABG pCO2 POC ABG pO2 ABG pO2 116.6 H ABG HCO3 ABG O2 Saturation ABG Hemoglobin 13.9 L Oxyhemoglobin Sodium 146 H Chloride 112.1 H Carbon Dioxide BUN 47 H Creatinine 3.2 H Glucose POC Glucose Calcium 7.7 L Total Bilirubin AST Albumin Urine WBC (Auto) 08/17/19 08/18/19 08/18/19 20:31 04:20 04:20 WBC Hgb 11.4 L Hct 34.3 L RDW 17.3 H Plt Count 137 L Lymph % (Auto) [place] % (Auto) Lymph # [place] # Seg Neutrophils % Seg Neuts % (Manual) 79.0 H Lymphocytes % (Manual) 13.0 L Monocytes % (Manual) 8.0 H Nucleated RBC % 1.0 H Seg Neutrophils # Monocytes # (Manual) POC ABG pH ABG pH POC ABG pCO2 POC ABG pO2 78 L ABG pO2 ABG HCO3 ABG O2 Saturation ABG Hemoglobin Oxyhemoglobin Sodium 148 H Chloride 112.3 H Carbon Dioxide 20 L BUN 40 H Creatinine 3.1 H Glucose 109 H POC Glucose Calcium 7.9 L Total Bilirubin AST Albumin Urine WBC (Auto) 08/18/19 08/18/19 08/19/19 06:45 23:19 04:30 WBC Hgb Hct RDW Plt Count Lymph % (Auto) [place] % (Auto) Lymph # [place] # Seg Neutrophils % Seg Neuts % (Manual) Lymphocytes % (Manual) Monocytes % (Manual) Nucleated RBC % Seg Neutrophils # Monocytes # (Manual) POC ABG pH ABG pH POC ABG pCO2 45.2 H POC ABG pO2 55 L ABG pO2 72.2 L ABG HCO3 26.1 H ABG O2 Saturation 94.4 L ABG Hemoglobin 11.5 L Oxyhemoglobin 92.6 L Sodium Chloride Carbon Dioxide BUN Creatinine Glucose POC Glucose 158 H Calcium Total Bilirubin AST Albumin Urine WBC (Auto) 08/19/19 08/19/19 08/19/19 05:15 05:15 05:28 WBC Hgb 11.3 L Hct 34.4 L RDW 17.1 H Plt Count Lymph % (Auto) [place] % (Auto) Lymph # [place] # Seg Neutrophils % Seg Neuts % (Manual) Lymphocytes % (Manual) Monocytes % (Manual) 12.0 H Nucleated RBC % Seg Neutrophils # Monocytes # (Manual) 1.0 H POC ABG pH ABG pH POC ABG pCO2 POC ABG pO2 ABG pO2 ABG HCO3 ABG O2 Saturation ABG Hemoglobin Oxyhemoglobin Sodium 149 H Chloride 115.0 H Carbon Dioxide 21 L BUN 32 H Creatinine 2.7 H Glucose 112 H POC Glucose 113 H Calcium 7.8 L Total Bilirubin AST Albumin Urine WBC (Auto) 08/19/19 08/19/19 08/19/19 13:00 17:46 22:45 WBC Hgb Hct RDW Plt Count Lymph % (Auto) [place] % (Auto) Lymph # [place] # Seg Neutrophils % Seg Neuts % (Manual) Lymphocytes % (Manual) Monocytes % (Manual) Nucleated RBC % Seg Neutrophils # Monocytes # (Manual) POC ABG pH ABG pH POC ABG pCO2 POC ABG pO2 ABG pO2 ABG HCO3 ABG O2 Saturation ABG Hemoglobin Oxyhemoglobin Sodium Chloride Carbon Dioxide BUN Creatinine Glucose POC Glucose 126 H 112 H 172 H Calcium Total Bilirubin AST Albumin Urine WBC (Auto) 08/20/19 08/20/19 08/20/19 04:00 05:02 05:02 WBC Hgb 11.1 L Hct 33.4 L RDW 17.1 H Plt Count Lymph % (Auto) 11.2 L [place] % (Auto) 12.3 H Lymph # [place] # 1.3 H Seg Neutrophils % 74.9 H Seg Neuts % (Manual) Lymphocytes % (Manual) Monocytes % (Manual) Nucleated RBC % Seg Neutrophils # 7.8 H Monocytes # (Manual) POC ABG pH ABG pH POC ABG pCO2 45.1 H POC ABG pO2 70 L ABG pO2 ABG HCO3 ABG O2 Saturation ABG Hemoglobin Oxyhemoglobin Sodium 146 H Chloride 111.7 H Carbon Dioxide BUN 27 H Creatinine 2.4 H Glucose 123 H POC Glucose Calcium 8.1 L Total Bilirubin AST Albumin Urine WBC (Auto) 08/20/19 08/20/19 08/20/19 05:51 11:39 18:26 WBC Hgb Hct RDW Plt Count Lymph % (Auto) [place] % (Auto) Lymph # [place] # Seg Neutrophils % Seg Neuts % (Manual) Lymphocytes % (Manual) Monocytes % (Manual) Nucleated RBC % Seg Neutrophils # Monocytes # (Manual) POC ABG pH ABG pH POC ABG pCO2 POC ABG pO2 ABG pO2 ABG HCO3 ABG O2 Saturation ABG Hemoglobin Oxyhemoglobin Sodium Chloride Carbon Dioxide BUN Creatinine Glucose POC Glucose 108 H 116 H 137 H Calcium Total Bilirubin AST Albumin Urine WBC (Auto) 08/21/19 08/21/19 08/21/19 04:40 05:25 05:56 WBC Hgb Hct RDW Plt Count Lymph % (Auto) [place] % (Auto) Lymph # [place] # Seg Neutrophils % Seg Neuts % (Manual) Lymphocytes % (Manual) Monocytes % (Manual) Nucleated RBC % Seg Neutrophils # Monocytes # (Manual) POC ABG pH ABG pH 7.314 L POC ABG pCO2 POC ABG pO2 ABG pO2 78.3 L ABG HCO3 27.1 H ABG O2 Saturation 94.8 L ABG Hemoglobin 10.5 L Oxyhemoglobin 93.0 L Sodium 147 H Chloride 110.7 H Carbon Dioxide BUN 30 H Creatinine 2.4 H Glucose 144 H POC Glucose 129 H Calcium 8.0 L Total Bilirubin AST Albumin Urine WBC (Auto) 08/21/19 08/22/19 08/22/19 12:39 00:08 03:45 WBC Hgb Hct RDW Plt Count Lymph % (Auto) [place] % (Auto) Lymph # [place] # Seg Neutrophils % Seg Neuts % (Manual) Lymphocytes % (Manual) Monocytes % (Manual) Nucleated RBC % Seg Neutrophils # Monocytes # (Manual) POC ABG pH ABG pH POC ABG pCO2 POC ABG pO2 ABG pO2 ABG HCO3 ABG O2 Saturation ABG Hemoglobin Oxyhemoglobin Sodium 147 H Chloride 110.6 H Carbon Dioxide BUN 36 H Creatinine 2.4 H Glucose 195 H POC Glucose 193 H 173 H Calcium 8.1 L Total Bilirubin AST Albumin Urine WBC (Auto) 08/22/19 08/22/19 08/22/19 05:19 05:41 11:20 WBC Hgb Hct RDW Plt Count Lymph % (Auto) [place] % (Auto) Lymph # [place] # Seg Neutrophils % Seg Neuts % (Manual) Lymphocytes % (Manual) Monocytes % (Manual) Nucleated RBC % Seg Neutrophils # Monocytes # (Manual) POC ABG pH 7.328 L ABG pH POC ABG pCO2 53.0 H 49.7 H POC ABG pO2 75 L 62 L ABG pO2 ABG HCO3 ABG O2 Saturation ABG Hemoglobin Oxyhemoglobin Sodium Chloride Carbon Dioxide BUN Creatinine Glucose POC Glucose 176 H Calcium Total Bilirubin AST Albumin Urine WBC (Auto) 08/22/19 08/22/19 08/23/19 11:22 16:58 04:14 WBC Hgb Hct RDW Plt Count Lymph % (Auto) [place] % (Auto) Lymph # [place] # Seg Neutrophils % Seg Neuts % (Manual) Lymphocytes % (Manual) Monocytes % (Manual) Nucleated RBC % Seg Neutrophils # Monocytes # (Manual) POC ABG pH ABG pH POC ABG pCO2 POC ABG pO2 ABG pO2 ABG HCO3 ABG O2 Saturation ABG Hemoglobin Oxyhemoglobin Sodium Chloride Carbon Dioxide BUN 41 H Creatinine 2.3 H Glucose 174 H POC Glucose 217 H 174 H Calcium Total Bilirubin AST Albumin Urine WBC (Auto) 08/23/19 08/23/19 08/23/19 04:14 05:01 12:05 WBC 14.7 H Hgb 11.5 L Hct 35.2 L RDW 16.5 H Plt Count Lymph % (Auto) [place] % (Auto) Lymph # [place] # Seg Neutrophils % Seg Neuts % (Manual) Lymphocytes % (Manual) Monocytes % (Manual) Nucleated RBC % Seg Neutrophils # Monocytes # (Manual) POC ABG pH ABG pH POC ABG pCO2 45.4 H POC ABG pO2 ABG pO2 ABG HCO3 ABG O2 Saturation ABG Hemoglobin Oxyhemoglobin Sodium Chloride Carbon Dioxide BUN Creatinine Glucose POC Glucose 159 H Calcium Total Bilirubin AST Albumin Urine WBC (Auto) 08/23/19 08/23/19 08/24/19 12:53 18:51 06:33 WBC Hgb Hct RDW Plt Count Lymph % (Auto) [place] % (Auto) Lymph # [place] # Seg Neutrophils % Seg Neuts % (Manual) Lymphocytes % (Manual) Monocytes % (Manual) Nucleated RBC % Seg Neutrophils # Monocytes # (Manual) POC ABG pH ABG pH POC ABG pCO2 POC ABG pO2 ABG pO2 ABG HCO3 ABG O2 Saturation ABG Hemoglobin Oxyhemoglobin Sodium Chloride Carbon Dioxide BUN Creatinine Glucose POC Glucose 191 H 142 H 118 H Calcium Total Bilirubin AST Albumin Urine WBC (Auto) 08/24/19 08/24/19 08/24/19 08:16 08:16 11:56 WBC 13.3 H Hgb 11.5 L Hct 34.1 L RDW 16.6 H Plt Count Lymph % (Auto) [place] % (Auto) Lymph # [place] # Seg Neutrophils % Seg Neuts % (Manual) Lymphocytes % (Manual) Monocytes % (Manual) Nucleated RBC % Seg Neutrophils # Monocytes # (Manual) POC ABG pH ABG pH POC ABG pCO2 POC ABG pO2 ABG pO2 ABG HCO3 ABG O2 Saturation ABG Hemoglobin Oxyhemoglobin Sodium Chloride Carbon Dioxide BUN 50 H Creatinine 2.3 H Glucose 121 H POC Glucose 115 H Calcium Total Bilirubin AST Albumin Urine WBC (Auto) 08/24/19 08/25/1908/26/20 12:30 12:34 08:23 WBC 13.2 H Hgb 11.4 L Hct 34.6 L RDW 16.1 H Plt Count Lymph % (Auto) [place] % (Auto) Lymph # [place] # Seg Neutrophils % Seg Neuts % (Manual) Lymphocytes % (Manual) Monocytes % (Manual) Nucleated RBC % Seg Neutrophils # Monocytes # (Manual) POC ABG pH ABG pH POC ABG pCO2 54.7 H POC ABG pO2 63 L ABG pO2 ABG HCO3 ABG O2 Saturation ABG Hemoglobin Oxyhemoglobin Sodium Chloride Carbon Dioxide BUN Creatinine Glucose POC Glucose 167 H Calcium Total Bilirubin AST Albumin Urine WBC (Auto) 08/26/19 08/26/19 08/26/19 08:23 10:18 12:24 WBC Hgb Hct RDW Plt Count Lymph % (Auto) [place] % (Auto) Lymph # [place] # Seg Neutrophils % Seg Neuts % (Manual) Lymphocytes % (Manual) Monocytes % (Manual) Nucleated RBC % Seg Neutrophils # Monocytes # (Manual) POC ABG pH ABG pH POC ABG pCO2 POC ABG pO2 ABG pO2 ABG HCO3 ABG O2 Saturation ABG Hemoglobin Oxyhemoglobin Sodium 148 H Chloride 108.1 H Carbon Dioxide BUN 46 H Creatinine 2.0 H Glucose 112 H POC Glucose 160 H 139 H Calcium Total Bilirubin AST Albumin Urine WBC (Auto) 08/26/19 08/27/19 08/27/19 17:45 07:45 07:45 WBC 11.6 H Hgb 11.4 L Hct 34.3 L RDW 16.1 H Plt Count Lymph % (Auto) 5.7 L [place] % (Auto) Lymph # 0.7 L [place] # Seg Neutrophils % 88.4 H Seg Neuts % (Manual) Lymphocytes % (Manual) Monocytes % (Manual) Nucleated RBC % Seg Neutrophils # 10.2 H Monocytes # (Manual) POC ABG pH ABG pH POC ABG pCO2 POC ABG pO2 ABG pO2 ABG HCO3 ABG O2 Saturation ABG Hemoglobin Oxyhemoglobin Sodium Chloride Carbon Dioxide BUN 44 H Creatinine 2.0 H Glucose 143 H POC Glucose 188 H Calcium 8.0 L Total Bilirubin AST Albumin Urine WBC (Auto) 08/29/19 15:10 WBC Hgb Hct RDW Plt Count Lymph % (Auto) [place] % (Auto) Lymph # [place] # Seg Neutrophils % Seg Neuts % (Manual) Lymphocytes % (Manual) Monocytes % (Manual) Nucleated RBC % Seg Neutrophils # Monocytes # (Manual) POC ABG pH ABG pH POC ABG pCO2 POC ABG pO2 ABG pO2 ABG HCO3 ABG O2 Saturation ABG Hemoglobin Oxyhemoglobin Sodium Chloride Carbon Dioxide BUN 32 H Creatinine 1.7 H Glucose 172 H POC Glucose Calcium 8.0 L Total Bilirubin AST Albumin Urine WBC (Auto) Chest x-ray: image reviewed Allied health notes reviewed: nursing
--- NOTE | 2019-08-30 12:54 | Progress Note ---
Assessment and Plan Assessment and plan: Sepsis. Completed antibiotics. Etiology complicated influenza with MRSA pneumonia. Acute on chronic hypoxemic respiratory failure. extubated 08/23/2019, patient currently with O2 has been weaned to 3 L. Patient likely has COPD given his smoking history. 1 pack/day since the age of 13 Hypertensive urgency Improved Continue hydralazine to 100mg tid Influenza. Completed Tamiflu. Bilateral pneumonia. As above. Resolving. Acute kidney injury. Etiology secondary to vasomotor nephropathy and ATN/ sepsis. Continue IV fluid hydration. Renal ultrasound within normal limits. Nephrology following. Toxic metabolic encephalopathy. Resolved. Tobacco use disorder. Patient counseled on cessation Disposition. Will likely discharge with O2 arranged. History Interval history: No new issues overnight. Hospitalist Physical - Constitutional Vitals: Temp Pulse Resp BP Pulse Ox 98.7 F 78 18 147/80 96 08/30/19 08:56 08/30/19 10:00 08/30/19 10:00 08/30/19 08:56 08/30/19 10:00 General appearance: Present: no acute distress, mild distress, other (Patient orally intubated on mechanical ventilation) - EENT Eyes: Present: PERRL, EOM intact ENT: hearing intact, clear oral mucosa, dentition normal - Neck Neck: Present: supple, normal ROM - Respiratory Respiratory effort: normal Respiratory: bilateral: CTA - Cardiovascular Rhythm: regular Heart Sounds: Present: S1 & S2. Absent: gallop, rub - Extremities Extremities: no ischemia, No edema, Full ROM - Abdominal General gastrointestinal: soft, non-tender, non-distended, normal bowel sounds - Integumentary Integumentary: Present: clear, warm, dry - Neurologic Neurologic: CNII-XII intact, moves all extremities Results - Labs CBC & Chem 7: 08/27/19 07:45 08/29/19 15:10 Labs: Laboratory Last Values WBC 11.6 K/mm3 (4.5-11.0) H 08/27/19 07:45 RBC 3.95 M/mm3 (3.65-5.03) 08/27/19 07:45 Hgb 11.4 gm/dl (11.8-15.2) L 08/27/19 07:45 Hct 34.3 % (35.5-45.6) L 08/27/19 07:45 MCV 87 fl (84-94) 08/27/19 07:45 MCH 29 pg (28-32) 08/27/19 07:45 MCHC 33 % (32-34) 08/27/19 07:45 RDW 16.1 % (13.2-15.2) H 08/27/19 07:45 Plt Count 245 K/mm3 (140-440) 08/27/19 07:45 Lymph % (Auto) 5.7 % (13.4-35.0) L 08/27/19 07:45 Bledsoe % (Auto) 5.8 % (0.0-7.3) 08/27/19 07:45 Eos % (Auto) 0.0 % (0.0-4.3) 08/27/19 07:45 Baso % (Auto) 0.1 % (0.0-1.8) 08/27/19 07:45 Lymph # 0.7 K/mm3 (1.2-5.4) L 08/27/19 07:45 Bledsoe # 0.7 K/mm3 (0.0-0.8) 08/27/19 07:45 Eos # 0.0 K/mm3 (0.0-0.4) 08/27/19 07:45 Baso # 0.0 K/mm3 (0.0-0.1) 08/27/19 07:45 Add Manual Diff Complete 08/19/19 05:15 Total Counted 100 08/19/19 05:15 Seg Neutrophils % 88.4 % (40.0-70.0) H 08/27/19 07:45 Seg Neuts % (Manual) 69.0 % (40.0-70.0) 08/19/19 05:15 Band Neutrophils % 0 % 08/19/19 05:15 Lymphocytes % (Manual) 17.0 % (13.4-35.0) 08/19/19 05:15 Reactive Lymphs % (Man) 1.0 % 08/19/19 05:15 Monocytes % (Manual) 12.0 % (0.0-7.3) H 08/19/19 05:15 Eosinophils % (Manual) 1.0 % (0.0-4.3) 08/19/19 05:15 Basophils % (Manual) 0 % (0.0-1.8) 08/19/19 05:15 Metamyelocytes % 0 % 08/19/19 05:15 Myelocytes % 0 % 08/19/19 05:15 Promyelocytes % 0 % 08/19/19 05:15 Blast Cells % 0 % 08/19/19 05:15 Nucleated RBC % Not Reportable 08/19/19 05:15 Seg Neutrophils # 10.2 K/mm3 (1.8-7.7) H 08/27/19 07:45 Seg Neutrophils # Man 5.9 K/mm3 (1.8-7.7) 08/19/19 05:15 Band Neutrophils # 0.0 K/mm3 08/19/19 05:15 Lymphocytes # (Manual) 1.4 K/mm3 (1.2-5.4) 08/19/19 05:15 Abs React Lymphs (Man) 0.1 K/mm3 08/19/19 05:15 Monocytes # (Manual) 1.0 K/mm3 (0.0-0.8) H 08/19/19 05:15 Eosinophils # (Manual) 0.1 K/mm3 (0.0-0.4) 08/19/19 05:15 Basophils # (Manual) 0.0 K/mm3 (0.0-0.1) 08/19/19 05:15 Metamyelocytes # 0.0 K/mm3 08/19/19 05:15 Myelocytes # 0.0 K/mm3 08/19/19 05:15 Promyelocytes # 0.0 K/mm3 08/19/19 05:15 Blast Cells # 0.0 K/mm3 08/19/19 05:15 WBC Morphology Not Reportable 08/19/19 05:15 Hypersegmented Neuts Not Reportable 08/19/19 05:15 Hyposegmented Neuts Not Reportable 08/19/19 05:15 Hypogranular Neuts Not Reportable 08/19/19 05:15 Smudge Cells Not Reportable 08/19/19 05:15 Toxic Granulation Not Reportable 08/19/19 05:15 Toxic Vacuolation Not Reportable 08/19/19 05:15 Dohle Bodies Not Reportable 08/19/19 05:15 Pelger-Huet Anomaly Not Reportable 08/19/19 05:15 Dalila Rods Not Reportable 08/19/19 05:15 Platelet Estimate Consistent w auto 08/19/19 05:15 Clumped Platelets Not Reportable 08/19/19 05:15 Plt Clumps, EDTA Not Reportable 08/19/19 05:15 Large Platelets Not Reportable 08/19/19 05:15 Giant Platelets Not Reportable 08/19/19 05:15 Platelet Satelliting Not Reportable 08/19/19 05:15 Plt Morphology Comment Not Reportable 08/19/19 05:15 RBC Morphology Not Reportable 08/19/19 05:15 Dimorphic RBCs Not Reportable 08/19/19 05:15 Polychromasia Not Reportable 08/19/19 05:15 Hypochromasia Not Reportable 08/19/19 05:15 Poikilocytosis Not Reportable 08/19/19 05:15 Anisocytosis 1+ 08/19/19 05:15 Microcytosis Not Reportable 08/19/19 05:15 Macrocytosis Not Reportable 08/19/19 05:15 Spherocytes Not Reportable 08/19/19 05:15 Pappenheimer Bodies Not Reportable 08/19/19 05:15 Sickle Cells Not Reportable 08/19/19 05:15 Target Cells Not Reportable 08/19/19 05:15 Tear Drop Cells Not Reportable 08/19/19 05:15 Ovalocytes Not Reportable 08/19/19 05:15 Helmet Cells Not Reportable 08/19/19 05:15 Sifuentes-Minerva Bodies Not Reportable 08/19/19 05:15 [place] Rings Not Reportable 08/19/19 05:15 Alana Cells Not Reportable 08/19/19 05:15 Bite Cells Not Reportable 08/19/19 05:15 Crenated Cell Not Reportable 08/19/19 05:15 Elliptocytes Not Reportable 08/19/19 05:15 Acanthocytes (Spur) Not Reportable 08/19/19 05:15 Rouleaux Not Reportable 08/19/19 05:15 Hemoglobin C Crystals Not Reportable 08/19/19 05:15 Schistocytes Not Reportable 08/19/19 05:15 Malaria parasites Not Reportable 08/19/19 05:15 Magdiel Bodies Not Reportable 08/19/19 05:15 Hem Pathologist Commnt No 08/19/19 05:15 POC ABG pH 7.359 (7.35-7.45) 08/24/19 12:30 ABG pH 7.314 pH Units (7.350-7.450) L 08/21/19 04:40 POC ABG pCO2 54.7 (35-45) H 08/24/19 12:30 ABG pCO2 54.6 mm Hg 08/21/19 04:40 POC ABG pO2 63 (80-105) L 08/24/19 12:30 ABG pO2 78.3 mm Hg (80.0-90.0) L 08/21/19 04:40 POC ABG HCO3 30.8 (22-26 mml/L) 08/24/19 12:30 ABG HCO3 27.1 mmol/L (20.0-26.0) H 08/21/19 04:40 POC ABG Total CO2 32 (23-27mmol/L) 08/24/19 12:30 POC ABG O2 Sat 90 08/24/19 12:30 ABG O2 Saturation 94.8 % (95.0-99.0) L 08/21/19 04:40 ABG O2 Content 13.8 (0.0-44) 08/21/19 04:40 POC ABG Base Excess 5 ((-2) - (+3)mmol/L) 08/24/19 12:30 ABG Base Excess 0.3 mmol/L (-2.0-3.0) 08/21/19 04:40 ABG Hemoglobin 10.5 gm/dl (14.0-18.0) L 08/21/19 04:40 ABG Carboxyhemoglobin 1.4 % (0.0-5.0) 08/21/19 04:40 ABG Methemoglobin 0.5 % (0.0-1.5) 08/21/19 04:40 Oxyhemoglobin 93.0 % (95.0-99.0) L 08/21/19 04:40 FiO2 35 % 08/24/19 12:30 Sodium 142 mmol/L (137-145) 08/29/19 15:10 Potassium 4.1 mmol/L (3.6-5.0) 08/29/19 15:10 Chloride 103.2 mmol/L (98-107) 08/29/19 15:10 Carbon Dioxide 27 mmol/L (22-30) 08/29/19 15:10 Anion Gap 16 mmol/L 08/29/19 15:10 BUN 32 mg/dL (9-20) H 08/29/19 15:10 Creatinine 1.7 mg/dL (0.8-1.5) H 08/29/19 15:10 Estimated GFR 49 ml/min 08/29/19 15:10 BUN/Creatinine Ratio 19 % 08/29/19 15:10 Glucose 172 mg/dL (75-100) H 08/29/19 15:10 POC Glucose 188 (70-105) H 08/26/19 17:45 Hemoglobin A1c 6.0 % (4-6) 08/23/19 04:14 Osmolality 305 Mosm/kg 08/29/19 15:10 Lactic Acid 1.10 mmol/L (0.7-2.0) 08/15/19 23:36 Calcium 8.0 mg/dL (8.4-10.2) L 08/29/19 15:10 Total Bilirubin 1.50 mg/dL (0.1-1.2) H 08/15/19 13:16 AST 82 units/L (5-40) H 08/15/19 13:16 ALT 46 units/L (7-56) 08/15/19 13:16 Alkaline Phosphatase 90 units/L (35-129) 08/15/19 13:16 Troponin T 0.018 ng/mL (0.00-0.029) 08/15/19 13:16 Total Protein 7.9 g/dL (6.3-8.2) 08/15/19 13:16 Albumin 3.6 g/dL (3.9-5) L 08/15/19 13:16 Albumin/Globulin Ratio 0.8 % 08/15/19 13:16 Urine Color [place] (Yellow) 08/16/19 14:40 Urine Turbidity Cloudy (Clear) 08/16/19 14:40 Urine pH 5.0 (5.0-7.0) 08/16/19 14:40 Ur Specific [place] 1.015 (1.003-1.030) 08/16/19 14:40 Urine Protein 100 mg/dl mg/dL (Negative) 08/16/19 14:40 Urine Glucose (UA) Neg mg/dL (Negative) 08/16/19 14:40 Urine Ketones Neg mg/dL (Negative) 08/16/19 14:40 Urine Blood Mod (Negative) 08/16/19 14:40 Urine Nitrite Neg (Negative) 08/16/19 14:40 Urine Bilirubin Neg (Negative) 08/16/19 14:40 Urine Urobilinogen 4.0 mg/dL (<2.0) 08/16/19 14:40 Ur Leukocyte Esterase Tr (Negative) 08/16/19 14:40 Urine WBC (Auto) 8.0 /HPF (0.0-6.0) H 08/16/19 14:40 Urine RBC (Auto) 1.0 /HPF (0.0-6.0) 08/16/19 14:40 U Epithel Cells (Auto) < 1.0 /HPF (0-13.0) 08/16/19 14:40 Random Vancomycin 7.9 ug/mL (0-40.0) 08/17/19 05:31 Active Medications - Current Medications Current Medications: Generic Name Dose Route Start Last Admin Trade Name Freq PRN Reason Stop Dose Admin Acetaminophen 650 mg 08/15/19 16:00 08/23/19 16:10 Tylenol PO 650 mg Q4H PRN Administration Pain MILD(1-3)/Fever >100.5/HARDY Albuterol 2.5 mg 08/15/19 16:00 Proventil IH Q4HRT PRN Shortness Of Breath Albuterol/Ipratropium 1 ampul 08/20/19 14:00 08/30/19 09:05 Duoneb *Not For Prn Use* IH 1 ampul TIDRT LEORA Administration Amlodipine Besylate 10 mg 08/19/19 14:00 08/30/19 09:43 Amlodipine PO 10 mg DAILY LEORA Administration Atorvastatin Calcium 40 mg 08/19/19 22:00 08/29/19 21:43 Lipitor PO 40 mg QHS LEORA Administration Famotidine 20 mg 08/19/19 10:00 08/30/19 09:43 Pepcid PO 20 mg QDAY LEORA Administration Heparin Sodium (Porcine) 5,000 unit 08/15/19 22:00 08/30/19 09:44 Heparin SUB-Q 5,000 unit Q12HR LEORA Administration Hydralazine HCl 10 mg 08/21/19 11:09 08/23/19 09:16 Apresoline IV 10 mg Q4HR PRN Administration SBP>160 or DBP>110 Hydralazine HCl 100 mg 08/23/19 14:00 08/30/19 05:53 Apresoline PO 100 mg Q8HR LEORA Administration Hydrophilic Ointment 1 applic 08/15/19 17:33 Vaseline Lip Therapy TP Q2HR PRN Dry Lips Methylprednisolone Sodium Succinate 40 mg 08/24/19 06:00 08/30/19 05:53 Solu-Medrol IV 40 mg Q8HR LEORA Administration Multi-Ingred Cream/Lotion/Oil/Oint 1 applic 08/15/19 17:33 Artificial Tears Ophth Oint OU Q4HR PRN Dry Eye(s) Ondansetron HCl 4 mg 08/15/19 16:00 Zofran IV Q8H PRN Nausea And Vomiting Prazosin HCl 1 mg 08/19/19 16:00 08/30/19 09:43 Prazosin PO 1 mg QDAY LEORA Administration Sodium Chloride 10 ml 08/15/19 22:00 08/30/19 09:45 Sodium Chloride Flush Syringe 10 Ml IV 10 ml BID LEORA Administration Sodium Chloride 10 ml 08/15/19 16:00 08/28/19 06:37 Sodium Chloride Flush Syringe 10 Ml IV 10 ml PRN PRN Administration LINE FLUSH Nutrition/Malnutrition Assess - Dietary Evaluation Nutrition/Malnutrition Findings: Nutrition Notes Start: 08/18/19 09:16 Freq: Status: Active Protocol: Document 08/28/19 11:45 SYLWIA (Rec: 08/28/19 12:03 SYLWIA [id number]) Co-Sign 08/28/19 11:45 LP Nutrition Notes Initial or Follow up Reassessment Current Diagnosis Acute Kidney Injury,Decubitus( Pressure Ulcer),Sepsis, Hypertension,Respiratory Failure Other Pertinent Diagnosis Influenza, nicotine/ETOH dependence Current Diet Mechanical soft Labs/Tests BUN 44 Cr 2 BG 143 Pertinent Medications Solu-medrol Lipitor Height 6 ft Weight 105.9 kg [place] Body Weight (kg) 80.90 BMI 31.6 Weight change and time frame Wt change noted. Possibly due to inaccurate bed scale Subjective/Other Information F/U for TF tolerance. Pt was evaluated by BOOTH OPERATOR and is safe for a mechanical soft diet. Pt strongly doesn't like the food. Pt ate cereal for breakfast. Pt stated that he only ate carrots yesterday. Noted that pt doesn't like nor want the nepros. Percent of energy/protein needs met: 0%/0% Burn Absent Trauma Absent Current % PO Negligible Minimum of two criteria No #1 Nutrition Diagnosis Inadequate oral intake Diagnosis Progress(for reassessment Continues documentation) Is patient on ventilator? No Is Patient Ambulatory and/or Out of Bed Yes REE-(Anderson-St. Jeor-ambulatory/OOB) [ 2433.600 [id number]] Kcal/Kg value to use for calculation 19 Approximate Energy Requirements Using 2011 kcal/Kg Calculation Used for Recommendations Kcal/kg Additional Notes Protein: 112-140 (1.2-1.5g/kg AdjBW 93kg) Fluid: 1 ml/kcal or per MD Nutrition Intervention Change Diet Order: Continue current Nutrition Support: D/C Nepro 1.8 with Carbsteady at 45 ml/hr Goal #1 Meet at least 75% of energy and protein needs Anticipated Discharge Needs: unable to determine at this time Follow-Up By: 09/01/19 Additional Comments F/U for PO intakes and food preferences
[2019-08-31] MEDS: hydrALAZINE 25 MG TAB PO SCH ×3 (05:51→21:41)
[2019-08-31] MEDS: methylPREDNISolone Sod Succinate 40 MG/1 ML INJ IV SCH ×3 (05:51→21:41)
[2019-08-31] MEDS: IPRATROPIUM/ALBUTEROL SULFATE 3 ML AMPUL.NEB IH SCH ×3 (08:52→21:32)
--- NOTE | 2019-08-31 09:28 | Progress Note ---
Assessment and Plan Sepsis Acute respiratory failure with hypoxemia and hypercapnia s/p MVS Influenza Bilateral pneumonia Acute renal failure Tobacco use disorder/Nicotine dependence Thrombocytopenia Need to re-orient him Discussed with PT to get him out of bed today,lights on during the day Asked the daughter to continue to explain, where he is, what has happened Low dose Seroquel tonight to help with sleep an agitation Monitor in ICU overnight NIPPV tonight - continue to wean supplemental oxygen for target O2 sat's > 90% - Bronchodilators with pulmonary hygiene per RT -Continue steroid taper -BULKER to evlaute swallow function/dysphagia - Accuchecks with glycemic control per SSI (While critically ill target blood glucose of 140-180 mg/dL; avoid hypoglycemia) - Avoid benzodiazepines to reduce the possibility of delirium - Empiric antibiotics for post viral PNA(on linezolid) , complete antiviral agents-ID following - prn analgesia - Maintenance of sleep-wake cycle, avoid delirium - Enteral nutritional support -Aspiration precautions, HOB >40 - G.I. & VTE prophylaxis, while on heparin monitor for bleeding and trend platelets - PT/OT/ROM exercises - Mobility protocol and off loading for pressure ulcer prevention -Renally dose all medications, avoid nephrotoxins -Nicotine withdrawal precautions Discussed the need for outpatient pulmonary follow up to characterize lung disease, get sleep study and ongoing care CONDITION: FAIR PROGNOSIS: FAIR CODE STATUS: FULL CODE Updated his daughter at the bedside re care plan Subjective Date of service: 08/31/19 Principal diagnosis: respiratory failure Interval history: Patient is seen today for: acute hypoxic respiratory failure on MVS, bilateral alveolar infiltrates, morbid obesity, influenza infection ( complicated): CLAUDETTE Seen and examined at bedside; 24hour events reviewed; nursing and respiratory care staff consulted; no adverse overnight events reported to me; Vitals, labs, medications, chart reviewed. No fevers, extubated yesterday but agitated and uncomfortable. trying to get out of bed, some episodes of confusion. Daughter is at the bedside, no fevers, no vomiting. Objective Vital Signs - 12hr 08/30/19 08/30/19 08/31/19 22:00 23:29 00:02 Temperature 98.2 F Pulse Rate 78 72 77 Respiratory 20 18 28 H Rate Blood Pressure 137/76 O2 Sat by Pulse 94 94 97 Oximetry 08/31/19 04:33 Temperature 98.5 F Pulse Rate 73 Respiratory 18 Rate Blood Pressure 128/70 O2 Sat by Pulse 87 Oximetry Constitutional: no acute distress, alert Eyes: non-icteric ENT: oropharynx moist Neck: supple, no lymphadenopathy, no JVD Effort: normal Ascultation: Bilateral: diminished breath sounds, rhonchi Percussion: Bilateral: not dull Cardiovascular: regular rate and rhythm, other (S1,S2) Gastrointestinal: normoactive bowel sounds, soft, non-tender, other (distended) Integumentary: normal Extremities: no cyanosis, no edema, pink and warm, pulses normal Neurologic: non-focal exam, pupils equal and round, motor strength normal and, other (agitation and confusion) Psychiatric: anxious CBC and BMP: 08/27/19 07:45 08/29/19 15:10 ABG, PT/INR, D-dimer: ABG POC ABG pH 7.359 (7.35-7.45) 08/24/19 12:30 ABG pH 7.314 pH Units (7.350-7.450) L 08/21/19 04:40 POC ABG pCO2 54.7 (35-45) H 08/24/19 12:30 ABG pCO2 54.6 mm Hg 08/21/19 04:40 POC ABG pO2 63 (80-105) L 08/24/19 12:30 ABG pO2 78.3 mm Hg (80.0-90.0) L 08/21/19 04:40 POC ABG HCO3 30.8 (22-26 mml/L) 08/24/19 12:30 POC ABG Total CO2 32 (23-27mmol/L) 08/24/19 12:30 POC ABG O2 Sat 90 08/24/19 12:30 ABG O2 Saturation 94.8 % (95.0-99.0) L 08/21/19 04:40 Abnormal lab findings: Abnormal Labs 08/15/19 08/15/19 08/15/19 13:16 13:16 17:16 WBC 14.7 H Hgb Hct RDW 17.3 H Plt Count Lymph % (Auto) [place] % (Auto) 11.3 H Lymph # [place] # 1.7 H Seg Neutrophils % 71.9 H Seg Neuts % (Manual) Lymphocytes % (Manual) Monocytes % (Manual) Nucleated RBC % Seg Neutrophils # 10.6 H Monocytes # (Manual) POC ABG pH 7.182 L ABG pH POC ABG pCO2 > 70 H POC ABG pO2 ABG pO2 ABG HCO3 ABG O2 Saturation ABG Hemoglobin Oxyhemoglobin Sodium Chloride Carbon Dioxide BUN 28 H Creatinine 1.9 H Glucose 133 H POC Glucose Calcium Total Bilirubin 1.50 H AST 82 H Albumin 3.6 L Urine WBC (Auto) 08/15/19 08/16/19 08/16/19 18:17 03:41 03:41 WBC Hgb 11.6 L Hct 34.3 L D RDW 17.4 H Plt Count 119 L Lymph % (Auto) 11.4 L [place] % (Auto) 11.6 H Lymph # 1.0 L [place] # 1.1 H Seg Neutrophils % 76.9 H Seg Neuts % (Manual) Lymphocytes % (Manual) Monocytes % (Manual) Nucleated RBC % Seg Neutrophils # Monocytes # (Manual) POC ABG pH 7.280 L ABG pH POC ABG pCO2 64.7 H POC ABG pO2 64 L ABG pO2 ABG HCO3 ABG O2 Saturation ABG Hemoglobin Oxyhemoglobin Sodium Chloride 107.1 H Carbon Dioxide BUN 34 H Creatinine 2.4 H Glucose 138 H POC Glucose Calcium 7.2 L D Total Bilirubin AST Albumin Urine WBC (Auto) 08/16/19 08/16/19 08/16/19 06:27 11:19 14:40 WBC Hgb Hct RDW Plt Count Lymph % (Auto) [place] % (Auto) Lymph # [place] # Seg Neutrophils % Seg Neuts % (Manual) Lymphocytes % (Manual) Monocytes % (Manual) Nucleated RBC % Seg Neutrophils # Monocytes # (Manual) POC ABG pH 7.336 L ABG pH POC ABG pCO2 47.9 H 48.7 H POC ABG pO2 69 L 130 H ABG pO2 ABG HCO3 ABG O2 Saturation ABG Hemoglobin Oxyhemoglobin Sodium Chloride Carbon Dioxide BUN Creatinine Glucose POC Glucose Calcium Total Bilirubin AST Albumin Urine WBC (Auto) 8.0 H 08/17/19 08/17/19 08/17/19 05:31 05:31 06:30 WBC Hgb 11.5 L Hct 34.3 L RDW 17.3 H Plt Count Lymph % (Auto) [place] % (Auto) 13.5 H Lymph # [place] # 1.3 H Seg Neutrophils % 70.7 H Seg Neuts % (Manual) Lymphocytes % (Manual) Monocytes % (Manual) Nucleated RBC % Seg Neutrophils # Monocytes # (Manual) POC ABG pH ABG pH POC ABG pCO2 POC ABG pO2 ABG pO2 116.6 H ABG HCO3 ABG O2 Saturation ABG Hemoglobin 13.9 L Oxyhemoglobin Sodium 146 H Chloride 112.1 H Carbon Dioxide BUN 47 H Creatinine 3.2 H Glucose POC Glucose Calcium 7.7 L Total Bilirubin AST Albumin Urine WBC (Auto) 08/17/19 08/18/19 08/18/19 20:31 04:20 04:20 WBC Hgb 11.4 L Hct 34.3 L RDW 17.3 H Plt Count 137 L Lymph % (Auto) [place] % (Auto) Lymph # [place] # Seg Neutrophils % Seg Neuts % (Manual) 79.0 H Lymphocytes % (Manual) 13.0 L Monocytes % (Manual) 8.0 H Nucleated RBC % 1.0 H Seg Neutrophils # Monocytes # (Manual) POC ABG pH ABG pH POC ABG pCO2 POC ABG pO2 78 L ABG pO2 ABG HCO3 ABG O2 Saturation ABG Hemoglobin Oxyhemoglobin Sodium 148 H Chloride 112.3 H Carbon Dioxide 20 L BUN 40 H Creatinine 3.1 H Glucose 109 H POC Glucose Calcium 7.9 L Total Bilirubin AST Albumin Urine WBC (Auto) 08/18/19 08/18/19 08/19/19 06:45 23:19 04:30 WBC Hgb Hct RDW Plt Count Lymph % (Auto) [place] % (Auto) Lymph # [place] # Seg Neutrophils % Seg Neuts % (Manual) Lymphocytes % (Manual) Monocytes % (Manual) Nucleated RBC % Seg Neutrophils # Monocytes # (Manual) POC ABG pH ABG pH POC ABG pCO2 45.2 H POC ABG pO2 55 L ABG pO2 72.2 L ABG HCO3 26.1 H ABG O2 Saturation 94.4 L ABG Hemoglobin 11.5 L Oxyhemoglobin 92.6 L Sodium Chloride Carbon Dioxide BUN Creatinine Glucose POC Glucose 158 H Calcium Total Bilirubin AST Albumin Urine WBC (Auto) 08/19/19 08/19/19 08/19/19 05:15 05:15 05:28 WBC Hgb 11.3 L Hct 34.4 L RDW 17.1 H Plt Count Lymph % (Auto) [place] % (Auto) Lymph # [place] # Seg Neutrophils % Seg Neuts % (Manual) Lymphocytes % (Manual) Monocytes % (Manual) 12.0 H Nucleated RBC % Seg Neutrophils # Monocytes # (Manual) 1.0 H POC ABG pH ABG pH POC ABG pCO2 POC ABG pO2 ABG pO2 ABG HCO3 ABG O2 Saturation ABG Hemoglobin Oxyhemoglobin Sodium 149 H Chloride 115.0 H Carbon Dioxide 21 L BUN 32 H Creatinine 2.7 H Glucose 112 H POC Glucose 113 H Calcium 7.8 L Total Bilirubin AST Albumin Urine WBC (Auto) 08/19/19 08/19/19 08/19/19 13:00 17:46 22:45 WBC Hgb Hct RDW Plt Count Lymph % (Auto) [place] % (Auto) Lymph # [place] # Seg Neutrophils % Seg Neuts % (Manual) Lymphocytes % (Manual) Monocytes % (Manual) Nucleated RBC % Seg Neutrophils # Monocytes # (Manual) POC ABG pH ABG pH POC ABG pCO2 POC ABG pO2 ABG pO2 ABG HCO3 ABG O2 Saturation ABG Hemoglobin Oxyhemoglobin Sodium Chloride Carbon Dioxide BUN Creatinine Glucose POC Glucose 126 H 112 H 172 H Calcium Total Bilirubin AST Albumin Urine WBC (Auto) 08/20/19 08/20/19 08/20/19 04:00 05:02 05:02 WBC Hgb 11.1 L Hct 33.4 L RDW 17.1 H Plt Count Lymph % (Auto) 11.2 L [place] % (Auto) 12.3 H Lymph # [place] # 1.3 H Seg Neutrophils % 74.9 H Seg Neuts % (Manual) Lymphocytes % (Manual) Monocytes % (Manual) Nucleated RBC % Seg Neutrophils # 7.8 H Monocytes # (Manual) POC ABG pH ABG pH POC ABG pCO2 45.1 H POC ABG pO2 70 L ABG pO2 ABG HCO3 ABG O2 Saturation ABG Hemoglobin Oxyhemoglobin Sodium 146 H Chloride 111.7 H Carbon Dioxide BUN 27 H Creatinine 2.4 H Glucose 123 H POC Glucose Calcium 8.1 L Total Bilirubin AST Albumin Urine WBC (Auto) 08/20/19 08/20/19 08/20/19 05:51 11:39 18:26 WBC Hgb Hct RDW Plt Count Lymph % (Auto) [place] % (Auto) Lymph # [place] # Seg Neutrophils % Seg Neuts % (Manual) Lymphocytes % (Manual) Monocytes % (Manual) Nucleated RBC % Seg Neutrophils # Monocytes # (Manual) POC ABG pH ABG pH POC ABG pCO2 POC ABG pO2 ABG pO2 ABG HCO3 ABG O2 Saturation ABG Hemoglobin Oxyhemoglobin Sodium Chloride Carbon Dioxide BUN Creatinine Glucose POC Glucose 108 H 116 H 137 H Calcium Total Bilirubin AST Albumin Urine WBC (Auto) 08/21/19 08/21/19 08/21/19 04:40 05:25 05:56 WBC Hgb Hct RDW Plt Count Lymph % (Auto) [place] % (Auto) Lymph # [place] # Seg Neutrophils % Seg Neuts % (Manual) Lymphocytes % (Manual) Monocytes % (Manual) Nucleated RBC % Seg Neutrophils # Monocytes # (Manual) POC ABG pH ABG pH 7.314 L POC ABG pCO2 POC ABG pO2 ABG pO2 78.3 L ABG HCO3 27.1 H ABG O2 Saturation 94.8 L ABG Hemoglobin 10.5 L Oxyhemoglobin 93.0 L Sodium 147 H Chloride 110.7 H Carbon Dioxide BUN 30 H Creatinine 2.4 H Glucose 144 H POC Glucose 129 H Calcium 8.0 L Total Bilirubin AST Albumin Urine WBC (Auto) 08/21/19 08/22/19 08/22/19 12:39 00:08 03:45 WBC Hgb Hct RDW Plt Count Lymph % (Auto) [place] % (Auto) Lymph # [place] # Seg Neutrophils % Seg Neuts % (Manual) Lymphocytes % (Manual) Monocytes % (Manual) Nucleated RBC % Seg Neutrophils # Monocytes # (Manual) POC ABG pH ABG pH POC ABG pCO2 POC ABG pO2 ABG pO2 ABG HCO3 ABG O2 Saturation ABG Hemoglobin Oxyhemoglobin Sodium 147 H Chloride 110.6 H Carbon Dioxide BUN 36 H Creatinine 2.4 H Glucose 195 H POC Glucose 193 H 173 H Calcium 8.1 L Total Bilirubin AST Albumin Urine WBC (Auto) 08/22/19 08/22/19 08/22/19 05:19 05:41 11:20 WBC Hgb Hct RDW Plt Count Lymph % (Auto) [place] % (Auto) Lymph # [place] # Seg Neutrophils % Seg Neuts % (Manual) Lymphocytes % (Manual) Monocytes % (Manual) Nucleated RBC % Seg Neutrophils # Monocytes # (Manual) POC ABG pH 7.328 L ABG pH POC ABG pCO2 53.0 H 49.7 H POC ABG pO2 75 L 62 L ABG pO2 ABG HCO3 ABG O2 Saturation ABG Hemoglobin Oxyhemoglobin Sodium Chloride Carbon Dioxide BUN Creatinine Glucose POC Glucose 176 H Calcium Total Bilirubin AST Albumin Urine WBC (Auto) 08/22/19 08/22/19 08/23/19 11:22 16:58 04:14 WBC Hgb Hct RDW Plt Count Lymph % (Auto) [place] % (Auto) Lymph # [place] # Seg Neutrophils % Seg Neuts % (Manual) Lymphocytes % (Manual) Monocytes % (Manual) Nucleated RBC % Seg Neutrophils # Monocytes # (Manual) POC ABG pH ABG pH POC ABG pCO2 POC ABG pO2 ABG pO2 ABG HCO3 ABG O2 Saturation ABG Hemoglobin Oxyhemoglobin Sodium Chloride Carbon Dioxide BUN 41 H Creatinine 2.3 H Glucose 174 H POC Glucose 217 H 174 H Calcium Total Bilirubin AST Albumin Urine WBC (Auto) 08/23/19 08/23/19 08/23/19 04:14 05:01 12:05 WBC 14.7 H Hgb 11.5 L Hct 35.2 L RDW 16.5 H Plt Count Lymph % (Auto) [place] % (Auto) Lymph # [place] # Seg Neutrophils % Seg Neuts % (Manual) Lymphocytes % (Manual) Monocytes % (Manual) Nucleated RBC % Seg Neutrophils # Monocytes # (Manual) POC ABG pH ABG pH POC ABG pCO2 45.4 H POC ABG pO2 ABG pO2 ABG HCO3 ABG O2 Saturation ABG Hemoglobin Oxyhemoglobin Sodium Chloride Carbon Dioxide BUN Creatinine Glucose POC Glucose 159 H Calcium Total Bilirubin AST Albumin Urine WBC (Auto) 08/23/19 08/23/19 08/24/19 12:53 18:51 06:33 WBC Hgb Hct RDW Plt Count Lymph % (Auto) [place] % (Auto) Lymph # [place] # Seg Neutrophils % Seg Neuts % (Manual) Lymphocytes % (Manual) Monocytes % (Manual) Nucleated RBC % Seg Neutrophils # Monocytes # (Manual) POC ABG pH ABG pH POC ABG pCO2 POC ABG pO2 ABG pO2 ABG HCO3 ABG O2 Saturation ABG Hemoglobin Oxyhemoglobin Sodium Chloride Carbon Dioxide BUN Creatinine Glucose POC Glucose 191 H 142 H 118 H Calcium Total Bilirubin AST Albumin Urine WBC (Auto) 08/24/19 08/24/19 08/24/19 08:16 08:16 11:56 WBC 13.3 H Hgb 11.5 L Hct 34.1 L RDW 16.6 H Plt Count Lymph % (Auto) [place] % (Auto) Lymph # [place] # Seg Neutrophils % Seg Neuts % (Manual) Lymphocytes % (Manual) Monocytes % (Manual) Nucleated RBC % Seg Neutrophils # Monocytes # (Manual) POC ABG pH ABG pH POC ABG pCO2 POC ABG pO2 ABG pO2 ABG HCO3 ABG O2 Saturation ABG Hemoglobin Oxyhemoglobin Sodium Chloride Carbon Dioxide BUN 50 H Creatinine 2.3 H Glucose 121 H POC Glucose 115 H Calcium Total Bilirubin AST Albumin Urine WBC (Auto) 08/24/19 08/25/19 08/26/19 12:30 12:34 08:23 WBC 13.2 H Hgb 11.4 L Hct 34.6 L RDW 16.1 H Plt Count Lymph % (Auto) [place] % (Auto) Lymph # [place] # Seg Neutrophils % Seg Neuts % (Manual) Lymphocytes % (Manual) Monocytes % (Manual) Nucleated RBC % Seg Neutrophils # Monocytes # (Manual) POC ABG pH ABG pH POC ABG pCO2 54.7 H POC ABG pO2 63 L ABG pO2 ABG HCO3 ABG O2 Saturation ABG Hemoglobin Oxyhemoglobin Sodium Chloride Carbon Dioxide BUN Creatinine Glucose POC Glucose 167 H Calcium Total Bilirubin AST Albumin Urine WBC (Auto) 08/26/19 08/26/19 08/26/19 08:23 10:18 12:24 WBC Hgb Hct RDW Plt Count Lymph % (Auto) [place] % (Auto) Lymph # [place] # Seg Neutrophils % Seg Neuts % (Manual) Lymphocytes % (Manual) Monocytes % (Manual) Nucleated RBC % Seg Neutrophils # Monocytes # (Manual) POC ABG pH ABG pH POC ABG pCO2 POC ABG pO2 ABG pO2 ABG HCO3 ABG O2 Saturation ABG Hemoglobin Oxyhemoglobin Sodium 148 H Chloride 108.1 H Carbon Dioxide BUN 46 H Creatinine 2.0 H Glucose 112 H POC Glucose 160 H 139 H Calcium Total Bilirubin AST Albumin Urine WBC (Auto) 08/26/19 08/27/19 08/27/19 17:45 07:45 07:45 WBC 11.6 H Hgb 11.4 L Hct 34.3 L RDW 16.1 H Plt Count Lymph % (Auto) 5.7 L [place] % (Auto) Lymph # 0.7 L [place] # Seg Neutrophils % 88.4 H Seg Neuts % (Manual) Lymphocytes % (Manual) Monocytes % (Manual) Nucleated RBC % Seg Neutrophils # 10.2 H Monocytes # (Manual) POC ABG pH ABG pH POC ABG pCO2 POC ABG pO2 ABG pO2 ABG HCO3 ABG O2 Saturation ABG Hemoglobin Oxyhemoglobin Sodium Chloride Carbon Dioxide BUN 44 H Creatinine 2.0 H Glucose 143 H POC Glucose 188 H Calcium 8.0 L Total Bilirubin AST Albumin Urine WBC (Auto) 08/29/19 15:10 WBC Hgb Hct RDW Plt Count Lymph % (Auto) [place] % (Auto) Lymph # [place] # Seg Neutrophils % Seg Neuts % (Manual) Lymphocytes % (Manual) Monocytes % (Manual) Nucleated RBC % Seg Neutrophils # Monocytes # (Manual) POC ABG pH ABG pH POC ABG pCO2 POC ABG pO2 ABG pO2 ABG HCO3 ABG O2 Saturation ABG Hemoglobin Oxyhemoglobin Sodium Chloride Carbon Dioxide BUN 32 H Creatinine 1.7 H Glucose 172 H POC Glucose Calcium 8.0 L Total Bilirubin AST Albumin Urine WBC (Auto) Allied health notes reviewed: RT
[2019-08-31] MEDS: PRAZOSIN 1 MG CAP PO SCH (09:40)
[2019-08-31] MEDS: FAMOTIDINE 20 MG TAB PO SCH (09:40)
[2019-08-31] MEDS: HEPARIN 5,000 UNIT/1 ML VIAL SUB-Q SCH ×2 (09:40→21:41)
[2019-08-31] MEDS: amLODIPine 10 MG TAB PO SCH (09:40)
--- NOTE | 2019-08-31 10:35 | Progress Note ---
Subjective Principal diagnosis: respiratory failure Interval history: Patient was seen today for follow-up on multiple renal related issues feeling better no acute complaints urine output is good creatinine yesterday was 1.7 Much jovanni rno new labs His blood pressure is currently well controlled Vitals intake output medications were reviewed Past medical history: Reviewed Family, social history: Reviewed Allergies: Reviewed Physical examination General: No acute distress Vitals: Reviewed HEENT: Oral mucosa moist no icterus Neck: Supple no thyromegaly nodular mass or JVD Chest: few basilar crackles, occasional wheezes Heart: Regular rate and rhythm S1-S2 heard no S3-S4 Abdomen: Soft nontender no suprapubic masses no organomegaly Extremity: Dry skin less than 1+ edema Psych: No evidence of any agitation and aggression noted Derm: No petechial rash Assessment and plan: Acute kidney injury, Renal standpoint patient blood pressure is stable, as of yesterday his creatinine is 1.7 showing signs of improvement Follwo labs Other electrolytes are okay continue to monitor renal function Need to follow up in office upon discharge Etiology of renal failure ischemic renal injury: HTN Renal ultrasonogram: Normal Hypernatremia needs follow-up on monitoring acidosis: Better All renal related issues were discussed with the patient, We'll continue to follow and make recommendation from renal standpoint Objective - Vital Signs Vital signs: Vital Signs - 12hr 08/30/19 08/31/19 08/31/19 23:29 00:02 04:33 Temperature 98.2 F 98.5 F Pulse Rate 72 77 73 Respiratory 18 28 H 18 Rate Blood Pressure 137/76 128/70 O2 Sat by Pulse 94 97 87 Oximetry 08/31/19 08/31/19 08/31/19 07:49 07:54 10:00 Temperature 98.7 F 98.7 F Pulse Rate 78 74 75 Respiratory 20 20 18 Rate Blood Pressure 153/75 O2 Sat by Pulse 86 95 96 Oximetry - Lab 08/27/19 07:45 08/29/19 15:10 Most recent lab results ABG pH 7.314 pH Units (7.350-7.450) L 08/21/19 04:40 ABG pCO2 54.6 mm Hg 08/21/19 04:40 ABG pO2 78.3 mm Hg (80.0-90.0) L 08/21/19 04:40 ABG HCO3 27.1 mmol/L (20.0-26.0) H 08/21/19 04:40 ABG O2 Saturation 94.8 % (95.0-99.0) L 08/21/19 04:40 Calcium 8.0 mg/dL (8.4-10.2) L 08/29/19 15:10 Medications & Allergies - Medications Allergies/Adverse Reactions: Allergies No Known Allergies Allergy (Unverified 08/15/19 13:08) Home Medications: Home Medications Medication Instructions Recorded Confirmed Last Taken Type Rosuvastatin Calcium 20 mg PO QDAY 08/16/19 08/16/19 08/14/19 History Terazosin HCl 2 mg PO QDAY 08/16/19 08/16/19 08/14/19 History Trandolapril/Verapamil HCl [Tark[place] 4 mg PO QDAY 08/16/19 08/16/19 08/14/19 History ER 4-240 mg] Triamter/Hctz 37.5-25 mg 1 tab PO QDAY 08/16/19 08/16/19 08/14/19 History [Maxzide-25] Verapamil ER [Calan Sr] 180 mg PO BID 08/16/19 08/16/19 08/14/19 History amLODIPine [Norvasc] 10 mg PO DAILY 08/16/19 08/16/19 08/14/19 History Active Medications: Generic Name Dose Route Start Last Admin Trade Name Freq PRN Reason Stop Dose Admin Acetaminophen 650 mg 08/15/19 16:00 08/23/19 16:10 Tylenol PO 650 mg Q4H PRN Administration Pain MILD(1-3)/Fever >100.5/HARDY Albuterol 2.5 mg 08/15/19 16:00 Proventil IH Q4HRT PRN Shortness Of Breath Albuterol/Ipratropium 1 ampul 08/20/19 14:00 08/31/19 08:52 Duoneb *Not For Prn Use* IH 1 ampul TIDRT LEORA Administration Amlodipine Besylate 10 mg 08/19/19 14:00 08/31/19 09:40 Amlodipine PO 10 mg DAILY LEORA Administration Atorvastatin Calcium 40 mg 08/19/19 22:00 08/30/19 21:54 Lipitor PO 40 mg QHS LEORA Administration Famotidine 20 mg 08/19/19 10:00 08/31/19 09:40 Pepcid PO 20 mg QDAY LEORA Administration Heparin Sodium (Porcine) 5,000 unit 08/15/19 22:00 08/31/19 09:40 Heparin SUB-Q 5,000 unit Q12HR LEORA Administration Hydralazine HCl 10 mg 08/21/19 11:09 08/23/19 09:16 Apresoline IV 10 mg Q4HR PRN Administration SBP>160 or DBP>110 Hydralazine HCl 100 mg 08/23/19 14:00 08/31/19 05:51 Apresoline PO 100 mg Q8HR LEORA Administration Hydrophilic Ointment 1 applic 08/15/19 17:33 Vaseline Lip Therapy TP Q2HR PRN Dry Lips Methylprednisolone Sodium Succinate 40 mg 08/24/19 06:00 08/31/19 05:51 Solu-Medrol IV 40 mg Q8HR LEORA Administration Multi-Ingred Cream/Lotion/Oil/Oint 1 applic 08/15/19 17:33 Artificial Tears Ophth Oint OU Q4HR PRN Dry Eye(s) Ondansetron HCl 4 mg 08/15/19 16:00 Zofran IV Q8H PRN Nausea And Vomiting Prazosin HCl 1 mg 08/19/19 16:00 08/31/19 09:40 Prazosin PO 1 mg QDAY LEORA Administration Sodium Chloride 10 ml 08/15/19 22:00 08/31/19 09:40 Sodium Chloride Flush Syringe 10 Ml IV 10 ml BID LEORA Administration Sodium Chloride 10 ml 08/15/19 16:00 08/28/19 06:37 Sodium Chloride Flush Syringe 10 Ml IV 10 ml PRN PRN Administration LINE FLUSH
--- NOTE | 2019-08-31 12:52 | Progress Note ---
Assessment and Plan Assessment and plan: Sepsis. Completed antibiotics. Etiology complicated influenza with MRSA pneumonia. Acute on chronic hypoxemic respiratory failure. extubated 08/23/2019, patient currently with O2 has been weaned to 3 L. Patient likely has COPD given his smoking history. 1 pack/day since the age of 13 Hypertensive urgency Improved Continue hydralazine to 100mg tid Influenza. Completed Tamiflu. Bilateral pneumonia. As above. Resolving. Acute kidney injury. Etiology secondary to vasomotor nephropathy and ATN/ sepsis. Continue IV fluid hydration. Renal ultrasound within normal limits. Nephrology following. Toxic metabolic encephalopathy. Resolved. Tobacco use disorder. Patient counseled on cessation Disposition. Will likely discharge with O2 arranged. I discussed with nursing to arrange for fit test History Interval history: No new issues overnight. Patient still requiring oxygen with minimal exertion sats in the mid to low 80s Hospitalist Physical - Constitutional Vitals: Temp Pulse Resp BP Pulse Ox 98.9 F 97 H 20 127/71 91 08/31/19 11:12 08/31/19 11:12 08/31/19 11:12 08/31/19 11:12 08/31/19 11:12 General appearance: Present: no acute distress, mild distress, other (Patient orally intubated on mechanical ventilation) - EENT Eyes: Present: PERRL, EOM intact ENT: hearing intact, clear oral mucosa, dentition normal - Neck Neck: Present: supple, normal ROM - Respiratory Respiratory effort: normal Respiratory: bilateral: CTA - Cardiovascular Rhythm: regular Heart Sounds: Present: S1 & S2. Absent: gallop, rub - Extremities Extremities: no ischemia, No edema, Full ROM - Abdominal General gastrointestinal: soft, non-tender, non-distended, normal bowel sounds - Integumentary Integumentary: Present: clear, warm, dry - Neurologic Neurologic: CNII-XII intact, moves all extremities Results - Labs CBC & Chem 7: 08/27/19 07:45 08/29/19 15:10 Labs: Laboratory Last Values WBC 11.6 K/mm3 (4.5-11.0) H 08/27/19 07:45 RBC 3.95 M/mm3 (3.65-5.03) 08/27/19 07:45 Hgb 11.4 gm/dl (11.8-15.2) L 08/27/19 07:45 Hct 34.3 % (35.5-45.6) L 08/27/19 07:45 MCV 87 fl (84-94) 08/27/19 07:45 MCH 29 pg (28-32) 08/27/19 07:45 MCHC 33 % (32-34) 08/27/19 07:45 RDW 16.1 % (13.2-15.2) H 08/27/19 07:45 Plt Count 245 K/mm3 (140-440) 08/27/19 07:45 Lymph % (Auto) 5.7 % (13.4-35.0) L 08/27/19 07:45 [place] % (Auto) 5.8 % (0.0-7.3) 08/27/19 07:45 Eos % (Auto) 0.0 % (0.0-4.3) 08/27/19 07:45 Baso % (Auto) 0.1 % (0.0-1.8) 08/27/19 07:45 Lymph # 0.7 K/mm3 (1.2-5.4) L 08/27/19 07:45 [place] # 0.7 K/mm3 (0.0-0.8) 08/27/19 07:45 Eos # 0.0 K/mm3 (0.0-0.4) 08/27/19 07:45 Baso # 0.0 K/mm3 (0.0-0.1) 08/27/19 07:45 Add Manual Diff Complete 08/19/19 05:15 Total Counted 100 08/19/19 05:15 Seg Neutrophils % 88.4 % (40.0-70.0) H 08/27/19 07:45 Seg Neuts % (Manual) 69.0 % (40.0-70.0) 08/19/19 05:15 Band Neutrophils % 0 % 08/19/19 05:15 Lymphocytes % (Manual) 17.0 % (13.4-35.0) 08/19/19 05:15 Reactive Lymphs % (Man) 1.0 % 08/19/19 05:15 Monocytes % (Manual) 12.0 % (0.0-7.3) H 08/19/19 05:15 Eosinophils % (Manual) 1.0 % (0.0-4.3) 08/19/19 05:15 Basophils % (Manual) 0 % (0.0-1.8) 08/19/19 05:15 Metamyelocytes % 0 % 08/19/19 05:15 Myelocytes % 0 % 08/19/19 05:15 Promyelocytes % 0 % 08/19/19 05:15 Blast Cells % 0 % 08/19/19 05:15 Nucleated RBC % Not Reportable 08/19/19 05:15 Seg Neutrophils # 10.2 K/mm3 (1.8-7.7) H 08/27/19 07:45 Seg Neutrophils # Man 5.9 K/mm3 (1.8-7.7) 08/19/19 05:15 Band Neutrophils # 0.0 K/mm3 08/19/19 05:15 Lymphocytes # (Manual) 1.4 K/mm3 (1.2-5.4) 08/19/19 05:15 Abs React Lymphs (Man) 0.1 K/mm3 08/19/19 05:15 Monocytes # (Manual) 1.0 K/mm3 (0.0-0.8) H 08/19/19 05:15 Eosinophils # (Manual) 0.1 K/mm3 (0.0-0.4) 08/19/19 05:15 Basophils # (Manual) 0.0 K/mm3 (0.0-0.1) 08/19/19 05:15 Metamyelocytes # 0.0 K/mm3 08/19/19 05:15 Myelocytes # 0.0 K/mm3 08/19/19 05:15 Promyelocytes # 0.0 K/mm3 08/19/19 05:15 Blast Cells # 0.0 K/mm3 08/19/19 05:15 WBC Morphology Not Reportable 08/19/19 05:15 Hypersegmented Neuts Not Reportable 08/19/19 05:15 Hyposegmented Neuts Not Reportable 08/19/19 05:15 Hypogranular Neuts Not Reportable 08/19/19 05:15 Smudge Cells Not Reportable 08/19/19 05:15 Toxic Granulation Not Reportable 08/19/19 05:15 Toxic Vacuolation Not Reportable 08/19/19 05:15 Dohle Bodies Not Reportable 08/19/19 05:15 Pelger-Huet Anomaly Not Reportable 08/19/19 05:15 Dalila Rods Not Reportable 08/19/19 05:15 Platelet Estimate Consistent w auto 08/19/19 05:15 Clumped Platelets Not Reportable 08/19/19 05:15 Plt Clumps, EDTA Not Reportable 08/19/19 05:15 Large Platelets Not Reportable 08/19/19 05:15 Giant Platelets Not Reportable 08/19/19 05:15 Platelet Satelliting Not Reportable 08/19/19 05:15 Plt Morphology Comment Not Reportable 08/19/19 05:15 RBC Morphology Not Reportable 08/19/19 05:15 Dimorphic RBCs Not Reportable 08/19/19 05:15 Polychromasia Not Reportable 08/19/19 05:15 Hypochromasia Not Reportable 08/19/19 05:15 Poikilocytosis Not Reportable 08/19/19 05:15 Anisocytosis 1+ 08/19/19 05:15 Microcytosis Not Reportable 08/19/19 05:15 Macrocytosis Not Reportable 08/19/19 05:15 Spherocytes Not Reportable 08/19/19 05:15 Pappenheimer Bodies Not Reportable 08/19/19 05:15 Sickle Cells Not Reportable 08/19/19 05:15 Target Cells Not Reportable 08/19/19 05:15 Tear Drop Cells Not Reportable 08/19/19 05:15 Ovalocytes Not Reportable 08/19/19 05:15 Helmet Cells Not Reportable 08/19/19 05:15 [place] Bodies Not Reportable 08/19/19 05:15 [place] Rings Not Reportable 08/19/19 05:15 [place] Cells Not Reportable 08/19/19 05:15 Bite Cells Not Reportable 08/19/19 05:15 Crenated Cell Not Reportable 08/19/19 05:15 Elliptocytes Not Reportable 08/19/19 05:15 Acanthocytes (Spur) Not Reportable 08/19/19 05:15 Rouleaux Not Reportable 08/19/19 05:15 Hemoglobin C Crystals Not Reportable 08/19/19 05:15 Schistocytes Not Reportable 08/19/19 05:15 Malaria parasites Not Reportable 08/19/19 05:15 Magdiel Bodies Not Reportable 08/19/19 05:15 Hem Pathologist Commnt No 08/19/19 05:15 POC ABG pH 7.359 (7.35-7.45) 08/24/19 12:30 ABG pH 7.314 pH Units (7.350-7.450) L 08/21/19 04:40 POC ABG pCO2 54.7 (35-45) H 08/24/19 12:30 ABG pCO2 54.6 mm Hg 08/21/19 04:40 POC ABG pO2 63 (80-105) L 08/24/19 12:30 ABG pO2 78.3 mm Hg (80.0-90.0) L 08/21/19 04:40 POC ABG HCO3 30.8 (22-26 mml/L) 08/24/19 12:30 ABG HCO3 27.1 mmol/L (20.0-26.0) H 08/21/19 04:40 POC ABG Total CO2 32 (23-27mmol/L) 08/24/19 12:30 POC ABG O2 Sat 90 08/24/19 12:30 ABG O2 Saturation 94.8 % (95.0-99.0) L 08/21/19 04:40 ABG O2 Content 13.8 (0.0-44) 08/21/19 04:40 POC ABG Base Excess 5 ((-2) - (+3)mmol/L) 08/24/19 12:30 ABG Base Excess 0.3 mmol/L (-2.0-3.0) 08/21/19 04:40 ABG Hemoglobin 10.5 gm/dl (14.0-18.0) L 08/21/19 04:40 ABG Carboxyhemoglobin 1.4 % (0.0-5.0) 08/21/19 04:40 ABG Methemoglobin 0.5 % (0.0-1.5) 08/21/19 04:40 Oxyhemoglobin 93.0 % (95.0-99.0) L 08/21/19 04:40 FiO2 35 % 08/24/19 12:30 Sodium 142 mmol/L (137-145) 08/29/19 15:10 Potassium 4.1 mmol/L (3.6-5.0) 08/29/19 15:10 Chloride 103.2 mmol/L (98-107) 08/29/19 15:10 Carbon Dioxide 27 mmol/L (22-30) 08/29/19 15:10 Anion Gap 16 mmol/L 08/29/19 15:10 BUN 32 mg/dL (9-20) H 08/29/19 15:10 Creatinine 1.7 mg/dL (0.8-1.5) H 08/29/19 15:10 Estimated GFR 49 ml/min 08/29/19 15:10 BUN/Creatinine Ratio 19 % 08/29/19 15:10 Glucose 172 mg/dL (75-100) H 08/29/19 15:10 POC Glucose 188 (70-105) H 08/26/19 17:45 Hemoglobin A1c 6.0 % (4-6) 08/23/19 04:14 Osmolality 305 Mosm/kg 08/29/19 15:10 Lactic Acid 1.10 mmol/L (0.7-2.0) 08/15/19 23:36 Calcium 8.0 mg/dL (8.4-10.2) L 08/29/19 15:10 Total Bilirubin 1.50 mg/dL (0.1-1.2) H 08/15/19 13:16 AST 82 units/L (5-40) H 08/15/19 13:16 ALT 46 units/L (7-56) 08/15/19 13:16 Alkaline Phosphatase 90 units/L (35-129) 08/15/19 13:16 Troponin T 0.018 ng/mL (0.00-0.029) 08/15/19 13:16 Total Protein 7.9 g/dL (6.3-8.2) 08/15/19 13:16 Albumin 3.6 g/dL (3.9-5) L 08/15/19 13:16 Albumin/Globulin Ratio 0.8 % 08/15/19 13:16 Urine Color [place] (Yellow) 08/16/19 14:40 Urine Turbidity Cloudy (Clear) 08/16/19 14:40 Urine pH 5.0 (5.0-7.0) 08/16/19 14:40 Ur Specific [place] 1.015 (1.003-1.030) 08/16/19 14:40 Urine Protein 100 mg/dl mg/dL (Negative) 08/16/19 14:40 Urine Glucose (UA) Neg mg/dL (Negative) 08/16/19 14:40 Urine Ketones Neg mg/dL (Negative) 08/16/19 14:40 Urine Blood Mod (Negative) 08/16/19 14:40 Urine Nitrite Neg (Negative) 08/16/19 14:40 Urine Bilirubin Neg (Negative) 08/16/19 14:40 Urine Urobilinogen 4.0 mg/dL (<2.0) 08/16/19 14:40 Ur Leukocyte Esterase Tr (Negative) 08/16/19 14:40 Urine WBC (Auto) 8.0 /HPF (0.0-6.0) H 08/16/19 14:40 Urine RBC (Auto) 1.0 /HPF (0.0-6.0) 08/16/19 14:40 U Epithel Cells (Auto) < 1.0 /HPF (0-13.0) 08/16/19 14:40 Random Vancomycin 7.9 ug/mL (0-40.0) 08/17/19 05:31 Active Medications - Current Medications Current Medications: Generic Name Dose Route Start Last Admin Trade Name Freq PRN Reason Stop Dose Admin Acetaminophen 650 mg 08/15/19 16:00 08/23/19 16:10 Tylenol PO 650 mg Q4H PRN Administration Pain MILD(1-3)/Fever >100.5/HARDY Albuterol 2.5 mg 08/15/19 16:00 Proventil IH Q4HRT PRN Shortness Of Breath Albuterol/Ipratropium 1 ampul 08/20/19 14:00 08/31/19 08:52 Duoneb *Not For Prn Use* IH 1 ampul TIDRT LEORA Administration Amlodipine Besylate 10 mg 08/19/19 14:00 08/31/19 09:40 Amlodipine PO 10 mg DAILY LEORA Administration Atorvastatin Calcium 40 mg 08/19/19 22:00 08/30/19 21:54 Lipitor PO 40 mg QHS LEORA Administration Famotidine 20 mg 08/19/19 10:00 08/31/19 09:40 Pepcid PO 20 mg QDAY LEORA Administration Heparin Sodium (Porcine) 5,000 unit 08/15/19 22:00 08/31/19 09:40 Heparin SUB-Q 5,000 unit Q12HR LEORA Administration Hydralazine HCl 10 mg 08/21/19 11:09 08/23/19 09:16 Apresoline IV 10 mg Q4HR PRN Administration SBP>160 or DBP>110 Hydralazine HCl 100 mg 08/23/19 14:00 08/31/19 05:51 Apresoline PO 100 mg Q8HR LEORA Administration Hydrophilic Ointment 1 applic 08/15/19 17:33 Vaseline Lip Therapy TP Q2HR PRN Dry Lips Methylprednisolone Sodium Succinate 40 mg 08/24/19 06:00 08/31/19 05:51 Solu-Medrol IV 40 mg Q8HR LEORA Administration Multi-Ingred Cream/Lotion/Oil/Oint 1 applic 08/15/19 17:33 Artificial Tears Ophth Oint OU Q4HR PRN Dry Eye(s) Ondansetron HCl 4 mg 08/15/19 16:00 Zofran IV Q8H PRN Nausea And Vomiting Prazosin HCl 1 mg 08/19/19 16:00 08/31/19 09:40 Prazosin PO 1 mg QDAY LEORA Administration Sodium Chloride 10 ml 08/15/19 22:00 08/31/19 09:40 Sodium Chloride Flush Syringe 10 Ml IV 10 ml BID LEORA Administration Sodium Chloride 10 ml 08/15/19 16:00 08/28/19 06:37 Sodium Chloride Flush Syringe 10 Ml IV 10 ml PRN PRN Administration LINE FLUSH Nutrition/Malnutrition Assess - Dietary Evaluation Nutrition/Malnutrition Findings: Nutrition Notes Start: 08/18/19 09:16 Freq: Status: Active Protocol: Document 08/28/19 11:45 SYLWIA (Rec: 08/28/19 12:03 SYLWIA [id number]) Co-Sign 08/28/19 11:45 LP Nutrition Notes Initial or Follow up Reassessment Current Diagnosis Acute Kidney Injury,Decubitus( Pressure Ulcer),Sepsis, Hypertension,Respiratory Failure Other Pertinent Diagnosis Influenza, nicotine/ETOH dependence Current Diet Mechanical soft Labs/Tests BUN 44 Cr 2 BG 143 Pertinent Medications Solu-medrol Lipitor Height 6 ft Weight 105.9 kg [place] Body Weight (kg) 80.90 BMI 31.6 Weight change and time frame Wt change noted. Possibly due to inaccurate bed scale Subjective/Other Information F/U for TF tolerance. Pt was evaluated by [employer] and is safe for a mechanical soft diet. Pt strongly doesn't like the food. Pt ate cereal for breakfast. Pt stated that he only ate carrots yesterday. Noted that pt doesn't like nor want the nepros. Percent of energy/protein needs met: 0%/0% Burn Absent Trauma Absent Current % PO Negligible Minimum of two criteria No #1 Nutrition Diagnosis Inadequate oral intake Diagnosis Progress(for reassessment Continues documentation) Is patient on ventilator? No Is Patient Ambulatory and/or Out of Bed Yes REE-([facility]-ambulatory/OOB) [ 2433.600 NUTR.[id number]] Kcal/Kg value to use for calculation 19 Approximate Energy Requirements Using 2011 kcal/Kg Calculation Used for Recommendations Kcal/kg Additional Notes Protein: 112-140 (1.2-1.5g/kg AdjBW 93kg) Fluid: 1 ml/kcal or per MD Nutrition Intervention Change Diet Order: Continue current Nutrition Support: D/C Nepro 1.8 with Carbsteady at 45 ml/hr Goal #1 Meet at least 75% of energy and protein needs Anticipated Discharge Needs: unable to determine at this time Follow-Up By: 09/01/19 Additional Comments F/U for PO intakes and food preferences
[2019-09-01] MEDS: hydrALAZINE 25 MG TAB PO SCH ×3 (05:50→13:07)
[2019-09-01] MEDS: methylPREDNISolone Sod Succinate 40 MG/1 ML INJ IV SCH ×3 (05:50→13:07)
[2019-09-01] MEDS: IPRATROPIUM/ALBUTEROL SULFATE 3 ML AMPUL.NEB IH SCH ×2 (08:22→13:38)
[2019-09-01 09:11] VITALS: BP 153/89
[2019-09-01] MEDS: FAMOTIDINE 20 MG TAB PO SCH (09:25)
[2019-09-01] MEDS: PRAZOSIN 1 MG CAP PO SCH (09:25)
[2019-09-01] MEDS: amLODIPine 10 MG TAB PO SCH (09:25)
[2019-09-01] MEDS: HEPARIN 5,000 UNIT/1 ML VIAL SUB-Q SCH (09:25)
--- NOTE | 2019-09-01 14:42 | Discharge Summary ---
Providers - Providers Date of Admission: 08/15/19 16:00 Date of discharge: 09/01/19 Attending physician: GABRIELLE ORTIZ 08/15/19 16:32 Consult to Physician [CONS] Routine Comment: Consulting Provider: PINEDA ALVARADO Physician Instructions: Reason For Exam: Bilateral Pneumonia/Respiratory Faliure 08/15/19 17:33 Consult to Dietitian/Nutrition [CONS] Routine Physician Instructions: Reason For Exam: Reason for Consult: Evaluate nutritional intake 08/16/19 12:06 Consult to Physician [CONS] Routine Comment: Consulting Provider: GHISLAINE GOETZ Physician Instructions: Reason For Exam: mulu 08/16/19 12:07 Consult to Physician [CONS] Routine Comment: Consulting Provider: NEHEMIAS LUND Physician Instructions: Reason For Exam: sepsis 08/17/19 14:54 Consult to Dietitian/Nutrition [CONS] Routine Physician Instructions: Assess nutrtn needs, initiate, modify, manage TF Reason For Exam: Reason for Consult: Write/Manage Tube Feeding Reason for Consult: Write/Manage Tube Feeding 08/23/19 11:58 Occupational Therapy Evaluate and Treat [CONS] Routine Comment: Reason For Exam: ADLS Physical Therapy Evaluation and Treat [CONS] Routine Comment: Reason For Exam: deconditioning, ambulate Speech Therapy Evaluation and Treat [CONS] Routine Reason For Exam: swallow eval Hospitalization Reason for admission: pna, acute resp failure Condition: Fair Hospital course: 68 y/o male with smoking and ETOH abuse, HTN, 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 Also noted with low O2 sat and was sent to the hospital. On admission, temp 98.7, HR 112, BP 122/71, O2 sat 50%. He was placed on BIPAP then intubated. WBC 14.7. Plat 144. Creat 1.9. AST 82. Ua negative. Sputum culture 08/15/2019 Staph aureus. Blood culture 08/15/2019 no growth so far. The patient was admitted with diagnosis of severe sepsis, present on admission, toxic metabolic encephalopathy, acute kidney injury, complicated influenza with pneumonia, acute hypoxemic respiratory failure, elevated LFTs from sepsis and EtOH abuse. The patient had a prolonged hospital course with difficulty weaning off the ventilator. Patient was eventually weaned and transferred to the floor but required large amounts of oxygen. Patient had most likely underlying COPD with 45 pack year history of smoking. Patient reportedly smoked 1 pack/day since the age of 13. Pulmonary, nephrology, infectious disease saw the patient in consultation. Patient was found to have MRSA pneumonia but blood cultures remain negative. Antibiotics were discontinued by infectious disease. Patient's oxygen was eventually weaned off where he maintain saturations greater than 92% on room air. Renal function returned back to his baseline of likely chronic kidney disease with a creatinine of 1.7. All the consultants felt the patient could be discharged. Patient was stabilized to the point back to his baseline and felt received maximal hospital benefit for discharge. Therefore, patient will be discharged home. Dedicated discharge time 32 minutes Disposition: [id number] TO HOME OR SELFCARE Time spent for discharge: 32 - Discharge Diagnoses (1) Acute on chronic respiratory failure with hypoxemia Status: Acute (2) Acute renal failure Status: Acute Qualifiers: Acute renal failure type: with acute tubular necrosis Qualified Code(s): N17.0 - Acute kidney failure with tubular necrosis (3) Diabetes 1.5, managed as type 2 Status: Acute (4) Encephalopathy Status: Acute (5) Hypernatremia Status: Acute (6) Respiratory failure, acute Status: Acute (7) Sepsis Status: Acute Qualifiers: Severe sepsis shock status: unspecified Core Measure Documentation - Palliative Care Palliative Care/ Comfort Measures: Not Applicable - Core Measures Any of the following diagnoses?: none Exam - Constitutional Vitals: Temp Pulse Resp BP Pulse Ox 98.6 F 88 17 153/89 92 09/01/19 07:48 09/01/19 13:38 09/01/19 13:38 09/01/19 07:48 09/01/19 08:24 General appearance: Present: no acute distress, well-nourished - EENT Eyes: Present: PERRL ENT: hearing intact, clear oral mucosa - Neck Neck: Present: supple, normal ROM - Respiratory Respiratory effort: normal Respiratory: bilateral: CTA - Cardiovascular Heart Sounds: Present: S1 & S2. Absent: rub, click - Extremities Extremities: pulses symmetrical, No edema Peripheral Pulses: within normal limits - Abdominal General gastrointestinal: Present: soft, non-tender, non-distended, normal bowel sounds Male genitourinary: Present: normal - Integumentary Integumentary: Present: clear, warm, dry - Musculoskeletal Musculoskeletal: gait normal, strength equal bilaterally - Psychiatric Psychiatric: appropriate mood/affect, intact judgment & insight - Neurologic Neurologic: CNII-XII intact, moves all extremities Plan Activity: advance as tolerated Weight Bearing Status: Weight Bear as Tolerated Diet: diabetic Follow up with: ELIJAH LARSON [Other] - 3-5 Days RJ FELIX MD [Staff Physician] - 7 Days KENNETH ROMERO MD [Staff Physician] - 7 Days GEORGE HIRSCH MD [Staff Physician] - 7 Days Prescriptions: amLODIPine 10 mg PO DAILY #30 tab Triamter/Hctz 37.5-25 mg [Maxzide-25] 1 tab PO QDAY #30 methylPREDNISolone [Medrol 4MG DOSEPAK (21 tabs)] 4 mg PO QAM #1 tab.ds.pk Rosuvastatin Calcium 20 mg PO QDAY #30 Trandolapril/Verapamil HCl [[place] ER 4-240 mg] 4 mg PO QDAY #30 Terazosin HCl 2 mg PO QDAY #30 cap
--- NOTE | 2019-09-01 14:44 | Progress Note ---
Assessment and Plan Patient 68yo male w/ history of hypertension presenting with acute hypoxic respiratory failure on MVS, bilateral alveolar infiltrates, morbid obesity, influenza infection, and CLAUDETTE. Patient alert and sitting in bed. He is currently on 4 liters of oxygen with O2 saturation 94%. Denies being on home oxygen. Quit smoking cigarettes 30 years ago with a 20 pack year history. 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 Patient going on BIPAP during night time. Recommend PFTs and sleep study as out patient. - Patient Problems (1) Acute on chronic respiratory failure with hypoxemia Current Visit: Yes Status: Acute Plan to address problem: on 4 liters oxygen via nasal canula. current O2 Saturation 94% BIPAP during night time. Albuterol/atrovent aerosol treatments q 6 hours. Continue I/V solumedrol. Continue S/C Heparin. Continue famotidine. (2) Acute renal failure Current Visit: Yes Status: Acute Qualifiers: Qualified Code(s): N17.0 - Acute kidney failure with tubular necrosis Plan to address problem: Management as per nephrology. (3) Encephalopathy Current Visit: Yes Status: Acute Plan to address problem: Management as per primary care and neurology. (4) Nicotine dependence Current Visit: Yes Status: Acute Plan to address problem: Patient said stopped smoking 30 years ago. Subjective Date of service: 09/01/19 Principal diagnosis: respiratory failure Interval history: Patient 68yo male w/ history of hypertension presenting with acute hypoxic respiratory failure on MVS, bilateral alveolar infiltrates, morbid obesity, influenza infection, and CLAUDETTE. Patient alert and sitting in bed. He is currently on 4 liters of oxygen with O2 saturation 94%. Denies being on home oxygen. Damian t smoking cigarettes 30 years ago with a 20 pack year history. 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 Patient going on BIPAP during night time. Recommend PFTs and sleep study as out patient. Objective Vital Signs - 12hr 09/01/19 09/01/19 09/01/19 04:16 07:48 08:00 Temperature 97.8 F 98.6 F Pulse Rate 77 70 Pulse Rate [ 85 Anterior Bilateral] Respiratory 21 20 Rate Respiratory 18 Rate [Anterior Bilateral] Blood Pressure 150/91 153/89 O2 Sat by Pulse 93 94 Oximetry 09/01/19 09/01/19 09/01/19 08:15 08:24 08:37 Temperature Pulse Rate 72 Pulse Rate [ Anterior Bilateral] Respiratory 22 Rate Respiratory Rate [Anterior Bilateral] Blood Pressure O2 Sat by Pulse 96 92 Oximetry 09/01/19 13:38 Temperature Pulse Rate Pulse Rate [ 88 Anterior Bilateral] Respiratory Rate Respiratory 17 Rate [Anterior Bilateral] Blood Pressure O2 Sat by Pulse Oximetry Constitutional: no acute distress, alert Eyes: non-icteric ENT: oropharynx moist Neck: supple, no lymphadenopathy, no JVD Effort: normal Ascultation: Bilateral: diminished breath sounds, rhonchi Percussion: Bilateral: not dull Cardiovascular: regular rate and rhythm, other (S1,S2) Gastrointestinal: normoactive bowel sounds, soft, non-tender, other (distended) Integumentary: normal Extremities: no cyanosis, no edema, pink and warm, pulses normal Neurologic: non-focal exam, pupils equal and round, motor strength normal and, other (agitation and confusion) Psychiatric: anxious CBC and BMP: 08/27/19 07:45 08/29/19 15:10 ABG, PT/INR, D-dimer: ABG POC ABG pH 7.359 (7.35-7.45) 08/24/19 12:30 ABG pH 7.314 pH Units (7.350-7.450) L 08/21/19 04:40 POC ABG pCO2 54.7 (35-45) H 08/24/19 12:30 ABG pCO2 54.6 mm Hg 08/21/19 04:40 POC ABG pO2 63 (80-105) L 08/24/19 12:30 ABG pO2 78.3 mm Hg (80.0-90.0) L 08/21/19 04:40 POC ABG HCO3 30.8 (22-26 mml/L) 08/24/19 12:30 POC ABG Total CO2 32 (23-27mmol/L) 08/24/19 12:30 POC ABG O2 Sat 90 08/24/19 12:30 ABG O2 Saturation 94.8 % (95.0-99.0) L 08/21/19 04:40 Abnormal lab findings: Abnormal Labs 08/15/19 08/15/19 08/15/19 13:16 13:16 17:16 WBC 14.7 H Hgb Hct RDW 17.3 H Plt Count Lymph % (Auto) Gilliam % (Auto) 11.3 H Lymph # Gilliam # 1.7 H Seg Neutrophils % 71.9 H Seg Neuts % (Manual) Lymphocytes % (Manual) Monocytes % (Manual) Nucleated RBC % Seg Neutrophils # 10.6 H Monocytes # (Manual) POC ABG pH 7.182 L ABG pH POC ABG pCO2 > 70 H POC ABG pO2 ABG pO2 ABG HCO3 ABG O2 Saturation ABG Hemoglobin Oxyhemoglobin Sodium Chloride Carbon Dioxide BUN 28 H Creatinine 1.9 H Glucose 133 H POC Glucose Calcium Total Bilirubin 1.50 H AST 82 H Albumin 3.6 L Urine WBC (Auto) 08/15/19 08/16/19 08/16/19 18:17 03:41 03:41 WBC Hgb 11.6 L Hct 34.3 L D RDW 17.4 H Plt Count 119 L Lymph % (Auto) 11.4 L Gilliam % (Auto) 11.6 H Lymph # 1.0 L Gilliam # 1.1 H Seg Neutrophils % 76.9 H Seg Neuts % (Manual) Lymphocytes % (Manual) Monocytes % (Manual) Nucleated RBC % Seg Neutrophils # Monocytes # (Manual) POC ABG pH 7.280 L ABG pH POC ABG pCO2 64.7 H POC ABG pO2 64 L ABG pO2 ABG HCO3 ABG O2 Saturation ABG Hemoglobin Oxyhemoglobin Sodium Chloride 107.1 H Carbon Dioxide BUN 34 H Creatinine 2.4 H Glucose 138 H POC Glucose Calcium 7.2 L D Total Bilirubin AST Albumin Urine WBC (Auto) 08/16/19 08/16/19 08/16/19 06:27 11:19 14:40 WBC Hgb Hct RDW Plt Count Lymph % (Auto) Gilliam % (Auto) Lymph # Gilliam # Seg Neutrophils % Seg Neuts % (Manual) Lymphocytes % (Manual) Monocytes % (Manual) Nucleated RBC % Seg Neutrophils # Monocytes # (Manual) POC ABG pH 7.336 L ABG pH POC ABG pCO2 47.9 H 48.7 H POC ABG pO2 69 L 130 H ABG pO2 ABG HCO3 ABG O2 Saturation ABG Hemoglobin Oxyhemoglobin Sodium Chloride Carbon Dioxide BUN Creatinine Glucose POC Glucose Calcium Total Bilirubin AST Albumin Urine WBC (Auto) 8.0 H 08/17/19 08/17/19 08/17/19 05:31 05:31 06:30 WBC Hgb 11.5 L Hct 34.3 L RDW 17.3 H Plt Count Lymph % (Auto) Gilliam % (Auto) 13.5 H Lymph # Gilliam # 1.3 H Seg Neutrophils % 70.7 H Seg Neuts % (Manual) Lymphocytes % (Manual) Monocytes % (Manual) Nucleated RBC % Seg Neutrophils # Monocytes # (Manual) POC ABG pH ABG pH POC ABG pCO2 POC ABG pO2 ABG pO2 116.6 H ABG HCO3 ABG O2 Saturation ABG Hemoglobin 13.9 L Oxyhemoglobin Sodium 146 H Chloride 112.1 H Carbon Dioxide BUN 47 H Creatinine 3.2 H Glucose POC Glucose Calcium 7.7 L Total Bilirubin AST Albumin Urine WBC (Auto) 08/17/19 08/18/19 08/18/19 20:31 04:20 04:20 WBC Hgb 11.4 L Hct 34.3 L RDW 17.3 H Plt Count 137 L Lymph % (Auto) Gilliam % (Auto) Lymph # Gilliam # Seg Neutrophils % Seg Neuts % (Manual) 79.0 H Lymphocytes % (Manual) 13.0 L Monocytes % (Manual) 8.0 H Nucleated RBC % 1.0 H Seg Neutrophils # Monocytes # (Manual) POC ABG pH ABG pH POC ABG pCO2 POC ABG pO2 78 L ABG pO2 ABG HCO3 ABG O2 Saturation ABG Hemoglobin Oxyhemoglobin Sodium 148 H Chloride 112.3 H Carbon Dioxide 20 L BUN 40 H Creatinine 3.1 H Glucose 109 H POC Glucose Calcium 7.9 L Total Bilirubin AST Albumin Urine WBC (Auto) 08/18/19 08/18/19 08/19/19 06:45 23:19 04:30 WBC Hgb Hct RDW Plt Count Lymph % (Auto) Gilliam % (Auto) Lymph # Gilliam # Seg Neutrophils % Seg Neuts % (Manual) Lymphocytes % (Manual) Monocytes % (Manual) Nucleated RBC % Seg Neutrophils # Monocytes # (Manual) POC ABG pH ABG pH POC ABG pCO2 45.2 H POC ABG pO2 55 L ABG pO2 72.2 L ABG HCO3 26.1 H ABG O2 Saturation 94.4 L ABG Hemoglobin 11.5 L Oxyhemoglobin 92.6 L Sodium Chloride Carbon Dioxide BUN Creatinine Glucose POC Glucose 158 H Calcium Total Bilirubin AST Albumin Urine WBC (Auto) 08/19/19 08/19/19 08/19/19 05:15 05:15 05:28 WBC Hgb 11.3 L Hct 34.4 L RDW 17.1 H Plt Count Lymph % (Auto) Gilliam % (Auto) Lymph # Gilliam # Seg Neutrophils % Seg Neuts % (Manual) Lymphocytes % (Manual) Monocytes % (Manual) 12.0 H Nucleated RBC % Seg Neutrophils # Monocytes # (Manual) 1.0 H POC ABG pH ABG pH POC ABG pCO2 POC ABG pO2 ABG pO2 ABG HCO3 ABG O2 Saturation ABG Hemoglobin Oxyhemoglobin Sodium 149 H Chloride 115.0 H Carbon Dioxide 21 L BUN 32 H Creatinine 2.7 H Glucose 112 H POC Glucose 113 H Calcium 7.8 L Total Bilirubin AST Albumin Urine WBC (Auto) 08/19/19 08/19/19 08/19/19 13:00 17:46 22:45 WBC Hgb Hct RDW Plt Count Lymph % (Auto) Gilliam % (Auto) Lymph # Gilliam # Seg Neutrophils % Seg Neuts % (Manual) Lymphocytes % (Manual) Monocytes % (Manual) Nucleated RBC % Seg Neutrophils # Monocytes # (Manual) POC ABG pH ABG pH POC ABG pCO2 POC ABG pO2 ABG pO2 ABG HCO3 ABG O2 Saturation ABG Hemoglobin Oxyhemoglobin Sodium Chloride Carbon Dioxide BUN Creatinine Glucose POC Glucose 126 H 112 H 172 H Calcium Total Bilirubin AST Albumin Urine WBC (Auto) 08/20/19 08/20/19 08/20/19 04:00 05:02 05:02 WBC Hgb 11.1 L Hct 33.4 L RDW 17.1 H Plt Count Lymph % (Auto) 11.2 L Gilliam % (Auto) 12.3 H Lymph # Gilliam # 1.3 H Seg Neutrophils % 74.9 H Seg Neuts % (Manual) Lymphocytes % (Manual) Monocytes % (Manual) Nucleated RBC % Seg Neutrophils # 7.8 H Monocytes # (Manual) POC ABG pH ABG pH POC ABG pCO2 45.1 H POC ABG pO2 70 L ABG pO2 ABG HCO3 ABG O2 Saturation ABG Hemoglobin Oxyhemoglobin Sodium 146 H Chloride 111.7 H Carbon Dioxide BUN 27 H Creatinine 2.4 H Glucose 123 H POC Glucose Calcium 8.1 L Total Bilirubin AST Albumin Urine WBC (Auto) 08/20/19 08/20/19 08/20/19 05:51 11:39 18:26 WBC Hgb Hct RDW Plt Count Lymph % (Auto) Gilliam % (Auto) Lymph # Gilliam # Seg Neutrophils % Seg Neuts % (Manual) Lymphocytes % (Manual) Monocytes % (Manual) Nucleated RBC % Seg Neutrophils # Monocytes # (Manual) POC ABG pH ABG pH POC ABG pCO2 POC ABG pO2 ABG pO2 ABG HCO3 ABG O2 Saturation ABG Hemoglobin Oxyhemoglobin Sodium Chloride Carbon Dioxide BUN Creatinine Glucose POC Glucose 108 H 116 H 137 H Calcium Total Bilirubin AST Albumin Urine WBC (Auto) 08/21/19 08/21/19 08/21/19 04:40 05:25 05:56 WBC Hgb Hct RDW Plt Count Lymph % (Auto) Gilliam % (Auto) Lymph # Gilliam # Seg Neutrophils % Seg Neuts % (Manual) Lymphocytes % (Manual) Monocytes % (Manual) Nucleated RBC % Seg Neutrophils # Monocytes # (Manual) POC ABG pH ABG pH 7.314 L POC ABG pCO2 POC ABG pO2 ABG pO2 78.3 L ABG HCO3 27.1 H ABG O2 Saturation 94.8 L ABG Hemoglobin 10.5 L Oxyhemoglobin 93.0 L Sodium 147 H Chloride 110.7 H Carbon Dioxide BUN 30 H Creatinine 2.4 H Glucose 144 H POC Glucose 129 H Calcium 8.0 L Total Bilirubin AST Albumin Urine WBC (Auto) 08/21/19 08/22/19 08/22/19 12:39 00:08 03:45 WBC Hgb Hct RDW Plt Count Lymph % (Auto) Gilliam % (Auto) Lymph # Gilliam # Seg Neutrophils % Seg Neuts % (Manual) Lymphocytes % (Manual) Monocytes % (Manual) Nucleated RBC % Seg Neutrophils # Monocytes # (Manual) POC ABG pH ABG pH POC ABG pCO2 POC ABG pO2 ABG pO2 ABG HCO3 ABG O2 Saturation ABG Hemoglobin Oxyhemoglobin Sodium 147 H Chloride 110.6 H Carbon Dioxide BUN 36 H Creatinine 2.4 H Glucose 195 H POC Glucose 193 H 173 H Calcium 8.1 L Total Bilirubin AST Albumin Urine WBC (Auto) 08/22/19 08/22/19 08/22/19 05:19 05:41 11:20 WBC Hgb Hct RDW Plt Count Lymph % (Auto) Gilliam % (Auto) Lymph # Gilliam # Seg Neutrophils % Seg Neuts % (Manual) Lymphocytes % (Manual) Monocytes % (Manual) Nucleated RBC % Seg Neutrophils # Monocytes # (Manual) POC ABG pH 7.328 L ABG pH POC ABG pCO2 53.0 H 49.7 H POC ABG pO2 75 L 62 L ABG pO2 ABG HCO3 ABG O2 Saturation ABG Hemoglobin Oxyhemoglobin Sodium Chloride Carbon Dioxide BUN Creatinine Glucose POC Glucose 176 H Calcium Total Bilirubin AST Albumin Urine WBC (Auto) 08/22/19 08/22/19 08/23/19 11:22 16:58 04:14 WBC Hgb Hct RDW Plt Count Lymph % (Auto) Gilliam % (Auto) Lymph # Gilliam # Seg Neutrophils % Seg Neuts % (Manual) Lymphocytes % (Manual) Monocytes % (Manual) Nucleated RBC % Seg Neutrophils # Monocytes # (Manual) POC ABG pH ABG pH POC ABG pCO2 POC ABG pO2 ABG pO2 ABG HCO3 ABG O2 Saturation ABG Hemoglobin Oxyhemoglobin Sodium Chloride Carbon Dioxide BUN 41 H Creatinine 2.3 H Glucose 174 H POC Glucose 217 H 174 H Calcium Total Bilirubin AST Albumin Urine WBC (Auto) 08/23/19 08/23/19 08/23/19 04:14 05:01 12:05 WBC 14.7 H Hgb 11.5 L Hct 35.2 L RDW 16.5 H Plt Count Lymph % (Auto) Gilliam % (Auto) Lymph # Gilliam # Seg Neutrophils % Seg Neuts % (Manual) Lymphocytes % (Manual) Monocytes % (Manual) Nucleated RBC % Seg Neutrophils # Monocytes # (Manual) POC ABG pH ABG pH POC ABG pCO2 45.4 H POC ABG pO2 ABG pO2 ABG HCO3 ABG O2 Saturation ABG Hemoglobin Oxyhemoglobin Sodium Chloride Carbon Dioxide BUN Creatinine Glucose POC Glucose 159 H Calcium Total Bilirubin AST Albumin Urine WBC (Auto) 08/23/19 08/23/19 08/24/19 12:53 18:51 06:33 WBC Hgb Hct RDW Plt Count Lymph % (Auto) Gilliam % (Auto) Lymph # Gilliam # Seg Neutrophils % Seg Neuts % (Manual) Lymphocytes % (Manual) Monocytes % (Manual) Nucleated RBC % Seg Neutrophils # Monocytes # (Manual) POC ABG pH ABG pH POC ABG pCO2 POC ABG pO2 ABG pO2 ABG HCO3 ABG O2 Saturation ABG Hemoglobin Oxyhemoglobin Sodium Chloride Carbon Dioxide BUN Creatinine Glucose POC Glucose 191 H 142 H 118 H Calcium Total Bilirubin AST Albumin Urine WBC (Auto) 01/05/20 01/05/20 01/05/20 08:16 08:16 11:56 WBC 13.3 H Hgb 11.5 L Hct 34.1 L RDW 16.6 H Plt Count Lymph % (Auto) Gilliam % (Auto) Lymph # [place]illi[place] # Seg Neutrophils % Seg Neuts % (Manual) Lymphocytes % (Manual) Monocytes % (Manual) Nucleated RBC % Seg Neutrophils # Monocytes # (Manual) POC ABG pH ABG pH POC ABG pCO2 POC ABG pO2 ABG pO2 ABG HCO3 ABG O2 Saturation ABG Hemoglobin Oxyhemoglobin Sodium Chloride Carbon Dioxide BUN 50 H Creatinine 2.3 H Glucose 121 H POC Glucose 115 H Calcium Total Bilirubin AST Albumin Urine WBC (Auto) 08/24/19 08/25/19 08/26/19 12:30 12:34 08:23 WBC 13.2 H Hgb 11.4 L Hct 34.6 L RDW 16.1 H Plt Count Lymph % (Auto) Gilliam % (Auto) Lymph # [place]illiam # Seg Neutrophils % Seg Neuts % (Manual) Lymphocytes % (Manual) Monocytes % (Manual) Nucleated RBC % Seg Neutrophils # Monocytes # (Manual) POC ABG pH ABG pH POC ABG pCO2 54.7 H POC ABG pO2 63 L ABG pO2 ABG HCO3 ABG O2 Saturation ABG Hemoglobin Oxyhemoglobin Sodium Chloride Carbon Dioxide BUN Creatinine Glucose POC Glucose 167 H Calcium Total Bilirubin AST Albumin Urine WBC (Auto) 08/26/19 08/26/19 08/26/19 08:23 10:18 12:24 WBC Hgb Hct RDW Plt Count Lymph % (Auto) Gilliam % (Auto) Lymph # [place]illi[place] # Seg Neutrophils % Seg Neuts % (Manual) Lymphocytes % (Manual) Monocytes % (Manual) Nucleated RBC % Seg Neutrophils # Monocytes # (Manual) POC ABG pH ABG pH POC ABG pCO2 POC ABG pO2 ABG pO2 ABG HCO3 ABG O2 Saturation ABG Hemoglobin Oxyhemoglobin Sodium 148 H Chloride 108.1 H Carbon Dioxide BUN 46 H Creatinine 2.0 H Glucose 112 H POC Glucose 160 H 139 H Calcium Total Bilirubin AST Albumin Urine WBC (Auto) 08/26/19 08/27/19 08/27/19 17:45 07:45 07:45 WBC 11.6 H Hgb 11.4 L Hct 34.3 L RDW 16.1 H Plt Count Lymph % (Auto) 5.7 L Gilliam % (Auto) Lymph # 0.7 L Gilliam # Seg Neutrophils % 88.4 H Seg Neuts % (Manual) Lymphocytes % (Manual) Monocytes % (Manual) Nucleated RBC % Seg Neutrophils # 10.2 H Monocytes # (Manual) POC ABG pH ABG pH POC ABG pCO2 POC ABG pO2 ABG pO2 ABG HCO3 ABG O2 Saturation ABG Hemoglobin Oxyhemoglobin Sodium Chloride Carbon Dioxide BUN 44 H Creatinine 2.0 H Glucose 143 H POC Glucose 188 H Calcium 8.0 L Total Bilirubin AST Albumin Urine WBC (Auto) 08/29/19 15:10 WBC Hgb Hct RDW Plt Count Lymph % (Auto) [place]illiam % (Auto) Lymph # [place] # Seg Neutrophils % Seg Neuts % (Manual) Lymphocytes % (Manual) Monocytes % (Manual) Nucleated RBC % Seg Neutrophils # Monocytes # (Manual) POC ABG pH ABG pH POC ABG pCO2 POC ABG pO2 ABG pO2 ABG HCO3 ABG O2 Saturation ABG Hemoglobin Oxyhemoglobin Sodium Chloride Carbon Dioxide BUN 32 H Creatinine 1.7 H Glucose 172 H POC Glucose Calcium 8.0 L Total Bilirubin AST Albumin Urine WBC (Auto) Allied health notes reviewed: RT
== END 2019-09-01 17:39 | disposition home health service (06) | DRG 870 ==
LOC: ED 13:03 → CC1 16:00 → 4A 08-25 20:42
PROVIDERS: ADMIT Internal Medicine; ATTEND Hospitalist
PROC: 5A1955Z Respiratory Ventilation, Greater than 96 Consecutive Hours (ICD-10-PCS; 2019-08-15)
PROC: 0BH17EZ Insertion of Endotracheal Airway into Trachea, Via Natural or Artificial Opening (ICD-10-PCS; 2019-08-15)
PROC: 5A09357 Assistance with Respiratory Ventilation, Less than 24 Consecutive Hours, Continuous Positive Airway Pressure (ICD-10-PCS; 2019-08-15)
PROC: 4A033R1 Measurement of Arterial Saturation, Peripheral, Percutaneous Approach (ICD-10-PCS; principal; 2019-08-16)
PROC: 5A09357 Assistance with Respiratory Ventilation, Less than 24 Consecutive Hours, Continuous Positive Airway Pressure (ICD-10-PCS; 2019-08-23)
PROC: 5A09357 Assistance with Respiratory Ventilation, Less than 24 Consecutive Hours, Continuous Positive Airway Pressure (ICD-10-PCS; 2019-08-24)
PROC: 5A09357 Assistance with Respiratory Ventilation, Less than 24 Consecutive Hours, Continuous Positive Airway Pressure (ICD-10-PCS; 2019-08-25)
PROC: 5A09357 Assistance with Respiratory Ventilation, Less than 24 Consecutive Hours, Continuous Positive Airway Pressure (ICD-10-PCS; 2019-08-26)
PROC: 5A09357 Assistance with Respiratory Ventilation, Less than 24 Consecutive Hours, Continuous Positive Airway Pressure (ICD-10-PCS; 2019-08-29)
PROC: 5A09357 Assistance with Respiratory Ventilation, Less than 24 Consecutive Hours, Continuous Positive Airway Pressure (ICD-10-PCS; 2019-08-31)
PROC: 5A09357 Assistance with Respiratory Ventilation, Less than 24 Consecutive Hours, Continuous Positive Airway Pressure (ICD-10-PCS; 2019-09-01)
DX: A41.9 Sepsis, unspecified organism (principal); J96.21 Acute and chronic respiratory failure with hypoxia; J96.22 Acute and chronic respiratory failure with hypercapnia; N17.0 Acute kidney failure with tubular necrosis; G92 Toxic encephalopathy; J11.08 Influenza due to unidentified influenza virus with specified pneumonia; J15.212 Pneumonia due to Methicillin resistant Staphylococcus aureus; E87.0 Hyperosmolality and hypernatremia; E87.2 Acidosis; R65.20 Severe sepsis without septic shock; E66.01 Morbid (severe) obesity due to excess calories; F10.20 Alcohol dependence, uncomplicated; I12.9 Hypertensive chronic kidney disease with stage 1 through stage 4 chronic kidney disease, or unspecified chronic kidney disease; N18.9 Chronic kidney disease, unspecified; E11.22 Type 2 diabetes mellitus with diabetic chronic kidney disease; J44.9 Chronic obstructive pulmonary disease, unspecified; I16.0 Hypertensive urgency; D69.6 Thrombocytopenia, unspecified; D64.9 Anemia, unspecified; F17.210 Nicotine dependence, cigarettes, uncomplicated; Z68.31 Body mass index [BMI] 31.0-31.9, adult; Z71.6 Tobacco abuse counseling; Z82.49 Family history of ischemic heart disease and other diseases of the circulatory system; Z86.711 Personal history of pulmonary embolism
CPT/HCPCS: 31500; 36415; 36600; 70450; 71045; 74018; 76770; 80048; 80053; 80202; 81001; 82140; 82803; 82962; 83036; 83930; 84484; 85007; 85025; 85027; 87040; 87070; 87076; 87086; 87186; 87205; 93306; 94002; 94003; 94640; 94644; 94660; 94760; G0378; A9270-GY; J0360; J0456; J0696; J1644; J1940; J2020; J2060; J2250; J2704; J2920; J2930; J3010; J3370; J3411; J3475; J7030; J7040; J7050; J7070